=== PATIENT | female | born 1995 | race Caucasian/White ===

== ENCOUNTER 2023-05-06 13:02 | Outpatient (OUT) | payer OTHER, SELFPAY ==
--- NOTE | 2023-05-06 13:05 | US_ITS ---
The [address] [address] Patient Name: ALYSON COOK MRN: [id number] date: 1995 Sex: F Assigned Patient Location: US Current Patient Location: LAB Accession/Order Number: [id number] Exam Date: 05/06/2023 13:05 Report Date: 05/06/2023 16:07 At the request of: JAYDEN FORMAN Procedure: US OB transvaginal EXAMINATION: US OB transvaginal HISTORY: MISSED MENSES COMPARISON: No relevant comparison available. FINDINGS: GESTATIONAL SAC: Present YOLK SAC: Present POLE: Possibly present and very early. CARDIAC: Not applicable UTERUS: Normal size and appearance. OVARIES: Right: Normal. Left: Not seen. CERVIX: 4.6 cm in length and closed. CUL-DE-SAC: Normal. OTHER: None. AGE BY LMP: 9 weeks 2 days MARIANA BY LMP: 12/07/2023 AGE BY US CRL: Suspect 6 weeks 0 days MARIANA BY US CRL: 12/30/2023 US/US OB transvaginal IMPRESSION: 1. Suspect early intrauterine . Blighted ovum is felt less likely. Follow-up recommended. Electronically authenticated by: PAULY KEARNS Date: 05/06/2023 16:07
== END 2023-05-06 13:03 | disposition home or self-care (01) ==
LOC: US 13:02
PROVIDERS: Visit Provider Obstetrics & Gynecology
DX: N92.6 Irregular menstruation, unspecified (principal)
CPT/HCPCS: 36415; 76817; 84702

== ENCOUNTER 2023-05-06 13:51 | Outpatient (OUT) | payer OTHER, SELFPAY ==
[2023-05-06 15:00] LABS: HCG Quantitative 62313 mIU/mL
== END 2023-05-06 13:52 | disposition home or self-care (01) ==
LOC: LAB 13:54
PROVIDERS: PCP Family Medicine; Visit Provider Obstetrics & Gynecology
DX: N92.6 Irregular menstruation, unspecified (principal)
CPT/HCPCS: 36415; 84702

== ENCOUNTER 2023-05-13 08:57 | Outpatient (OUT) | payer OTHER, SELFPAY ==
--- NOTE | 2023-05-13 09:04 | US_ITS ---
The [address] [address] Patient Name: ALYSON COOK MRN: [id number] date: 1995 Sex: F Assigned Patient Location: US Current Patient Location: LAB Accession/Order Number: [id number] Exam Date: 05/13/2023 09:04 Report Date: 05/13/2023 11:43 At the request of: JAYDEN JORDAN Procedure: US OB transvaginal EXAMINATION: US OB transvaginal HISTORY: VIABILITY COMPARISON: Ultrasound OB transvaginal 05/06/2023 FINDINGS: GESTATIONAL SAC: Present YOLK SAC: Present POLE: Absent CARDIAC: Not applicable UTERUS: Normal size and appearance. OVARIES: Right: Normal. Left: Normal. CERVIX: 4.0 cm in length and closed. CUL-DE-SAC: Normal. OTHER: None. AGE BY LMP: 10 weeks 2 days MARIANA BY LMP: 12/07/2023 AGE BY US CRL: 7 weeks 2 days MARIANA BY US CRL: 12/28/2023 US/US OB transvaginal IMPRESSION: 1. Intrauterine with no significant growth and no visible pole. Findings favor blighted ovum/ demise. Dr. Jordan was notified of these findings by the group leader at time of imaging. Electronically authenticated by: PAULY KEARNS Date: 05/13/2023 11:43
== END 2023-05-13 08:58 | disposition home or self-care (01) ==
LOC: US 08:57
PROVIDERS: PCP Family Medicine; Visit Provider Obstetrics & Gynecology
DX: O03.9 Complete or unspecified spontaneous abortion without complication (principal)
CPT/HCPCS: 76817

== ENCOUNTER 2023-05-13 10:42 | Outpatient (OUT) | payer OTHER, SELFPAY ==
[2023-05-13 11:05] LABS: Basophils Absolute Auto 0.1 10^3/uL (0.0-0.1); Basophils Percent Auto 0.7 % (0.2-2.0); Eosinophils Absolute Auto 0.2 10^3/uL (0.0-0.7); Eosinophils Percent Auto 2.8 % (0.9-7.0); Hematocrit 36.1 % (36.0-48.0); Hemoglobin 11.8 g/dL (12.0-16.0); Immature Granulocytes Abs Auto 0.01 10^3/uL (0.00-0.03); Immature Granulocytes Pct Auto 0.1 % (0.0-0.5); Lymphocytes Absolute Auto 1.7 10^3/uL (1.2-3.8); Lymphocytes Percent Auto 23.8 % (20.5-60.0); Mean Corpuscular HGB Conc 32.7 g/dL (29.9-35.2); Mean Corpuscular Hemoglobin 29.9 pg (26.7-34.0); Mean Corpuscular Volume 91.6 fL (81.0-99.0); Mean Platelet Volume 10.1 fL (9.5-13.5); Monocytes Absolute Auto 0.4 10^3/uL (0.3-0.8); Monocytes Percent Auto 6.1 % (1.7-12.0); Neutrophils Absolute Auto 4.8 10^3/uL (1.4-6.5); Neutrophils Percent Auto 66.5 % (43.0-75.0); Platelet Count 256 10^3/uL (150-450); Red Blood Count 3.94 10^6/uL (4.20-5.40); Red Cell Distribution Width 13.2 % (11.0-15.0); White Blood Count 7.2 10^3/uL (4.0-11.0)
== END 2023-05-13 10:43 | disposition home or self-care (01) ==
LOC: LAB 10:43
PROVIDERS: PCP Family Medicine; Visit Provider Obstetrics & Gynecology
DX: O03.9 Complete or unspecified spontaneous abortion without complication (principal); N92.6 Irregular menstruation, unspecified
CPT/HCPCS: 36415; 76817; 85025; 86850; 86900; 86901

== ENCOUNTER 2023-05-14 06:09 | Day surgery (SDC) | payer OTHER, SELFPAY ==
[2023-05-14] VITALS (8 sets, daily range): BP systolic 110–134; BP diastolic 71–91; PULSE 60–76; RESP 12–20; TEMP 36.1–36.6; O2SAT 94–100; BMI 42.4
[2023-05-14 06:32] LABS: Basophils Percent Auto 0.5 % (0.2-2.0); Eosinophils Absolute Auto 0.1 10^3/uL (0.0-0.7); Eosinophils Percent Auto 2.5 % (0.9-7.0); Hematocrit 37.1 % (36.0-48.0); Immature Granulocytes Abs Auto 0.02 10^3/uL (0.00-0.03); Immature Granulocytes Pct Auto 0.4 % (0.0-0.5); Lymphocytes Absolute Auto 1.3 10^3/uL (1.2-3.8); Lymphocytes Percent Auto 23.8 % (20.5-60.0); Mean Corpuscular HGB Conc 32.3 g/dL (29.9-35.2); Mean Corpuscular Hemoglobin 29.8 pg (26.7-34.0); Mean Corpuscular Volume 92.1 fL (81.0-99.0); Monocytes Absolute Auto 0.4 10^3/uL (0.3-0.8); Monocytes Percent Auto 6.7 % (1.7-12.0); Neutrophils Absolute Auto 3.7 10^3/uL (1.4-6.5); Neutrophils Percent Auto 66.1 % (43.0-75.0); Platelet Count 249 10^3/uL (150-450); Red Blood Count 4.03 10^6/uL (4.20-5.40); Red Cell Distribution Width 13.4 % (11.0-15.0); White Blood Count 5.6 10^3/uL (4.0-11.0)
[2023-05-14] MEDS: LACTATED RINGER'S SOLUTION 1,000 ML 50 ML IV (06:58)
--- NOTE | 2023-05-14 08:02 | P.ON_ITS ---
Brief Operative Note Date of procedure: 05/14/23 Pre-op diagnosis: missed menses Post-op diagnosis: same as pre-op Procedure: NAME OF PROCEDURE: [D&C suction ] PROCEDURE: The patient was taken back to the OR where she was given general anesthesia without difficulty. She was then placed in dorsal lithotomy position, prepped and draped in the normal sterile fashion. A weighted speculum was placed in the patient's vagina and the anterior lip of the cervix was identified and grasped with a single-tooth tenaculum. The patient was then gently dilated using Hegar dilators after we had sounded roughly to 8 cm. The suction curette was then t ested. The suction curette was then placed in the patient's uterus and products of conception were removed using an 8-Icelandic suction curette. ?Excellent hemostasis was noted. The patient tolerated the procedure well. Sponge, lap, and needle counts were correct x 2. All instruments were then removed from the patient's vagina. The patient was taken to the Recovery Room in stable condition. ?? Anesthesia: EMILYA Surgeon: Jose Luis Jordan Estimated blood loss (mL): 25 Condition: stable Disposition: PACU
--- NOTE | 2023-05-14 08:19 | PC.NURSE ---
Peripad dry; teary eyed
--- NOTE | 2023-05-14 08:23 | PC.NURSE ---
Peripad dry ; heat pack over gown to abdomen
== END 2023-05-14 09:10 | disposition home or self-care (01) ==
PROVIDERS: PCP Family Medicine; Visit Provider Obstetrics & Gynecology
PROC: (CPT 59820; principal; 2023-05-14 07:30)
DX: O02.1 Missed abortion (principal)
CPT/HCPCS: 59820; 36415; 85025; 88305; J2704

== ENCOUNTER 2023-07-19 14:39 | Outpatient (OUT) | payer OTHER, SELFPAY ==
[2023-07-19 15:40] LABS: HCG Quantitative 687 mIU/mL
--- OUTSIDE RECORDS SUMMARY | 2023-08-11 00:12 | XMS_ITS | CCD ---
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 Phone JENS LANDRY Admitting Unavailable JENS LANDRY Attending Unavailable REQUEST, NONE LISTED Primary Care Unavaila JENS Adair Consulting Unavailable PRAVEEN ZELAYA Admitting Unavailable PRAVEEN ZELAYA Attending Unavailable REQUEST, NONE LISTED Primary Care Unavaila PRAVEEN Rubio Consulting Unavailable Shelli Villa Unavailable Medications Current Medications Medication Drug Class(es) Dates Sig (Normalized) Sig (Original) ofloxacin 3 mg/ml ophthalmic solution (1 source) Quinolone Antimicrobial Start: 01-28-2023 take 2 drop(s) into the eye(s) four times daily Ofloxacin 0.3 % 2 drops Ophthalmic to left eye QID for 7 days Jan, Active Problems Active Problems Problem Classification Problem Date Documented Date Episodic/Chronic Immunizations and screening for infectious disease (1 source) Encounter for screening for human papillomavirus (HPV); Translations: [ENC SCREENING HUMAN PAPILLOMAVIRUS] Onset: 11-27-2022 Episodic Inflammation; infection of eye (except that caused by tuberculosis or sexually transmitteddisease) (1 source) Unspecified acute conjunctivitis, left eye Episodic Other screening for suspected conditions (not mental disorders or infectious disease) (4 sources) Encounter for screening for malignant neoplasm of cervix; Translations: [ENC SCREENING MALIG NEOPLASM CERV] Onset: 11-23-2022 Episodic Unclassified (3 sources) CONTACT W/AND (SUSP) EXPOS COVID-19; Translations: [CONTACT W/AND (SUSP) EXPOS COVID-19] Onset: 09-22-2022 Past or Other Problems Problem Classification Problem Date Documented Da te Episodic/Chronic Unclassified (1 source) CONTACT W/AND (SUSP) EXPOS COVID-19; Translations: [CONTACT W/AND (SUSP) EXPOS COVID-19] Onset: 09-21-2022 Results Test Name Value Interpretation Reference Range Facil ity PAP ACOG PANEL 2: 21 to 29on 11-29-2022 . . Normal [facility] Comment on above: Performed By: #### 4 [id number] #### [facility] [address] [place] [address] Dr. Evan Mcintosh Age Gdln ACOG Testing - Normal [facility] Comment on above: Performed By: #### 4 [id number] #### [facility] [address] [address] [address] Evan Mcintosh DIAGNOSIS: Comment Normal [facility] Comment on above: Result Comment: NEGA TIVE FOR INTRAEPITHELIAL LESION OR MALIGNANCY. Performed By: #### 4 [id number] #### [facility] [address] [place] [address] Dr. Evan Mcintosh Methodology: Comment Normal [facility] Comment on above: Result Comment: This liquid based ThinPrep(R) pap test was screened with the use of an image guided system. Performed By: #### 4 [id number] #### [facility] [address] [place] [address] Dr. Evan Mcintosh Note: Comment Normal [facility] Comment on above: Result Comment: The Pap smear is a screening test designed to aid in the detection of premalignant and malignant conditions of the uterine cervix. It is not a diagnostic procedure and should not be used as the sole means of detecting cervical cancer. Both false-positive and false-negative reports do occur. . Performed By: #### 4 [id number] #### [facility] [address] [place] [address] Dr. Evan Mcintosh Performed by: Comment Normal [facility] Comment on above: Result Comment: Fiona Heath, Spring Assembler (ASCP) Performed By: #### 4 [id number] #### [facility] [address] [place] [address] Dr. Evan Mcintosh Reflex Criteria: Comment Normal [place] Comment on above: Result Comment: The HPV DNA reflex criteria were not met with this specimen result therefore, no HPV testing was performed. . Performed By: #### 4 [id number] #### [facility] [address] [address] [address] Evan Mcintosh Specimen adequacy: Comment Normal [facility] Comment on above: Result Comment: Sati sfactory for evaluation. Endocervical and/or squamous metaplastic cells (endocervical component) are present. Performed By: #### 4 [id number] #### [facility] [address] [address] [address] Evan Mcintosh Covid-19 PCR (CVDTB)on 08-25 SARS-CoV-2 (COVID-19) RNA CY+probe Ql (Unsp spec) Not detected Normal NOT DETECTED [facility] Comment on above: Result Comment: When diagnostic testing is negative, the possibility of a false negative should be considered in the context of a patient's recent exposures and the presence of clinical signs and symptoms consistent with SARS-CoV-2. This test is not yet approved or cleared by the [place] FDA. When there are no FDA-approved or cleared tests available, and other criteria are met, FDA can make tests available under an emergency access mechanism called an Emergency Use Authorization (EUA). The EUA for this test is supported by the [employer] Supervisor of Health and Human Service's declaration that circumstances exist to justify the emergency use of in vitro diagnostics for the detection and/or diagnosis of the virus that causes COVID-19. This EUA will remain in effect for the duration of the COVID-19 declaration justifying emergency of IVDs, unless it is terminated or revoked by the FDA (after which the test may no longer be used). Performed By: #### C VDTBH #### [facility] [address] [place] [address] Dr. Evan Mcintosh INFLUENZA A AND B AGon 09-21 INFLUANEGH SEE BELOW Normal [facility] Comment on above: Result Comment: Nega tive for Flu A protein angiten. Infection due to Flu A cannot be ruled out. Flu A angiten in the sample may be below the detection limit of the test. Performed By: #### I NFLUAB #### [facility] [address] [place] [address] Dr. Evan Mcint[facility] SEE BELOW Normal [facility] Comment on above: Result Comment: Nega tive for Flu B protein antigen. Infection due to Flu B cannot be ruled out. Flu B antigen in the sample may be below the detection limit of the test. Performed By: #### I NFLUAB #### [facility] [address] [place] [address] Dr. Evan Mcintosh INFLUENZA A AG Negative Normal NEGATIVE SEE COMMENT [facility] Comment on above: Performed By: #### I NFLUAB #### [facility] [address] [place] [address] Dr. Evan Mcintosh INFLUENZA B AG Negative Normal NEGATIVE SEE COMMENT [facility] Comment on above: Performed By: #### I NFLUAB #### [facility] [address] [place] [address] Dr. Evan Mcintosh Release of Informationon Release of Information [id number] [facility] Nicotine and Metabolite, Drew nt LCon 06-15-2021 Cotinine LC <1.0 Invalid Interpretation [facility] Comment on above: Result Comment: This test was developed and its performance characteristics determined by [facility]. It has not been cleared or approved by the Food and Drug Administration. Cotinine levels greater than 20.0 are consistent with the use of tobacco or tobacco cessation products. Performed At: [address] [id number] Richmond Merino MD Ph:[phone] Performed By: #### 3 [id number], [id number], 06541637, 1143419487, 2982315, [id number] #### [facility] (DEFAULT) [address] [place] [address] Nicotine LC <1.0 Invalid Interpretation [facility] Comment on above: Result Comment: This test was developed and its performance characteristics determined by [facility]. It has not been cleared or approved by the Food and Drug Administration. Nicotine levels greater than 2.0 are consistent with the use of tobacco or tobacco cessation products. Performed By: #### 3 [id number], [id number], 94493822, 0136727496, 1669639, [id number] #### [facility] (DEFAULT) [address] [place] [address] .Auto Diff 1on 06-09-2021 Auto Izard % 6 % Normal 1-12 [facility] Comment on above: Performed By: #### 3 0404370, [id number], 33664973, 5688304714, 3082730, 1140618888 #### [facility] (DEFAULT) [address] [place] [address] Baso Abs# 0.0 x10 Normal 0.0-0.2 [facility] Comment on above: Performed By: #### 3 2972181, 3247346481, 53302301, 5158450972, 0111423, 6664119569 #### [facility] (DEFAULT) [address] [place] [address] Basophils/100 WBC (Bld) 0.1 % Low 0.2-2.0 [facility] Comment on above: Performed By: #### 3 6436700, 9071419417, 51374863, 6240331631, 2826568, 1104989634 #### [facility] (DEFAULT) [address] [place] [address] Eos Abs# 0.2 x10 Normal 0.0-0.4 [facility] [place] [employer] [facility] Comment on above: Performed By: #### 3 7816807, [id number], 82105537, 4950142029, 7705975, 4504373342 #### [facility] (DEFAULT) [address] [place] [address] Eosinophils/100 WBC (Bld) 1.6 % Normal 0.9-4.0 [facility] Comment on above: Performed By: #### 3 3394592, 3578972614, 27493670, 7095977864, 4609787, 4094824670 #### [facility] (DEFAULT) [address] [place] [address] Lymph Abs# 1.5 x10 Normal 1.3-2.9 [facility] Comment on above: Performed By: #### 3 9706823, 9033790792, 34634601, 0245495140, 3508335, 4450950285 #### [facility] (DEFAULT) [address] [place] [address] Lymphocytes/100 WBC (Bld) 15 % Normal 14-48 [facility] Comment on above: Performed By: #### 3 7296187, 1916066147, 25755122, 0417458198, 4397194, 3290983997 #### [facility] (DEFAULT) [address] [place] [address] Izard Abs# 0.6 x10 Normal 0.0-0.8 [facility] Comment on above: Performed By: #### 3 5658417, 1746433936, 91889538, 1628636549, 7948146, 3158778106 #### [facility] (DEFAULT) [address] [place] [address] Neut Abs# 7.8 x10 Normal 1.5-9.2 [facility] Comment on above: Performed By: #### 3 8186686, 1606557797, 64991565, 4824390450, 8463612, 3771375519 #### [facility] (DEFAULT) [address] [place] [address] Neutrophils/100 WBC (Bld) 77 % Normal 44-88 [facility] Comment on above: Performed By: #### 3 9640895, 8575132445, 30517552, 0868509881, 4539549, 6761021937 #### [facility] (DEFAULT) [address] [place] [address] CBC w/ Auto Diffon Erythrocyte distribution wid th (RBC) [Ratio] 14.4 % Normal 11.5-15.0 [facility] Comment on above: Performed By: #### 3 8526229, 9432422379, 31465652, 1599804842, 1284577, 2543797069 #### [facility] (DEFAULT) [address] [place] [address] Hematocrit (Bld) [Volume fraction] 37.3 % Normal 3 3.7-40.4 [facility] Comment on above: Performed By: #### 3 2445577, 8462512112, 24929272, 7386249803, 3114631, 1427860823 #### [facility] (DEFAULT) [address] [place] [address] Hemoglobin (Bld) [Mass/Vol] 12.2 g/dL Normal 11.3-15. 9 [facility] Comment on above: Performed By: #### 3 1814790, 9216984525, 45604242, 8510448477, 7104871, 4515457740 #### [facility] (DEFAULT) [address] [place] [address] Instr WBC 10.1 x10 Invalid Interpretation Code [facility] Comment on above: Performed By: #### 3 1026670, 4164408765, 61767147, 1538597185, 8534576, 1120449600 #### [facility] (DEFAULT) [address] [place] [address] Man Diff? Auto Normal [facility] Comment on above: Performed By: #### 3 3977883, 8996913915, 39623434, 7494728825, 2330003, 7030490100 #### [facility] (DEFAULT) [address] [place] [address] MCH (RBC) [Entitic mass] 29 pg Normal 24-34 [facility] Comment on above: Performed By: #### 3 5962881, 6424556803, 43788462, 2580942916, 4319792, 1737092254 #### [facility] (DEFAULT) [address] [place] [address] MCHC (RBC) [Mass/Vol] 33 g/dL Normal 26-37 [facility] Comment on above: Performed By: #### 3 2574474, 6175777932, 43099959, 1898552065, 9601949, 2591544727 #### [facility] (DEFAULT) [address] [place] [address] MCV (RBC) [Entitic vol] 88 fL Normal 81-100 M [facility] Comment on above: Performed By: #### 3 6246317, 8679706873, 21798824, 0805462147, 5810016, 8077934576 #### [facility] (DEFAULT) [address] [place] [address] Platelet 234 x10 Normal 138-427 [facility] Comment on above: Performed By: #### 3 6641934, 0267259436, 40821054, 8815246131, 5648784, 9368838030 #### [facility] (DEFAULT) [address] [place] [address] Platelet mean volume (Bld) [Entitic vol] 10.8 fL High 6.3-10.2 [facility] Comment on above: Performed By: #### 3 4087246, 8601769800, 79517190, 7773988315, 7178392, 2561901726 #### [facility] (DEFAULT) [address] [place] [address] RBC 4.23 x10 Normal 3.70-5.30 [facility] Comment on above: Performed By: #### 3 5948398, 9313097706, 53997551, 7340426240, 0682313, 5128276714 #### [facility] (DEFAULT) [address] [place] [address] WBC 10.1 x10 Normal 3.5-10.5 [facility] Comment on above: Performed By: #### 3 8777015, 3515136914, 24949558, 6308694297, 9348296, 3479115403 #### [facility] (DEFAULT) [address] [place] [address] CMP Standardon 06-09-2021 eGFR Non AA >60 Invalid Interpretation Code [facility] Comment on above: Performed By: #### 3 2616587, 8320726474, 85417601, 5072054928, 3994069, 8438081758 #### [facility] (DEFAULT) [address] [place] [address] 32406 eGFR AA >60 Invalid Interpretation Code [facility] Comment on above: Result Comment: Software Developer Intern [email or web address] Kidney disease could be indicated at eGFRs of less than 60 ml/min/1.73m2. Kidney Failure is indicated at less than 15 ml/min/1.73m2 Performed By: #### 3 9577114, 4577811769, 24299709, 2605471942, 9189093, 2520274063 #### [facility] (DEFAULT) [address] [place] [address] Albumin [Mass/Vol] 3.1 g/dL Low 3.5-5.0 [facility] Comment on above: Performed By: #### 3 2033416, 3936360311, 37405547, 4898465872, 3782897, 8168520227 #### [facility] (DEFAULT) [address] [place] [address] 15156 Albumin/Globulin [Mass ratio] 1.0 {ratio} Low 1.4-2 .6 [facility] Comment on above: Performed By: #### 3 1843009, 6757938653, 62962770, 6148823113, 5197969, 5794628248 #### [facility] (DEFAULT) [address] [place] [address] 49851 Alk Phos 107 IU/L High 32-91 [facility] Comment on above: Performed By: #### 3 2464697, 1159322170, 83956696, 3606609507, 6790460, 5326271685 #### [facility] (DEFAULT) [address] [place] [address] 28063 ALT [Catalytic activity/Vol] 16.0 U/L Normal 14.0-54 .0 [facility] Comment on above: Performed By: #### 3 1706564, 0363845030, 28147319, 0886773411, 7738551, 7144879110 #### [facility] (DEFAULT) [address] [place] [address] 82008 Anion gap [Moles/Vol] 12.0 mmol/L Normal 5.0-19.0 [facility] Comment on above: Performed By: #### 3 2607361, 0109374857, 91688532, 5769260924, 6085946, 8171389969 #### [facility] (DEFAULT) [address] [place] [address] 09850 AST [Catalytic activity/Vol] 19 U/L Normal 15-41 [facility] Comment on above: Performed By: #### 3 5860812, 4878811271, 65021660, 7778550356, 3866893, 5832844463 #### [facility] (DEFAULT) [address] [place] [address] 96146 Bili Total 0.1 mg/dL Low 0.3-1.2 [facility] [place] [facility] Comment on above: Performed By: #### 3 0716588, 3097753637, 53148092, 2552061242, 7942605, 7427618316 #### [facility] (DEFAULT) [address] [place] [address] 68123 Calcium [Mass/Vol] 8.6 mg/dL Low 8.9-10.3 [facility] Comment on above: Performed By: #### 3 8754722, 9491416672, 72540578, 3204313976, 3690340, 9004522582 #### [facility] (DEFAULT) [address] [place] [address] 13577 Chloride [Moles/Vol] 105 mmol/L Normal 101-111 [facility] Comment on above: Performed By: #### 3 7467496, 8753190832, 75873710, 8543672267, 3296137, 7757804304 #### [facility] (DEFAULT) [address] [place] [address] 52691 CO2 [Moles/Vol] 20 mmol/L Low 21-32 [facility] Comment on above: Performed By: #### 3 0936897, 7193443271, 76494279, 9122397595, 8914073, 6176067692 #### [facility] (DEFAULT) [address] [place] [address] 07448 Creatinine [Mass/Vol] 0.63 mg/dL Normal 0.60-1.30 [facility] Comment on above: Performed By: #### 3 9087517, 8430110183, 37077084, 5398372444, 6920462, 8845455829 #### [facility] (DEFAULT) [address] [place] [address] 84747 Globulin (S) [Mass/Vol] 3.2 g/dL Normal 1.5-4.3 [facility] Comment on above: Performed By: #### 3 3524466, 8890153402, 08782367, 3214614692, 0984730, 6406248614 #### [facility] (DEFAULT) [address] [place] [address] 21926 Glucose [Mass/Vol] 81.0 mg/dL Normal 74.0-118.0 [facility] Comment on above: Performed By: #### 3 6092944, 0230684821, 59708917, 8611187970, 7450779, 8171314924 #### [facility] (DEFAULT) [address] [place] [address] 79576 Osmolality 264 mOsm/L Invalid Interpretation Code [facility] Comment on above: Performed By: #### 3 5714296, 4042273412, 15551894, 6608995798, 0991796, 7609850289 #### [facility] (DEFAULT) [address] [place] [address] 17714 Potassium [Moles/Vol] 4.0 mmol/L Normal 3.6-5.1 [facility] Comment on above: Performed By: #### 3 1545609, 6467184552, 47969935, 3260144218, 4687696, 8109679080 #### [facility] (DEFAULT) [address] [place] [address] 54358 Protein [Mass/Vol] 6.3 g/dL Low 6.5-8.1 [facility] Comment on above: Performed By: #### 3 0359983, 3258158107, 67929582, 7775889584, 9891265, 5300344685 #### [facility] (DEFAULT) [address] [place] [address] Sodium [Moles/Vol] 133.0 mmol/L Low 136.0-144.0 [facility] Comment on above: Performed By: #### 3 2899239, 3429231322, 73112168, 5620072756, 3038967, 2093537645 #### [facility] (DEFAULT) [address] [place] [address] Urea nitrogen [Mass/Vol] 10 mg/dL Normal 8-26 [facility] Comment on above: Performed By: #### 3 8035526, 5852157074, 34149652, 5395523780, 3778230, 0731727714 #### [facility] (DEFAULT) [address] [place] [address] Urea nitrogen/Creatinine [Mass ratio] 16.0 mg/mg Normal 4.6-16.2 [facility] Comment on above: Performed By: #### 3 7370274, 5667743662, 31948079, 9547395017, 0856638, 1256385409 #### [facility] (DEFAULT) [address] [place] [address] HgbA1c Standardon 06-09-2021 .Hb 13.7 Invalid Interpretation Code [facility] Comment on above: Performed By: #### 3 8598646, 6022853124, 70946853, 2315608650, 8766046, 9700543799 #### [facility] (DEFAULT) [address] [place] [address] .Hgb A1c 0.47 g/dL Invalid Interpretation Code [facility] Comment on above: Performed By: #### 3 4695996, 8964177129, 09311114, 9949365123, 2665792, 9061174887 #### [facility] (DEFAULT) [address] [place] [address] Glucose [Mass/Vol] 105 mg/dL Invalid Interpretation Code [facility] Comment on above: Performed By: #### 3 0428995, 6382109424, 80808406, 1084192579, 6626439, 8893354250 #### [facility] (DEFAULT) [address] [place] [address] 07520 HbA1c (Bld) [Mass fraction] 5.3 % Normal 4.6-6.2 [facility] Comment on above: Performed By: #### 3 7587413, 4734042471, 86899783, 1207382553, 3976145, 0937572056 #### [facility] (DEFAULT) [address] [place] [address] 21105 Lipid Panel Standardon 06-09 Cholesterol [Mass/Vol] 269.0 mg/dL High 66.0-200.0 [facility] Comment on above: Result Comment: Ruby rable - Less than 200 mg/dL Borderline high risk - 200-239 mg/dL High risk - 240 mg/dL and over. Performed By: #### 3 0340708, 6746875371, 13197863, 0289244602, 8271039, 8551628979 #### [facility] (DEFAULT) [address] [place] [address] 22319 Cholesterol in HDL [Mass/Vol] 102 mg/dL High 40-71 [facility] Comment on above: Result Comment: High risk - <40 mg/dL. Performed By: #### 3 6817378, 4138300475, 09636666, 7217899694, 7355429, 8317093000 #### [facility] (DEFAULT) [address] [place] [address] 11611 Cholesterol in LDL [Mass/Vol] 142 mg/dL High 1-100 [facility] Comment on above: Result Comment: Opti mal - Less than 100 mg/dL Borderline high risk - 130-159 mg/dL High risk - 160-189 mg/dL. Performed By: #### 3 7364499, 8979969004, 46539487, 3564576932, 0885438, 0413619959 #### [facility] (DEFAULT) [address] [place] [address] 68983 Cholesterol.total/Cholestero l in HDL [Mass ratio] 2.6 {ratio} Normal 0.0-4.5 [facility] Comment on above: Performed By: #### 3 1533336, 5581652113, 30322220, 1244900114, 9921071, 5448849626 #### [facility] (DEFAULT) [address] [place] [address] Triglyceride [Mass/Vol] 120.0 mg/dL Normal 0.0-150.0 [facility] Comment on above: Performed By: #### 3 8331134, 8817106234, 12663850, 6975333572, 0844577, 1014580620 #### [facility] (DEFAULT) [address] [place] [address] VLDL. 24 mg/dL Normal 5-40 [facility] Comment on above: Performed By: #### 3 9858616, 1801450146, 24933008, 3910698345, 6201389, 3226688934 #### [facility] (DEFAULT) [address] [place] [address] Coding Summaryon 04-08-2021 Coding Summary HTMLBase 64 [id number] biAv [file] c2U (more content not included)... Normal [facility] Provider Orderson 04-07-2021 Provider Orders [id number] Normal [facility] .Auto Diff 1on 04-04-2021 Auto Izard % 5 % Normal -12 [facility] Comment on above: Performed By: #### 2 [id number], [id number], [id number] #### [facility] (DEFAULT) [address] [place] [address] 69258 Baso Abs# 0.0 x10 Normal 0.0-0.2 [facility] Comment on above: Performed By: #### 2 [id number], [id number], [id number] #### [facility] (DEFAULT) [address] [place] [address] 44705 Basophils/100 WBC (Bld) 0.1 % Low 0.2-2.0 [facility] Comment on above: Performed By: #### 2 [id number], [id number], [id number] #### [facility] (DEFAULT) [address] [place] [address] 91806 Eos Abs# 0.1 x10 Normal 0.0-0.4 [facility] Comment on above: Performed By: #### 2 [id number], [id number], [id number] #### [facility] (DEFAULT) [address] [place] [address] 23217 Eosinophils/100 WBC (Bld) 2.0 % Normal 0.9-4.0 [facility] Comment on above: Performed By: #### 2 [id number], [id number], [id number] #### [facility] (DEFAULT) [address] [place] [address] 86329 Lymph Abs# 1.2 x10 Low 1.3-2.9 [facility] Comment on above: Performed By: #### 2 [id number], [id number], [id number] #### [facility] (DEFAULT) [address] [place] [address] 25436 Lymphocytes/100 WBC (Bld) 17 % Normal 14-48 [facility] Comment on above: Performed By: #### 2 [id number], [id number], [id number] #### [facility] (DEFAULT) [address] [place] [address] 17993 Izard Abs# 0.3 x10 Normal 0.0-0.8 [facility] Comment on above: Performed By: #### 2 [id number], [id number], [id number] #### [facility] (DEFAULT) [address] [place] [address] 43458 Neut Abs# 5.4 x10 Normal 1.5-9.2 [facility] Comment on above: Performed By: #### 2 [id number], [id number], [id number] #### [facility] (DEFAULT) [address] [place] [address] 42775 Neutrophils/100 WBC (Bld) 76 % Normal 44-88 [facility] Comment on above: Performed By: #### 2 [id number], [id number], [id number] #### [facility] (DEFAULT) [address] [place] [address] CBC w/ Auto Diffon 1 Erythrocyte distribution wid th (RBC) [Ratio] 13.7 % Normal 11.5-15.0 [facility] Comment on above: Performed By: #### 2 [id number], [id number], [id number] #### [facility] (DEFAULT) [address] [place] [address] Hematocrit (Bld) [Volume fraction] 34.4 % Normal 3 3.7-40.4 [facility] Comment on above: Performed By: #### 2 [id number], [id number], 7700984 #### [facility] (DEFAULT) [address] [place] [address] Hemoglobin (Bld) [Mass/Vol] 11.1 g/dL Low 11.3-15. 9 [facility] Comment on above: Performed By: #### 2 [id number], [id number], [id number] #### [facility] (DEFAULT) [address] [place] [address] Instr WBC 7.1 x10 Invalid Interpretation Code [facility] Comment on above: Performed By: #### 2 [id number], [id number], [id number] #### [facility] (DEFAULT) [address] [place] [address] Man Diff? Auto Normal [facility] isabel Comment on above: Performed By: #### 2 [id number], [id number], [id number] #### [facility] (DEFAULT) [address] [place] [address] 03249 MCH (RBC) [Entitic mass] 30 pg Normal 24-34 [facility] Comment on above: Performed By: #### 2 [id number], [id number], 0790209 #### [facility] (DEFAULT) [address] [place] [address] MCHC (RBC) [Mass/Vol] 32 g/dL Normal 26-37 [facility] Comment on above: Performed By: #### 2 [id number], [id number], 7690346 #### [facility] (DEFAULT) [address] [place] [address] 43101 MCV (RBC) [Entitic vol] 92 fL Normal 81-100 [facility] Comment on above: Performed By: #### 2 [id number], [id number], [id number] #### [facility] (DEFAULT) [address] [place] [address] 25068 Platelet 225 x10 Normal 138-427 [facility] Comment on above: Performed By: #### 2 [id number], [id number], [id number] #### [facility] (DEFAULT) [address] [place] [address] 03189 Platelet mean volume (Bld) [Entitic vol] 9.8 fL Normal 6.3-10.2 [facility] Comment on above: Performed By: #### 2 [id number], 71284517, 9276880 #### [facility] (DEFAULT) [address] [place] [address] 97235 RBC 3.73 x10 Normal 3.70-5.30 [facility] Comment on above: Performed By: #### 2 [id number], 93834314, 0719558 #### [facility] (DEFAULT) [address] [place] [address] 12857 WBC 7.1 x10 Normal 3.5-10.5 [facility] Comment on above: Performed By: #### 2 [id number], 08623067, 6383405 #### [facility] (DEFAULT) [address] [place] [address] 23646 O'Aguilar Teston 04-04-2021 Glucose [Mass/Vol] 115 mg/dL Normal <=139 [facility] Comment on above: Performed By: #### 2 [id number], 80491124, 0391930 #### [facility] (DEFAULT) [address] [place] [address] Coding Summaryon 11-29-2020 Coding Summary HTMLBase 64 [id number] biAv [file] c2U (more content not included)... Normal [facility] Provider Orderson 11-28-2020 Provider Orders [id number] Normal [facility] ABORhon 11-27-2020 ABO and Rh group Nom (d) Hx Check: Not Found Anti-A: 0 Anti-B: 0 Anti-D: 4+ DCon: NT A1: 4+ B: 4+ ABORh Interp: O POS Invalid Interpretation Code [facility] Comment on above: Performed By: #### 7 [id number], [id number], [id number] #### [facility] (DEFAULT) [address] [place] [address] ABORh Retypeon 11-27-2020 ABO and Rh group Nom (d) Ordered by Discern. Anti-A: 0 Anti-B: 0 Anti-D: 4+ DCon: NT A1: 4+ B: 4+ ABORh Retype: O POS Invalid Interpretation Code [facility] Comment on above: Performed By: #### 2 [id number], [id number], [id number] #### [facility] (DEFAULT) [address] [place] [address] 95556 hCG Quantitativeon hCG Quantitative 336421.0 mIU/mL High 0.0-0.6 [facility] Comment on above: Result Comment: Resu lt confirmed by dilution Post-Menopausal Reference Range is: 0.1-11.6 mIU/mL Performed By: #### 2 [id number], [id number], [id number] #### [facility] (DEFAULT) [address] [place] [address] Vital Signs Date Time Vital Sign Value Performing Clinician Facility 01-28-2023 16:20-0400 Body height 160.02 cm Shelli Villa Other [facility] 01-28-2023 16:20-0400 Body mass index (BMI) [Ratio] 40.74 kg/m2 Shelli Perezley Other [facility] 01-28-2023 16:20-0400 Body temperature 99.7 [degF] Shelli Perezley Other [facility] Other 01-28-2023 16:20-0400 Body weight 104.33 kg Shelli Perezley Other [facility] Other 01-28-2023 16:20-0400 Respiratory rate 18 /min Shelli Daisy Other [facility] Other 01-28-2023 16:20-0400 SaO2% (BldA) [Mass fraction] 99 % Shelli Daisy Other [facility] Other Encounters Encounter Date Encounter Type Care Provider Facility Start: 01-28-2023 End: 01-28-2023 ambulatory Shelli Daisy Other [facility] Start: 01-28-2023 Office outpatient ne w 20 minutes Shelli Villa [facility] [place] Start: 11-23-2022 End: 11-23-2022 ambulatory JENS ESCALONA . Facility:[facility] Start: 09-21-2022 End: 09-21-2022 ambulatory PRAVEEN ZELAYA Facility:[facility] Payers Date Payer Category Payer Unknown [id number] 1995 Unknown [id number] 1995 Unknown [id number] 1960 Unknown [id number] Social History Date Type Detail Facility Unknown if ever smoked [facility] Other Sex Assigned At Sex Assigned At Bir th [facility] Other Evaluation note 01-28-2023 Note Date & Type Note Facility 01-28-2023 Evaluation note Encounter Date Diagnosis Assessment Notes Jan, Acute bacterial conjunctivitis of left eye (ICD-10 - H10.32) Exam consistent with bacterial conjunctivitis. Will treat with ofloxacin drops. Finish entire course. Discussed contagious nature of illness, good handwashing encouraged, avoid touching eyes. Discussed less contagious after 24 hours on antibiotic eyedrops. Follow-up with PCP or eye doctor if not gradually improving over the next 3 to 4 days, sooner if significantly worsening. Patient verbalized understanding of treatment plan. [facility] Other History general Narrative - Reported Note Date & Type Note Facility History general Narrative - Reported Type Surgical History sinus surgery x2 [facility] Other Summary Purpose Family History No Family History Records FoundNo Family History Records Found Advance Directives No Advanced Directives Records FoundNo Advanced Directives Records Found Additional Source Comments INFORMATION SOURCE (unrecogn ized section and content) DATE CREATED AUTHOR 11/03/2021 [facility] DATE CREATED AUTHOR AUTHOR'S ORGANIZ ATION 12/12/2022 [facility] REASON FOR VISIT (unrecogniz ed section and content) POSSIBLE PINK EYE FOR RECORDS PERTAINING TO PATIENTS WHO ARE OR HAVE BEEN ENROLLED IN A CHEMICAL DEPENDENCY/SUBSTANCEABUSE PROGRAM, SOME INFORMATION MAY BE OMITTED. This clinical summary was aggregated from multiple sources. Caution should be exercised in using it in the provision of clinical care. This summary normalizes information from multiple sources, and as a consequence, information in this document may materially change the coding, format and clinical context of patient data. In addition, data may be omitted in some cases. CLINICAL DECISIONS SHOULD BE BASED ON THE PRIMARY CLINICAL RECORDS. [employer] provides no warranty or guarantee of the accuracy or completeness of information in this document.
== END 2023-07-19 14:40 | disposition home or self-care (01) ==
LOC: LAB 14:40
PROVIDERS: PCP Family Medicine; Visit Provider Obstetrics & Gynecology
DX: N92.6 Irregular menstruation, unspecified (principal)
CPT/HCPCS: 36415; 84702

== ENCOUNTER 2023-07-21 14:47 | Outpatient (OUT) | payer OTHER, SELFPAY ==
[2023-07-21 15:44] LABS: HCG Quantitative 1941 mIU/mL
== END 2023-07-21 14:48 | disposition home or self-care (01) ==
LOC: LAB 14:47
PROVIDERS: PCP Family Medicine; Visit Provider Obstetrics & Gynecology
DX: N92.6 Irregular menstruation, unspecified (principal)
CPT/HCPCS: 36415; 84702

== ENCOUNTER 2023-08-13 09:00 | Outpatient (OUT) | payer OTHER, SELFPAY ==
--- NOTE | 2023-08-13 09:02 | US_ITS ---
[address] [address] Patient Name: ALYSON COOK MRN: [id number] date: 1995 Sex: F Assigned Patient Location: Current Patient Location: Accession/Order Number: [id number] Exam Date: 08/13/2023 09:03 Report Date: 08/14/2023 00:30 At the request of: JAYDEN FORMAN Procedure: US OB transvaginal EXAMINATION: US OB transvaginal HISTORY: MISSED MENSES COMPARISON: No relevant comparison available. FINDINGS: GESTATIONAL SAC: Present and normal appearing. YOLK SAC: Present and normal appearing. POLE: Present and normal appearing. CARDIAC: Present. UTERUS: Normal size and appearance. OVARIES: Right: Normal. Left: Corpus lutein cyst. CERVIX: 4.2 cm in length and closed. CUL-DE-SAC: Normal. OTHER: None. AGE BY LMP: 8 weeks 0 days MARIANA BY LMP: 03/24/2024 AGE BY US CRL: 8 weeks 0 days MARIANA BY US CRL: 03/24/2024 US/US OB transvaginal IMPRESSION: 1. Single live intrauterine . Electronically authenticated by: PAULY KEARNS Date: 08/14/2023 00:30
--- OUTSIDE RECORDS SUMMARY | 2023-08-13 09:06 | XMS_ITS | CCD ---
Author Name Unknown Address [address] [facility] [address] [place] [address] Organization [facility] Care Team Providers Care Tissue Technician Name Role Phone JENS LANDRY Admitting Unavailable [...] Results Test Name Value Interpretation Reference Range Facility PAP ACOG PANEL 2: 21 to 29on 11-29-2022 . . Normal [facility] Comment on above: Performed By: #### 4 [id number] #### [facility] [address] [place] [address] Dr. Evan Mcintosh Age Gdln ACOG Testing 21-29 Normal [facility] Comment on above: Performed By: #### 4 [id number] #### [facility] [address] [address] [address] Evan Mcintosh DIAGNOSIS: Comment [facility] Comment on above: Result Comment: NEGA TIVE FOR INTRAEPITHELIAL LESION OR MALIGNANCY. Performed By: #### 4 [id number] #### [facility] [address] [place] [address] Dr. Evan Mcintosh Methodology: Comment [facility] Comment on above: Result Comment: This liquid based ThinPrep(R) pap test was screened with the use of an image guided system. Performed By: #### 4 [id number] #### [facility] [address] [place] [address] Dr. Evan Mcintosh Note: Comment [facility] Comment on above: Result Comment: The Pap smear is a screening test designed to aid in the detection of premalignant and malignant conditions of the uterine cervix. It is not a diagnostic procedure and should not be used as the sole means of detecting cervical cancer. Both false-positive and false-negative reports do occur. . Performed By: #### 4 [id number] #### [facility] [address] [place] [address] Dr. Evan Mcintosh Performed by: Comment Normal [facility] Comment on above: Result Comment: Fiona Heath, Application Systems Administrator (ASCP) Performed By: #### 4 [id number] #### [facility] [address] [place] [address] Dr. Evan Mcintosh Reflex Criteria: Comment [facility] Comment on above: Result Comment: The HPV DNA reflex criteria were not met with this specimen result therefore, no HPV testing was performed. . Performed By: #### 4 [id number] #### [facility] [address] [place] [address] Dr. Evan Mcintosh Specimen adequacy: Comment Normal [facility] Comment on above: Result Comment: Sati sfactory for evaluation. Endocervical and/or squamous metaplastic cells (endocervical component) are present. Performed By: #### 4 [id number] #### [facility] [address] [address] [address] Evan Mcintosh Covid-19 PCR (CVDTB)on 08-25 SARS-CoV-2 (COVID-19) RNA CY+probe Ql (Unsp spec) Not detected Normal NOT DETECTED [facility] Comment on above: Result Comment: When diagnostic [...] for this test is supported by the Aeronautical Drafter of Health and Human Service's declaration that [...] used). Performed By: #### C VDTBH #### [facility] [address] [place] [address] Dr. Evan Mcintosh INFLUENZA A AND B AGon 09-21 INFLUANEGH SEE BELOW Normal [facility] Comment on above: Result Comment: Nega tive for Flu A protein angiten. Infection due to Flu A cannot be ruled out. Flu A angiten in the sample may be below the detection limit of the test. Performed By: #### I NFLUAB #### [facility] [address] [place] [address] Dr. Evan Mcintosh INFLUBNEGH SEE BELOW Normal [facility] Comment on above: Result Comment: Nega tive for Flu B protein antigen. Infection due to Flu B cannot be ruled out. Flu B antigen in the sample may be below the detection limit of the test. Performed By: #### I NFLUAB #### [facility] [address] [place] [address] Dr. Evan Mcintosh INFLUENZA A AG Negative Normal NEGATIVE SEE COMMENT [facility] Comment on above: Performed By: #### I NFLUAB #### [facility] [address] [place] [address] Dr. Evan Mcintosh INFLUENZA B AG Negative Normal NEGATIVE SEE COMMENT [facility] Comment on above: Performed By: #### I NFLUAB #### [facility] [address] [place] [address] Dr. Evan Mcintosh Release of Informationon Release of Information [id number] .[id number] Normal [facility] Nicotine and Metabolite, Drew nt LCon 06-15-2021 Cotinine LC <1.0 Invalid Interpretation [facility] Comment on above: Result Comment: This test was developed and its performance characteristics determined by [facility]. It has not been cleared or approved by the Food and Drug Administration. Cotinine levels greater than 20.0 are consistent with the use of tobacco or tobacco cessation products. Performed At: [address] [id number] Richmond Merino MD Ph:[phone] Performed By: #### 3 [id number], [id number], 42732277, 0407898185, 2559529, 3065231182 #### [facility] (DEFAULT) [address] [place] [address] Nicotine LC <1.0 Invalid Interpretation [facility] Comment on above: Result Comment: This test was developed and its performance characteristics determined by [facility]. It has not been cleared or approved by the Food and Drug Administration. Nicotine levels greater than 2.0 are consistent with the use of tobacco or tobacco cessation products. Performed By: #### 3 [id number], [id number], 58031159, 8255373856, 4109317, 2965789949 #### [facility] (DEFAULT) [address] [place] [address] .Auto Diff 1on - Auto Todd % 6 % Normal 1-12 [facility] Comment on above: Performed By: #### 3 7161514, [id number], 84165309, 5810624723, 1327468, [id number] #### [facility] (DEFAULT) [address] [place] [address] Baso Abs# 0.0 x10 Normal 0.0-0.2 [facility] Comment on above: Performed By: #### 3 5087761, 2202953347, 73576460, 1272451754, 9196991, 6876132044 #### [facility] (DEFAULT) [address] [place] [address] Basophils/100 WBC (Bld) 0.1 % Low 0.2-2.0 [facility] Comment on above: Performed By: #### 3 1363784, 6940616457, 09491444, 4087455656, 3650509, 2570311012 #### [facility] (DEFAULT) [address] [place] [address] Eos Abs# 0.2 x10 Normal 0.0-0.4 [facility] Comment on above: Performed By: #### 3 4599436, 3446907210, 86420918, 3857456162, 0321802, 8305789109 #### [facility] (DEFAULT) [address] [place] [address] Eosinophils/100 WBC (Bld) 1.6 % Normal 0.9-4.0 [facility] Comment on above: Performed By: #### 3 8698139, 4506167167, 82105522, 0291513998, 6409340, 2134053491 #### [facility] (DEFAULT) [address] [place] [address] Lymph Abs# 1.5 x10 Normal 1.3-2.9 [facility] Comment on above: Performed By: #### 3 9272081, 9484905107, 01491999, 8167583105, 5075818, 7738616751 #### [facility] (DEFAULT) [address] [place] [address] Lymphocytes/100 WBC (Bld) 15 % Normal 14-48 [facility] Comment on above: Performed By: #### 3 1825976, 2825907313, 38711217, 2318480392, 0507769, 0114934237 #### [facility] (DEFAULT) [address] [place] [address] Todd Abs# 0.6 x10 Normal 0.0-0.8 [facility] Comment on above: Performed By: #### 3 1659448, 4458463324, 48409550, 2837067926, 8807119, 7197915523 #### [facility] (DEFAULT) [address] [place] [address] Neut Abs# 7.8 x10 Normal 1.5-9.2 [facility] Comment on above: Performed By: #### 3 2358280, 8842272127, 03729259, 3099713854, 2828114, 9553458351 #### [facility] (DEFAULT) [address] [place] [address] Neutrophils/100 WBC (Bld) 77 % Normal 44-88 [facility] Comment on above: Performed By: #### 3 7321612, 0709500796, 96758694, 8548402321, 8017642, 4353985204 #### [facility] (DEFAULT) [address] [place] [address] CBC w/ Auto Diffon Erythrocyte distribution width (RBC) [Ratio] 14.4 % Normal 11.5-15.0 [facility] Comment on above: Performed By: #### 3 6757550, 3256036151, 56645234, 7803290773, 3690504, 6004468202 #### [facility] (DEFAULT) [address] [place] [address] Hematocrit (Bld) [Volume fraction] 37.3 % Normal 33.7-40.4 [facility] Comment on above: Performed By: #### 3 4382505, 1603500818, 95013370, 1865552784, 3345461, 2095345272 #### [facility] (DEFAULT) [address] [place] [address] Hemoglobin (Bld) [Mass/Vol] 12.2 g/dL Normal 11.3-15.9 [facility] Comment on above: Performed By: #### 3 7525502, 7685219023, 57428932, 0557505136, 8307868, 8212160215 #### [facility] (DEFAULT) [address] [place] [address] Instr WBC 10.1 x10 Invalid Interpretation Code [facility] Comment on above: Performed By: #### 3 3966975, 6332114188, 75467221, 5335489461, 9305307, 4540241293 #### [facility] (DEFAULT) [address] [place] [address] Man Diff? Auto Normal [facility] Comment on above: Performed By: #### 3 2128941, 3526654672, 49487255, 9589969414, 9777139, 3090916000 #### [facility] (DEFAULT) [address] [place] [address] MCH (RBC) [Entitic mass] 29 pg Normal 24-34 [facility] Comment on above: Performed By: #### 3 0245882, 1772914807, 24157217, 1755570108, 0706985, 2485895230 #### [facility] (DEFAULT) [address] [place] [address] MCHC (RBC) [Mass/Vol] 33 g/dL Normal 26-37 [facility] Comment on above: Performed By: #### 3 2189568, 7237965263, 50195430, 5220734529, 3471144, 0781256951 #### [facility] (DEFAULT) [address] [place] [address] MCV (RBC) [Entitic vol] 88 fL Normal 81-100 [facility] Comment on above: Performed By: #### 3 5079906, 5071820144, 96966453, 5893908620, 5424439, 6176386020 #### [facility] (DEFAULT) [address] [place] [address] Platelet 234 x10 Normal 138-427 [facility] Comment on above: Performed By: #### 3 9315093, 1971733946, 43032186, 6223156293, 9989062, 6093704246 #### [facility] (DEFAULT) [address] [place] [address] Platelet mean volume (Bld) [Entitic vol] 10.8 fL High 6.3-10.2 [facility] Comment on above: Performed By: #### 3 7007213, 7220160691, 42356133, 8263601104, 5286058, 4423225224 #### [facility] (DEFAULT) [address] [place] [address] RBC 4.23 x10 Normal 3.70-5.30 [facility] Comment on above: Performed By: #### 3 6035655, 2129391920, 49502280, 2727984122, 1891918, 4404870509 #### [facility] (DEFAULT) [address] [place] [address] WBC 10.1 x10 Normal 3.5-10.5 [facility] Comment on above: Performed By: #### 3 1081362, 9509823272, 70350332, 8755852724, 7569338, 5887293899 #### [facility] (DEFAULT) [address] [place] [address] CMP Standardon 06-09-2021 eGFR Non AA >60 Invalid Interpretation Code [facility] Comment on above: Performed By: #### 3 5646787, 7276101202, 27301172, 2622977169, 5047082, 9984531378 #### [facility] (DEFAULT) [address] [place] [address] eGFR AA >60 Invalid Interpretation Code [facility] Comment on above: Result Comment: Visual Merchandising Associate kulwinder Kidney disease could be indicated at eGFRs of less than 60 ml/min/1.73m2. Kidney Failure is indicated at less than 15 ml/min/1.73m2 Performed By: #### 3 1005464, 4635329821, 39961773, 1308386067, 5537152, 8228958358 #### [facility] (DEFAULT) [address] [place] [address] Albumin [Mass/Vol] 3.1 g/dL Low 3.5-5.0 [facility] Comment on above: Performed By: #### 3 0961064, 8097944204, 10023550, 0145561452, 4067529, 2301724227 #### [facility] (DEFAULT) [address] [place] [address] Albumin/Globulin [Mass ratio] 1.0 {ratio} Low 1.4-2.6 [facility] Comment on above: Performed By: #### 3 6167838, 7146865768, 36419322, 4176600089, 7671275, 5137524556 #### [facility] (DEFAULT) [address] [place] [address] Alk Phos 107 IU/L High 32-91 [facility] Comment on above: Performed By: #### 3 4649363, 2610576625, 42227774, 7069207105, 3212540, 0471285587 #### [facility] (DEFAULT) [address] [place] [address]2969 ALT [Catalytic activity/Vol] 16.0 U/L Normal 14.0-54.0 [facility] Comment on above: Performed By: #### 3 1835021, 1902589649, 91489444, 5204856557, 8332785, 3981839612 #### [facility] (DEFAULT) [address] [place] [address]8260 Anion gap [Moles/Vol] 12.0 mmol/L Normal 5.0-19.0 [facility] Comment on above: Performed By: #### 3 9765888, 9815566458, 29301133, 5521749723, 0805548, 4224486547 #### [facility] (DEFAULT) [address] [place] [address] 93858 AST [Catalytic activity/Vol] 19 U/L Normal 15-41 [facility] Comment on above: Performed By: #### 3 4795521, 6712645536, 10131784, 8467202487, 4171474, 9669317715 #### [facility] (DEFAULT) [address] [place] [address] Bili Total 0.1 mg/dL Low 0.3-1.2 [facility] Comment on above: Performed By: #### 3 3243975, 6464144432, 05878701, 2940737024, 7290390, 0649569832 #### [facility] (DEFAULT) [address] [place] [address]772 Calcium [Mass/Vol] 8.6 mg/dL Low 8.9-10.3 [facility] Comment on above: Performed By: #### 3 2904427, 6108516121, 13391898, 9421811191, 0026686, 9677279742 #### [facility] (DEFAULT) [address] [place] [address] 84753 Chloride [Moles/Vol] 105 mmol/L Normal 101-111 [facility] Comment on above: Performed By: #### 3 2892900, 6503428330, 93790732, 7880208720, 2917079, 9361496247 #### [facility] (DEFAULT) [address] [place] [address] 70876 CO2 [Moles/Vol] 20 mmol/L Low 21-32 [facility] Comment on above: Performed By: #### 3 7608259, 4418924942, 49745489, 1110458154, 5852567, 0876098035 #### [facility] (DEFAULT) [address] [place] [address] 88867 Creatinine [Mass/Vol] 0.63 mg/dL Normal 0.60-1.30 [facility] Comment on above: Performed By: #### 3 3079654, 4615525284, 65679357, 0037914599, 9637752, 3224377684 #### [facility] (DEFAULT) [address] [place] [address] 35784 Globulin (S) [Mass/Vol] 3.2 g/dL Normal 1.5-4.3 [facility] Comment on above: Performed By: #### 3 4911702, 8440279224, 38505797, 5614376407, 9362014, 0743374548 #### [facility] (DEFAULT) [address] [place] [address] 62996 Glucose [Mass/Vol] 81.0 mg/dL Normal 74.0-118.0 [facility] Comment on above: Performed By: #### 3 8682255, 1018878438, 03028817, 8896289855, 4285960, 3795577016 #### [facility] (DEFAULT) [address] [place] [address] 84426 Osmolality 264 mOsm/L Invalid Interpretation Code [facility] Comment on above: Performed By: #### 3 3771553, 8335484971, 20267363, 6354096774, 3027025, 1092253183 #### [facility] (DEFAULT) [address] [place] [address] 49152 Potassium [Moles/Vol] 4.0 mmol/L Normal 3.6-5.1 [facility] Comment on above: Performed By: #### 3 5943894, 5304907511, 78700636, 6283563281, 6984892, 8699117965 #### [facility] (DEFAULT) [address] [place] [address] 63207 Protein [Mass/Vol] 6.3 g/dL Low 6.5-8.1 [facility] Comment on above: Performed By: #### 3 3097915, 4578058612, 75450784, 6479747739, 0238678, 0854492660 #### [facility] (DEFAULT) [address] [place] [address] 04964 Sodium [Moles/Vol] 133.0 mmol/L Low 136.0-144.0 [facility] Comment on above: Performed By: #### 3 9703095, 7886360975, 66403100, 5214812782, 5911985, 5120847101 #### [facility] (DEFAULT) [address] [place] [address] Urea nitrogen [Mass/Vol] 10 mg/dL Normal 8-26 [facility] Comment on above: Performed By: #### 3 6569965, 5578323893, 45254155, 2040684937, 3109883, 0659618602 #### [facility] (DEFAULT) [address] [place] [address] Urea nitrogen/Creatinine [Mass ratio] 16.0 mg/mg Normal 4.6-16.2 [facility] Comment on above: Performed By: #### 3 8221705, 7336497924, 56719151, 2924337784, 0107831, 1585377993 #### [facility] (DEFAULT) [address] [place] [address] HgbA1c Standardon 06-09-2021 .Hb 13.7 Invalid Interpretation Code [facility] Comment on above: Performed By: #### 3 7030880, 7501283785, 19178509, 1112108821, 2121053, 5573104998 #### [facility] (DEFAULT) [address] [place] [address] .Hgb A1c 0.47 g/dL Invalid Interpretation Code [facility] Comment on above: Performed By: #### 3 5244973, 9031723003, 66969517, 5730979429, 3621508, 9987830706 #### [facility] (DEFAULT) [address] [place] [address] Glucose [Mass/Vol] 105 mg/dL Invalid Interpretation Code [facility] Comment on above: Performed By: #### 3 1211349, 2928556214, 68495384, 7288373031, 8466420, 0790724848 #### [facility] (DEFAULT) [address] [place] [address] HbA1c (Bld) [Mass fraction] 5.3 % Normal 4.6-6.2 [facility] Comment on above: Performed By: #### 3 5144305, 2520828325, 74080393, 7689474912, 9623308, 4482387076 #### [facility] (DEFAULT) [address] [place] [address] 59973 Lipid Panel Standardon 06-09 Cholesterol [Mass/Vol] 269.0 mg/dL High 66.0-200.0 [facility] Comment on above: Result Comment: Ruby rable - Less than 200 mg/dL Borderline high risk - 200-239 mg/dL High risk - 240 mg/dL and over. Performed By: #### 3 4767743, 7816064824, 89147827, 3742618969, 8262722, 7358751746 #### [facility] (DEFAULT) [address] [place] [address] 59913 Cholesterol in HDL [Mass/Vol] 102 mg/dL High 40-71 [facility] Comment on above: Result Comment: High risk - <40 mg/dL. Performed By: #### 3 5165338, 6352474364, 04182633, 2412064491, 1374358, 6348239482 #### [facility] (DEFAULT) [address] [place] [address] 82750 Cholesterol in LDL [Mass/Vol] 142 mg/dL High 1-100 [facility] Comment on above: Result Comment: Opti mal - Less than 100 mg/dL Borderline high risk - 130-159 mg/dL High risk - 160-189 mg/dL. Performed By: #### 3 5437514, 3131637964, 31588518, 7295031231, 5190090, 3298395020 #### [facility] (DEFAULT) [address] [place] [address] 36997 Cholesterol.total/C holesterol in HDL [Mass ratio] 2.6 {ratio} Normal 0.0-4.5 [facility] Comment on above: Performed By: #### 3 0553327, 8790176263, 26910900, 3804408393, 1109947, 0072061386 #### [facility] (DEFAULT) [address] [place] [address] Triglyceride [Mass/Vol] 120.0 mg/dL Normal 0.0-150.0 [facility] Comment on above: Performed By: #### 3 1872927, 2540398579, 06782295, 7854948752, 1048116, 7526981396 #### [facility] (DEFAULT) [address] [place] [address] 67000 VLDL. 24 mg/dL Normal 5-40 [facility] Comment on above: Performed By: #### 3 3170482, 1830526882, 42560681, 7131001484, 7857381, 3370413435 #### [facility] (DEFAULT) [address] [place] [address] 47892 Coding Summaryon 04-08-2021 Coding Summary HTMLBase 64 RjjwtombLCw6xDc+PGhlY WQ+BT1FAWJqP13vrRDviS 9XN1uUZD1PAGAUJINUWQ0 LVJ2inAU8XWtuT2YjchNx HzrggZCdDJ75PYn4IUF4l ScnWOufzA6ijNTyK4b8Tr PoSA57wM05EXxqMCGwEqE 3LjZpbjsgbWFy C9lgUsGtcZWzHux+PHRhY mxlIHdpZHRoPScxMDAlJy QauPenIN1gOo2qFVUkFVZ vbGxhcHNlOiBj x3imWMWyPRjvNH1wgNocU 3WzoCE5XLJbh4y7Vx29dQ I+PKJvJJV7oNgiONrpi68 1OsAmi6szXTS1 nZKmLYasOHT9N81dl7G8O KYeYMZeRWF2dFE6vQ3gwF clvnlvX4ZjwVDuMlP0FUG 4cTAaoB7glXpd ksgwfK2yTqv+V25FIQ0XY XTHWX6JOok6V5LiYopjuN I+ZK13IQHiEP60xETndHF ve1wpoAw9ShIw YLNsTMW6yCihGExmh6CwB RKiU84fnDQyt1R7CWCauE fvjXOlZoWrrLS8sO1wFIb onxnws2jzrzkv Itsxq7rawq84dI60R34mR XszZCDxOKQ3FHXmRFOlmM kmug4fhE6cZp7+EDbfq7m ce9xabXs4PqKu NIEpwpLbiHiaWCO3z1OuV i35J5PyuBgsi1AsBkm6ws 97lPGbo8U4zNS9AMyrRBY dzC6tRIesEcM4 RHNtJpUlrA77sHEiYZrxD t4pcGzhtLxaYL5xNLIksw xlUJFbzC5aRVRilDHrmSi kGY4gEEYmdluq a269VyFoBKU0JZPjlUNuQ 6LhoJ9dJmUfNABgZXZwP8 FzcFUhMOgrC752WQbgUrX 7MPUxqoYlY7Jn FXNkwDthEsR0o0W1Vq8Bs 0RyhcdkLAR6GMigXTV8Kt W0VtTgLxD2X0NzCnm2YWZ atErkGL7xG8Or DNKfqafymdogwAP3TPVsM RIieD47zOQbODxjHp6ji2 X9y536GSUeGDDkjR49Yt2 udDogMTBwdCBU jO3dhnifj8jfwbfpUfEeF ZWhFHt1HHr9LQEtsLlfUl BeJPI6DxW5XQT1lNZekF0 vqPsojbdmcP8n Oyc+K79cvC0pJPG6HUR5b gkfSMBdpbHpGK31TS57E4 RyPjwvdGFibGU+PGRpdiB kwKxoCD7bSvIb r0zpw1KvEKvxI7IfPHKjQ YqkPog2KHNiWTV4wJD0iB 0cFGErJUipg6E8yXH7E8X mmkGjem6bj7yr FXUzYGdtV60zqUTrm3D3Q ATatRB1RRQgbKjhWpJwvG 93Oyc+JQKidRoup6UsSiv he0nlc3ynvAz5 FjLpLFGcmvUcpOqeTPX7q 0WnBe64O44sJTivIFCzIB DvEUNgGLOglCxpuw7hnJ2 wIi8+PGNvbCB3 nKZ2yM2vNKAiJtI6UAvmS 026TyNfqJXzKzjfz6uwo9 vpeWq9EsMeQFDfmoQjwRt mWME4h1IgWv27 C46eQRzyDNRwQNOcBBCmT ENqjLqrlp1zdI5bTk4+PC 8eq0zzpf63hY12kRW+PHR oDNC7iWojIMdf WACqoY6mYRcfXiN2HVCcB zVzhK64qYWqMAeyAf5msT suaEfhCS0jVRNvooelj04 0WfZvy9qxQSOh nGVjCAmjDLE2Q33wg2U9A DYeVBNyMJZ0aUZ3cZ2ftO lnbjogbGVmdDsgdmVydGl aETzdVEavI059 IHRvcDsnPlBhdGllbnQgT dGnAFb7S0AvJxk2ZNUoeW fgLI8jgVElWCvnOq8zfPv qlBnxYN6lZUFs cwhus837IxFks2lqTBIoe FCyKHubYJQ2K33sb5L7DB KrRWJlVNA6dHI3tF0qaAv nbjogbGVmdDsg vxPcmQgnOPeuGBxnC802Z HRvcDsnPkJpcnRoIERhdG H8NT13AI00oUVxz7R5vSO 0X9IgTLRdllgj vhctbIW7MBVeARZmpI74L b2duRllPn5nWDXlWXJ6QJ LohPDqL5QtqH9pXdBuEEW aPEPgZ5EqgYNy PLqpU977MZphVzL4ZJZrd cCsL9EzWNStiUfgHcL4d9 B4Dr3JX5H1JX13XX99qIP my8M1qPC8V4Bf XQWaryhlqewchNF2PPPkN BCblV92Kp6zpLuaGd4fIR JnQEC0JDPiiTGuQ8ZodQ8 yOiAjMDAwMDAw G9BniTBjCFxsG108MDrsD hZ9KLIicbDtD7YgTOChiL mwRcZ5m6N8Dg1PXBf5XR4 4ZH64nIPqp4Z0 eQY6E6VeILElvntmwpzrw FQ9XDRmEHZnuB40Lr8cjG muJy4kXHHuVRC0RLQozJH fV6FqwG1jQzBn NTLxYFAyA9LirBIoAJqfL 554OCvsIuW0TYUtbvJlD2 VlKAWorMajYhO5z3F0Db3 OBDSoSU33BPJ3 rRV2KW12WS44L6PjVrzci GFibGU+PHRhYmxlIHdpZH RoPScxMDAlJyBzdHlsZT0 aGh4sQVGzDWZi pJhrwVLrEaSpa6rpMPJwD QtkXW7soFjpA8HxiNO5NT Rgt7q1Fc80O12nW9EagKF +JVBvsHL7eZJ3 qN2vHsCsUyU4NLshV179G dHbcMLrGptfe1mhh6puuY g1CnC9ODHkqqHrpAzyMHU 6h4JwNy69Q22z IHdpZHRoPSIxNSUiIHZhb Zuctn9huA6yUq9+PGNvbC H1gAN8tA7dOzMtBlA5MKe oC962ZlJosTCs Fkhms9kzg5cyfSs1FnSeO KYijdXszVeoLOW6l1LsBr 28V0QawYjbp0ZwTyl8og3 7mSXjx5R2jJB1 O1MlTVYsuahxxGKnpLihW L6iAGNxqkwmKXSplK9sVO RfT4l6NxMfKjR6JYpdR1G bpjA7NRFwpOGl USniDBI8X24ot0J7UUAwE ETcXLJ1xSQ2cV5fgMbjve ogbGVmdDsgdmVydGljYWw dOGvbR182RCUk gYbdZUWxxH4eENMfbMJwp JmdDL7bDVWpjzzfTc3AIP PUMGANIXHFBH1BJPZHECk ZFBH8Z8RcXcu2 BSUjvSmvRO6xxAHyGAbvQ r5zpJgstEpkCK6nPVUiea egOZCcvN7cWERstIKesYp gMJ6nOQWbycnz j627XxThFMQ5ZNNpnSQjS 5AhmC2cLoPwUJDwEIIqG4 VykCXaKOgqY476CSuaTxX 3UGLeciCoF4Xc TPJrqIkhUhU7y0L1La6uZ S1mJV6aOSk7CD47QF91kY Ali1N0vMV6M4DiXZRwdko owkxkhFI6MAMi QLEatW23fIKdNPmbCv6cs 4C9a286PTSlMWPrdP99Ag 3joPdzDNNpdERVdV3svdd iu3cosgkuUsVy SGIbKVo4KSl0XGQbrFztA vJhCQJ9DvY1ACH4qTPsgX 2piApefdyxdC1cLel+MjY cEKGmzoD1X4Ac Emq2GXXtlQriQM4haXDfS XniEm7zxGhunNicXM0zUH UkoxmzTWBwnT9qTZLmkYQ maSqoNF6nPINs qxqif121TnFtKPK9LPKat ZXlA8DukH4eWlQmQSZvSF DzQ0NneAEpFPzpJ171FOy hGiZ1USOdteWu N6DfXWDhqRwxQfD1n4R0O u2WDR1ATHM7J5RiTnw2DT AhtTptWT3vuEWjRFjlWm1 siJacvNnbKN4z OEBrbfhbYMXjvO8aBXFli BNoxHxgQZ0lVVFvlsiqk0 71RiVnMIS8DJJquDOqG2J ocT2rSyAdBLWn DGDfI4PszSTpYJkaT759M IjbBxY5ERJvisKyB0LbGF AniYkgRnA0e2U7Dc2TYYw vdGQ+OG09wh51 C6SjWfhhLka0CPBxJSP0a RN7tJ9sGQTbSNkzs4O7kY F7R0MvsaWuyf1jm8vmJTS jOCziB29uqIIa f1G8JYRsbQU0UGBvoIrsO oLkgF32Pbk+PGNvbGdyb3 PqGlfit8fhm4oyuTh7GhH wJSIgdmFsaWdu KFT9t8DlGu99G13qRQbfV HRoPSIzMCUiIHZhbGlnbj 0pnB5jZt2+YLBkvXZ4bQJ 5rY3hBnEpNsG2 YPyuW428BfNuxFKcPffhw 0szl1pjxKl1WgJkCOBrfj LfyJkgXZJ9q9PbDk89Z1M buKhwy4AtLfy2 dh21dEHcw6H4aSC1K6PrZ QJbswbepTIdaJozWC7uLQ WcejamJVDeaV8dKEWxA6w 4KhTwGiE1LDln B5CluoE9UJNvjXItKLNbb JJGiN0ojpfdz3dbvjwoNs HvKHCoXNm8QQi7XPEmqNy fJnBqPSX6QqL5 UOI4vFNlzN1ovBlkaioep G9wOyc+RSh2w8ujrEYqWV 9rlBC5LD56HZ39zGKdm4Q 2yNC7R0FqTKRx olumfbwwfLT1GJPsCWOml C22Ib6biFiiJx8dRFCdFD U4NSBbdZXjD4PnsW3mGbE bTWQgXOHaL6Cq vWJeIAxgV953QTzsGiK1U HCrpgUsL7PqMIOicXhsEd G2o7M4Gk2TTY30SM39DF8 3cACah7V3dZX0 O8UeNOOvfyebutznpEL8B XIoGCIhoR74Mz1bjQhcSw 4hPESlNSC5UZMsyNRfR9K loE8hVhNiQKZj SDBmK1SoaSMdRCqeL575B KsaIxK8VLMijfPeB8WwSE GbdYtcPrF0r2Z6Ix3IPu0 1IC23BN82lAPb z5A2vIC3C8ZcIWFlykjvt kwbhKT5TEHnPMKzjY85Ub 1jyIhsIr2hCQCuIKO8AUJ qsEDoY1PdaR7b ZwTuXDDjGUWjL4ObrVTuY HkcN947APjqAvL5PFIlzi RuQ9FkSUWhpMpmHpP0e4Y 1Bi4ITVrhoss6 V2YzHsgaeMV+YT53HYIlY C80mQMpiWWsf6ybrUn5Ha TmKZZnSOF4yGwsGKaat6I cGKTeY60ynCKt c2U (more content not included)... Normal [facility] Provider Orderson 04-07-2021 Provider Orders [id number] Normal [facility] .Auto Diff 1on 04-04-2021 Auto Todd % 5 % Normal 09-03 [facility] Comment on above: Performed By: #### 2 [id number] #### [facility] (DEFAULT) [address] [place] [address] Baso Abs# 0.0 x10 Normal 0.0-0.2 [facility] Comment on above: Performed By: #### 2 [id number], [id number] #### [facility] (DEFAULT) [address] [place] [address] Basophils/100 WBC (Bld) 0.1 % Low 0.2-2.0 [facility] Comment on above: Performed By: #### 2 [id number], [id number], [id number] #### [facility] (DEFAULT) [address] [place] [address] Eos Abs# 0.1 x10 Normal 0.0-0.4 [facility] Comment on above: Performed By: #### 2 [id number], [id number], [id number] #### [facility] (DEFAULT) [address] [place] [address] Eosinophils/100 WBC (Bld) 2.0 % Normal 0.9-4.0 [facility] Comment on above: Performed By: #### 2 [id number], [id number], [id number] #### [facility] (DEFAULT) [address] [place] [address] Lymph Abs# 1.2 x10 Low 1.3-2.9 [facility] Comment on above: Performed By: #### 2 [id number], [id number] #### [facility] (DEFAULT) [address] [place] [address] Lymphocytes/100 WBC (Bld) 17 % Normal 14-48 [facility] Comment on above: Performed By: #### 2 [id number], [id number], [id number] #### [facility] (DEFAULT) [address] [place] [address] Todd Abs# 0.3 x10 Normal 0.0-0.8 [facility] Comment on above: Performed By: #### 2 [id number], [id number], [id number] #### [facility] (DEFAULT) [address] [place] [address] Neut Abs# 5.4 x10 Normal 1.5-9.2 [facility] Comment on above: Performed By: #### 2 [id number], [id number], [id number] #### [facility] (DEFAULT) [address] [place] [address] Neutrophils/100 WBC (Bld) 76 % Normal 44-88 [facility] Comment on above: Performed By: #### 2 [id number], [id number], [id number] #### [facility] (DEFAULT) [address] [place] [address] CBC w/ Auto Diffon 1 Erythrocyte distribution width (RBC) [Ratio] 13.7 % Normal 11.5-15.0 [facility] Comment on above: Performed By: #### 2 [id number], [id number], [id number] #### [facility] (DEFAULT) [address] [place] [address] Hematocrit (Bld) [Volume fraction] 34.4 % Normal 33.7-40.4 [facility] Comment on above: Performed By: #### 2 [id number], [id number], [id number] #### [facility] (DEFAULT) [address] [place] [address] Hemoglobin (Bld) [Mass/Vol] 11.1 g/dL Low 11.3-15.9 [facility] Comment on above: Performed By: #### 2 [id number], [id number], [id number] #### [facility] (DEFAULT) [address] [place] [address] Instr WBC 7.1 x10 Invalid Interpretation Code [facility] Comment on above: Performed By: #### 2 [id number], [id number], [id number] #### [facility] (DEFAULT) [address] [place] [address] Man Diff? Auto Normal [facility] Comment on above: Performed By: #### 2 [id number], [id number], [id number] #### [facility] (DEFAULT) [address] [place] [address] MCH (RBC) [Entitic mass] 30 pg Normal 24-34 [facility] Comment on above: Performed By: #### 2 [id number], [id number], [id number] #### [facility] (DEFAULT) [address] [place] [address] MCHC (RBC) [Mass/Vol] 32 g/dL Normal 26-37 [facility] Comment on above: Performed By: #### 2 [id number], [id number], [id number] #### [facility] (DEFAULT) [address] [place] [address] MCV (RBC) [Entitic vol] 92 fL Normal 81-100 [facility] Comment on above: Performed By: #### 2 [id number], [id number], [id number] #### [facility] (DEFAULT) [address] [place] [address] Platelet 225 x10 Normal 138-427 [facility] Comment on above: Performed By: #### 2 [id number], [id number], [id number] #### [facility] (DEFAULT) [address] [place] [address] Platelet mean volume (Bld) [Entitic vol] 9.8 fL Normal 6.3-10.2 [facility] Comment on above: Performed By: #### 2 [id number], [id number], [id number] #### [facility] (DEFAULT) [address] [place] [address] RBC 3.73 x10 Normal 3.70-5.30 [facility] Comment on above: Performed By: #### 2 [id number], [id number], [id number] #### [facility] (DEFAULT) [address] [place] [address] WBC 7.1 x10 Normal 3.5-10.5 [facility] Comment on above: Performed By: #### 2 [id number], [id number], [id number] #### [facility] (DEFAULT) [address] [place] [address] O'Aguilar Teston 04-04-2021 Glucose [Mass/Vol] 115 mg/dL Normal <=139 [facility] Comment on above: Performed By: #### 2 [id number], [id number], [id number] #### [facility] (DEFAULT) [address] [place] [address] Coding Summaryon 11-29-2020 Coding Summary [employer]Base 64 QqrmblvvGEv2eEv+PGhlY WQ+IL5ASSWlH41ozRJssJ 3JV9zEMB8DZGASIEKGIO0 LNO3giGU6CNamY8HfvsDg MnwlfLQsYX64RAx3KII6x VtvZMsvsS4hrEGxA3l1Nd HoHI57fQ67CGjmYWUoZsF 3LjZpbjsgbWFy T4jxBhGduBKbQwa+PHRhY mxlIHdpZHRoPScxMDAlJy OoyUyyTK5dAe4cUUGgLGR vbGxhcHNlOiBj b6klKTGkPFesCD9buLtfJ 9JxcZF1JOUug1l1Xq74cW I+EPEvRVN9oNcsKJzfn53 0SmMca2rpLUO1 cLDgISwxTBA6N72ly4W2Y CHfQHAvFSW2dQO2wS7xiM clwkzlN4VwiCSqOhV0YYA 9cDVnoW5qmHbf ywqxlF4qQrq+Z08NII0HQ XGYEK6XKvm9G4JcUphncA I+WD78CRUyBL45lFFmbHZ ct8bbtYv6PtTh DIZoFMB0sOzdIOyfb2MtQ LFdL42mmNGzi8F4XJNmfZ bnsFYeVaLghNR3gV0uUNu kloolt2klkzyf Vlnad5wazj19zU10L68oB SjzHHScDUG7PCFqKFAhgP yujl0rbT6uLq1+GWqem4b jb5gvbXo8LtWk RSZmlrWxcTqiIFE3z9XgG s65G5UkxIect9DaJfe5wy 56pNMtx0N0iFL7LGhrFNE vrS5hBJudStX5 BHNmNlVqfG83pDOlEFjzW o4jeMrtqOtoEI7hFIHuub ovMZKbiP4xUXTdaKXgsOb oRA3nPYCyhykt m567AtJsPPT7HFKgtXRaY 1QmwX6aBqDyEIYuBFBdM6 XayDXhGYjiN297URbzKmB 0XZOrbtKrE0Md UJJvyDuiGcA0c2L4Mj4Pv 1PazymaCWU5UAhxKPY3Yo F2GfQrUzI4W2QkTaz8VEI agQqsJR7fH0Sq PSMkumjcexfcyAQ3OIRpF TVfkL98eHJsAPmjFy1kg1 C4f425KAVjMXEnqX35Cn9 udDogMTBwdCBU sZ4pxdnlr0rajewvHyUpA RXiXJi7JDj0CEMcbIefAy WbTLF7ClE4RCH7vKVspO6 gvVyeftcffO8i Oyc+C69tyA7rKMD8QAC8z ulnXYGyquUbDR82LZ30T9 RyPjwvdGFibGU+PGRpdiB xbOxgJI2jPsLg n9prg0VxXKtaH1LzFXWeP AclBze7SMGuTNG0sKJ5jJ 8wENEaSZeei3F9wNS1A3E xojWyqp6df2gi VXEzJYokC83btCMvw3Z5Z NMdmFE5JASggWviYhWjcZ 93Oyc+PWZsdMvop6ShHyc nq7sfk0yxsFi3 VwGaYCDknlVwxWnwSRY3y 3LhVl46M72gCHxmRRScUX CmMHBpRPIkeJpuqk7zkK9 wIi8+PGNvbCB3 iAD9zT9mNUKsYgA0ZHbcG 947IaSbiZYeLmdfp5bmq4 uzaAo0HjXdLBCuctNhaIq xCAW3w0ZrVg86 L74eAHfvFDAhJNBhFNZbG RFijOpmjq3khY4uCh1+PC 9lv5kfpt62fI32pJB+PHR wHJQ8oUqgLSfu BSNkeH7cRPxtQsG7YRGsS fXmzH07cEMvMIcuVv4qdS iwySwyRT5tNPPyjoodn91 7OjJju6xgMYCj sXQwASezWKZ7T57zs2I2F QHkWHIqHRZ3fTZ2eO2sdC lnbjogbGVmdDsgdmVydGl hNKtjQIyoX095 IHRvcDsnPlBhdGllbnQgT nEuKXh9K3QtKto8IHWfeW ohWN6yuWDaEIfqAj4lsPx riRisXB9dNOZj zearv986EwEnw5uyVCSiz XRxMZdvEMI5G47so7D6JO UmOUMgWTW3iSK8zW1vbZf nbjogbGVmdDsg niFyqEvqGDhqDCxdZ687T HRvcDsnPkJpcnRoIERhdG E8FT73RI21qUXav5U8vJM 5K5WeVRAdfazi zzrhjVM0GVHfSTQsnR04N a5koVysNi0tJRPkXYD3QX TieETvF6AcgU9eElGyMCY jAOOeU4WiyXTq PPulL949JUziGkB6LWIhj rAtR0AzPEBrgVunEfV2q4 E0Kn9ME7V3NE56MK79tFS vy5S5oCZ0Q9Dt FSPijgfozmyyfWG7WOBqJ XAqiL19Ik2voZhdOx5yMF OgJWW7PHFejZCkU6OtvO8 yOiAjMDAwMDAw U5SxvJNtCQvtI242RPzoB hX8CWWpwzOeP7MiZYVmiN sdIjJ0y8B8Al4DDSm5SU7 8IW15fQWss3T1 kLO9F3MxQZOurrvkzfhto QK5MSKjRHHjnP06Uv6jfS jjJn8aZMSnDKG1QCFilVE tX3YelJ2lJjVb YCBwNKZoR1KhsJOxKPqpQ 308WZipLqU3ICFopeUmF4 ImMJEumHoxMrJ6x6T3Im9 PJUXfJM10YMT7 iUC1QO08QT79D5ApOhyde GFibGU+PHRhYmxlIHdpZH RoPScxMDAlJyBzdHlsZT0 qZj6dNQBxAQFb sGifkJQhGmHlc8kzIFLkW NglTR6frOqeT8HovWM7BS Uoo6d1Au04P37fC5HyoAT +ICHtgFU8eSW3 yT3yBzGhWcT5IJftE562D rXlxHOdLyeyt2zmz0mjkO i1JrX1HUIcfgJsvEwaWII 7w9GrZy85O20g IHdpZHRoPSIxNSUiIHZhb Ixnav3lcS8fUm9+PGNvbC B5uDI9kQ6gMwJySxO2RHs tU384HsQuoBKo Dache1fdz0wiuVx9TeAbL PKoxyWjpEgpQTO1h9YgOt 50Q0PfeEkyd4LwGmb4bo0 0sLWjx8L1uXA4 U6TxPJYtwjatgQNryKrgD K9fNEScetgyMGAcrW9aEX KmB0j2JyZzDkE8VNctY2Y razZ0KZKomCJh ABmoRLJ8L38uz1L0QDVrS JQqHBR7uLL9xG7rkHoimi ogbGVmdDsgdmVydGljYWw lVLrxE077TOJp aVwlJRYpcY7qBDLsnNBsm MivGF8jACDyeymwJg9PFE PSSVZDDBMMYR7AKECBIWp AGQC7H6GsKpp0 ODMazLhzGN0xlGDyUJcsB n2uqCqhmMtpEV9xKVFecl cjEGHqwQ4lVIEovFCvmFf jQZ0fVBZuueyv o914CcXcVNV8QSEhaHEhU 9VkoD5sEvHwYBIlADXgU8 EyiTWqFWhtK081MXvdFaW 6DAZlykFtB3Hr VCCugFsvCyO0n9T4Mq5nZ J4ySH6nLJy6YO23YJ10gS Yku1B3eLE4Q8ZpUWYwkte rxjgqnPV3BMPj RFYudN48mBXqDAjzJu8im 7R9c241CGIlCKPtyA56Jt 2zbVudSIScxZZViB5azhf cm6fpzkulWoMc JGRxGCp7ISw7IQJtgQueX yCeMAY7CdQ8IAS2nVPdjA 5wuZznntisqN8oNov+MjY aOSLfuyU4D8Vc Ohe0LCFilNlfNH3piGMbW RfxNn8bhTneuFnwTJ1xSK JctqmdMFDpeK5cKKUibWZ avHekZL1bMCDm xzgwb586SoYoFBR3FTHsh SNsH4NzfW2vRrDwQVCfEU KgR2GtdUZqUPkuZ840UQe nEwC2FVPkzuWl M0RgOSMoiCfyMpK1g5R3W t7KWO2CAHQ8G2StWmc2UX RflVukZQ8wyHNxTImgYr9 faPfwfKdpWH4x KFPkfselZGJqsL7lMCDfy CJlfJmnAP5eNFCtzzhlm9 96AjHmLDT9MWXhuNVjK4X czW6lIzNiNWSy HTFvK0LdrGUqETcsK452B MbkHhN0MOMvcuHzV5PkQA SblFimEiG4v2R6Wc6QEWe vdGQ+OQ98bt98 U4XeEzinRik4AMBxJXO6l EJ0oZ0fISPdCWbtk3F7hF Z4H3MmmoNgto0la8rtBSB bRJiqH94icZOo p0Q3NKFryCV2TNDwvGqjX yLrcT03Dwm+PGNvbGdyb3 DoYhzgs0fxg2inlKx4RaD wJSIgdmFsaWdu NYP5q5NmHm01W38rDDkxQ HRoPSIzMCUiIHZhbGlnbj 3xuQ4fQr2+XVOgvGC3rAI 3yF0tTqWaDoA1 BDedY078EeBecKEjMmviu 8ysd6mieHd9PiVhHUJeyi XkpFzwWGP3i7VdYx20K9T pxYkmo4LnTue3 ar33cJIek8V9mSD3V3MtH HRybklzvLNzqWcoIF1eOM NpuydmBGYytZ8pNWStQ4j 5VeXcWeI5KAbq V9OccpP6EROxbEXtXWIcc WJEnI5ndvrac6tnpvvwFc AaSPJsOFm6JNl6LEEukJq hNoSzMIJ9RfF0 UQO3fQWqoQ4cnCtxneduy G9wOyc+LSc6b2bweFXoIU 2prAS7SZ14XT55pRYsw0R 4qTK4A6NcMPOo mukqytaxuKR6SPTnXGPwb G25Og7auAyoQx8yESJqMI D9MNNgoWErV2GurE2pQwH hIXYkXVGmN8Dd iTAuHRnhK365ONqrYvM8G LTdutLnI2ApGCFyuLkuTd C9e5T0Vp7MGM29IK15HX3 4uRQor3B5fHW4 D0FzQLOfjntcljrcvWF2V TVfBZAfzC71Ph8rlVzoFo 8gZBUpUHW3VQBzrZDsK5R lrI6hCpVhJNAj FLHaO1MhpXNqCDcdF979G SkpPrG7TILpabGhL1HeXA GnoOuvSqU8c1V2Ol9MDw3 2WM63PO00tSLy p5Y4oBW1P6IePWLtnkoju dtoyHR9FSJdRVXhoZ23Fk 4ovNotLc3hSBQoKBU1YPT hpBZfD3FqdW9h UgBwXRTbDTKgP5ZiyRPoC ZsuP383OZopYxO7NNQgei IxS6OaSNAijMbuIxQ3a1C 8Ka7QYAtzumv0 D3OoJelphTB+BX45NBMfD W46cBWgrIBlm1uaxYj1Au CpHEBcQRW0sAerBUmve7X fCLOkG89mgDIu c2U (more content not included)... [facility] Provider Orderson 11-28-2020 Provider Orders [id number] Normal [facility] ABORhon 11-27-2020 ABO and Rh group Nom ([facility]) Hx Check: Not Found Anti-A: 0 Anti-B: 0 Anti-D: 4+ DCon: NT A1: 4+ B: 4+ ABORh Interp: O POS Invalid Interpretation Code [facility] Comment on above: Performed By: #### 7 [id number] #### [facility] (DEFAULT) [address] [place] [address] ABORh Retypeon 11-27-2020 ABO and Rh group Nom ([facility]) Ordered by Discern. Anti-A: 0 Anti-B: 0 Anti-D: 4+ DCon: NT A1: 4+ B: 4+ ABORh Retype: O POS Invalid Interpretation Code [facility] Comment on above: Performed By: #### 2 [id number], [id number], [id number] #### [facility] (DEFAULT) [address] [place] [address]87[address] hCG Quantitativeon 1 hCG Quantitative 605855.0 mIU/mL High 0.0-0.6 [facility] Comment on above: Result Comment: Resu lt confirmed by dilution Post-Menopausal Reference Range is: 0.1-11.6 mIU/mL Performed By: #### 2 [id number], [id number] #### [facility] (DEFAULT) [address] [place] [address] Vital Signs Date Time Vital Sign Value Performing Clinician Facility 01-28-2023 16:20-0400 Body height 160.02 cm Shelli Villa Other [facility] Other 01-28-2023 16:20-0400 Body mass index (BMI) [Ratio] 40.74 kg/m2 Shelli Villa Other [facility] Other 01-28-2023 16:20-0400 Body temperature 99.7 [degF] Shelli Villa Other [facility] Other 01-28-2023 16:20-0400 Body weight 104.33 kg Shelli Perezley Other [facility] Other 01-28-2023 16:20-0400 Respiratory rate 18 /min Shelli Perezley Other [facility] Other 01-28-2023 16:20-0400 SaO2% (BldA) [Mass fraction] 99 % Shelli Perezley Other [facility] Other Encounters Encounter Date Encounter Type Care Provider Facility Start: 01-28-2023 End: 01-28-2023 ambulatory Shelli Daisy Other [facility] Other Start: 01-28-2023 Office outpatient ne w 20 minutes Shelli Villa [facility] [place] Start: 11-23-2022 End: 11-23-2022 ambulatory JENS GIBBSEY . Facility: Start: 09-21-2022 End: 09-21-2022 ambulatory PRAVEEN ZELAYA Facility:[facility]1 Payers Date Payer Category Payer Unknown [id number] 1995 Unknown [id number] [id number] 1995 Unknown [id number] [id number] 1960 Unknown [id number] Social History Date Type Detail Facility Unknown if ever smoked [facility] Other Sex Assigned At Sex Assigned At Bir th [facility] Other Evaluation note 01-28-2023 Note Date & [...] worsening. Patient verbalized understanding of treatment plan. [facility] Other History general Narrative - Reported Note Date & Type Note Facility History general Narrative - Reported Type Surgical History sinus surgery x2 [facility] Other Summary Purpose Family History No Family History Records FoundNo Family History Records Found Advance Directives No Advanced Directives Records FoundNo Advanced Directives Records Found Additional Source Comments INFORMATION SOURCE (unrecogn ized section and content) DATE CREATED AUTHOR 11/03/2021 [facility] DATE CREATED AUTHOR AUTHOR'S ORGANIZ ATION 12/12/2022 [facility] REASON FOR VISIT (unrecogniz ed [...] BE BASED ON THE PRIMARY CLINICAL RECORDS. [employer] provides no warranty or guarantee of the accuracy or completeness of information in this document.
== END 2023-08-13 09:01 | disposition home or self-care (01) ==
LOC: US 09:00
PROVIDERS: PCP Family Medicine; Visit Provider Obstetrics & Gynecology
DX: Z34.91 Encounter for supervision of normal pregnancy, unspecified, first trimester (principal); Z3A.08 8 weeks gestation of pregnancy; N92.6 Irregular menstruation, unspecified
CPT/HCPCS: 76817

== ENCOUNTER 2023-08-27 07:26 | Outpatient (OUT) | payer OTHER, SELFPAY ==
--- OUTSIDE RECORDS SUMMARY | 2023-08-27 07:30 | XMS_ITS | CCD ---
Author Name Unknown Address [address] [place] [address] Organization [facility] Care Team Providers Care Audio Visual Engineer Name Role Phone JENS LANDRY Admitting Unavailable JENS LANDRY Attending Unavailable REQUEST, NONE LISTED Primary Care UnavailJNES [place] Consulting Unavailable PRAVEEN ZELAYA Admitting Unavailable PRAVEEN [...] 20 to 29on 11-29-2022 . . Normal [facility] Comment on above: Performed By: #### 4 [id number] #### [facility] [address] [place] [address] Dr. Evan Mcintosh Age Gdln ACOG Testing - Normal [facility] Comment on above: Performed By: #### 4 [id number] #### [facility] [address] [place] [address] Dr. Evan Mcintosh DIAGNOSIS: Comment [facility] Comment on above: Result Comment: NEGA TIVE FOR INTRAEPITHELIAL LESION OR MALIGNANCY. Performed By: #### 4 [id number] #### [facility] [address] [place] [address] Dr. Evan Mcintosh Methodology: Comment [facility] Comment on above: Result Comment: This liquid based ThinPrep(R) pap test was screened with the use of an image guided system. Performed By: #### 4 [id number] #### [facility] [address] [place] [address] Dr. Evan Mcintosh Note: Comment [facility] Comment on above: Result Comment: The Pap smear is a screening test designed to aid in the detection of premalignant and malignant conditions of the uterine cervix. It is not a diagnostic procedure and should not be used as the sole means of detecting cervical cancer. Both false-positive and false-negative reports do occur. . Performed By: #### 4 [id number] #### [facility] [address] [place] [address] Dr. Evan Mcintosh Performed by: Comment [facility] Comment on above: Result Comment: Fiona Heath, Lingo Cleaner (ASCP) Performed By: #### 4 [id number] #### [facility] [address] [place] [address] Dr. Evan Mcintosh Reflex Criteria: Comment [facility] Comment on above: Result Comment: The HPV DNA reflex criteria were not met with this specimen result therefore, no HPV testing was performed. . Performed By: #### 4 [id number] #### [facility] [address] [place] [address] Dr. Evan Mcintosh Specimen adequacy: Comment Normal [facility] Comment on above: Result Comment: Sati sfactory for evaluation. Endocervical and/or squamous metaplastic cells (endocervical component) are present. Performed By: #### 4 [id number] #### [facility] [address] [place] [address] Dr. Evan Mcintosh Covid-19 PCR (CVDTB)on 08-25 SARS-CoV-2 (COVID-19) RNA CY+probe Ql (Unsp spec) Not detected Normal NOT DETECTED [facility] Comment on above: Result Comment: When diagnostic [...] for this test is supported by the Fuse Assembler of Health and Human Service's declaration that [...] used). Performed By: #### C VDTBH #### [facility] [address] [place] [address] Dr. Evan Mcintosh INFLUENZA A AND B AGon 09-21 INFLUANEGH SEE BELOW Normal [facility] Comment on above: Result Comment: Nega tive for Flu A protein angiten. Infection due to Flu A cannot be ruled out. Flu A angiten in the sample may be below the detection limit of the test. Performed By: #### I NFLUAB #### [facility] [address] [place] [address] Dr. [facility] Comment on above: Result Comment: Nega tive for Flu B protein antigen. Infection due to Flu B cannot be ruled out. Flu B antigen in the sample may be below the detection limit of the test. Performed By: #### I NFLUAB #### [facility] [address] [place] [address] Dr. Evan Mcintosh INFLUENZA A AG Negative Normal NEGATIVE SEE COMMENT [facility] Comment on above: Performed By: #### I NFLUAB #### [facility] [address] [place] [address] Dr. Evan Mcintosh INFLUENZA B AG Negative Normal NEGATIVE SEE COMMENT [facility] Comment on above: Performed By: #### I NFLUAB #### [facility] [address] [place] [address] Dr. Evan Mcintosh Release of Informationon Release of Information [id number] .[id number] [facility] Nicotine and Metabolite, Drew nt LCon 06-15-2021 Cotinine LC <1.0 Invalid Interpretation [facility] Comment on above: Result Comment: This test was developed and its performance characteristics determined by [facility]. It has not been cleared or approved by the Food and Drug Administration. Cotinine levels greater than 20.0 are consistent with the use of tobacco or tobacco cessation products. Performed At: [address] [id number] Richmond Merino MD Ph:[phone] Performed By: #### 3 [id number], [id number], 45479705, 2312778383, 5049695, [id number] #### [facility] (DEFAULT) [address] [place] [address] Nicotine LC <1.0 Invalid Interpretation [facility] Comment on above: Result Comment: This test was developed and its performance characteristics determined by [facility]. It has not been cleared or approved by the Food and Drug Administration. Nicotine levels greater than 2.0 are consistent with the use of tobacco or tobacco cessation products. Performed By: #### 3 3945484, [id number], 22328978, 6813918254, 9269239, [id number] #### [facility] (DEFAULT) [address] [place] [address] .Auto Diff 106-09-[address] [place] % 6 % Normal -12 [facility] Comment on above: Performed By: #### 3 2351122, [id number], 10528061, 3545458558, 3331185, 6532044914 #### [facility] (DEFAULT) [address] [place] [address] Baso Abs# 0.0 x10 Normal 0.0-0.2 [facility] Comment on above: Performed By: #### 3 4630301, 0117814746, 58541775, 6237122667, 0691247, 2634530125 #### [facility] (DEFAULT) [address] [place] [address] Basophils/100 WBC (Bld) 0.1 % Low 0.2-2.0 [facility] Comment on above: Performed By: #### 3 2705878, 9006762389, 44292636, 7164172971, 0771785, 3300168389 #### [facility] (DEFAULT) [address] [place] [address] Eos Abs# 0.2 x10 Normal 0.0-0.4 [facility] Comment on above: Performed By: #### 3 4074239, 2687033359, 31856334, 2546370087, 3765579, 4722211716 #### [facility] (DEFAULT) [address] [place] [address] Eosinophils/100 WBC (Bld) 1.6 % Normal 0.9-4.0 [facility] Comment on above: Performed By: #### 3 1383829, 1707596021, 14024552, 5162839147, 7206625, 0138276408 #### [facility] (DEFAULT) [address] [place] [address] Lymph Abs# 1.5 x10 Normal 1.3-2.9 [facility] Comment on above: Performed By: #### 3 7468313, 5718967155, 44813071, 0841031307, 9690821, 9887249326 #### [facility] (DEFAULT) [address] [place] [address] Lymphocytes/100 WBC (Bld) 15 % Normal 14-48 [facility] Comment on above: Performed By: #### 3 8193336, 3524110140, 70112826, 3446640321, 1227155, 8150786859 #### [facility] (DEFAULT) [address] [place] [address] [place] Abs# 0.6 x10 Normal 0.0-0.8 [facility] Comment on above: Performed By: #### 3 7051851, 7274956948, 17554005, 3762516140, 7100205, 9493809096 #### [facility] (DEFAULT) [address] [place] [address] Neut Abs# 7.8 x10 Normal 1.5-9.2 [facility] Comment on above: Performed By: #### 3 1640469, 1821454029, 18280236, 1822222626, 5630488, 0866509480 #### [facility] (DEFAULT) [address] [place] [address] Neutrophils/100 WBC (Bld) 77 % Normal 44-88 [facility] Comment on above: Performed By: #### 3 3592818, 7314601685, 48676472, 1573689846, 2987273, 6152209978 #### [facility] (DEFAULT) [address] [place] [address] CBC w/ Auto Diffon 1 Erythrocyte distribution width (RBC) [Ratio] 14.4 % Normal 11.5-15.0 [facility] Comment on above: Performed By: #### 3 3232393, 6987805960, 09941116, 9205552174, 7465439, 4058653240 #### [facility] (DEFAULT) [address] [place], [place] [address] Hematocrit (Bld) [Volume fraction] 37.3 % Normal 33.7-40.4 [facility] Comment on above: Performed By: #### 3 4168347, 1389081500, 52008493, 2566771270, 0002681, 5274445452 #### [facility] (DEFAULT) [address] [place] [address] Hemoglobin (Bld) [Mass/Vol] 12.2 g/dL Normal 11.3-15.9 [facility] Comment on above: Performed By: #### 3 2239067, 5007712058, 38577234, 4959141838, 7116987, 2433886775 #### [facility] (DEFAULT) [address] [place] [address] Instr WBC 10.1 x10 Invalid Interpretation Code [facility] Comment on above: Performed By: #### 3 2668660, 4387270086, 68033502, 7589386324, 5553487, 9132483110 #### [facility] (DEFAULT) [address] [place] [address] Man Diff? Auto Normal [facility] Comment on above: Performed By: #### 3 5496199, 8793090652, 28824340, 9863867370, 7517009, 8847098714 #### [facility] (DEFAULT) [address] [place] [address] MCH (RBC) [Entitic mass] 29 pg Normal 24-34 [facility] Comment on above: Performed By: #### 3 1180208, 6848649037, 67189903, 6824433540, 7847023, 0163414106 #### [facility] (DEFAULT) [address] [place] [address] MCHC (RBC) [Mass/Vol] 33 g/dL Normal 26-37 [facility] Comment on above: Performed By: #### 3 8826264, 4711875625, 71878776, 1942710198, 9742239, 6420822012 #### [facility] (DEFAULT) [address] [place] [address] MCV (RBC) [Entitic vol] 88 fL Normal 81-100 [facility] Comment on above: Performed By: #### 3 6109517, 2741777886, 72705522, 2914453235, 0721992, 2911074422 #### [facility] (DEFAULT) [address] [place] [address] Platelet 234 x10 Normal 138-427 [facility] Comment on above: Performed By: #### 3 5341123, 4715747293, 13823706, 1527843228, 3058354, 6047692036 #### [facility] (DEFAULT) [address] [place] [address] Platelet mean volume (Bld) [Entitic vol] 10.8 fL High 6.3-10.2 [facility] Comment on above: Performed By: #### 3 8593808, 9063151012, 01392843, 0891939637, 1748203, 6752911926 #### [facility] (DEFAULT) [address] [place] [address] RBC 4.23 x10 Normal 3.70-5.30 [facility] Comment on above: Performed By: #### 3 2846376, 1544041988, 59290574, 1547059733, 2205661, 5945578832 #### [facility] (DEFAULT) [address] [place] [address] WBC 10.1 x10 Normal 3.5-10.5 [facility] Comment on above: Performed By: #### 3 4644893, 0998878386, 01636761, 2561325874, 3001819, 7241888939 #### [facility] (DEFAULT) [address] [place] [address] CMP Standardon 06-09-2021 eGFR Non AA >60 Invalid Interpretation Code [facility] Comment on above: Performed By: #### 3 9050133, 9606898629, 23926886, 4576279123, 0576495, 0059262701 #### [facility] (DEFAULT) [address] [place] [address] eGFR AA >60 Invalid Interpretation Code [facility] Comment on above: Result Comment: Cemetery Manager kulwinder Kidney disease could be indicated at eGFRs of less than 60 ml/min/1.73m2. Kidney Failure is indicated at less than 15 ml/min/1.73m2 Performed By: #### 3 9167366, 8367008608, 67071902, 2169421342, 6439636, 3282180444 #### [facility] (DEFAULT) [address] [place] [address] Albumin [Mass/Vol] 3.1 g/dL Low 3.5-5.0 [facility] Comment on above: Performed By: #### 3 5391765, 2223386339, 77398191, 8365661893, 6573110, 3962301214 #### [facility] (DEFAULT) [address] [place] [address] Albumin/Globulin [Mass ratio] 1.0 {ratio} Low 1.4-2.6 [facility] Comment on above: Performed By: #### 3 3682204, 9970264458, 33971943, 9634701256, 8443977, 3351531147 #### [facility] (DEFAULT) [address] [place] [address] Alk Phos 107 IU/L High 32-91 [facility] Comment on above: Performed By: #### 3 5888258, 9080787558, 61883230, 2836236185, 3204029, 3348736674 #### [facility] (DEFAULT) [address] [place] [address] ALT [Catalytic activity/Vol] 16.0 U/L Normal 14.0-54.0 [facility] Comment on above: Performed By: #### 3 2505738, 0746202475, 07937176, 3915686795, 0549668, 3358588523 #### [facility] (DEFAULT) [address] [place] [address] Anion gap [Moles/Vol] 12.0 mmol/L Normal 5.0-19.0 [facility] Comment on above: Performed By: #### 3 6087624, 2873808566, 89377507, 0557658264, 6125563, 9237194014 #### [facility] (DEFAULT) [address] [place] [address] AST [Catalytic activity/Vol] 19 U/L Normal 15-41 [facility] Comment on above: Performed By: #### 3 4360567, 0862240570, 25643203, 1699903652, 6525245, 6026798507 #### [facility] (DEFAULT) [address] [place] [address] Bili Total 0.1 mg/dL Low 0.3-1.2 [facility] Comment on above: Performed By: #### 3 7373905, 8301516011, 21396449, 3141448064, 1642100, 2999879158 #### [facility] (DEFAULT) [address] [place] [address] Calcium [Mass/Vol] 8.6 mg/dL Low 8.9-10.3 [facility] Comment on above: Performed By: #### 3 2439227, 3237662004, 80120628, 5514825497, 6082190, 4349360160 #### [facility] (DEFAULT) [address] [place] [address] 67665 Chloride [Moles/Vol] 105 mmol/L Normal 101-111 [facility] Comment on above: Performed By: #### 3 2715343, 0332895724, 65099999, 9431683191, 5549414, 1636744610 #### [facility] (DEFAULT) [address] [place] [address]698 CO2 [Moles/Vol] 20 mmol/L Low 21-32 [facility] Comment on above: Performed By: #### 3 1770197, 5556735027, 75387964, 0571889178, 7096541, 2558648379 #### [facility] (DEFAULT) [address] [place] [address] 48073 Creatinine [Mass/Vol] 0.63 mg/dL Normal 0.60-1.30 [facility] Comment on above: Performed By: #### 3 0383123, 5123644340, 68226784, 3743648957, 5375011, 9214912207 #### [facility] (DEFAULT) [address] [place] [address]2759 Globulin (S) [Mass/Vol] 3.2 g/dL Normal 1.5-4.3 [facility] Comment on above: Performed By: #### 3 2438891, 2633284166, 95121529, 4706367811, 6392122, 7967684343 #### [facility] (DEFAULT) [address] [place] [address]9923 Glucose [Mass/Vol] 81.0 mg/dL Normal 74.0-118.0 [facility] Comment on above: Performed By: #### 3 9358172, 5074191765, 14050275, 9809807910, 8251441, 8943095811 #### [facility] (DEFAULT) [address] [place] [address] 15816 Osmolality 264 mOsm/L Invalid Interpretation Code [facility] Comment on above: Performed By: #### 3 7664889, 9132619952, 99706678, 1732203130, 5132141, 7772790741 #### [facility] (DEFAULT) [address] [place] [address] 69718 Potassium [Moles/Vol] 4.0 mmol/L Normal 3.6-5.1 [facility] Comment on above: Performed By: #### 3 3227680, 0280825343, 46950803, 0775842704, 8535368, 1471197729 #### [facility] (DEFAULT) [address] [place] [address] 46542 Protein [Mass/Vol] 6.3 g/dL Low 6.5-8.1 [facility] Comment on above: Performed By: #### 3 0988868, 7772459710, 51967621, 0942491284, 0814019, 7936340064 #### [facility] (DEFAULT) [address] [place] [address] Sodium [Moles/Vol] 133.0 mmol/L Low 136.0-144.0 [facility] Comment on above: Performed By: #### 3 3747798, 6460635502, 84148068, 2849792397, 9758847, 0053992022 #### [facility] (DEFAULT) [address] [place] [address] Urea nitrogen [Mass/Vol] 10 mg/dL Normal 8-26 [facility] Comment on above: Performed By: #### 3 9129344, 5311083109, 15083799, 7093579410, 2667266, 1987332699 #### [facility] (DEFAULT) [address] [place] [address] Urea nitrogen/Creatinine [Mass ratio] 16.0 mg/mg Normal 4.6-16.2 [facility] Comment on above: Performed By: #### 3 8086467, 8256413998, 00864857, 2468493434, 5412023, 1843811547 #### [facility] (DEFAULT) [address] [place] [address] HgbA1c Standardon 06-09-2021 .Hb 13.7 Invalid Interpretation Code [facility] Comment on above: Performed By: #### 3 8176324, 1508961679, 10505479, 8855973631, 4219534, 3804998487 #### [facility] (DEFAULT) [address] [place] [address] .Hgb A1c 0.47 g/dL Invalid Interpretation Code [facility] Comment on above: Performed By: #### 3 6247478, 3915813797, 76043950, 4125570383, 2764775, 3648936563 #### [facility] (DEFAULT) [address] [place] [address] Glucose [Mass/Vol] 105 mg/dL Invalid Interpretation Code [facility] Comment on above: Performed By: #### 3 5725501, 5367819763, 32061282, 4585014833, 0592823, 2098186978 #### [facility] (DEFAULT) [address] [place] [address] 26530 HbA1c (Bld) [Mass fraction] 5.3 % Normal 4.6-6.2 [facility] Comment on above: Performed By: #### 3 1658127, 3904184891, 52469853, 5122729439, 1884030, 5747485229 #### [facility] (DEFAULT) [address] [place] [address] 42822 Lipid Panel Standardon 06-09 Cholesterol [Mass/Vol] 269.0 mg/dL High 66.0-200.0 [facility] Comment on above: Result Comment: Ruby rable - Less than 200 mg/dL Borderline high risk - 200-239 mg/dL High risk - 240 mg/dL and over. Performed By: #### 3 8502947, 1199337237, 83876186, 0792146379, 1305671, 1035059443 #### [facility] (DEFAULT) [address] [place] [address] 58360 Cholesterol in HDL [Mass/Vol] 102 mg/dL High 40-71 [facility] Comment on above: Result Comment: High risk - <40 mg/dL. Performed By: #### 3 0822363, 4971506497, 04951348, 3987742073, 3637952, 0945884839 #### [facility] (DEFAULT) [address] [place] [address] 91214 Cholesterol in LDL [Mass/Vol] 142 mg/dL High 1-100 [facility] Comment on above: Result Comment: Opti mal - Less than 100 mg/dL Borderline high risk - 130-159 mg/dL High risk - 160-189 mg/dL. Performed By: #### 3 7525526, 1196569279, 34036469, 3002282603, 9045517, 8164963696 #### [facility] (DEFAULT) [address] [place] [address] 02529 Cholesterol.total/C holesterol in HDL [Mass ratio] 2.6 {ratio} Normal 0.0-4.5 [facility] Comment on above: Performed By: #### 3 7218416, 0715303892, 13580460, 5657085171, 8660661, 5132377631 #### [facility] (DEFAULT) [address] [place] [address] 21880 Triglyceride [Mass/Vol] 120.0 mg/dL Normal 0.0-150.0 [facility] Comment on above: Performed By: #### 3 5296766, 5129087129, 31901013, 1995993034, 7258455, 7492317025 #### [facility] (DEFAULT) [address] [place] [address] 79525 VLDL. 24 mg/dL Normal 5-40 [facility] Comment on above: Performed By: #### 3 7535255, 9230164907, 57185117, 1486830693, 3310590, 5752964937 #### [facility] (DEFAULT) [address] [place] [address]4916 Coding Summaryon 04-08-2021 Coding Summary HTMLBase 64 FxiyragyKUu4hGo+PGhlY WQ+RN5ENMAfP54paWDqxW 4NE0dYQJ1MZWYMZATOVT9 BPB5ovUZ3DZtnG7OdthYa ChlleLSiRK87YOh2XJV9q JhoEJhefQ8caICzG6g9Vu ReWN11dI13DVrqNMLxFrO 3LjZpbjsgbWFy O6eqNsWznUQnDfc+PHRhY mxlIHdpZHRoPScxMDAlJy LqaXwiXU6mWz4zZKGmEPX vbGxhcHNlOiBj m2waXRMqJLnvXB2poGshO 2WtpEW7YMHlt7y3Eb38iH I+TOArEFI5aBqcSKdwx66 9CcObz2xnQNM2 qEZkIFyfTWI8Q87aw7M0W UMsMADlDVK1pIA1oF2czL vwevwkX0SepPAaEcK4EXW 6vAFubY6yfVrd tahmvN7xUyn+C27BVZ6ZK IZTVQ5OLbv3C4VoWyadrU I+JZ21NGQeQJ26cMCpkNW ra7yrlHk6XoCl CQNjAQI5wSpqQGyga6IqX ESpV84kyRCal9S5ZXJgsA epcYZrYqEleUF4wV1iFWk pdnvtk9pdkkwf Cnfvu0szsg86lL14L98zB VzdIXNeDEV5EWQdRGZbyN jkkg7pbQ3cUp8+GEzug6m nn0ecwFy1QzAi UIUgenEpuXdpLBZ8d9VwU s28A1WheHmex0WdUig8ys 41mGRez4O0dKU0BMgfLKE yiE6hXCbzRhM6 ODEgCtMzaM45tBNzCArgZ n9ztJsfqJvnXF7gMGIrgl dwZCKpzE7tNWUlmRXtlNw vNH9xDULaoczt j232YlPvYNZ3KMXmrXRqB 4UmwV2pVeExRFRyCPWvY7 IihENmIPygN982BRiuXeO 5ACMcbdMtW5Td EVTumQdgGdE2e7J4Oz7Bl 3RknbiwBIZ6ZLzqJWX5Xe W4AjScDsQ8J8OsCye2NEZ ekXzoAV1gV0Jy EEAnwgvljaugdZO7EWFdG ZVhdR37fKTjIZtrKp2mz4 R4o638WPMlWOSmtX93Tf9 udDogMTBwdCBU bE7vajquw7vqiridAcKyP EDkXFj8CSn6XEKmcSyoLe XoOJJ6ZxX1XHL6hAJshG4 njOtvupxgxI8k Oyc+K10anM2bKUT2IQO2e vbyQZVhqqErYO06TL59A5 RyPjwvdGFibGU+PGRpdiB biEodJX9oBtKx t9yck7OzRHpxC5BkGCRqZ LqiLae2PRWnSUE4xZZ8sK 6wINIcJWnhd0A0vNI0N6A cmsUekg0bc5ze BZZpOJxsI09hmDJih9O1J YGivQG3THTeoPedYpRauK 93Oyc+CYLpmRlmr6ZqDez sj3jad2mybKd0 CwQqSOJdczGpyVqfOPR5b 3ZbFd06H67xIOliYYLiFB MhLRRjGUUwuTdtjn7fiI6 wIi8+PGNvbCB3 dUA1kG0vHBHoIzQ3XLxsQ 019NgYibBBdTqspn9tgp1 cvwEb8ZaFmVBRrayTzcZw bYKB7d1UvAx43 Z15wXBakBUDcAEIgKZIyA KGymYfolr3xbR9sNr3+PC 5sl1ctgn67bJ30aFK+PHR zVAG1pVzzILgc BJKboL9vAJqzVsL1MHSaU cKzkI07gQXbUMenNm2qfG oxyWsdXC9jMGLyhzfxj74 6LcCtv2sgSOXr iDVxPMgkYIR7H40mv9X1I QCrJYMbRDC3dVL7qG2hmC lnbjogbGVmdDsgdmVydGl cLDsmBLawI460 IHRvcDsnPlBhdGllbnQgT qFjIEu0Q0GvSvx5QPHfqP miMH6lzODdQZziXo9heRw rwQwrQV0yDOGl hdazp126PvVlo8kvAIKot YPlCByuKMM4T89xi2P7XT TrFRAoPPS2hQY3eS8szQh nbjogbGVmdDsg wlGykTntODapCJfgS733M HRvcDsnPkJpcnRoIERhdG U1FO17PR70pYZgh3Q3dYZ 6Y2HoWOCyxena nnzzwHX4IRTcHMUlhO00Y d9dmMgxZo3sYOBqQUK6MB TllOTxO9LrlS3hFhAdHCO iJUIpG5HnoJAk WJohI431NOraXdE4LETxt pAzB7NnRTYitTmlBwN6o2 K6Dz1HF0H5CX23WY65oVR li6C7dHU3S9Yi OOGplvntsmnnfIO7WMDzE WQzcR56Ou7pzXnaOf6kGO SbGEM2KUKnkIOlE1XefV5 yOiAjMDAwMDAw T8EwfWMmNNdoY826OXppY yN7ULQjatZgH5WePCEusQ tvPuA6t4N8Va0WHBv2LV4 0NM43gGAfs0V8 rGM4J3BcGHSnkcrwkcmxk WO2IROwUZDclS56Gn1tmY jeYq3qAKAnSGN6VYVenOR nI9PczI7jChKj MNCtJYUyP7JbgJBbTTofQ 761NHpyMhQ6MRZgojDlT9 KnSJRplEbePyF9x5H7Lk9 KDAZoXC62MRV4 xYV2BX66AA04R6IbUkgdu GFibGU+PHRhYmxlIHdpZH RoPScxMDAlJyBzdHlsZT0 oDn0qOPUfUMCo fOmqhYLkGcTml9bwDQCuD OphWD0geIopH6HzkJB9ED Trr7o6Ve57G63nN0XqiUE +OIFuhTY6uYH8 rP5kIuKoWmE4CXqiG383C tSjsHEqNyrpg3ccy5xefS e0RbY9SAHheuBsmCymCJD 9w5LbFk22K06c IHdpZHRoPSIxNSUiIHZhb Ifcqk6akV7zRg3+PGNvbC W7mTR6rV0tSdGgFcR6BRm jX182LmRpqTYe Eerjg2fej1katSa6BaMyV ZJtkaYijUksCGL0z8FfGx 41P4BfkAtmu0UeIfa8wp8 5pQXng1Z0aRD5 R0EsCXGifyshfOLbcOnmY U6yLMRrhdrqMMZzeQ0uKB CgA0n4YbQaIoN0KGsnA4H srjF7CIKdxUSx FLvwGSW5J35sp9X5JJNcB BUhOUI8dBT4zK4scCkyya ogbGVmdDsgdmVydGljYWw uGMgsT169JLFh kBanVBMirG5lMZKktEChu TopKP4jMFJnwbzcLp6PZR TZQDQMBZXHWS6JEUYRKXg TYIB7H4GjCty6 RPQmdBeiRN8suNGrJUjuP s9wtBsfvXsgRW9aYXDjoz lvMUJkoZ6oIUAwbNYgzAh yDN8rBRVhezpz z924PzAlKXR3CCQxwXIoF 0QjwG6dNpNaFBKlAGMbD4 OzhZZeULhuK327NBmeCtQ 1PYYhhwCzF0Ir BDInkCbsWjJ0f4B0Yr9iW V4xLY8wSDc9YE01RS86bC Jzx2P0eWF6S0GoOQYsnhj fjxnuoCS3KXEh HAIagT56gLEoGBoxPj4pp 0N4d281CSOoHBJrtE91Jh 7dzXrdEPDtiKNSnQ8unxl iq4gozrczMvTj MZHuQJn4JXf3HYLliDgbN lWfVPF3WkW7VRS5qDLnhB 7ftXomowkevU3qHin+MjY gGAQkunU5H5Nr Ngm3RIOhvNxdBI4ozQWvV IyzSa9hwXogeUazBD8oCC OhdraeDGIgiK8dNSZqqXM zfHgvVF9wHLVj kwegz038EvUtZHI5RTJit IZzY5XtaT8lSuMzRYZlMR JvN4YpgENmSJugN868VBq yYxQ7ATJhpmYz E2LeAPWghQcdHjC1w0J2F l8KYU2NXTL0U5FhSnv3KY LvbDdyDL9zkDXhNOnyXj9 fmJqbmYkxLW0c JJInxmgbAPFqlW2kEHEgl CYfnSjzYD7wPRVuvvrwr7 03InKjKER3KMLxfZHsX9F ekH1qLhCoYYOi VQWmQ5ExzZZpSDqbF210S NxvHzK7AGPatdKjI5QmQP IizTkxHhF0k5L5Mg9DKNw vdGQ+LG42qd41 G0PoXqnsOup9QWLmKFL3z AW5iC0xQZSrNTinv3O7yY F6M5ZcviPqrw4fp8jzJFK rKNfxN23fdDId y0I4IGNqzXS9QXEnaFjeG mOaxK19Sie+PGNvbGdyb3 LdXpsxo6oxz3rtlOx4XjT wJSIgdmFsaWdu LMP4a1BtWy62F39aTEbbL HRoPSIzMCUiIHZhbGlnbj 9jfA2hPb1+VXDvjBR2rLD 8tI4bPxUaRyF9 ERfuB429SxNwpWCkNghuf 9uzb2jojUs8TiSrEFRjcc BucCcdEFG6w2KuBq16R8A yqFyou6LuXog0 hs69mZAkg3L2nFV5I7QjI FCsazhfuEYlrIgtUV3yZJ XmuwgwORSxeO5nZIMxV7o 2MtDjVdU9RYto J1GgmwH4HSOpoVLwSHMzq ZSEhZ3btibrm2vdcedmRz XjSMGiEFn8JVc8YTSvbFt kGoOtKNA1IoH7 NRO7wABicI4rkDfdennrc G9wOyc+FVs3z6xunTNzLQ 3aeWD1TF31WZ16vNBcp1J 3bUV2F9AvLPQb nsndtifiyCD4HRLsOBIbn I20Qr6stKuuUg5zWCCqVU Q5NFLsgKAgO2GlfJ5tAxE bPAMjKSBxC1Ys eGVfMUawP359KWgeBcS3K NYxslPjH4IxGNJlcDolLc O9c0Z8Rq2HLS10UO62JL7 0eKMsv2L4hFR5 A0JaMUZlxtirbhanyDZ5S TLzVKLmqZ40Uo5oiRtpZm 7tVGEkJGE5QUBhlTEtJ4H mtZ5gUqZrZFCf TKNlI9JjoGDfEMeuF191X PiaWeD4FJQgibUlP6RuSU JcnExzZjG7v2P6Df8MCg0 8QQ82II66pSFu m8R0dCI2E8BmLCVhvouix iiqdPT8TXUcBYJtkY69Px 8xgCvdLv3qJHEsSTY7OYA hpKAcT3AohM0d DzUwKAEySEOhU5IhqDQuY DuhW053CRxoGjD3SHBtxq DtL1UxAPTasNshYzG4i2P 8Uf0OKOgjmjh0 V1OoExhqwFM+FJ07MDRgQ O85dDLncWRfj2ehsEq8Ws DoSZGbNTR0pUzdAMuho3K rODXkJ13yoINc c2U (more content not included)... Normal [facility] Provider Orderson 04-07-2021 Provider Orders [id number] .[id number] Normal [facility] .Auto Diff 104-04-[address] [place] % 5 % Normal 09-03 [facility] Comment on above: Performed By: #### 2 [id number] #### [facility] (DEFAULT) [address] [place] [address] 11523 Baso Abs# 0.0 x10 Normal 0.0-0.2 [facility] Comment on above: Performed By: #### 2 [id number], [id number] #### [facility] (DEFAULT) [address] [place] [address] 56067 Basophils/100 WBC (Bld) 0.1 % Low 0.2-2.0 [facility] Comment on above: Performed By: #### 2 [id number], [id number], [id number] #### [facility] (DEFAULT) [address] [place] [address] 29436 Eos Abs# 0.1 x10 Normal 0.0-0.4 [facility] Comment on above: Performed By: #### 2 [id number], [id number], [id number] #### [facility] (DEFAULT) [address] [place] [address] 46764 Eosinophils/100 WBC (Bld) 2.0 % Normal 0.9-4.0 [facility] Comment on above: Performed By: #### 2 [id number], [id number], [id number] #### [facility] (DEFAULT) [address] [place] [address] 74754 Lymph Abs# 1.2 x10 Low 1.3-2.9 [facility] Comment on above: Performed By: #### 2 [id number], [id number], [id number] #### [facility] (DEFAULT) [address] [place] [address] 48807 Lymphocytes/100 WBC (Bld) 17 % Normal 14-48 [facility] Comment on above: Performed By: #### 2 [id number], [id number], [id number] #### [facility] (DEFAULT) [address] [place] [address] [place] Abs# 0.3 x10 Normal 0.0-0.8 [facility] Comment on above: Performed By: #### 2 [id number], [id number], [id number] #### [facility] (DEFAULT) [address] [place] [address] 54126 Neut Abs# 5.4 x10 Normal 1.5-9.2 [facility] Comment on above: Performed By: #### 2 [id number], [id number], [id number] #### [facility] (DEFAULT) [address] [place] [address] 81763 Neutrophils/100 WBC (Bld) 76 % Normal 44-88 [facility] Comment on above: Performed By: #### 2 [id number], [id number], [id number] #### [facility] (DEFAULT) [address] [place] [address] CBC w/ Auto Diffon 1 Erythrocyte distribution width (RBC) [Ratio] 13.7 % Normal 11.5-15.0 [facility] Comment on above: Performed By: #### 2 [id number], [id number], [id number] #### [facility] (DEFAULT) [address] [place] [address] Hematocrit (Bld) [Volume fraction] 34.4 % Normal 33.7-40.4 [facility] Comment on above: Performed By: #### 2 [id number], [id number], [id number] #### [facility] (DEFAULT) [address] [place] [address] Hemoglobin (Bld) [Mass/Vol] 11.1 g/dL Low 11.3-15.9 [facility] Comment on above: Performed By: #### 2 [id number], [id number], [id number] #### [facility] (DEFAULT) [address] [place] [address] Instr WBC 7.1 x10 Invalid Interpretation Code [facility] Comment on above: Performed By: #### 2 [id number], [id number], [id number] #### [facility] (DEFAULT) [address] [place] [address] Man Diff? Auto Normal [facility] Comment on above: Performed By: #### 2 [id number], [id number], [id number] #### [facility] (DEFAULT) [address] [place] [address] MCH (RBC) [Entitic mass] 30 pg Normal 24-34 [facility] Comment on above: Performed By: #### 2 [id number], [id number], [id number] #### [facility] (DEFAULT) [address] [place] [address] MCHC (RBC) [Mass/Vol] 32 g/dL Normal 26-37 [facility] Comment on above: Performed By: #### 2 [id number], [id number], [id number] #### [facility] (DEFAULT) [address] [place] [address] 17896 MCV (RBC) [Entitic vol] 92 fL Normal 81-100 [facility] Comment on above: Performed By: #### 2 [id number], [id number], [id number] #### [facility] (DEFAULT) [address] [place] [address] 29768 Platelet 225 x10 Normal 138-427 [facility] Comment on above: Performed By: #### 2 [id number], [id number], [id number] #### [facility] (DEFAULT) [address] [place] [address] 85584 Platelet mean volume (Bld) [Entitic vol] 9.8 fL Normal 6.3-10.2 [facility] Comment on above: Performed By: #### 2 [id number], [id number], [id number] #### [facility] (DEFAULT) [address] [place] [address] RBC 3.73 x10 Normal 3.70-5.30 [facility] Comment on above: Performed By: #### 2 [id number], [id number], [id number] #### [facility] (DEFAULT) [address] [place] [address] 93354 WBC 7.1 x10 Normal 3.5-10.5 [facility] Comment on above: Performed By: #### 2 [id number], [id number], [id number] #### [facility] (DEFAULT) [address] [place] [address] 92928 O'Aguilar Teston 04-04-2021 Glucose [Mass/Vol] 115 mg/dL Normal <=139 [facility] Comment on above: Performed By: #### 2 [id number], [id number], [id number] #### [facility] (DEFAULT) [address] [place] [address] Coding Summaryon 11-29-2020 [facility]oding [facility] VaegwwhyKIl9pOp+PGhlY WQ+KF4BRSUeI49zkLXwyB 4AB4uWWZ4FZVRMDTUNHU5 QDG0euRS8INvmJ9PemmEm PqwteWEvXB48RCw8JZV8h ViuHFvkwU5ubQShH4k9Wg TuED79eK28EMleHXWhVqV 3LjZpbjsgbWFy P7gjWfCkcNQdCyw+PHRhY mxlIHdpZHRoPScxMDAlJy YbuMqiQL4dKn1tTXXbRPR vbGxhcHNlOiBj g0aqOWBmQNtxEA9qfKbpG 8YbcRF4GMDup4a7Au33gQ I+AYXbSPC0qOprMQzuj46 1DhUcd6qgBFA4 mLRhQYseLGL3T45pd0N9U YRqJJHiMSW9fVZ2nB4gqR ebyimkI0YkmMRfGpM0WXV 2kGCpqL0deMvb yykobY3yWei+Q10VAM2YB SCUUK6MDwx8P5KaYfylsH I+TL00LKRhTW63oVZnjZF qi1anyJq5MnZv KJVsWCU4xAcqLRzpo4IfC QLfE82ifUWvz2G0HVYysY mzaHLzYiNhaUC5hT5eMFh zlirof6nlipaq Bzdce8uiau78pT85Q25hT RuyMVKrLOP1VWIdROZziP vlep6wzQ5uDs8+QJppz1i bt0dshIz9FmHl AEQgdlLvhFboBVA7t8MaL x42R9LqvIusx4TpDmm1zn 14rSJgf8H0jWY5DWduLXF iiJ5yEHoySpY7 CWQkNoVujG58nJHrPAgsU k6ytYcofNrtLR0gFVJmoj msKRAkxL6zWSYjrYNtyLz oSL3gUTGqnalg j849VsMsWES3QJKjuFHrT 0TpqE9cKoTlCVKoFCQaL4 OmoNXkJSgqA613VVooCtJ 2ZYXbdiJdU2Qg FPKucXrqInU8f7T3Ld5Ru 4TopncdWCO0ZUffISI8Im V9CsTdYyG8L2CyBpu3EHK ooDiaNJ8dF9Oi ZZXoqwhfaukikQZ2QNCdD WNwmN13sNNaNCemGx9za4 T3f470RFEbZDCowU70Tr8 udDogMTBwdCBU wV0vekzyr4fpwptpFiPsD PSvHYv1OUq8BZDhmDpvFt PoSOB1YsU4UZM4lEMuoL5 yrLcpntgunM6d Oyc+I06qbS6pHZX8UBT8m ctoYSUrqgXuBT35XJ53E5 RyPjwvdGFibGU+PGRpdiB cwVvaZF2mHfWn b3mlz1FuRYtnD5VwJINgA IajOjm9FLVaLNJ4zTL9lD 5xHXQsMAnlb3M0tBG9P4L eegPezf1yv3vz HFStSIbhV63qlRAlm7N2Z WXeoUI9JUIqjBltKaPzfC 93Oyc+WIPhdCfny2YqIde xj1tfb9ykhCr5 DxYxUKMvckIrdGduDHL0y 5RrPv35N42oVNqzXWStWE PwDLAoHFGsoCgcgp0eqW2 wIi8+PGNvbCB3 zMX4lC3cRLLvFuB7TPkpZ 820QnDnyCYrRbjxm0myw9 odgUo2LvCgMONiqiDyeOa hKWQ0f3CqFb06 T92nXUaaVLFpBFQjFUXwW QJjrRtihh2jxR5zBr5+PC 3yy9orgd56dF43gWS+PHR sOFO1oUazGVus GGEwaN2mPTcrUdP5RERrG oWlyV39bXIkGXspVq3alY jebMtuQQ7bYZXfjgzbj94 0JhYhe4xjHNFc qVDxXJwwXGN3O39cq8V8K TKqZFIqSSM0mKX8dR2wvC lnbjogbGVmdDsgdmVydGl sYDigLAzlL358 IHRvcDsnPlBhdGllbnQgT nMiLDn7I7KfHqz1RRBgtM lzTH5ezTBpEKzlHd6kfGc raYkkRY1zMSBp imrin323CpWgq4vaHARzs OBgGWybVVW0R70jb9J1CV WpWRVxIPJ0fGA3uM1bdBs nbjogbGVmdDsg adNysZwdCKkeXZdtW959P HRvcDsnPkJpcnRoIERhdG Y3GF66UM67gLKoe1B2lZX 7W5BiYKGrydgr fjuweJF3UQGwHQNstD73F d4rdAnqEa2jRBElUWD4EB PyiOHdU1BdmF0uKdQjIBU zZILqS5ZcyXLi WCojA387NDicAkN9XDMaw nOmY5SjJAXlgVlcOgM6h2 O0Hc7WY1D9EK87YF65jRO ag9M8iLH7Y6Ly RNPtjrfxnttdyXL7DGFyJ RFhtF89Jp4dqYjxYn9fMU AdAJZ8JEVwkBCeA9GrhM0 yOiAjMDAwMDAw Z5DxyWNvHLhoH527QIhnF dS0UDRlngAeH1JzWCDdqS xeVfT4a9Q3Xx4NKKj1OK7 4HM03bXDxq5I2 bUX4T2YjZHDjzosqrssbb ZY4WURiVHHpiU27Mc0ljK wfSp4lSGXvKWL1LMRidBI xL1CipG5xVqCv AQVuWLMbR7SreZCpCQhbS 005MZrhUqE8TGTdeiWfW1 KvJRCreCcoCaL6k6Q4Yg1 MNJCzDL99ZST9 jBB9WN87EU51X7YcRzdzu GFibGU+PHRhYmxlIHdpZH RoPScxMDAlJyBzdHlsZT0 nJj3mXCBvYXTi hBtouTMrXjXst7zzBNXeW CcrYA9qaXykE4EdoKP4YI Ilo6l0El64Z72jN4EwtTT +WDZhrHE1wUG6 zJ3iLvXoKaT9IPivI382I fHplTKrJklsg8puo1vmgK f8LsX0UGArfeWiiNwdUJI 8b5QnBl45L84o IHdpZHRoPSIxNSUiIHZhb Cdjwi5cuH5aOv4+PGNvbC V9yTR4jS7xHtXfZvM0YHz rG961RuSfwSYa Cdxej1ygm2alfDb7WkUbU ENztlGrsUyyLFK7l3OvBe 61O6DzxNbiq8JnZxj4el7 6cXNje8O7cEK1 W5ByHWTtbzmalUHbwKpuK R0lCPBfkuqgASPjeH3wZJ HcO3q3DjFqZaG6ICazB7H zuuS4FTKjrROu TTubNUH3Z07pd8K0RMLhE RFzJRO2xWL9zF8ggEhfuy ogbGVmdDsgdmVydGljYWw lCNmyA005MQHc qXjjAJNyiX6dEVKckYYnk DueYZ8yVUElcjblBq3XSY JZELZARQFQGG1VVUWRLXw YKNC4Y0PzVbg4 WJPhnEypAQ5ieDLeODsuX m4znTcozNbpUG2cIOGudg ljVUUboW9oBBIreLNvsLp oVT2hONZbbkuw f924XlTqQZQ9KJTdxKVyV 3IxgY0qSwGaVICaUNKrU1 OofLMpCKtyS158RQsnClJ 2NWOshsDmA4Lb HQIyzYrwThA8k0F6Uz9jL W6rEL4rEXp1AK91TU39lY Wiz1P8lHN1O2JtCHYowrh xlvdftWQ1TLQs EUJtnQ22tGNnASgiEq0il 6Z2r349ZHPiUHZybC08Iu 0mfAbkURBlaJWGeO1sidm iy4pednumElBl OGJzSEp7CSj1BTXgxOucQ iYnUSB1BiT0EYR4bCFltL 1jiQxxkprxwY9lWwf+MjY bOVCzgbO0Y3Yx Jor2CTJfjVrjKY4asVVyY WsmRa0ujXaoqGeyRG4aCO PufvwqNKKxhY0kIUVjwDX faWrsQE4pNGIt oukfi359IkLnCZD2DNVpf EFjY1FptX1jPkWuVBVuSD YeB1ErqEJzMPoqP856DUn eVhS3IYPopfFo B6IuRYGhpIofJfC5z3J7V x4PKG1OJSN5B3FhTvr4ZL UkqLgnIA1lzWXfTErjMs8 adNcdcGvnMQ2r HCFhluopZZRnwA0xFQEfn HQgrRlvSW4qINJjpetlu6 19GlHzOYC9CQDauNQpD7N zrS0lPcSmFOCj UYCkG0YzoQWhYVtsV145T ZstJfG8CNDhvqOiR2SlXA DjgLadHvZ5l8A6Wj5CRIr vdGQ+QD03ov74 Q0PnFrisUst4EFMrHIO7h LA3kK5pOVKnUTrtr5E1mA S1S8HlztYwje6ti1weUAI rOGnmL84cjCAg n1N7WWCtqWQ5FWWtcCjjW zSftZ54Npf+PGNvbGdyb3 TfDptbh2bnl8nycVw5TlJ wJSIgdmFsaWdu PWS2v5EvNa36T69pNOpuB HRoPSIzMCUiIHZhbGlnbj 2klP5vKh7+QNMvkFY9lJI 7qL3bVmDbErT7 KSigE462ChKbpTFfCondr 0xri6mtnMv2NjJcYTZkzc CgfNjqTAI4v5WnZa47Y7A szFflw0UvGvz4 tu88iLXhd5V7wAQ8S8ApY LLirfotyNAnyRtrAT7fLF JmeizrBWTvgV7rYXJdJ5t 9HaChWlK6HYii Q0MgacT2WBXjaMEoSRGfm KBBkA4bezwxk0vqvsmqIc KmDANbITu8QGk2HUWotZh mJnJhOUE7ZmZ6 YAU2aNAdaQ0whFiqnptom G9wOyc+EFt7t2vhxVUhHN 3jzSO5VI30XE01nPGzj2C 9sWK9I3QfSFLj ootpxxekzCS9JSKhUYXdp Q69Ek8mzOveHv2zXKAsVG J1KLLljWPfG4MnkA9jHgF sKPEyITUnR8Tw xPTlJVkiV657UJjoSjR1Q DZgthPxP5QiCYJezSefVb P2y3I0Yc8NMF94IX02ZM5 9qITzx6F1xPO4 S2UuYKCutiwibluobGQ5Q WFoXVXfgG55Bz0yaHsdTo 3gRNReOGM2VSKzjAAzI3A nzP2oIvCzDGIg LCIiE2IrmGLwBPviD180H AriKxO7NUTskkNoO5WdAN VjiGhvEmJ2p1E3Df8ZMo7 3HS16PY46zEDe z6L6zDD5M5QuJDFwgmtfj grnnRG3VRSfMBSriL82Kv 2brFacRl7vZOZyKES9XSN hcQFhF5RqyP5e OjMiXEMeYGZiO8FmvYWwN LyiC599FNxeTuL2VZShyf OpW6GtJFGkhGahLmQ7e3M 5Jw5AVXrqlxn2 K4UgAddchND+CJ60JNXiV G84wUIidPWxn6hgnWb5Ez NrEGTkNYQ0tQubXDwwy8H nGZYvD00gnJUv c2U (more content not included)... [facility] Provider Orderson 11-28-2020 Provider Orders [id number]#1 .00OTGTIFF [facility] ABORhon 11-27-2020 ABO and Rh group Nom ([facility]) Hx Check: Not Found Anti-A: 0 Anti-B: 0 Anti-D: 4+ DCon: NT A1: 4+ B: 4+ ABORh Interp: O POS Invalid Interpretation Code [facility] Comment on above: Performed By: #### 7 [id number], [id number] #### [facility] (DEFAULT) [address] [place] [address] ABORh Retypeon 11-27-2020 ABO and Rh group Nom (d) Ordered by Discern. Anti-A: 0 Anti-B: 0 Anti-D: 4+ DCon: NT A1: 4+ B: 4+ ABORh Retype: O POS Invalid Interpretation Code [facility] Comment on above: Performed By: #### 2 [id number], [id number], [id number] #### [facility] (DEFAULT) [address] [place] [address] hCG Quantitativeon 1 hCG Quantitative 394829.0 mIU/mL High 0.0-0.6 [facility] Comment on above: Result Comment: Resu lt confirmed by dilution Post-Menopausal Reference Range is: 0.1-11.6 mIU/mL Performed By: #### 2 [id number], [id number] #### [facility] (DEFAULT) [address] [place] [address] Vital Signs Date Time Vital Sign Value Performing Clinician Facility 01-28-2023 16:20-0400 Body height 160.02 cm Shelli Villa Other [facility] Other 01-28-2023 16:20-0400 Body mass index (BMI) [Ratio] 40.74 kg/m2 Shelli Villa Other [facility] Other 01-28-2023 16:20-0400 Body temperature 99.7 [degF] Shelli Daisy Other [facility] Other 01-28-2023 16:20-0400 Body weight 104.33 kg Shelli Perezley Other [facility] Other 01-28-2023 16:20-0400 Respiratory rate 18 /min Shelli Daisy Other [facility] Other 01-28-2023 16:20-0400 SaO2% (BldA) [Mass fraction] 99 % Shelli Perezley Other [facility] Other Encounters Encounter Date Encounter Type Care Provider Facility Start: 08-13-2023 End: 08-13-2023 ambulatory Not Available Start: 01-28-2023 End: 01-28-2023 ambulatory Shelli Villa Other [facility] Other Start: 01-28-2023 Office outpatient ne w 20 minutes Shelli Villa [facility] Start: 11-23-2022 End: 11-23-2022 ambulatory JENS ESCALONA . Facility:[facility] Start: 09-21-2022 End: 09-21-2022 ambulatory PRAVEEN ZELAYA Facility:[facility] Payers Date Payer Category Payer Unknown [id number] 1995 Unknown [id number] 2.16.84 [id number] 1994 Unknown [id number] 2.16.84 [id number] 1994 Unknown [id number] 1959 Unknown [id number] Social History Date Type Detail Facility Unknown if ever smoked [facility] Other Sex Assigned At Sex Assigned At Bir th [facility] Other Evaluation note 01-28-2023 Note Date & [...] worsening. Patient verbalized understanding of treatment plan. [facility] Other History general Narrative - Reported Note Date & Type Note Facility History general Narrative - Reported Type Surgical History sinus surgery x2 [facility] Other Summary Purpose Family History No Family History Records FoundNo Family History Records FoundNo Family History Records Found Advance Directives No Advanced Directives Records FoundNo Advanced Directives Records FoundNo Advanced Directives Records Found Additional Source Comments INFORMATION SOURCE (unrecogn ized section and content) DATE CREATED AUTHOR 11/03/2021 [facility] DATE CREATED AUTHOR AUTHOR'S ORGANIZ ATION 12/12/2022 [facility] DATE CREATED AUTHOR AUTHOR'S ORGANIZ ATION 08/14/2023 [facility] EPIC REASON FOR VISIT (unrecogniz ed section and [...] BE BASED ON THE PRIMARY CLINICAL RECORDS. [facility] [employer] [facility]. provides no warranty or guarantee of the accuracy or completeness of information in this document.
[2023-08-27 08:04] LABS: Basophils Percent Auto 0.6 % (0.2-2.0); Eosinophils Absolute Auto 0.2 10^3/uL (0.0-0.7); Eosinophils Percent Auto 2.5 % (0.9-7.0); Hematocrit 35.7 % (36.0-48.0); Hemoglobin 11.7 g/dL (12.0-16.0); Immature Granulocytes Abs Auto 0.02 10^3/uL (0.00-0.03); Immature Granulocytes Pct Auto 0.3 % (0.0-0.5); Lymphocytes Absolute Auto 1.8 10^3/uL (1.2-3.8); Lymphocytes Percent Auto 26.8 % (20.5-60.0); Mean Corpuscular HGB Conc 32.8 g/dL (29.9-35.2); Mean Corpuscular Hemoglobin 29.4 pg (26.7-34.0); Mean Corpuscular Volume 89.7 fL (81.0-99.0); Mean Platelet Volume 10.1 fL (9.5-13.5); Monocytes Absolute Auto 0.5 10^3/uL (0.3-0.8); Monocytes Percent Auto 7.2 % (1.7-12.0); Neutrophils Absolute Auto 4.3 10^3/uL (1.4-6.5); Neutrophils Percent Auto 62.6 % (43.0-75.0); Platelet Count 256 10^3/uL (150-450); Red Blood Count 3.98 10^6/uL (4.20-5.40); Red Cell Distribution Width 13.7 % (11.0-15.0); White Blood Count 6.8 10^3/uL (4.0-11.0)
[2023-08-27 11:54] LABS: Thyroid Stimulating Hormone 3.898 uIU/mL (0.358-3.740)
[2023-08-27 13:11] LABS: Estimated Average Glucose 100 mg/dL; Glycohemoglobin A1C 5.1 % (4.5-6.2)
[2023-08-28 07:49] LABS: HBsAg Screen Negative (Negative); HCV Ab Non Reactive (Non Reactive); HIV Ab/p24 Ag Screen Non Reactive (Non Reactive)
[2023-08-28 09:38] LABS: Rubella Antibodies, IgG 8.02 index (Immune >0.99)
[2023-08-28 12:25] LABS: Rapid Plasma Reagin, Quant Non Reactive titer (NonRea<1:1)
== END 2023-08-27 07:27 | disposition home or self-care (01) ==
LOC: LAB 07:27
PROVIDERS: PCP Family Medicine; Visit Provider Obstetrics & Gynecology
DX: N92.6 Irregular menstruation, unspecified (principal); Z36.0 Encounter for antenatal screening for chromosomal anomalies
CPT/HCPCS: 36415; 83036; 84443; 85025; 86592; 86762; 86803; 86850; 86900; 86901; 87086; 87340; 87389

== ENCOUNTER 2023-11-08 08:35 | Outpatient (OUT) | payer OTHER, SELFPAY ==
--- OUTSIDE RECORDS SUMMARY | 2023-11-08 08:38 | XMS_ITS | CCD ---
Author Name Unknown Address [address] [place] [address] Organization [facility] Care Team Providers Care Processing Rep Name Role Phone JENS LANDRY Admitting Unavailable JENS LANDRY Attending Unavailable REQUEST, NONE LISTED Primary Care Unavaila JENS Adair Consulting Unavailable PRAVEEN ZELAYA Admitting Unavailable PRAVEEN ZELAYA Attending Unavailable REQUEST, NONE LISTED Primary Care Unavaila PRAVEEN Rubio Consulting Unavailable Shelli Villa Unavailable JAYDEN FORMAN Attending Unavailable JAYDEN FORMAN Attending Unavailable Medications Current Medications Medication Drug Class(es) [...] 2: 21 to 29on 11-29-2022 . . [facility] Comment on above: Performed By: #### 4 [id number] #### [facility] [address] [place] [address] Dr. Evan Mcintosh Age Gdln ACOG Testing - Normal [facility] Comment on above: Performed By: #### 4 [id number] #### [facility] [address] [place] [address] Dr. Evan Mcintosh DIAGNOSIS: Comment [facility] Comment on above: Result Comment: NEGA TIVE FOR INTRAEPITHELIAL LESION OR MALIGNANCY. Performed By: #### 4 [id number] #### [facility] [address] [place] [address] Dr. Evan Mcintosh Methodology: Comment [facility] Comment on above: Result Comment: This liquid based ThinPrep(R) pap test was screened with the use of an image guided system. Performed By: #### 4 [id number] #### [facility] [address] [place] [address] Dr. Evan Mcintosh Note: Comment [facility] Comment on above: Result Comment: The Pap smear is a screening test designed to aid in the detection of premalignant and malignant conditions of the uterine cervix. It is not a diagnostic procedure and should not be used as the sole means of detecting cervical cancer. Both false-positive and false-negative reports do occur. . Performed By: #### 4 [id number] #### [facility] [address] [place] [address] Dr. vEan Mcintosh Performed by: Comment [facility] Comment on above: Result Comment: Fiona Heath, Court Officer (ASCP) Performed By: #### 4 [id number] #### [facility] [address] [place] [address] Dr. Evan Mcintosh Reflex Criteria: Comment [facility] Comment on above: Result Comment: The HPV DNA reflex criteria were not met with this specimen result therefore, no HPV testing was performed. . Performed By: #### 4 [id number] #### [facility] [address] [place] [address] Dr. Evan Mcintosh Specimen adequacy: Comment Normal [facility] Comment on above: Result Comment: Sati sfactory for evaluation. Endocervical and/or squamous metaplastic cells (endocervical component) are present. Performed By: #### 4 [id number] #### [facility] [address] [place] [address] Dr. Evan Mcintosh Covid-19 PCR ([facility])on 08-25 SARS-CoV-2 (COVID-19) RNA CY+probe Ql (Unsp spec) Not detected Normal NOT DETECTED [facility] Comment on above: Result Comment: [...] for this test is supported by the Security System Analyst of Health and Human Service's declaration that [...] used). Performed By: #### C VDTBH #### [facility] [address] [place], [place] [address] Dr. Evan Mcintosh INFLUENZA A AND B AGon 09-21 INFLUANEGH SEE BELOW Normal [facility] Comment on above: Result Comment: Nega tive for Flu A protein angiten. Infection due to Flu A cannot be ruled out. Flu A angiten in the sample may be below the detection limit of the test. Performed By: #### I NFLUAB #### [facility] [address] [place] [address] Dr. Evan Mcintosh [facility] SEE BELOW Normal [facility] Comment on above: Result Comment: Nega tive for Flu B protein antigen. Infection due to Flu B cannot be ruled out. Flu B antigen in the sample may be below the detection limit of the test. Performed By: #### I NFLUAB #### [facility] [address] [place] [address] Dr. Evan Mcintosh INFLUENZA A AG Negative Normal NEGATIVE SEE COMMENT [facility] Comment on above: Performed By: #### I NFLUAB #### [facility] [address] [place] [address] Dr. Evan Mcintosh INFLUENZA B AG Negative Normal NEGATIVE SEE COMMENT [facility] Comment on above: Performed By: #### I NFLUAB #### [facility] [address] [place] [address] Dr. Evan Mcintosh Release of Informationon Release of Information [id number] .[id number] Metabolite, Drew nt LCon 06-15-2021 Cotinine LC <1.0 Invalid Interpretation Code [facility] Comment on above: Result Comment: This test was developed and its performance characteristics determined by [employer]. It has not been cleared or approved by the Food and Drug Administration. Cotinine levels greater than 20.0 are consistent with the use of tobacco or tobacco cessation products. Performed At: [address] [id number] Richmond Merino MD Ph:[phone] Performed By: #### 3 [id number], [id number], 19289882, 3930388939, 3614500, [id number] #### [facility] (DEFAULT) [address] [place] [address] Nicotine LC <1.0 Invalid Interpretation [facility] Comment on above: Result Comment: This test was developed and its performance characteristics determined by [facility]. It has not been cleared or approved by the Food and Drug Administration. Nicotine levels greater than 2.0 are consistent with the use of tobacco or tobacco cessation products. Performed By: #### 3 [id number], [id number], 66638190, 0922849444, 8829290, [id number] #### [facility] (DEFAULT) [address] [place] [address] .Auto Diff 1on --2020 Auto [place] % 6 % Normal -12 [facility] Comment on above: Performed By: #### 3 7732224, [id number], 67695567, 3516517152, 2560849, 9099408711 #### [facility] (DEFAULT) [address] [place] [address] Baso Abs# 0.0 x10 Normal 0.0-0.2 [facility] Comment on above: Performed By: #### 3 5580870, [id number], 26196236, 0036828064, 0749809, 9055574686 #### [facility] (DEFAULT) [address] [place] [address] Basophils/100 WBC (Bld) 0.1 % Low 0.2-2.0 [facility] Comment on above: Performed By: #### 3 5492806, 8485543983, 09791840, 0976090614, 9370889, 6636132498 #### [facility] (DEFAULT) [address] [place] [address] Eos Abs# 0.2 x10 Normal 0.0-0.4 [facility] Comment on above: Performed By: #### 3 4992896, 4319556338, 93227408, 8655412870, 9269486, 2968948119 #### [facility] (DEFAULT) [address] [place] [address] Eosinophils/100 WBC (Bld) 1.6 % Normal 0.9-4.0 [facility] Comment on above: Performed By: #### 3 2678938, 2477224703, 81459067, 0352883535, 6282324, 8266106204 #### [facility] (DEFAULT) [address] [place] [address] Lymph Abs# 1.5 x10 Normal 1.3-2.9 [facility] Comment on above: Performed By: #### 3 6108049, 8777814866, 34454711, 9176712127, 3867038, 6914117678 #### [facility] (DEFAULT) [address] [place] [address] Lymphocytes/100 WBC (Bld) 15 % Normal 14-48 [facility] Comment on above: Performed By: #### 3 3456922, 4466138578, 93540045, 2006839805, 9885650, 5478756292 #### [facility] (DEFAULT) [address] [place] [address] [place] Abs# 0.6 x10 Normal 0.0-0.8 [facility] Comment on above: Performed By: #### 3 7279303, 9146400406, 96977267, 7322426511, 3977331, 1191179174 #### [facility] (DEFAULT) [address] [place] [address] Neut Abs# 7.8 x10 Normal 1.5-9.2 [facility] Comment on above: Performed By: #### 3 0406232, 9945913180, 88717658, 3477733771, 9297143, 8774709563 #### [facility] (DEFAULT) [address] [place] [address] Neutrophils/100 WBC (Bld) 77 % Normal 44-88 [facility] Comment on above: Performed By: #### 3 6204574, 1916330292, 00074532, 2315756260, 3912253, 6515738119 #### [facility] (DEFAULT) [address] [place] [address] CBC w/ Auto Diffon Erythrocyte distribution width (RBC) [Ratio] 14.4 % Normal 11.5-15.0 [facility] Comment on above: Performed By: #### 3 1564847, 5780195040, 39205960, 9632666207, 0930976, 0326675165 #### [facility] (DEFAULT) [address] [place] [address] Hematocrit (Bld) [Volume fraction] 37.3 % Normal 33.7-40.4 [facility] Comment on above: Performed By: #### 3 8622902, 8824034626, 91900104, 4100762180, 9247151, 4455366494 #### [facility] (DEFAULT) [address] [place] [address] Hemoglobin (Bld) [Mass/Vol] 12.2 g/dL Normal 11.3-15.9 [facility] Comment on above: Performed By: #### 3 0814382, 1416671733, 24761779, 0436597574, 4082966, 6872982454 #### [facility] (DEFAULT) [address] [place] [address] Instr WBC 10.1 x10 Invalid Interpretation Code [facility] Comment on above: Performed By: #### 3 8917149, 2630575501, 97543410, 7993496495, 9397456, 1387382213 #### [facility] (DEFAULT) [address] [place] [address] Man Diff? Auto Normal [facility] Comment on above: Performed By: #### 3 6187069, 9988923413, 38691189, 2779984422, 3061680, 2688783052 #### [facility] (DEFAULT) [address] [place] [address] MCH (RBC) [Entitic mass] 29 pg Normal 24-34 [facility] Comment on above: Performed By: #### 3 1737439, 0749381184, 54021469, 6320614060, 2810690, 9175462033 #### [facility] (DEFAULT) [address] [place] [address] MCHC (RBC) [Mass/Vol] 33 g/dL Normal 26-37 [facility] Comment on above: Performed By: #### 3 3287894, 3262416677, 77898156, 6768281198, 9519290, 0565072432 #### [facility] (DEFAULT) [address] [place] [address] MCV (RBC) [Entitic vol] 88 fL Normal 81-100 [facility] Comment on above: Performed By: #### 3 2747180, 8184310606, 19783610, 6288581457, 8806222, 0261037661 #### [facility] (DEFAULT) [address] [place] [address] Platelet 234 x10 Normal 138-427 [facility] Comment on above: Performed By: #### 3 3469875, 4466101971, 56333557, 4015060693, 4143210, 3159333232 #### [facility] (DEFAULT) [address] [place] [address] Platelet mean volume (Bld) [Entitic vol] 10.8 fL High 6.3-10.2 [facility] Comment on above: Performed By: #### 3 5722370, 4440134365, 11487498, 1631357542, 5628764, 0661974623 #### [facility] (DEFAULT) [address] [place] [address] RBC 4.23 x10 Normal 3.70-5.30 [facility] Comment on above: Performed By: #### 3 4122558, 3705353969, 14310778, 8940597247, 7860916, 4328877537 #### [facility] (DEFAULT) [address] [place] [address] WBC 10.1 x10 Normal 3.5-10.5 [facility] Comment on above: Performed By: #### 3 9297646, 2089897833, 89164386, 8401727840, 6073902, 7528583898 #### [facility] (DEFAULT) [address] [place] [address] CMP Standardon 06-09-2021 eGFR Non AA >60 Invalid Interpretation Code [facility] Comment on above: Performed By: #### 3 2707130, 2200510191, 28686287, 9553941722, 6627420, 6130631068 #### [facility] (DEFAULT) [address] [place] [address] eGFR AA >60 Invalid Interpretation Code [facility] Comment on above: Result Comment: Customer Loyalty Representative [email or web address] Kidney disease could be indicated at eGFRs of less than 60 ml/min/1.73m2. Kidney Failure is indicated at less than 15 ml/min/1.73m2 Performed By: #### 3 0677152, 0709555756, 17525338, 3273710368, 3618184, 6895207787 #### [facility] (DEFAULT) [address] [place] [address] Albumin [Mass/Vol] 3.1 g/dL Low 3.5-5.0 [facility] Comment on above: Performed By: #### 3 0417031, 8989273256, 07525619, 1441979805, 3478198, 9679525782 #### [facility] (DEFAULT) [address] [place] [address] Albumin/Globulin [Mass ratio] 1.0 {ratio} Low 1.4-2.6 [facility] Comment on above: Performed By: #### 3 4118795, 3119569371, 41245718, 3083144225, 3581969, 2103582816 #### [facility] (DEFAULT) [address] [place] [address] Alk Phos 107 IU/L High 32-91 [facility] Comment on above: Performed By: #### 3 3781083, 8656032881, 37750469, 4691419496, 8759916, 3179011428 #### [facility] (DEFAULT) [address] [place] [address] ALT [Catalytic activity/Vol] 16.0 U/L Normal 14.0-54.0 [facility] Comment on above: Performed By: #### 3 5808951, 9016028134, 03855847, 1816140277, 9691754, 9240028904 #### [facility] (DEFAULT) [address] [place] [address] Anion gap [Moles/Vol] 12.0 mmol/L Normal 5.0-19.0 [facility] Comment on above: Performed By: #### 3 4766874, 8478994347, 33973988, 0096242844, 9785797, 4325353589 #### [facility] (DEFAULT) [address] [place] [address] 72157 AST [Catalytic activity/Vol] 19 U/L Normal 15-41 [facility] Comment on above: Performed By: #### 3 7773160, 6439606099, 80416896, 4214286968, 2072292, 1354560018 #### [facility] (DEFAULT) [address] [place] [address] 17409 Bili Total 0.1 mg/dL Low 0.3-1.2 [facility] Comment on above: Performed By: #### 3 9685370, 2859729879, 58833021, 1376744646, 2250198, 6141208966 #### [facility] (DEFAULT) [address] [place] [address] 04436 Calcium [Mass/Vol] 8.6 mg/dL Low 8.9-10.3 [facility] Comment on above: Performed By: #### 3 2310284, 0018713374, 13337430, 0689391706, 8401000, 3591114469 #### [facility] (DEFAULT) [address] [place] [address] 42522 Chloride [Moles/Vol] 105 mmol/L Normal 101-111 [facility] Comment on above: Performed By: #### 3 5271501, 4881055290, 07253041, 8598667638, 2334445, 4206524804 #### [facility] (DEFAULT) [address] [place] [address] 31163 CO2 [Moles/Vol] 20 mmol/L Low 21-32 [facility] Comment on above: Performed By: #### 3 6601295, 9830079162, 18587984, 8774980505, 0013902, 0206384143 #### [facility] (DEFAULT) [address] [place] [address] 05884 Creatinine [Mass/Vol] 0.63 mg/dL Normal 0.60-1.30 [facility] Comment on above: Performed By: #### 3 9385965, 2383117435, 36615033, 6385045099, 9921194, 4200331839 #### [facility] (DEFAULT) [address] [place] [address]609 Globulin (S) [Mass/Vol] 3.2 g/dL Normal 1.5-4.3 [facility] Comment on above: Performed By: #### 3 2421432, 0180177683, 14400946, 5410624826, 1553800, 2794405118 #### [facility] (DEFAULT) [address] [place] [address] Glucose [Mass/Vol] 81.0 mg/dL Normal 74.0-118.0 [facility] Comment on above: Performed By: #### 3 6282569, 5672496964, 32931821, 8749979943, 3987833, 2460120994 #### [facility] (DEFAULT) [address] [place] [address]180 Osmolality 264 mOsm/L Invalid Interpretation Code [facility] Comment on above: Performed By: #### 3 4716465, 2299774572, 96563858, 6761651981, 8344702, 9386562625 #### [facility] (DEFAULT) [address] [place] [address] 72667 Potassium [Moles/Vol] 4.0 mmol/L Normal 3.6-5.1 [facility] Comment on above: Performed By: #### 3 4858456, 2790954728, 96220801, 6503105236, 6812387, 3460002435 #### [facility] (DEFAULT) [address] [place] [address] 68946 Protein [Mass/Vol] 6.3 g/dL Low 6.5-8.1 [facility] Comment on above: Performed By: #### 3 5122985, 6113561558, 22856482, 5627625377, 3613888, 8381324259 #### [facility] (DEFAULT) [address] [place] [address] Sodium [Moles/Vol] 133.0 mmol/L Low 136.0-144.0 [facility] Comment on above: Performed By: #### 3 3411265, 1756482754, 66455995, 9951243203, 3817531, 4671981169 #### [facility] (DEFAULT) [address] [place] [address] Urea nitrogen [Mass/Vol] 10 mg/dL Normal 8-26 [facility] Comment on above: Performed By: #### 3 4910500, 1234884562, 22577244, 9553957974, 5354809, 3266294763 #### [facility] (DEFAULT) [address] [place] [address] Urea nitrogen/Creatinine [Mass ratio] 16.0 mg/mg Normal 4.6-16.2 [facility] Comment on above: Performed By: #### 3 1766461, 9633155133, 06223661, 1921908127, 7083294, 6363785689 #### [facility] (DEFAULT) [address] [place] [address] HgbA1c Standardon 06-09-2021 .Hb 13.7 Invalid Interpretation Code [facility] Comment on above: Performed By: #### 3 4687993, 0750345565, 62484864, 9105849918, 5296771, 0933573711 #### [facility] (DEFAULT) [address] [place] [address] .Hgb A1c 0.47 g/dL Invalid Interpretation Code [facility] Comment on above: Performed By: #### 3 9554169, 2131887365, 71095135, 8069579834, 8618366, 1920115545 #### [facility] (DEFAULT) [address] [place] [address] Glucose [Mass/Vol] 105 mg/dL Invalid Interpretation Code [facility] Comment on above: Performed By: #### 3 8924850, 3094210865, 14708183, 7771510909, 1665356, 9331727168 #### [facility] (DEFAULT) [address] [place] [address] 21602 HbA1c (Bld) [Mass fraction] 5.3 % Normal 4.6-6.2 [facility] Comment on above: Performed By: #### 3 4664524, 9257916339, 21887599, 7958724252, 1792208, 3789379421 #### [facility] (DEFAULT) [address] [place] [address] 48078 Lipid Panel Standardon 06-09 Cholesterol [Mass/Vol] 269.0 mg/dL High 66.0-200.0 [facility] Comment on above: Result Comment: Ruby rable - Less than 200 mg/dL Borderline high risk - 200-239 mg/dL High risk - 240 mg/dL and over. Performed By: #### 3 6838080, 2065568680, 97420925, 6366056838, 6461780, 1417834597 #### [facility] (DEFAULT) [address] [place] [address] 41952 Cholesterol in HDL [Mass/Vol] 102 mg/dL High 40-71 [facility] Comment on above: Result Comment: High risk - <40 mg/dL. Performed By: #### 3 4604310, 8039739056, 42212914, 5913635647, 6434693, 7762475039 #### [facility] (DEFAULT) [address] [place] [address] 78141 Cholesterol in LDL [Mass/Vol] 142 mg/dL High 1-100 [facility] Comment on above: Result Comment: Opti mal - Less than 100 mg/dL Borderline high risk - 130-159 mg/dL High risk - 160-189 mg/dL. Performed By: #### 3 6142480, 4020581806, 62190623, 3200606669, 7302946, 7338712544 #### [facility] (DEFAULT) [address] [place] [address] 14911 Cholesterol.total/C holesterol in HDL [Mass ratio] 2.6 {ratio} Normal 0.0-4.5 [facility] Comment on above: Performed By: #### 3 1649638, 9766193859, 83563841, 1268418957, 6018492, 1491859384 #### [facility] (DEFAULT) [address] [place] [address] Triglyceride [Mass/Vol] 120.0 mg/dL Normal 0.0-150.0 [facility] Comment on above: Performed By: #### 3 1460008, 1487047774, 33328423, 4008870271, 2829732, 5071616417 #### [facility] (DEFAULT) [address] [place] [address] VLDL. 24 mg/dL Normal 5-40 [facility] Comment on above: Performed By: #### 3 5275955, 7718775685, 66676018, 8268265719, 8119014, 3980017338 #### [facility] (DEFAULT) [address] [place] [address] Coding Summaryon 04-08-2021 Coding Summary [employer] 64 KudauxfvVDg0lQf+PGhlY WQ+KC5CBWFbB32doRGgyF 2JR7eWQF6VICGDGEQSPC0 MXN9xqBN6ZRgvM1OnpjFo FebxdXSpQS39HOg4LOX6i PmzFOvneC3xnDYdU1z4Da IrVR61bM29PIkeLOZeJlQ 3LjZpbjsgbWFy N0ocEiHbdVWzAop+PHRhY mxlIHdpZHRoPScxMDAlJy TvfIexWK8sXp2pUDYsHFM vbGxhcHNlOiBj s4vsIZAfRBcrVH4jtKmeJ 5DvrSD4SYCrb8d8Jx19lS I+TCXkOYE2gGvsXSync43 0ZoZup3wsKSR0 xDIjFJwwCTD0S54ui0C5V GMzKZZqVBV5bWB5zR1zjN lsmlilC4FpkKYbGnA6BYU 9oRLmlD1xiXpv wdskbQ8zStd+E99NIZ5HW SAXFN7MIan2M2AjTvdcrL I+WU68RDZkUD19tXPuuMR fv1efnCh5IfPx NTHwPOA4zDkbZFuhk2TaZ HRwF35qzMJmq8K8GCSiqW xvnFTxJuFfqCB4lD4cMBz fwzhat1omhlak Qlrrt2fksk35oC97S87xG UroHRTjOJI8BSFaNIJpfM iidm4bxS3xXn7+FWasa6w lt8wzpCc4PdPp GQLiezUgoOryIOF2u8BxM z35L1PkiBdhi5CsMqd2eu 40eCLbh7V8iRU2AQqjHSN cfS8uBVmtExE0 MUDaAsXcqU53fOZsMQstU h0hhEyjeRhjJJ4eSBOefa jqXSRllW7jSDDxkZNlvNn hSQ0bAAKzwjii y209MaSgLYL7HMFvzONkQ 9BtcA9oCgNeTASqXFHbE5 AlcATqFJtuR524RStyFkS 6ZLQxaaAzM8Ox BRDjsErzNfW4a9F4Ra3Ct 0GgezoiTIT6OXboBSR8Cz B5TyInUbF3E0PdLiw2HDZ ilTeoUK4iJ5Le FUSrxobcxwxmuMR8KXMvP EEcaA03aVOlDYhbVi4cc3 G9h485QYKxYFNsvD26Vv0 udDogMTBwdCBU xJ0tqknim8fkntwfJgKfA DBfANy7YNj0CVIshRobVx ImKQF1RmM2ENR0bKXutW2 aeNrydjprwL9n Oyc+Q79quW3dYNI6JEO3d unfCFCpijJlTX48HT84P9 RyPjwvdGFibGU+PGRpdiB seGkvHT2qSdLz h9qtv4ZmSJvaX7JaHGYhW RcaTej3HCPkJLY1lXA2vA 9qRIJmTGenj0H4wBT9B7N tbtWzuw7pa4zf ATMxGRoqQ40ryTPml2D3L UUrpSI8TQThhYaeNxWpcY 93Oyc+ABFfmXity7SxYgg iv7iox8amoJj3 NjCjOHJvwqZqoJtfOHD8h 9BrLv98D69iONhsYKYyHS QhPALkGUEtkCuucz0khK7 wIi8+PGNvbCB3 tAV6bC2dQELaQrB9QXqrN 397KbNfhKBkJxckq9sog8 ivvHw8YiZeONLcupDuuGd gKZU9u5PhPs34 B37vMQrgDIQeBQAtWOGrE JIfoMnhwq3suV0jLs8+PC 9hw0ilux04nW61lGD+PHR eRXI0bRgjCKxx PUTdnG6mMWtiWxK5LOWwJ qHqmG57gCPcAEqfTh7urC wxpTfoEQ2rRKKihoivn28 4KrHxf1knBAQk kVNaXUogPAJ7J26dq3X7S MSqKICnBXK9oVF0iM7pmE lnbjogbGVmdDsgdmVydGl iPTimGFvpV195 IHRvcDsnPlBhdGllbnQgT eQkKZt0B7DrNlv3TIMksO eeKB2hlNEyUWcnEx5nyGh ouLsiHD3oKCOr uxujn375YmWgn1teHXUdr YQvUDfdNWL3X28wd6Z2EU CfEVCqMUY8rVP9jI1ldTv nbjogbGVmdDsg sjOnjFlqCRedCUedY273S HRvcDsnPkJpcnRoIERhdG A6HI24CE62eVSbg4X7kRD 4V9TmZFSwjmaz wlqdgVE1NYWoYGAbzS67L z8ftObgOz2yYXDcAZA5VI KcuBVmH8BlmY5rFuLcDMF yXVLvF8UvsIKh HGtyS681VElhOuW9ZRCui mGoH2ZeSGYztXhlJhR8h6 N4Cx0LX3T1PV17FD90pHR qe1A8lWI7X3Zo IDPinzlnxobhyXW1LMZlJ WAnuZ97Di5oxTqsPq9nKC ZmWBK2AKPncWMgI5GdpC4 yOiAjMDAwMDAw X8HphFGdTVzyU791HRaqK bG9SDPubkGyE9HjDPYkqF frRaN9o5F2Ga9CGZw5EU6 7XS47xSKac2C1 gZI8I1JsCQMgxtquznuta PQ4HCUwAWZrhN29Jl1skF neLq1dEHRbSAH6YBIklOB xO3RyxT1nTxKd OCOsFBBiW3VkpUMlKXlmC 543ZIctUoW5PAGsmgMdZ7 SgCKQpsLjeSjD6c7G5Ts3 XKZTnVO73AOW9 bVO5UG25TQ40M5WnOgebl GFibGU+PHRhYmxlIHdpZH RoPScxMDAlJyBzdHlsZT0 kFh2jZHReSQAl fVlnhAXyAzZwe8pwHFQcL IsjXU1fdZcxB5FktMC5DA Tyi2c6Zc37W68oV5DlxIU +NMJkhBM6eTT9 mQ9rUrFyErB1BKgqJ616C zWsjWYrSgbmm3cvl1wqwP w4YxO1RHIotdNkxVrfMXQ 3o2JoMj19P95t IHdpZHRoPSIxNSUiIHZhb Hgtsk4qyU6nKf1+PGNvbC B1fPT4dR9dFiNbUpX9SPa jE755UoZwiTGz Bubsz9zqk3fotJx5HvBpV MKmseHvfHduDRO7p3VrPc 04G0TapSpkf6NlKke3hz5 1jSClq2I3xJO5 M1YpVPLciqabgHVxjAqjS C8eVMXmkwouNVHikW2bPJ WjZ3x7KxUxLyJ1AOmfT4J kfqH0ZCKiaATq BDfiUPF7V79ip5Y4QZNhQ RBiLRK8hNZ8vW1ekDcrbe ogbGVmdDsgdmVydGljYWw kXZcyA365VPCm gQltCCAidT5wVXQogLGbh KorMF7zDEOurkpxMy1XPF VSUVWPBNUECV7KWPDLBKz DBFH5G6IxWaj0 RKSsjSmaMP3lfJPcWGjbS i6qyFpacQemLL5qXUMfvf hoMQYqtU0zHBQthCIkfQk vTF3uFMNocwlj u921SkKoIUQ2JFWalSPxX 8WjdO8lMmBgRVIdCFPkG4 VsrAZsCZhoQ557MHobBfS 8SSNhpvZpO2En JJDnnZpaXxG2o9L2Kv3wL Z5pLK3eXVa4SE47ZU84rX Mvy9C2xTP7N6VyLRQivfh ozzhgxZJ3YNCm YQUpdY94wQRkIHajNf1qr 5L1r025FTJwVTZznG52Tn 0lqCqiCMHqdNRZyW0dfmq ii0eovvmoUiPg EWZpEId6BCn2IZDlbHwhZ uMgSCC7SvM1AMR5aQKewX 2rvQblawevrM1dYrn+MjY zVWHhuuX2G1Uc Yjp0LMKvuWoaIH5syWTwM YvzCw4jcFcauPddAQ5uJK WjjmxqBVTwpD9aDLKreRL mhPncOY4bXVUr tcghr209TaBdGOS6JCSwk WCaX0SnoP5lRwRtFOBqUT RbR9KefJUlLMhbK622NPr fTlF6EKQavdGx I8RaLPMdpKpmRzB1y5O6P f5BPX9QMDO5H0YfDjb7JW TsjFwxGU3eiJEjLFgeZl8 kqBahlYbpND1p SQItenhaSNAggQ5tMNScz BSycMzoFF3sHMThhsbib1 34PiGlAKD7APGnoKQjI9J tvB1yLkKnEAQg QCKpA5TvfCFlYLccL858J XygNtI6TSBhopOwM9HaIQ TtxRueWbZ9n2J7Eo3EOTu vdGQ+AN53fb37 Z0VkHffkRsd1MPLeHAF7a YE2oW6bPIRkYCnpd5A6kW W3J5LgmeEjzh6ux0owZOZ iOXciA10pkIKd b5F8JRGykIB7PTHzlNfvV oYwzZ87Xvj+PGNvbGdyb3 ViYkmsx5cha7eliBs6YeZ wJSIgdmFsaWdu IGJ0a9HwOq65G14nPLbbV HRoPSIzMCUiIHZhbGlnbj 4yjR8jUm6+UACjhOH5rHO 0sN2iTvGdZlJ0 IXdsW348PzChnOYsAuddm 6epk6yvnBh4JqDeAITmzq TywEtbNMY1h6IxNc54B3A ilLlyv9QpRww8 tt61nZDnw0U3gMS0U0KqE UIxlsfhaCEkxXabPY9nDP EiitmgPMDvwE4vYNWpG8e 4QuJtAkS1BBof G7UyhjK2KXSewDYsYALzt JHVvG6dvurey2iwqxbnSd MpYWQpWOy4JHd3MMZmbDb xQtCqGRJ3NzM2 MCQ3dNFwwF7baCcfkfqhi G9wOyc+TQi8i6iamDQdKH 6bqLL6KU48WV86hDFwz8K 1dHL4W6EyUXLk dvfbfkreeIO4ZMHbRKUyy W97Xk7lfZoeAk6wWMSzMS Y7MIIgfKVsI3WzhT5aKmN kIEDjOSPwL8Cy jYOoTTfyT337OYyzHxF8L TDjvvYdO2HhHODrgFgcJy T8y6P3Wl8UFW66VE19NX3 7iPQoc4R8vPS8 D2DqVZCowvcbchxkuIW9E KHhXOMrqC50Ye0ceFklFq 4fCNBmZPT3GLWyxZMyP2K zqA1xNuSiRKIg ZDPnR0BwsRTbXBljX049U YtjRpT9EAMiueQcE6AsMI DkiJveSqI5v9O9Bs3ENp1 5UE76HH87tPNc y5T1eMR3G3OiJNFqjpbjd tqxnAM2TDSqLRNyoN11Oi 1mcJbcPr0uGFLbHYT8HHX bzJReF5AfzX1l MnTrYMYhYDJqM1XxtBFbP MjwY375KFrzVhW3GPCltn JgI9VcEOZogPrpNmG5q8B 1Ma2VZLmntoc1 H3IfFavoiBH+PM50LPDbI V09uAKyeLQwv9vyfMw4Gp YoBJHfWZV8qGkmTMkph0B dGYVlN24ppLVg c2U (more content not included)... Normal [facility] Provider Orderson 04-07-2021 Provider Orders [id number] Normal [facility] .Auto Diff 1on 04-04-2021 Auto [place] % 5 % Normal 12 [facility] Comment on above: Performed By: #### 2 [id number] #### [facility] (DEFAULT) [address] [place] [address] 70996 Baso Abs# 0.0 x10 Normal 0.0-0.2 [facility] Comment on above: Performed By: #### 2 [id number], [id number] #### [facility] (DEFAULT) [address] [place] [address] 66902 Basophils/100 WBC (Bld) 0.1 % Low 0.2-2.0 [facility] Comment on above: Performed By: #### 2 [id number], [id number], [id number] #### [facility] (DEFAULT) [address] [place] [address] 48887 Eos Abs# 0.1 x10 Normal 0.0-0.4 [facility] Comment on above: Performed By: #### 2 [id number], [id number] #### [facility] (DEFAULT) [address] [place] [address] 17923 Eosinophils/100 WBC (Bld) 2.0 % Normal 0.9-4.0 [facility] Comment on above: Performed By: #### 2 [id number], [id number], [id number] #### [facility] (DEFAULT) [address] [place] [address] 64482 Lymph Abs# 1.2 x10 Low 1.3-2.9 [facility] Comment on above: Performed By: #### 2 [id number] #### [facility] (DEFAULT) [address] [place] [address] 16285 Lymphocytes/100 WBC (Bld) 17 % Normal 14-48 [facility] Comment on above: Performed By: #### 2 [id number], [id number], [id number] #### [facility] (DEFAULT) [address] [place] [address] 03427 [place] Abs# 0.3 x10 Normal 0.0-0.8 [facility] Comment on above: Performed By: #### 2 [id number], [id number] #### [facility] (DEFAULT) [address] [place] [address] 83598 Neut Abs# 5.4 x10 Normal 1.5-9.2 [facility] Comment on above: Performed By: #### 2 [id number], [id number], [id number] #### [facility] (DEFAULT) [address] [place] [address] 72208 Neutrophils/100 WBC (Bld) 76 % Normal 44-88 [facility] Comment on above: Performed By: #### 2 [id number], [id number], [id number] #### [facility] (DEFAULT) [address] [place] [address] CBC w/ Auto Diffon 1 Erythrocyte distribution width (RBC) [Ratio] 13.7 % Normal 11.5-15.0 [facility] Comment on above: Performed By: #### 2 [id number], [id number], [id number] #### [facility] (DEFAULT) [address] [place] [address] Hematocrit (Bld) [Volume fraction] 34.4 % Normal 33.7-40.4 [facility] Comment on above: Performed By: #### 2 [id number], [id number], [id number] #### [facility] (DEFAULT) [address] [place] [address] Hemoglobin (Bld) [Mass/Vol] 11.1 g/dL Low 11.3-15.9 [facility] Comment on above: Performed By: #### 2 [id number], [id number], [id number] #### [facility] (DEFAULT) [address] [place] [address] Instr WBC 7.1 x10 Invalid Interpretation Code [facility] Comment on above: Performed By: #### 2 [id number], [id number], [id number] #### [facility] (DEFAULT) [address] [place] [address] Man Diff? Auto Normal [facility] Comment on above: Performed By: #### 2 [id number], [id number], [id number] #### [facility] (DEFAULT) [address] [place] [address] 72199 MCH (RBC) [Entitic mass] 30 pg Normal 24-34 [facility] Comment on above: Performed By: #### 2 [id number], [id number], [id number] #### [facility] (DEFAULT) [address] [place] [address] 25138 MCHC (RBC) [Mass/Vol] 32 g/dL Normal 26-37 [facility] Comment on above: Performed By: #### 2 [id number], [id number], [id number] #### [facility] (DEFAULT) [address] [place] [address] 49624 MCV (RBC) [Entitic vol] 92 fL Normal 81-100 [facility] Comment on above: Performed By: #### 2 [id number], [id number], [id number] #### [facility] (DEFAULT) [address] [place] [address] 97917 Platelet 225 x10 Normal 138-427 [facility] Comment on above: Performed By: #### 2 [id number], [id number], [id number] #### [facility] (DEFAULT) [address] [place] [address] 16646 Platelet mean volume (Bld) [Entitic vol] 9.8 fL Normal 6.3-10.2 [facility] Comment on above: Performed By: #### 2 [id number], [id number], [id number] #### [facility] (DEFAULT) [address] [place] [address] RBC 3.73 x10 Normal 3.70-5.30 [facility] Comment on above: Performed By: #### 2 [id number], [id number], [id number] #### [facility] (DEFAULT) [address] [place] [address] WBC 7.1 x10 Normal 3.5-10.5 [facility] Comment on above: Performed By: #### 2 [id number], [id number], [id number] #### [facility] (DEFAULT) [address] [place] [address] 16979 [place]gu[place] Teston 04-04-2021 Glucose [Mass/Vol] 115 mg/dL Normal <=139 [facility] Comment on above: Performed By: #### 2 [id number], [id number], [id number] #### [facility] (DEFAULT) [address] [place] [address] Coding Summaryon 11-29-2020 Coding Summary HTMLBase 64 XzyxuztnZCw6zNg+PGhlY WQ+TK6SSQCsU59efHNfpX 3PZ0eEYD2GYECZLZSLBY2 LAZ3vxFR7FYvbG1VdcsHn MyifaRNpIS96EWc8RIQ3e TavILpkwC7nnUIrW6g5Nj CgNP89eI33LKgkQALoUjD 3LjZpbjsgbWFy V6lsIwBboHGiUxs+PHRhY mxlIHdpZHRoPScxMDAlJy VlaAzdNM5zXq0bZOJuKGS vbGxhcHNlOiBj m1jhKTHuWIloSY2sfMmqK 3WswCV4GKSzy8l7Pu45eS I+AHCbJES8iVxxWMtsi21 4CjFqu3qcEQQ5 gGQdLDbmTRQ9X88px7K3H RIoVAXhQBD3qPL2hX5nzA vsdujcA9HviXTjAkD0EFS 3jLVxjZ0kiUoq dyojjD8oPfg+F57QDW9CC MYMAF9KBsm4C1TlExypmV I+AF95ZHWoII98mSNiaEN yk1ufyOa7LyMr TMMgPPO0zTpaGZavx7LnX MBuF97uuFLkl4G6WQYqcJ uiqHKfSpCqvFP7jO7iXSa egwmhc3vzbvlz Dvfhc8tumb70qC25Y57wX UerPCHqGZQ1DQAkMDEptB kdyt2hfI4cSn2+YZiks9w lq8wlzIy6FxXx CCHwacFrdYvaGRX3p2MrP j86Q7LonTvxt2LzPar2ah 82iGAqp3Q0aNE7YImjIGN hrH5vMRkdNmJ9 NEOwMvNgiW40kVFqKTdbN o5gjFztfXnkVM1cGYLzvu egUYGxhD2zSSEkhEIyfQh aTF2tQXUokygz h282EmBeGLM1YFUbrOWqL 5FmhS1kZyOpPCBlJEGuK9 CdmLNaIHcdS593YWxlTsN 2SNNvrfLsB3Ra BXRvdXagMgB2k7T0Ao5Xw 3UiwmdiNJZ6GWtkGHI7Te H6XpTvPlL9T8KdDue1WNQ xsPusQF0vB1My FYUbmofxdarfnIM8SWYpV MJyjJ51sRYeEGjrKo5de5 V5h707EXBjFOGayT74Dt5 udDogMTBwdCBU mJ2kjcnof7grewkbYzRgM WRtOLj5FQh8TEAovNeeTa PqUQQ7PhX1JZG8iNAswA4 mtYplmnuegJ8c Oyc+K30ggD7bHKA2KJG1u xvbLYUvrfPbIR57CI28J9 RyPjwvdGFibGU+PGRpdiB mhRayWQ2zPdLv b9qcx1PoSTbfC5UbHTTtQ MmhJcb3HOFvKBT4dWM7oG 8dYXHoAPeiz1V0eMX5E2S mkiXqbh7vi0dm FUNuGMxzE05umKJnc4R3R WOniDN9ULAtfZhdZoWkmS 93Oyc+XGCboOshu0EcUae kc1ujf2ysdUm0 HfQlMQVxaeFsdZrpGPO4g 2QqSj00L42pHJobGRVsEM JsKMBbMWPvqKgvch5qwX6 wIi8+PGNvbCB3 uXX1fG0xYTZlKqT2SHbaX 595NcAezNCtJfufw0twh8 hmkJm9BxJgPQYhzaHuwSe xUKU7z9QkBb93 J70dZTevFLIgZBXdJIHuI DZifIgdtj6zsQ4lZg5+PC 3cw2guoz88qW64tSU+PHR gTPM0uOwgZAff LHAkdC1yUVgdQhF5ALTyX cCbtV86vRMqKGdoAr3gxU vwrNfgJJ2nETHokuoyy17 5RsTcv4nlQUXx kDInKYjhIQV6W98mm0P5F ZFuNKHnRCN4fFR1eZ0wvH lnbjogbGVmdDsgdmVydGl aXRnqFZrtY484 IHRvcDsnPlBhdGllbnQgT sQsKDf1P2GuYfw8UTPliU nxCW4ntQSwUDwoJr9uoJi apLzaIA0cBYKz eyjbg431TfFbh5nqKIRje ZRoEOlxUWR6S42hj0X4OQ WcCKWpPRR4yPU7pG4bjBy nbjogbGVmdDsg ebBjvSmgIInzCKzgS297U HRvcDsnPkJpcnRoIERhdG S7RB03BN32bJKmj0T7wDV 7M8PaKJStrckh nehzkPB9JFHyHIAqtF66B h9evYgaSd0oKUEgKMI7KO HyeEAbV9UvzO7iWzXuLNQ tSSXnG2EarUVc HXazR809GEplTnG4CBGcz zDqD5AqMBYewDraIzW2y2 P5Yf6TS6B2SM91MV57kSD cc9Q3aDS3F7Ke ZBCihxclwlltrLC0ZFBaQ SOxbF95Ja2jqKrcUs6vCJ KeSEE3YKYyqHSuR7VokQ7 yOiAjMDAwMDAw V6LzjDMxJSapV051BSqtI rG1IFZklhMgX4CbFGFfpW zvEpD9q1B6Xn1ANQl6KE4 0OX36rSJql6T4 wUY9F0IlMUVryeepqeehh UY6DYCrUUBpdZ44Fr2nkA zsWp2wEPJaNKN0LNWmaYK vK8GlkH2mTvAz POVpMLMrA3NpqRRsTDpjZ 739JXtfAoL0BXAkpyEhD6 FwOBWbqCuaLrQ7u1J5Kw8 XOTHmVZ25FQC0 xAL4YZ42WA25H9GcRabpx GFibGU+PHRhYmxlIHdpZH RoPScxMDAlJyBzdHlsZT0 jPj4rQTDvKCSk jAmozIBuTuEjm4vqXCTrL DveQN8aaUswX2SqtKR9AP Amt9g3Gl51A48nA5VirPU +WAAmyTP9fYR6 qS7sDbAaIeC8SEymG716J iIltXKaWcobs4usk4pwqI i7XgF7QGSpfcFwlVigQIJ 2m8YrXs79J26r IHdpZHRoPSIxNSUiIHZhb Pbkqh5khM2eHo6+PGNvbC D4zPF0fN7nMoHeXwD5DLq zV267FjKmxUMk Omzys5cqq0oaeWj4InKmG KGrelHbaEszXPA7q2RdTz 41I6PzsYqln6OzRzk7px3 7pHPfn4C1zGD8 V5EcTQXdvszwlVBwdIvtV O8wUKNvmvzgIDUeeG9jZD ZxF2f2RiSmGjL0QXdcY6P kqvU3JLKrgUUg CHszSQZ3N82cs2U8ZDJfH SCmZWJ4jVX0cS4iyYzqph ogbGVmdDsgdmVydGljYWw nYCcrC153PBNb qSjqTIDssY1nPXZubMJpe SejEB0sSXLqqlhxTx6PMU DGTHHJCOUMHG1LGXAARKp RZBW6T0VmPms1 VAQqaKziSM1ieNIpOXpgW h2uyHuxbEqwPW7wWMAdgc iqBJDchE4iEYGunBEmuPp vRJ2wBEBtxqis b525PgWhTZH6BFLsiPYzH 8FheS2oBtWzPCInQZXbD1 NpvSTrJNrtG200XPwyYoA 8XASiigOyF4Vj TSTgeBhcCwY1s6X7Nk5wB C1lRW5wWAd6HD70YB01wY Sfe8H0cSM8F2PuXVRebhf lflklcLK1UCIe EISyqU19dXNrNCzjTz5gd 1F0k241KJKtLFTieW05Id 5llZohXOTbeICPuY3afyg ih7pblzfcXcWl QORpXUv5HAt2FWPonDhiF rHpIMG1XlH3INJ0dAWymF 6igIvsnodbfZ8eDii+MjY xINYedcB0O5Lh Trj1KQOemSwzCP8tkCDtG MgsTt9boUtrxGgvDW2bUZ RlxtlyIMKayN8nCOAcqXB mbHprCW0zSKGw xaikh425RiGxECF0FQMxi WSbL6YvpT7fRpRdWZPjLL UkX8RnpLHqUPhmC186POn eBzW7JXUrdsRe L1XuAALbuFwsLeL8x7C3Y p7RDA7CBXS4B5HoBtr4QA AvqSquOD3ueLBhLWniWl9 skPdsdHrhHN7w ONXfrjfwXBOawN6xNDNms AIfaDgwNR8cBIApkemhq8 58RxNcHQB0SADifMTtJ5M xfM4rBsIfYXHw EPXfD0CasPSmBOqlD924B HbsVkW5RQPqncTvM0GoCD MryHusEcS4g8T4Eu8DWAs vdGQ+GZ52ru36 Y9DvDuwfHyb1NGZlIRY3n WE5gH0lIDItEMqbi1Q4nF Y6M3KrotIyhj0oe3yhNBF kRMsgE92lwINv k9Y0IDZqyVK0KJCxyOrdJ eTqkY07Axm+PGNvbGdyb3 OhMaziq8gyv9nmyTd5XpI wJSIgdmFsaWdu WDQ0v8IaLv80R03aODjkS HRoPSIzMCUiIHZhbGlnbj 4kdC5pYk5+SQYeyTG8pRN 1jA7oJvKhSjB7 AVhsX339AiAefKNnThxbu 7mxa6fjwOs8PcZaDDMgcs CppLmoDLU5h0YhDf11C7Y uvYswj6OqJej3 qc85kLTmy9U6hYU4F0FdS PVcdpqqsBDioRiaQA0uMA EegoqvVVZisE6lVCTxO8t 2PqCvOsW5CRax V7JokvC7BKRnkVDeXXBuz GRXiJ0bepyvj4nvbksnSq GzDQRnVUq1GIx2PWTxhLe tIkNpEKN3JrW5 FRD6rEQdsI9dsMmjjkhto G9wOyc+OYu8g3vyzZJtFB 4bcJO3BV85FZ94pTDjl2X 0rQS7M7FfZEUt qujevoouyAE8RODvFKQju P21Ma1boHiuKt2tGJFqEU Z5SHJsrRTnV2UbrU0xFrY tWKGiAUUbQ5Fs nRKyVGlyW572UJviWjY0Q MFugxEfD3DgFRWmwPxaAi A0g4C2Vw6EGZ10GN25JH4 2bXObb2C1lBU7 X2WgWXNkhetdkxpwlQQ9K LZrZAEtqH41Tv4jwDgdYt 9zOGSvIGP3QSJyjSSpU9R xnJ7kNaCiQMNo CLFmY0PopEDeDAgnJ561H MqzNwZ9MCLfuxIeA9HlYX VtpYyzGxJ3q7P9Mu3MLq5 7TH78XC31rRIe l0C9wKI3W7WmFTMlegmfi rttwUT2SURgHJEfqR50Po 9plClzKu1uYDOfSRI0HPZ cnRYqG8LhwU4g WxLaEHXsMPWhC1ZjpOPrG ZddF300TStsOjE2ZRJhqe YyW3OkFXRdrJunZbN3j7W 8Vx5IOLniwlq3 N7PtRstikRE+NK84WKToC B96kUWbdBVae5hqcZe1Uv HzSXFqLNU4fUoeVZrvp2I eVVPuB51fjMBc c2U (more content not included)... [facility] 11-28-2020 Provider Orders [id number] [facility] ABORhon 11-27-2020 ABO and Rh group Nom (d) Hx Check: Not Found Anti-A: 0 Anti-B: 0 Anti-D: 4+ DCon: NT A1: 4+ B: 4+ ABORh Interp: O POS Invalid Interpretation Code [facility] Comment on above: Performed By: #### 7 [id number], [id number] #### [facility] (DEFAULT) [address] [place] [address] ABORh Retypeon 11-27-2020 ABO and Rh group Nom (d) Ordered by Discern. Anti-A: 0 Anti-B: 0 Anti-D: 4+ DCon: NT A1: 4+ B: 4+ ABORh Retype: O POS Invalid Interpretation Code [facility] Comment on above: Performed By: #### 2 [id number] #### [facility] (DEFAULT) [address] [place] [address] hCG Quantitativeon hCG Quantitative 304489.0 mIU/mL High 0.0-0.6 [facility] Comment on above: Result Comment: Resu lt confirmed by dilution Post-Menopausal Reference Range is: 0.1-11.6 mIU/mL Performed By: #### 2 [id number] #### [facility] (DEFAULT) [address] [place] [address] Vital Signs Date Time Vital Sign Value Performing Clinician Facility 01-28-2023 16:20-0400 Body height 160.02 cm Shelli Villa Other Tweet Category Other 01-28-2023 16:20-0400 Body mass index (BMI) [Ratio] 40.74 kg/m2 Shelli Villa Other Tweet Category Other 01-28-2023 16:20-0400 Body temperature 99.7 [degF] Shelli Villa Other Tweet Category Other 01-28-2023 16:20-0400 Body weight 104.33 kg Shelli Villa Other Tweet Category Other 01-28-2023 16:20-0400 Respiratory rate 18 /min Shelli Villa Other Tweet Category Other 01-28-2023 16:20-0400 SaO2% (BldA) [Mass fraction] 99 % Shelli Villa Other Tweet Category Other Encounters Encounter Date Encounter Type Care Provider Facility Start: 10-11-2023 End: 10-11-2023 ambulatory JAYDEN DASIA Not Available Start: 09-13-2023 End: 09-13-2023 ambulatory JAYDEN DASIA Not Available Start: 08-13-2023 End: 08-13-2023 ambulatory JAYDEN DASIA Not Available Start: 01-28-2023 End: 01-28-2023 ambulatory Shelli Villa Other Tweet Category Other Start: 01-28-2023 Office outpatient ne w 20 minutes Shelli Villa [facility] [place] Start: 11-23-2022 End: 11-23-2022 ambulatory JENS ESCALONA . Facility:[facility] Start: 09-21-2022 End: 09-21-2022 ambulatory PRAVEEN ZELAYA Facility:[facility] Payers Date Payer Category Payer Unknown [id number] 1995 Unknown [id number] 2.16.84 [id number] 1994 Unknown [id number] 2.16.84 [id number] 1994 Unknown [id number] 2.16.84 [id number] 1994 Unknown [id number] 2.16.84 [id number] 1994 Unknown [id number] 1959 Unknown [id number] Social History Date Type Detail Facility Unknown if ever smoked Tweet Category Other Sex Assigned At Sex Assigned At Bir th Tweet Category Other Evaluation note 01-28-2023 Note Date & [...] worsening. Patient verbalized understanding of treatment plan. Tweet Category Other History general Narrative - Reported Note Date & Type Note Facility History general Narrative - Reported Type Surgical History sinus surgery x2 Tweet Category Other Summary Purpose Family History No Family History Records FoundNo Family History Records FoundNo Family History Records Found Advance Directives No Advanced Directives Records FoundNo Advanced Directives Records FoundNo Advanced Directives Records Found Additional Source Comments INFORMATION SOURCE (unrecogn ized section and content) DATE CREATED AUTHOR 11/03/2021 [facility] DATE CREATED AUTHOR AUTHOR'S ORGANIZ ATION 12/12/2022 [facility] DATE CREATED AUTHOR AUTHOR'S ORGANIZ ATION 10/11/2023 [facility] EPIC REASON FOR VISIT [...] BE BASED ON THE PRIMARY CLINICAL RECORDS. [facility] [facility]. provides no warranty or guarantee of the accuracy or completeness of information in this document.
--- NOTE | 2023-11-08 08:42 | US_ITS ---
[address] [address] Patient Name: ALYSON COOK MRN: [id number] date: 1995 Sex: F Assigned Patient Location: [facility] Current Patient Location: [facility] Accession/Order Number: [id number] Exam Date: 11/08/2023 08:43 Report Date: 11/08/2023 11:08 At the request of: JAYDEN FORMAN Procedure: US OB anatomy EXAMINATION: US OB anatomy, US OB cervical length HISTORY: ANATOMY COMPARISON: No relevant comparison available. TECHNIQUE: Transabdominal sonographic examination was performed for obstetrical and evaluation. FINDINGS: Number: 1 Heart Rate: Not measured Amniotic Fluid Volume: Subjectively normal position: Transverse presentation and lie Placental Location: Anterior, placental edge 4.5 cm from the internal os, grade 1 Cervix Length: 4.6 cm Normal anatomy: Lateral ventricles, cerebellum, posterior fossa, nose, lips, orbits, four-chamber heart, RVOT, LVOT, diaphragm, stomach, kidneys, abdominal cord insertion, bladder, umbilical arteries, three-vessel cord, spine, extremities BIOMETRY: BPD: 4.7 cm 20 weeks 1 days , 39% HC: 17.6 cm 20 weeks 1 days, 28% AC: 15.6 cm 20 weeks 5 days, 54% FL: 3.5 cm 20 weeks 6 days , 57% EFW:371.3 grams; 1 oz, 61% FL/AC: 22.2 FL/BPD: 73.6 HC/AC: 1.1 GESTATIONAL AGE: Age by EDC: 20 weeks 3 days MARIANA by EDC: 03/24/2024 Age by current US: 20 weeks 3 days MARIANA by current US: 03/24/2024 US/US OB anatomy IMPRESSION: Normal anatomy scan Closed cervix measuring 4.6 cm in length *Reference: [employer] Practice Guideline for the performance of Obstetric Ultrasound Examinations, May 23, 2007. Electronically authenticated by: VICK DUKE Date: 11/08/2023 11:08
--- NOTE | 2023-11-08 08:42 | US_ITS ---
[address] [address] Patient Name: ALYSON COOK MRN: [id number] date: 1995 Sex: F Assigned Patient Location: [facility] Current Patient Location: [facility] Accession/Order Number: [id number] Exam Date: 11/08/2023 08:43 Report Date: 11/08/2023 11:08 At the request of: JAYDEN FORMAN Procedure: US OB cervical length EXAMINATION: US OB anatomy, US OB cervical length HISTORY: ANATOMY COMPARISON: No relevant comparison available. TECHNIQUE: Transabdominal sonographic examination was performed for obstetrical and evaluation. FINDINGS: Number: 1 Heart Rate: Not measured Amniotic Fluid Volume: Subjectively normal position: Transverse presentation and lie Placental Location: Anterior, placental edge 4.5 cm from the internal os, grade 1 Cervix Length: 4.6 cm Normal anatomy: Lateral ventricles, cerebellum, posterior fossa, nose, lips, orbits, four-chamber heart, RVOT, LVOT, diaphragm, stomach, kidneys, abdominal cord insertion, bladder, umbilical arteries, three-vessel cord, spine, extremities BIOMETRY: BPD: 4.7 cm 20 weeks 1 days , 39% HC: 17.6 cm 20 weeks 1 days, 28% AC: 15.6 cm 20 weeks 5 days, 54% FL: 3.5 cm 20 weeks 6 days , 57% EFW:371.3 grams; 1 oz, 61% FL/AC: 22.2 FL/BPD: 73.6 HC/AC: 1.1 GESTATIONAL AGE: Age by EDC: 20 weeks 3 days MARIANA by EDC: 03/24/2024 Age by current US: 20 weeks 3 days MARIANA by current US: 03/24/2024 US/US OB cervical length IMPRESSION: Normal anatomy scan Closed cervix measuring 4.6 cm in length *Reference: [employer] Practice Guideline for the performance of Obstetric Ultrasound Examinations, May 23, 2007. Electronically authenticated by: VICK DUKE Date: 11/08/2023 11:08
== END 2023-11-08 08:36 | disposition home or self-care (01) ==
LOC: NOMS 08:36
PROVIDERS: PCP Family Medicine; Visit Provider Obstetrics & Gynecology
DX: Z36.89 Encounter for other specified antenatal screening (principal); Z3A.20 20 weeks gestation of pregnancy
CPT/HCPCS: 76805; 76817

== ENCOUNTER 2023-12-10 07:14 | Outpatient (OUT) | payer OTHER, SELFPAY ==
--- OUTSIDE RECORDS SUMMARY | 2023-12-10 07:17 | XMS_ITS | CCD ---
Author Organization [facility] Care Team Providers Care Rn Orthopaedic Name Role Phone IQRA .JENS Admitting Unavailable JENS LANDRY Attending Unavailable REQUEST, NONE LISTED Primary Care Unavaila JENS Adair Consulting Unavailable PRAVEEN ZELAYA Admitting Unavailable PRAVEEN ZELAYA Attending Unavailable WADE, NONE LISTED Primary Care Unavaila PRAVEEN Rubio Consulting Unavailable Shelli Villa Unavailable JAYDEN FORMAN Attending Unavailable JAYDEN FORMAN Attending Unavailable JENS ESCALONA Attending Unavailable JAYDEN FORMAN Attending Unavailable Medications [...] 2: 21 to 29on 11-29-2022 . . [facility] Comment on above: Performed By: #### 4 [id number] #### [facility] [address] [place] [address] Dr. Evan Mcintosh Age Gdln ACOG Testing 20- Normal [facility] Comment on above: Performed By: #### 4 [id number] #### [facility] [address] [address] [address] Evan Mcintosh DIAGNOSIS: Comment [facility] Comment on above: Result Comment: NEGA TIVE FOR INTRAEPITHELIAL LESION OR MALIGNANCY. Performed By: #### 4 [id number] #### [facility] [address] [place] [address] Dr. Evan Mcintosh Methodology: Comment [facility] Comment on above: Result Comment: This liquid based ThinPrep(R) pap test was screened with the use of an image guided system. Performed By: #### 4 [id number] #### [facility] [address] [place] [address] Dr. Evan Mcintosh Note: Comment [facility] Comment on above: Result Comment: The Pap smear is a screening test designed to aid in the detection of premalignant and malignant conditions of the uterine cervix. It is not a diagnostic procedure and should not be used as the sole means of detecting cervical cancer. Both false-positive and false-negative reports do occur. . Performed By: #### 4 [id number] #### [facility] [address] [place] [address] Dr. Evan Mcintosh Performed by: Comment Normal [facility] Comment on above: Result Comment: Fiona Heath, Audit Reviewer (ASCP) Performed By: #### 4 [id number] #### [facility] [address] [place] [address] Dr. Evan Mcintosh Reflex Criteria: Comment [facility] Comment on above: Result Comment: The HPV DNA reflex criteria were not met with this specimen result therefore, no HPV testing was performed. . Performed By: #### 4 [id number] #### [facility] [address] [place] [address] Dr. Evan Mcintosh Specimen adequacy: Comment Normal [facility] Comment on above: Result Comment: Sati sfactory for evaluation. Endocervical and/or squamous metaplastic cells (endocervical component) are present. Performed By: #### 4 [id number] #### [facility] [address] [place] [address] Dr. Evan Mcintosh Covid-19 PCR (CVDTB)on 08-25 SARS-CoV-2 (COVID-19) RNA CY+probe Ql (Unsp spec) Not detected Normal NOT DETECTED [facility] Comment on above: Result Comment: [...] for this test is supported by the [place] of Health and Human Service's declaration that [...] By: #### C VDTBH #### [facility] [address] [place] [address] Dr. Evan Mcintosh INFLUENZA A AND B AGon 09-21 INFLUANEGH SEE BELOW Normal [facility] Comment on above: Result Comment: Nega tive for Flu A protein angiten. Infection due to Flu A cannot be ruled out. Flu A angiten in the sample may be below the detection limit of the test. Performed By: #### I NFLUAB #### [facility] [address] [place] [address] Dr. Evan Mcintosh [facility] SEE BELOW Normal [facility] Comment on above: Result Comment: Nega tive for Flu B protein antigen. Infection due to Flu B cannot be ruled out. Flu B antigen in the sample may be below the detection limit of the test. Performed By: #### I NFLUAB #### [facility] [address] [place] [address] Dr. Evan Mcintosh INFLUENZA A AG Negative Normal NEGATIVE SEE COMMENT [facility] Comment on above: Performed By: #### I NFLUAB #### [facility] [address] [address] [address] Evan Mcintosh INFLUENZA B AG Negative Normal NEGATIVE SEE COMMENT [facility] Comment on above: Performed By: #### I NFLUAB #### [facility] [address] [place] [address] Dr. Evan Mcintosh Release of Informationon Release of Information [id number] .[id number] Normal [facility] Nicotine and Metabolite, Drew nt LCon 06-15-2021 Cotinine LC <1.0 Invalid Interpretation Code [facility] Comment on above: Result Comment: This test was developed and its performance characteristics determined by [facility]. It has not been cleared or approved by the Food and Drug Administration. Cotinine levels greater than 20.0 are consistent with the use of tobacco or tobacco cessation products. Performed At: [address] [id number] Richmond Merino MD Ph:[phone] Performed By: #### 3 [id number], [id number], 93060470, 0972771687, 6727607, [id number] #### [facility] (DEFAULT) [address] [place] [address] Nicotine LC <1.0 Invalid Interpretation [facility] Comment on above: Result Comment: This test was developed and its performance characteristics determined by [facility]. It has not been cleared or approved by the Food and Drug Administration. Nicotine levels greater than 2.0 are consistent with the use of tobacco or tobacco cessation products. Performed By: #### 3 [id number], [id number], 43723767, 3005615074, 4913937, [id number] #### [facility] (DEFAULT) [address] [place] [address] .Auto Diff 1on 06-09-2021 Auto [place] % 6 % Normal 1-12 [facility] Comment on above: Performed By: #### 3 6121629, [id number], 18227094, 2531425471, 9209239, 8325783416 #### [facility] (DEFAULT) [address] [place] [address] Baso Abs# 0.0 x10 Normal 0.0-0.2 [facility] Comment on above: Performed By: #### 3 5198025, [id number], 48466426, 6183518987, 6588883, 9471084766 #### [facility] (DEFAULT) [address] [place] [address] Basophils/100 WBC (Bld) 0.1 % Low 0.2-2.0 [facility] Comment on above: Performed By: #### 3 4955756, 0490022812, 24443111, 8971534262, 9556206, 3733223466 #### [facility] (DEFAULT) [address] [place] [address] Eos Abs# 0.2 x10 Normal 0.0-0.4 [facility] Comment on above: Performed By: #### 3 6282432, 6835816200, 08084563, 2427511810, 0183867, 6325752411 #### [facility] (DEFAULT) [address] [place] [address] Eosinophils/100 WBC (Bld) 1.6 % Normal 0.9-4.0 [facility] Comment on above: Performed By: #### 3 3215007, 7190697121, 06459715, 8455819182, 2651192, 8557800484 #### [facility] (DEFAULT) [address] [place] [address] Lymph Abs# 1.5 x10 Normal 1.3-2.9 [facility] Comment on above: Performed By: #### 3 1147171, 3344356462, 54673776, 6353098749, 6951236, 2728268595 #### [facility] (DEFAULT) [address] [place] [address] Lymphocytes/100 WBC (Bld) 15 % Normal 14-48 [facility] Comment on above: Performed By: #### 3 4117454, 2043592234, 21875424, 7521260396, 4038604, 7051171556 #### [facility] (DEFAULT) [address] [place] [address] [place] Abs# 0.6 x10 Normal 0.0-0.8 [facility] Comment on above: Performed By: #### 3 6067335, 0025682480, 57456006, 7214841603, 9312049, 2914992756 #### [facility] (DEFAULT) [address] [place] [address] Neut Abs# 7.8 x10 Normal 1.5-9.2 [facility] Comment on above: Performed By: #### 3 9907997, 9482601857, 04058086, 6100652887, 2196960, 2373036504 #### [facility] (DEFAULT) [address] [place] [address] Neutrophils/100 WBC (Bld) 77 % Normal 44-88 [facility] Comment on above: Performed By: #### 3 6999692, 5925155011, 56497177, 2575220842, 4944936, 7617766509 #### [facility] (DEFAULT) [address] [place] [address] CBC w/ Auto Diffon 1 Erythrocyte distribution width (RBC) [Ratio] 14.4 % Normal 11.5-15.0 [facility] Comment on above: Performed By: #### 3 8265359, 5772845622, 46102332, 9915247142, 4313640, 1947002655 #### [facility] (DEFAULT) [address] [place] [address] Hematocrit (Bld) [Volume fraction] 37.3 % Normal 33.7-40.4 [facility] Comment on above: Performed By: #### 3 6791228, 8482465199, 21339148, 9908307682, 6979356, 2486924930 #### [facility] (DEFAULT) [address] [place] [address] Hemoglobin (Bld) [Mass/Vol] 12.2 g/dL Normal 11.3-15.9 [facility] Comment on above: Performed By: #### 3 1267831, 0942589475, 45135925, 0733704595, 3738349, 6679435054 #### [facility] (DEFAULT) [address] [place] [address] Instr WBC 10.1 x10 Invalid Interpretation Code [facility] Comment on above: Performed By: #### 3 7122984, 3623360954, 60150302, 3496517842, 1001152, 6375924515 #### [facility] (DEFAULT) [address] [place] [address] Man Diff? Auto Normal [facility] Comment on above: Performed By: #### 3 5993188, 6662618825, 08878701, 2502102075, 7923260, 6669441052 #### [facility] (DEFAULT) [address] [place] [address] MCH (RBC) [Entitic mass] 29 pg Normal 24-34 [facility] Comment on above: Performed By: #### 3 5437555, 9676230726, 99790648, 7892503345, 7901057, 7751040960 #### [facility] (DEFAULT) [address] [place] [address] MCHC (RBC) [Mass/Vol] 33 g/dL Normal 26-37 [facility] Comment on above: Performed By: #### 3 7784574, 5153888525, 47457168, 7737384235, 7539115, 1930738004 #### [facility] (DEFAULT) [address] [place] [address] MCV (RBC) [Entitic vol] 88 fL Normal 81-100 [facility] Comment on above: Performed By: #### 3 8791031, 5567165194, 86081629, 7986335300, 2629400, 5682544108 #### [facility] (DEFAULT) [address] [place] [address] Platelet 234 x10 Normal 138-427 [facility] Comment on above: Performed By: #### 3 6573535, 5537341410, 57926281, 2902340092, 5033656, 9699414634 #### [facility] (DEFAULT) [address] [place] [address] Platelet mean volume (Bld) [Entitic vol] 10.8 fL High 6.3-10.2 [facility] Comment on above: Performed By: #### 3 8956969, 6076276290, 80178268, 3084408434, 3216595, 5048007503 #### [facility] (DEFAULT) [address] [place] [address] RBC 4.23 x10 Normal 3.70-5.30 [facility] Comment on above: Performed By: #### 3 2340067, 3228058428, 51427463, 2977997468, 1647160, 0420840339 #### [facility] (DEFAULT) [address] [place] [address] WBC 10.1 x10 Normal 3.5-10.5 [facility] Comment on above: Performed By: #### 3 7327741, 9862897630, 84477409, 2000685349, 9919387, 4208709886 #### [facility] (DEFAULT) [address] [place] [address] CMP Standardon 06-09-2021 eGFR Non AA >60 Invalid Interpretation Code [facility] Comment on above: Performed By: #### 3 3782444, 6557502029, 01739038, 4084812757, 3119755, 0276571058 #### [facility] (DEFAULT) [address] [place] [address] eGFR AA >60 Invalid Interpretation Code [facility] Comment on above: Result Comment: [employer] Leader kulwinder Kidney disease could be indicated at eGFRs of less than 60 ml/min/1.73m2. Kidney Failure is indicated at less than 15 ml/min/1.73m2 Performed By: #### 3 3919263, 2640470691, 34382779, 7602475761, 0143869, 0536481607 #### [facility] (DEFAULT) [address] [place] [address] Albumin [Mass/Vol] 3.1 g/dL Low 3.5-5.0 [facility] Comment on above: Performed By: #### 3 4959553, 8000269044, 46338199, 7464895399, 0336474, 4436473621 #### [facility] (DEFAULT) [address] [place] [address] Albumin/Globulin [Mass ratio] 1.0 {ratio} Low 1.4-2.6 [facility] Comment on above: Performed By: #### 3 8979588, 6540202322, 49608610, 4637863073, 8251662, 3508298452 #### [facility] (DEFAULT) [address] [place] [address] Alk Phos 107 IU/L High 32-91 [facility] Comment on above: Performed By: #### 3 3343113, 3444725839, 25056152, 0627546808, 7767773, 8046332103 #### [facility] (DEFAULT) [address] [place] [address] ALT [Catalytic activity/Vol] 16.0 U/L Normal 14.0-54.0 [facility] Comment on above: Performed By: #### 3 8993367, 3049546199, 41502548, 0042201753, 6791848, 9801574853 #### [facility] (DEFAULT) [address] [place] [address] Anion gap [Moles/Vol] 12.0 mmol/L Normal 5.0-19.0 [facility] Comment on above: Performed By: #### 3 5241930, 3239429298, 50680154, 8618469488, 2182521, 2926365343 #### [facility] (DEFAULT) [address] [place] [address] 40984 AST [Catalytic activity/Vol] 19 U/L Normal 15-41 [facility] Comment on above: Performed By: #### 3 4487278, 1039913186, 72556637, 3337734355, 8873597, 2546337713 #### [facility] (DEFAULT) [address] [place] [address]996 Bili Total 0.1 mg/dL Low 0.3-1.2 [facility] Comment on above: Performed By: #### 3 2932911, 0974827581, 04903747, 2580013015, 7306035, 2400610832 #### [facility] (DEFAULT) [address] [place] [address]1355 Calcium [Mass/Vol] 8.6 mg/dL Low 8.9-10.3 [facility] Comment on above: Performed By: #### 3 7333667, 7954277096, 10267292, 9287252121, 0760044, 6293554625 #### [facility] (DEFAULT) [address] [place] [address] 25070 Chloride [Moles/Vol] 105 mmol/L Normal 101-111 [facility] Comment on above: Performed By: #### 3 7116876, 6480248176, 51455737, 6494375867, 7470820, 3107864868 #### [facility] (DEFAULT) [address] [place] [address] 25706 CO2 [Moles/Vol] 20 mmol/L Low 21-32 [facility] Comment on above: Performed By: #### 3 9689822, 5366286806, 49306201, 1549643233, 9416244, 9111204207 #### [facility] (DEFAULT) [address] [place] [address] 45212 Creatinine [Mass/Vol] 0.63 mg/dL Normal 0.60-1.30 [facility] Comment on above: Performed By: #### 3 5246223, 5941888392, 20890440, 7617798790, 9651122, 3872055320 #### [facility] (DEFAULT) [address] [place] [address] 45153 Globulin (S) [Mass/Vol] 3.2 g/dL Normal 1.5-4.3 [facility] Comment on above: Performed By: #### 3 8632436, 3048444271, 94672713, 8078508832, 5557157, 3412046927 #### [facility] (DEFAULT) [address] [place] [address] 60800 Glucose [Mass/Vol] 81.0 mg/dL Normal 74.0-118.0 [facility] Comment on above: Performed By: #### 3 4749613, 9466351244, 68249754, 8703382290, 0863554, 7727609054 #### [facility] (DEFAULT) [address] [place] [address] 94221 Osmolality 264 mOsm/L Invalid Interpretation Code [facility] Comment on above: Performed By: #### 3 2297343, 8766116170, 92488530, 9764803895, 1384707, 2691561367 #### [facility] (DEFAULT) [address] [place] [address] 15906 Potassium [Moles/Vol] 4.0 mmol/L Normal 3.6-5.1 [facility] Comment on above: Performed By: #### 3 3829292, 3814654879, 58518370, 0692249457, 0963595, 5697148498 #### [facility] (DEFAULT) [address] [place] [address] 72461 Protein [Mass/Vol] 6.3 g/dL Low 6.5-8.1 [facility] Comment on above: Performed By: #### 3 8740384, 6756008620, 56415642, 2312646259, 0760669, 8738174911 #### [facility] (DEFAULT) [address] [place] [address] Sodium [Moles/Vol] 133.0 mmol/L Low 136.0-144.0 [facility] Comment on above: Performed By: #### 3 1073130, 6100725177, 68749999, 2996550971, 7135395, 9491960202 #### [facility] (DEFAULT) [address] [place] [address] Urea nitrogen [Mass/Vol] 10 mg/dL Normal 8-26 [facility] Comment on above: Performed By: #### 3 5419022, 5063747674, 81669852, 0779211568, 4837211, 9276965782 #### [facility] (DEFAULT) [address] [place] [address] Urea nitrogen/Creatinine [Mass ratio] 16.0 mg/mg Normal 4.6-16.2 [facility] Comment on above: Performed By: #### 3 4496334, 4692759922, 35409733, 8842580907, 6466038, 3319468456 #### [facility] (DEFAULT) [address] [place] [address] HgbA1c Standardon 06-09-2021 .Hb 13.7 Invalid Interpretation Code [facility] Comment on above: Performed By: #### 3 5302577, 0828931343, 24535370, 6549709259, 4433195, 1760560621 #### [facility] (DEFAULT) [address] [place] [address] .Hgb A1c 0.47 g/dL Invalid Interpretation Code [facility] Comment on above: Performed By: #### 3 6124429, 8825506961, 38079856, 7737437171, 7141904, 9103069111 #### [facility] (DEFAULT) [address] [place] [address] Glucose [Mass/Vol] 105 mg/dL Invalid Interpretation Code [facility] Comment on above: Performed By: #### 3 7293311, 4864160975, 56779385, 9451572898, 4327994, 4641398538 #### [facility] (DEFAULT) [address] [place] [address] 84412 HbA1c (Bld) [Mass fraction] 5.3 % Normal 4.6-6.2 [facility] Comment on above: Performed By: #### 3 2164431, 5025777424, 35502447, 3226483542, 6083173, 3842918778 #### [facility] (DEFAULT) [address] [place] [address] 17865 Lipid Panel Standardon 06-09 Cholesterol [Mass/Vol] 269.0 mg/dL High 66.0-200.0 [facility] Comment on above: Result Comment: Ruby rable - Less than 200 mg/dL Borderline high risk - 200-239 mg/dL High risk - 240 mg/dL and over. Performed By: #### 3 9224922, 5036922417, 34264539, 8682493585, 8767261, 5087564091 #### [facility] (DEFAULT) [address] [place] [address] 35107 Cholesterol in HDL [Mass/Vol] 102 mg/dL High 40-71 [facility] Comment on above: Result Comment: High risk - <40 mg/dL. Performed By: #### 3 5411432, 9409326846, 68025106, 3554165282, 8801741, 7904065964 #### [facility] (DEFAULT) [address] [place] [address] 48428 Cholesterol in LDL [Mass/Vol] 142 mg/dL High 1-100 [facility] Comment on above: Result Comment: Opti mal - Less than 100 mg/dL Borderline high risk - 130-159 mg/dL High risk - 160-189 mg/dL. Performed By: #### 3 0164267, 0782748230, 80504660, 5357129307, 5851108, 4559098375 #### [facility] (DEFAULT) [address] [place] [address] 50746 Cholesterol.total/C holesterol in HDL [Mass ratio] 2.6 {ratio} Normal 0.0-4.5 [facility] Comment on above: Performed By: #### 3 9507695, 4182321876, 66265551, 1574376423, 0895612, 0312661697 #### [facility] (DEFAULT) [address] [place] [address] 28750 Triglyceride [Mass/Vol] 120.0 mg/dL Normal 0.0-150.0 [facility] Comment on above: Performed By: #### 3 8300397, 7077164826, 44851943, 1263607582, 3258256, 7344699607 #### [facility] (DEFAULT) [address] [place] [address] 53298 VLDL. 24 mg/dL Normal 5-40 [facility] Comment on above: Performed By: #### 3 7108678, 8133191555, 51616647, 5760222013, 7048788, 6563345045 #### [facility] (DEFAULT) [address] [place] [address] 13026 Coding Summaryon 04-08-2021 Coding Summary HTMLBase 64 XerwzaapTIw8xQo+PGhlY WQ+AB0JWTTxA55brSQslF 9TB3cVJJ9KHIQVWGWULY1 KXB9shNX0MBunG8IdriRf FgnvyUWxFJ45HQn6MKG8o VqhKEqwkD9kyNFbH7a8Jh YyKR00hE83GOvzEJTqQrH 3LjZpbjsgbWFy C9msLcHshFOhLru+PHRhY mxlIHdpZHRoPScxMDAlJy DnyKboIA5qIo1pKRHqMGV vbGxhcHNlOiBj f1oaNCVkUImwVL2xrVpwZ 8MdyUK4DGClp3l2Gx55bK I+YBXdCQV9zLlrQEolb65 1PoZgt9ogIVZ1 bYFsGAueVUS2L41cu4F4S RCbASQiQZX5rMT4yZ9agX goptnpH3KysWAkCuZ3MQI 2iIWgaB2ioErg waedyN7yHic+A40BWY9BF FCWJE2NYuv7Y4QfKnhghV I+TA96PVXfQU68yOBgoSN ej9gzrOc8XxAu BUEqNPV5rFjyLAbwz0TxO JNkZ68rwFJul6N1PEDswH zouANkCaChnLG0eA5uXUi gurazx4kgysyp Ljbtw2nvof09jX50E37nY QgzQWGlUEM4FDUtUYAxaS ffdq7dyS8wZz8+ROwim4m qq2mrzYj4YsLd TRKebvHqaAyyCSD8u0IvB z14R4YoqFrcr5VxVrn9yr 94tPBdp6Y5hFX1WLfaFUQ kuZ3eATorErI7 FUZxXzDjoB33fGRtCSdpS p2zuOeqeQsiTI3aZJMvnx klMMVpuP9gZASmsXBguYu mLQ5sPHPvloqf j693AfTxEKX5XZJkmWQoH 0DznM8bMvFuOEIcMRMtT8 FutGBcVGcuS883OUilJhS 4TGUaznVhJ7Ys KUThzYxxVgB8m1D0Eq7Bq 8RpwnfqXGQ4HSddFWH3Fd D6QpPnMdE1X3LlWgk6KAT fnHgvVI4vP4Yz FUCqpizeauooiFE3VVBgP QNkoU47rXEbTJoeYi9jj4 D6d245APBqLXFfpU85Rb2 udDogMTBwdCBU xM5zxjndp9trqgwqQtAvW NBaQEo0AHp2OQZpeEltHt HmLCU9MtV0PIP8zSAqoU1 gvMerrsesaH1j Oyc+W53dlB5hEOM2TCM1o opsYVOuhsGlXA07UA29Q3 RyPjwvdGFibGU+PGRpdiB lqEmgGZ8vMlYo n2qyh1OmDCzfI4VuVVKhL BjbZjt6WVRqZPO8xWR0uM 0vEEBxHEnzt1R2vTW9Z3X ancLjra6hy7bt OBPaTOoaN47gdTQhf4G3F VXbjZA3PCJemKamKaLciR 93Oyc+CFXznIoey1GlAzo et8gzj9yrhOh4 AbHdKBPsikSpbOcuAFT3x 4YsFg69G18zJLebHNGhZK ElTZSnIJKiuGcsei6ibY5 wIi8+PGNvbCB3 xOQ2cE4jFQSzGyD1OBzlM 184JjDalYJpKdgfn5ece5 qlhEb7HcAlSGOjayJimKp hJOO5i4VaHw69 Z69gMHdbPSFuPPXnWVTpS PZwvAlxhj9vmV9uLy7+PC 5bs6gedk93xI45qSY+PHR xDOU3wVvgKSnq TVWnnW6hWIbxZwP8GSDfQ zLacC01iIPyIOjuKf8qwV chbEzeCR7dIAWtzogsk93 9NrFiv1pyFSUt kRTjGOjrHZI5K12er0E3O NYpXQUgSFK2jHF2hY9nfB lnbjogbGVmdDsgdmVydGl wEHtnKQpvI873 IHRvcDsnPlBhdGllbnQgT nPrMDe6N5YeRio8YBPxsR aoNQ4phKKrXXdjWw7wtRj rhKfjIH4kQVBo ybdib138HeLnl4gpWRIxp QPqQGebQPE0K34tu2S9EX MaNQVlFCW9rBN4wR4xvVy nbjogbGVmdDsg qsNgdAyhWKptZZqxY404L HRvcDsnPkJpcnRoIERhdG V6RC13QI01aWUsy3Q9wBZ 9X6WiUEXipwea lkkngPO7ENTrGMUymB41E g0puJwdKm0gOJKeQVJ6LU YidSGaF8RcuZ7vLhVrLTJ dSCSeI4AmoJFv XCglH149XMrdVtP9JOJcx zEyI3TnFYXwsKrpAqQ4o2 Z5Gx2WQ8N4UA38WU34vJT mg2N8oWO9X6Nu YCPvjmzxkirdvOC8OWOgK OTanY80Oz1qqLbgLt4gFY HsJFW2PXFnmNWhD5AysB0 yOiAjMDAwMDAw K7ZetZZgRExbL483GZtsS kG7IVZoqcHcK0GiQQCqdP ihXfA6x6V4Vs1JYCn2JB7 7HF88gPHhs2Y5 sHQ3C0NxTLHotcnlizvqg DX6OCPzKSGzcD98Mj8qzB wtQd4oGDSgGSL8DSHlnSH nF8GvqH3eVxVb ONCkSDRcI2RahJChFBzqL 140BIgeFzU3KCHfaoExR6 EaOJGlwVjcSgI7g8L3Rg8 IQEQuZQ12CSI4 wDO2UL62GW77O2TeYfdgf GFibGU+PHRhYmxlIHdpZH RoPScxMDAlJyBzdHlsZT0 sWe3xMCYbMYLu tSyheRMyOpMqo6vcSGNpU HpeUH3buFzuJ2JwnVZ8ZT Zuw5a0Dl99O31aI2RcfKM +GPItfTT9zJV1 vU5lLqAkMwZ3MJhhK758T oKcaLVxSenyv3ena9pcrL z2ZdK0BLKodpJqrXvvXMW 9j5EkYs29E92b IHdpZHRoPSIxNSUiIHZhb Zpkda7amW7nBi4+PGNvbC G6iPT8pP4sArIpOkP9OUw mS827UgFkdQGj Uuihz8joc8alcGy4HxPgY VXrooSalQypNEH0d9RbOt 50M6ScnPslj6BjTug3gw7 8mUXsy2L8kTR5 Y3GnDEDpazyrjGTlqBleV O5jNFXqpoxaVNNthX2hGU DlH3y5ThMdUiB6YEykX8N pcdN3SRLurRLm WBnyEWY2M04xn2B8VKGsI UPzYGK7wCG2oH1ntJmyzl ogbGVmdDsgdmVydGljYWw kYRdxF553SEHi zJehWUZlxC0qZEBabFVac SfuJA5vQTMfvcdiXc5MVA RZKDZZUDMCKI1NNUNCGKm UBFT0L7CjDyu1 YNNwiMqdDA4jpWVaZHftL f3sfDrknLnoWE5sQNMriz tbSHYtcS7qIIHgzRRlvYf qGV1nNFAjpbfc a482VrSkTGX5LDVibQZbI 9PchF9sPtYbJDTsYJJbI4 XtdFTxHFgvF079NLfnFzF 7DDNjtuFnG6Lu NISgqOyhWnX6q2D6Ci3nY X4kLK4nERp7PO43KL71eY Qnk6S9xBH7W2OmBTAmbly cohxqoPO8UKCr KSSisN56pFYiHEyyYz4ct 2F3h841QJZmBEAorU10Ue 2ovWqbVAJzbIAQmR5qmtd nj3kfrthsNgCr HAKpZJr5TJu6LCDeaTtbT hBzCTI9CcI2QXC0vEGbdZ 3zzGsicveljD8zPxn+MjY uNHQfxzQ2R0Ck Qtt0GHAhcSilYM6wsBHzV LidHs7zgMdufKfvRW6tNX WcplvtNTIuvM7kCBIwpBN hcIxbCW0dPQMw wvldt929FgYvUJV4FEHin NOyY0QwnA8eDtPxMJKqXC JmF2JkqEPbWQjrT697ZTv mJvK1GWWbyvGb S0LyBWWadZqfEhC7p4T2N e6RAN3SLPA7B2WsFhy6EB QriEwjKF1lmRVkXLevTc2 cmPptqKplZC7p VYNselubLCNkwE1kNKNik TZobLciRL1uKRIimkvvr3 81XuMvROY2NWVbcJLeQ9W llV4nKtRcXQYu UVSsP8OhfJObGDjaM573M GuyApL4SPFrxoPpA6FmLY BxeZwbWbG8u6Q2Rv5EDPq vdGQ+TE47gv16 A7UhPgmxHgt6GRXfLXZ1l BA5oE0eLYNsUVeof8L9lJ L9I5PpcaRrqj2vp9gjKNT kDGlgJ55azUYg w4L5ZYRirVA2MTPqjGkwH hXqcU79Gci+PGNvbGdyb3 ZeQstvr0gfs1xgaGr9GsI wJSIgdmFsaWdu VXY0p0OsGy73L33tOPwnJ HRoPSIzMCUiIHZhbGlnbj 9urH7dSv1+GNQilGX1aMM 0mI0oOpKzXcK6 DUhbM182SwTexFLzCwqge 5bjc1rxjWm3TjCiXBWreb RaxXvoEBW1n8QdVj45Z1P nyOzfz9ZhPkh1 nl79gFBrf6Z3cCG9F0AxO OHmiqrfuMRuiDtlGD9xNE QunemsZHCcpP1pOCBsQ4v 0BeUzQwF3KHtw H2EcufS3GNNdtTYqMCFcj YUTqR0wnrifo9mtlaumAy SwZFYkGPx1ETq4LKJxbBs rVcOnGVO0VqJ6 ZMC4yHSecY1qtCrdbtdkd G9wOyc+EGx3v9ffaXIqNF 2zgAX3JO21OO86jWPhj7V 8oUL3O3BrGHBy yyvtcupioKJ5LYHxFQUka T17Jn1nuArzKj9gNINyKM U1LCOmnIDnL4QqdE4uReW rQEPzZOYlY7Cr gUAbHNmxB711SDyqUuJ2A FRqcdStQ5VhUXXtuMrcDs U8q8A5Kk9IBH67UR40TZ4 0wVJoi1H8mWQ8 J8KaXMSmlwbozoffmOK0S CCaAGSkbN17Jn1sjImvDf 6kYVWhYDD0EEScqZGuK7T igS8aDlLrQRKx GYBjG7XmqJRmNTmcL319W QzuTkJ8QJKgzdXzY9KlQN KmiSuvSrK6m9Y8Pw8KSj3 9IO45ZB82oKXc o5V1eQA7U1CfWYFyqmhws mgdwVJ3LZPyNHUqsM81Yp 8joPlmAr5wIGUpXDI9NYY vpZAgM9BteN8s TrAvYCCrDJVqA4KwoULdI CdtZ267DDvuZoU4JVTrqm HaW1NxTFYumMcbCkY1t0C 7Do9FSKtrhfa6 E1YhKkxikDB+NG68CXTxN F41mXNlzMTvl4cbgDv6Lq EvXQLkWJD8zXriFGvum9N tHPHfT19ksRCk c2U (more content not included)... Normal [facility] Provider Orderson 04-07-2021 Provider Orders [id number] Normal [facility] .Auto Diff 1on 04-04-2021 Auto [place] % 5 % Normal 09-03 [facility] Comment on above: Performed By: #### 2 [id number] #### [facility] (DEFAULT) [address] [place] [address] 03741 Baso Abs# 0.0 x10 Normal 0.0-0.2 [facility] Comment on above: Performed By: #### 2 [id number] #### [facility] (DEFAULT) [address] [place] [address] 55085 Basophils/100 WBC (Bld) 0.1 % Low 0.2-2.0 [facility] Comment on above: Performed By: #### 2 [id number], [id number], [id number] #### [facility] (DEFAULT) [address] [place] [address] 74293 Eos Abs# 0.1 x10 Normal 0.0-0.4 [facility] Comment on above: Performed By: #### 2 [id number], [id number], [id number] #### [facility] (DEFAULT) [address] [place] [address] 90491 Eosinophils/100 WBC (Bld) 2.0 % Normal 0.9-4.0 [facility] Comment on above: Performed By: #### 2 [id number], [id number], [id number] #### [facility] (DEFAULT) [address] [place] [address] 45250 Lymph Abs# 1.2 x10 Low 1.3-2.9 [facility] Comment on above: Performed By: #### 2 [id number], [id number] #### [facility] (DEFAULT) [address] [place] [address] 01155 Lymphocytes/100 WBC (Bld) 17 % Normal 14-48 [facility] Comment on above: Performed By: #### 2 [id number], [id number], [id number] #### [facility] (DEFAULT) [address] [place] [address] 14178 [place] Abs# 0.3 x10 Normal 0.0-0.8 [facility] Comment on above: Performed By: #### 2 [id number], [id number], [id number] #### [facility] (DEFAULT) [address] [place] [address] 83431 Neut Abs# 5.4 x10 Normal 1.5-9.2 [facility] Comment on above: Performed By: #### 2 [id number], [id number], [id number] #### [facility] (DEFAULT) [address] [place] [address] 96544 Neutrophils/100 WBC (Bld) 76 % Normal 44-88 [facility] Comment on above: Performed By: #### 2 [id number], [id number], [id number] #### [facility] (DEFAULT) [address] [place] [address] CBC w/ Auto Diffon 1 Erythrocyte distribution width (RBC) [Ratio] 13.7 % Normal 11.5-15.0 [facility] Comment on above: Performed By: #### 2 [id number], [id number], [id number] #### [facility] (DEFAULT) [address] [place] [address] Hematocrit (Bld) [Volume fraction] 34.4 % Normal 33.7-40.4 [facility] Comment on above: Performed By: #### 2 [id number], [id number], [id number] #### [facility] (DEFAULT) [address] [place] [address] Hemoglobin (Bld) [Mass/Vol] 11.1 g/dL Low 11.3-15.9 [facility] Comment on above: Performed By: #### 2 [id number], [id number], [id number] #### [facility] (DEFAULT) [address] [place] [address] Instr WBC 7.1 x10 Invalid Interpretation Code [facility] Comment on above: Performed By: #### 2 [id number], [id number], [id number] #### [facility] (DEFAULT) [address] [place] [address] Man Diff? Auto Normal [facility] Comment on above: Performed By: #### 2 [id number], [id number], [id number] #### [facility] (DEFAULT) [address] [place] [address] MCH (RBC) [Entitic mass] 30 pg Normal 24-34 [facility] Comment on above: Performed By: #### 2 [id number], [id number], [id number] #### [facility] (DEFAULT) [address] [place] [address] MCHC (RBC) [Mass/Vol] 32 g/dL Normal 26-37 [facility] Comment on above: Performed By: #### 2 [id number], [id number], [id number] #### [facility] (DEFAULT) [address] [place] [address] 29675 MCV (RBC) [Entitic vol] 92 fL Normal 81-100 [facility] Comment on above: Performed By: #### 2 [id number], [id number], [id number] #### [facility] (DEFAULT) [address] [place] [address] 43336 Platelet 225 x10 Normal 138-427 [facility] Comment on above: Performed By: #### 2 [id number], [id number], [id number] #### [facility] (DEFAULT) [address] [place] [address] 76001 Platelet mean volume (Bld) [Entitic vol] 9.8 fL Normal 6.3-10.2 [facility] Comment on above: Performed By: #### 2 [id number], [id number], [id number] #### [facility] (DEFAULT) [address] [place] [address] RBC 3.73 x10 Normal 3.70-5.30 [facility] Comment on above: Performed By: #### 2 [id number], [id number], [id number] #### [facility] (DEFAULT) [address] [place] [address] 29197 WBC 7.1 x10 Normal 3.5-10.5 [facility] Comment on above: Performed By: #### 2 [id number], [id number], [id number] #### [facility] (DEFAULT) [address] [place] [address] 68191 O'Aguilar Teston 04-04-2021 Glucose [Mass/Vol] 115 mg/dL Normal <=139 [facility] Comment on above: Performed By: #### 2 [id number], [id number], [id number] #### [facility] (DEFAULT) [address] [place] [address] Coding Summaryon 11-29-2020 Coding Summary HTMLBase 64 FxiwfwymUCn3vUi+PGhlY WQ+WD8ESXMiR53cjCRwxG 8ZW5dAVC3IDCXOMOOCCQ7 UQI1giRW6MPcmR6CyvrQw IfeyrZYmFK77JJm4CKR0y VkdFAqmqW5euVHyD3t6Et JnJS64xF36PBanUENlEeA 3LjZpbjsgbWFy B5arZaAvoKGoFmw+PHRhY mxlIHdpZHRoPScxMDAlJy UohGvxVR7aDd8rOAEvPJN vbGxhcHNlOiBj v0riRUBgOGioEX8zvHzxX 3LvlQH6AMPcx3m3Ff10uN I+POEzWAR3iBrxJUeaq62 8QwMxb6wiLPP5 iITdSSkeVQX4V90lb3N2A EBqEWOgIRY7cMV8aF5tdA izgfydC8AfhUZfOlE8NDJ 8gUWcoT6giNno xessbM1oXoc+D08DTL5AA DHQLU4TSxd4E2TeImbhwI I+HK78GZRyFV97yHVdyOL ng4mnuHi6GiCb WQEpHVN0rVspYYtkb2GzF GZvX49vyKSgq4H5JARojF jkmBLxYyJecMV8sC0tGCf ittjwl8ecqimo Iasmb8fmmk84cB51N52kZ YcuWAUsMNF1IXGlPZUpfR bnln6lsV6jNa1+BRzjw8t ae8gizQn6AlXm HCFfmhYtpVyrTKM8s2AsD e13S1SzsXngs8XuKal5rb 68uHSzk8O6iWP9EUraKKQ nbO6gJJdmBkT2 NGAxFoFniS39zZBpDAaeZ v9heFvulUrbSV8pSHEnbn ezAZZonO9tJAJhbZWlsSj qWQ4yKXVnjyox y323BuDtOCW6IWPvxPYqQ 3ZbxN8uMtPfJKSnKDXbD9 UmiISkWTbsN106TVhjGaT 8CGHfvrAyP6Ko PJBckGllLyB6o0E8Kp1Dy 2TjofwxOAU9LFqhWZW8Cs Y0ApBbAcX7R5PoNod0ZUB ueJneMT7aM1Hq HALjamrtbsaekHM4TBEkX UBysQ83ePJnBAsrXk7me3 S8r404WMKeTDNpdP11Tb6 udDogMTBwdCBU eR0czyxwf1uvftjyWyUhE VVwNRq7SDh3GUFbcMtaLc IwQIC8ZkI8PNH6mOUiiN6 phMfarxqywN4z Oyc+X38plZ2uVWV2AIS3z tpbCSFcemQlCP56AW07E2 RyPjwvdGFibGU+PGRpdiB iqVunNX0gQnBa q2inf2SkKPbvE7KlXMNyU XkcZdm6FSHfDCP3tFH0hY 7bBSOzURbaq4A7gVX8S7J ingXqte3zd8pk WXWlYEgvA61jpTQvt9Z5M ANqwYV0DPHkfXqcLuRfaN 93Oyc+VGKrdCpjl8PgMzo aj1cws1ejgCy8 JtSzOMDxvgHoiSneGHV6q 1SqEh51C88dYBocJMNzVK UpVLMvICTtsLdgwg4qgP5 wIi8+PGNvbCB3 mBK5bY4pEPZkHsN5MVpxD 574JjEgqXKbKuaor2dgc4 ixmQa1KgTeNDDyozXbmUx nRLH5b0NmAb62 N60yAHkkQYQbSJYfUWUvP BEqmNigjb5miN0pQt1+PC 3uc8fnuw02yP38zPT+PHR mKSS4qOndSKar VFCilZ6xAMxiCtP0FCJdJ hXuwP32sOUnGWzmBu8vnB veyNkpEF1zSOGsxmkfo35 8JuEsk4cdMSAs tRCjWOcpHUO3V19nb0X1O DKcMZShRKF4tRP4hU7icU lnbjogbGVmdDsgdmVydGl dQWxnPTwgY692 IHRvcDsnPlBhdGllbnQgT fIdDFr2X8UbFgy3BWIiuH edJY5jsLYtGQndBg5mjCo lzCreMN9fOIQy kekye079UwLuw8itZQFdm REiGGodRYR2R11bz2M0FY HoDWCfCEE7oJP8qC3ngKc nbjogbGVmdDsg cwGbeHftYWqvGQlnG658I HRvcDsnPkJpcnRoIERhdG J1JW93PD08qYKrl1G1nOK 0Q5QjNXZkngtq lhusdNF5NYFzHOShrU07V s9tiAjnLz1nCGMdJIT6IM YmdFMhQ7DqgK5wLaGiSJK bZRVaA4VvlDTi JKiaG655JKhvGdC7OGPnh tIzP2YfPNDjsVzsGlD7r9 Y1Qi3AS2K7DD49NV08oJK wf1R4yDX0I2Lu YQSscoaqgkrrdGG5VDJcM PAgxH98Yu5htIioVw3lAB AyOFG4RJBncOZrW3TkpB6 yOiAjMDAwMDAw W4WueSCbHOyoE790GVgbR dW6VQYtktMfN6JuZCIarN heBbC1q2J9Vk8MLYm3ZR5 8TC45tELiv1S7 qXQ7B3HlOEOfhkvabmxfn XH2TPGjSRWnvN28Xd1pjB aaEx1iNWJyKNN1AFTciGL nV6NrnY6qOiRi PUOrTEGsT2UpcYOaEOrjT 606EIykEnD6ITHcqbSxA4 XkZIHejKxdImW0e7M3Bz8 TYSXmYX21ASR9 hBC8HB82IC67U5XjPgaxb GFibGU+PHRhYmxlIHdpZH RoPScxMDAlJyBzdHlsZT0 aOx2cMJFbODYj cUimhLZnTkYpl3kpDELbA UlxCF7fzOygL7WcaSQ8IJ Rwj0p6Tn57G08oK8YhmIG +CPUxvCU9yIT5 kN3dOhGgDcE8TCltW038N eDogIWmZvlrw3kgk3exzV l1RmD2QCIurrTmdXfbVNN 0h2KeEy70B40e IHdpZHRoPSIxNSUiIHZhb Ybjqm0lmD4oLi4+PGNvbC K2zFI8jP2kGgGlHfP9NUn nP289WxIjnJDl Vpknp3jeg8sceAq0CvXzR WCvkuByjJhhHQE4l8IxLy 58W1BjfEvkk3TfJuj3ob6 2qKSmp1C5uDK2 R0JuAQFbkcwekVFykMgyP I4qABFfnagbYGRprD9yJS EkV1m5CaWlBeU1GNrnX7S bpiF2OZQgeYYc XTmqDLM5R56qy4K0EMXyZ JTlLWR8xVC4zQ6hmNfbez ogbGVmdDsgdmVydGljYWw aBVtoX678FVPc oPdlGGRbjY8sWCMupVMab AmqFV0fVHAkjfduUu4ZMW UIIJOWEQTSKA7HGFBEWJl RUWK8M4WqTax8 KSFgtPzjIA8kaOLbNJpcG g6hhKydmNhvYO2ePYEsuw niFBBpbI8kMHDyiKMohSh jCR8nOKDkrzlv g259MvDyEPB2BEWlpCHyI 2DazX5pMnNtQSHoATNbD9 NcdWHjIMuyV709YQpvRiW 9XRJuxnMxR6Ic SWPrpEchXpQ3e9K4Ag7bP R5uVI5eZMq8MJ68ZC70dS Vxb9E8qSR9J8YlQTWzhza iywidoUZ8NUMn OUGnmZ17hHQkPMajWh4gt 9F5u262EEPePTTukH67Tf 2fuSjpEERecNMVyO8owlm hz6jsngshEjVy EAUqAFr7JVx7NHKqlJhyM vFkUGU3KtS7SHC7kDMsfS 3vwXnnitteqT8mPva+MjY xALUyovQ0B8Yd Ogz4XILsaHixCC2rsJZqI GpoNn4ckAmruJibZI4hQH GvpvltZVGmdU4uFAMtlUN kcXcrIF7aJBBu nuedx914HiRqPFF4YLCyc ZLdQ0RzbF3rEvJvBOKyQL BbB5TjmPNkWCjdP715VDo nLrU0HGHeqkHg B5EgVBVdbQriEoY5w5O5Q n9QHR5PFST1B2OsEsd1GA UbxHmtSA3vmRJmORuyFv4 ksFywvXpcVC4z EVTrflpsUYVlcD5gFOSxt JSdgCtuNG5gGVSyifqfl8 52YfTiBQB6SFJxfBUaI6L jiV8oWrTdYJXv SXVaP4OokVYgPGjaL352O XibZwU3XODxtoGlB5FcRE VsxIreGjY1n1I9Uu6EEPs vdGQ+TO93zo43 B1ZyKfshAup6UBXaDII3d MC1oE7zTSPdUEuug3K4tA B1L2IsqxXupb7ne0iqTRZ dXPxrQ00alNEi r0C6ZEEzkQV7HWGuwUivM fXrtE75Gzt+PGNvbGdyb3 EhDqeuq0vuw5avaJi0TpZ wJSIgdmFsaWdu LSO4e3OyXo22V19pSIfwK HRoPSIzMCUiIHZhbGlnbj 0reC2fVw2+WQSynVE6mHY 2dQ0eDzQcZnS2 XRnyT288NxYwtXMdXxeih 6nnf3wzyJn5RnWtCNLqgf AugBlwSES8y0NsNt89B3W umLoyd0CeItc1 gj94hEKog4B3oBK9V5GfA OWwjghvxSCteJdiTM8cKR PxhkzbACWcxK5nTQQuL4q 5BfQpFbK6EQzq S7EsrmF5YOVktWNaFSJie EEAtM9ehufqm8fizkkxCn FiUDStUEg9XXj1NJDcsAh lCvFtNBD6BzM5 AJX8lJOpfN7yuNgzqhwku G9wOyc+ZJk6b7etgJXmEI 5swTT8TF29JT56mTVdq1B 2vND4J4NeXLNq kuiyidgmaGV9TFQvWWQgj S65Sl6nhCfhKs3vZIEkLJ F8YZLzhZWwA0EvqV0jDdP oFFAtFQNdQ8Wj aIXpNGxmB447FHgmDkH3D QFqyaKcX0SyPIFymWouJn T2y8Q2Lg6IKD69WQ77BA0 6kSRye6F7qZU6 E8NvWGWdynxgsbvlzRS8R YWuGNQxqQ97Ne4baApbNj 6iNKIwFES8HFIpqIYjZ7W twN7zTkVcYGGu ITWmH1AccCZdGJitV218L JcxMaS6AURjzhKdA5LnXS SquDblVwK9b8Q5Nm6IGd6 6TU29EV06uJVc l1J6vHF2S1EnOIXwcmpxw ywizAX0QHGwEZRoxK09Ah 9ogRlxJv8aPENkHIB5NFT yeYHfY8CerW3f NxGuMKTyMCWaH2TjxDYaB TkpW554ZFdhSnX1OZPrio ZqH4XcLGJxeRezQuR6w3B 8Hv5HTUipkcn4 K7KdFwfpbWS+RU20FKGvE T54oOBddLKwn8oauTo8Ve SxGYShLDN6qQkfGTzkj1I cXPAxF06rbPIb c2U (more content not included)... [facility] Provider Orderson 11-28-2020 Provider Orders [id number] [facility] ABORhon 11-27-2020 ABO and Rh group Nom ([facility]) Hx Check: Not Found Anti-A: 0 Anti-B: 0 Anti-D: 4+ DCon: NT A1: 4+ B: 4+ ABORh Interp: O POS Invalid Interpretation Code [facility] Comment on above: Performed By: #### 7 [id number], [id number] #### [facility] (DEFAULT) [address] [place] [address] ABORh Retypeon 11-27-2020 ABO and Rh group Nom (d) Ordered by Discern. Anti-A: 0 Anti-B: 0 Anti-D: 4+ DCon: NT A1: 4+ B: 4+ ABORh Retype: O POS Invalid Interpretation Code [facility] Comment on above: Performed By: #### 2 [id number], [id number] #### [facility] (DEFAULT) [address] [place] [address] hCG Quantitativeon 1 hCG Quantitative 346924.0 mIU/mL High 0.0-0.6 [facility] Comment on above: Result Comment: Resu lt confirmed by dilution Post-Menopausal Reference Range is: 0.1-11.6 mIU/mL Performed By: #### 2 [id number], [id number], [id number] #### [facility] (DEFAULT) [address] [place] [address] 88357 Vital Signs Date Time Vital Sign Value Performing Clinician Facility 01-28-2023 16:20-0400 Body height 160.02 cm Shelli Villa Other [facility] Other 01-28-2023 16:20-0400 Body mass index (BMI) [Ratio] 40.74 kg/m2 Shelli Villa Other [facility] Other 01-28-2023 16:20-0400 Body temperature 99.7 [degF] Shelli Daisy Other [facility] Other 01-28-2023 16:20-0400 Body weight 104.33 kg Shelli Daisy Other [facility] Other 01-28-2023 16:20-0400 Respiratory rate 18 /min Shelli Villa Other [facility] Other 01-28-2023 16:20-0400 SaO2% (BldA) [Mass fraction] 99 % Shelli Villa Other [facility] Other Encounters Encounter Date Encounter Type Care Provider Facility Start: 12-06-2023 End: 12-06-2023 ambulatory JAYDEN DASIA Not Available Start: 11-08-2023 End: 11-08-2023 ambulatory JENS IQRA Not Available Start: 10-11-2023 End: 10-11-2023 ambulatory JAYDEN DASIA Not Available Start: 09-13-2023 End: 09-13-2023 ambulatory JAYDEN DASIA Not Available Start: 08-13-2023 End: 08-13-2023 ambulatory JAYDEN DASIA Not Available Start: 01-28-2023 End: 01-28-2023 ambulatory Shelli Villa Other [facility] Other Start: 01-28-2023 Office outpatient ne w 20 minutes Shelli Villa [facility] Start: 11-23-2022 End: 11-23-2022 ambulatory JENS ESCALONA . Facility:[facility] Start: 09-21-2022 End: 09-21-2022 ambulatory PRAVEEN GARCIA Facility: Payers Date Payer Category Payer Unknown [id number] 1995 Unknown [id number] 2.16.84 [id number] 1995 Unknown [id number] 2.16.84 [id number] 1994 Unknown [id number] 2.16.84 [id number] 1994 Unknown [id number] 2.16.84 [id number] 1994 Unknown [id number] 2.16.84 [id number] 1994 Unknown [id number] 2.16.84 [id number] 1994 Unknown [id number] 2.16.840 [id number] 1959 Unknown [id number] Social History Date Type Detail Facility Unknown if ever smoked [facility] Other Sex Assigned At Sex Assigned At Bir th [facility] Other Evaluation note 01-28-2023 Note Date & [...] worsening. Patient verbalized understanding of treatment plan. [facility] Other History general Narrative - Reported Note Date & Type Note Facility History general Narrative - Reported Type Surgical History sinus surgery x2 [facility] Other Summary Purpose Family History No Family History Records FoundNo Family History Records FoundNo Family History Records Found Advance Directives No Advanced Directives Records FoundNo Advanced Directives Records FoundNo Advanced Directives Records Found Additional Source Comments INFORMATION SOURCE (unrecogn ized section and content) DATE CREATED AUTHOR 11/03/2021 [facility] DATE CREATED AUTHOR AUTHOR'S ORGANIZ ATION 12/12/2022 [facility] DATE CREATED AUTHOR AUTHOR'S ORGANIZ ATION 12/06/2023 [facility] REASON FOR VISIT (unrecogniz ed section and [...] BE BASED ON THE PRIMARY CLINICAL RECORDS. [employer] provides no warranty or guarantee of the accuracy or completeness of information in this document.
[2023-12-10 09:01] LABS: Basophils Percent Auto 0.4 % (0.2-2.0); Eosinophils Absolute Auto 0.2 10^3/uL (0.0-0.7); Glucose 1 Hour 106 mg/dL (<130); Hematocrit 34.5 % (36.0-48.0); Immature Granulocytes Abs Auto 0.03 10^3/uL (0.00-0.03); Immature Granulocytes Pct Auto 0.4 % (0.0-0.5); Lymphocytes Absolute Auto 1.4 10^3/uL (1.2-3.8); Lymphocytes Percent Auto 17.1 % (20.5-60.0); Mean Corpuscular HGB Conc 31.9 g/dL (29.9-35.2); Mean Corpuscular Hemoglobin 28.7 pg (26.7-34.0); Mean Corpuscular Volume 90.1 fL (81.0-99.0); Mean Platelet Volume 10.3 fL (9.5-13.5); Monocytes Absolute Auto 0.4 10^3/uL (0.3-0.8); Monocytes Percent Auto 5.2 % (1.7-12.0); Neutrophils Percent Auto 74.9 % (43.0-75.0); Platelet Count 243 10^3/uL (150-450); Red Blood Count 3.83 10^6/uL (4.20-5.40); Red Cell Distribution Width 13.7 % (11.0-15.0)
== END 2023-12-10 07:15 | disposition home or self-care (01) ==
LOC: LAB 07:15
PROVIDERS: PCP Family Medicine; Visit Provider Obstetrics & Gynecology
DX: Z34.90 Encounter for supervision of normal pregnancy, unspecified, unspecified trimester (principal); Z3A.00 Weeks of gestation of pregnancy not specified
CPT/HCPCS: 36415; 82950; 85025

== ENCOUNTER 2024-01-18 09:35 | Outpatient (OUT) | payer OTHER, SELFPAY ==
--- NOTE | 2024-01-18 09:36 | US_ITS ---
[address] [address] Patient Name: ALYSON COOK MRN: [id number] date: 1995 Sex: F Assigned Patient Location: [facility] Current Patient Location: [facility] Accession/Order Number: [id number] Exam Date: 01/18/2024 09:36 Report Date: 01/18/2024 10:17 At the request of: JENS ESCALONA Procedure: US OB growth EXAMINATION: US OB growth HISTORY: SIZE INCONSISTENT WITH DATES COMPARISON: No relevant comparison available. FINDINGS: Heart Rate: 138.0 bpm Number: 1.0 Position: Breech Amniotic Fluid Volume: 16.9 cm Maximum Vertical Pocket: 5.5 cm BIOMETRY: BPD: 7.7 cm cm; 30 weeks 5 days; 45% HC: 29.0 cmcm; 31 weeks 6 days ; 51% AC: 27.5 cm cm; 31 weeks 4 days 74% FL: 5.7 cm cm; 30 weeks 0 days; 22% % EFW: 1688.8 grams; 54% FL/AC: 20.9 FL/BPD: 74.7 HC/AC: 1.1 GESTATIONAL AGE: Age by EDC: 30 weeks 4 days MARIANA by EDC: 03/24/2024 Age by US: 31 weeks 0 days MARIANA by US: 03/21/2024 US/US OB growth IMPRESSION: 1. Single live intrauterine with growth detailed above. Electronically authenticated by: PAULY KEARNS Date: 01/18/2024 10:17
--- OUTSIDE RECORDS SUMMARY | 2024-01-18 09:47 | XMS_ITS | CCD ---
Author Organization [facility] Providers Care Support Merchandiser Name Role Phone JENS LANDRY Admitting Unavailable JENS LANDRY Attending Unavailable REQUEST, NONE LISTED Primary Care UnavailJENS Salinas Consulting Unavailable PRAVEEN ZELAYA Admitting Unavailable PRAVEEN ZELAYA Attending Unavailable WADE, NONE LISTED Primary Care Unavaila PRAVEEN Rubio Consulting Unavailable Shelli Villa Unavailable JAYDEN FORMAN Attending Unavailable JAYDEN FORMAN Attending Unavailable JENS ESCALONA Attending Unavailable JAYDEN FORMAN Attending Unavailable JENS ESCALONA Attending Unavailable Medications Current Medications Medication Drug [...] 2: 20 to 29on 11-29-2022 . . [facility] Comment on above: Performed By: #### 4 [id number] #### [facility] [address] [place] [address] Dr. Evan Mcitnosh Age Gdln ACOG Testing - [facility] Comment on above: Performed By: #### 4 [id number] #### [facility] [address] [place] [address] Dr. Evan Mcintosh DIAGNOSIS: Comment [facility] Comment on above: Result Comment: NEGA TIVE FOR INTRAEPITHELIAL LESION OR MALIGNANCY. Performed By: #### 4 [id number] #### [facility] [address] [place] [address] Dr. Evan Mcintosh Methodology: Comment [facility] Comment on above: Result Comment: This liquid based ThinPrep(R) pap test was screened with the use of an image guided system. Performed By: #### 4 [id number] #### [facility] [address] [place] [address] Dr. Evan Mcintosh Note: Comment [facility] Comment on above: Result Comment: The Pap smear is a screening test designed to aid in the detection of premalignant and malignant conditions of the uterine cervix. It is not a diagnostic procedure and should not be used as the sole means of detecting cervical cancer. Both false-positive and false-negative reports do occur. . Performed By: #### 4 [id number] #### [facility] [address] [place] [address] Dr. Evan Mcintosh Performed by: Comment [facility] Comment on above: Result Comment: Fiona Heath, Banquet Coordinator (ASCP) Performed By: #### 4 [id number] #### [facility] [address] [place] [address] Dr. Evan Mcintosh Reflex Criteria: Comment [facility] Comment on above: Result Comment: The HPV DNA reflex criteria were not met with this specimen result therefore, no HPV testing was performed. . Performed By: #### 4 [id number] #### [facility] [address] [place] [address] Dr. Evan Mcintosh Specimen adequacy: Comment Normal [facility] Comment on above: Result Comment: Sati sfactory for evaluation. Endocervical and/or squamous metaplastic cells (endocervical component) are present. Performed By: #### 4 [id number] #### [facility] [address] [address] [address] Evan Mcintosh Covid-19 PCR (CVDTB)on 08-25 SARS-CoV-2 (COVID-19) RNA CY+probe Ql (Unsp spec) Not detected Normal NOT DETECTED [facility] Comment on above: Result Comment: When diagnostic [...] for this test is supported by the [place] of Health and Human Service's declaration that [...] used). Performed By: #### C VDTBH #### [facility] [address] [place], [place] [address] Dr. Evan Mcintosh INFLUENZA A AND B AGon 09-21 INFLUANEGH SEE BELOW Normal [facility] Comment on above: Result Comment: Nega tive for Flu A protein angiten. Infection due to Flu A cannot be ruled out. Flu A angiten in the sample may be below the detection limit of the test. Performed By: #### I NFLUAB #### [facility] [address] [place] [address] Dr. Evan Mcintosh [facility] SEE BELOW Normal [facility] Comment on above: Result Comment: Nega tive for Flu B protein antigen. Infection due to Flu B cannot be ruled out. Flu B antigen in the sample may be below the detection limit of the test. Performed By: #### I NFLUAB #### [facility] [address] [place] [address] Dr. Evan Mcintosh INFLUENZA A AG Negative Normal NEGATIVE SEE COMMENT [facility] Comment on above: Performed By: #### I NFLUAB #### [facility] [address] [place] [address] Dr. Evan Mcintosh INFLUENZA B AG Negative Normal NEGATIVE SEE COMMENT [facility] Comment on above: Performed By: #### I NFLUAB #### [facility] [address] [place] [address] Dr. Evan Mcintosh Release of Informationon Release of Information [id number] .[id number] Normal [facility] Nicotine and Metabolite, Drew nt LCon 06-15-2021 Cotinine LC <1.0 Invalid Interpretation Code [facility] Comment on above: Result Comment: This test was developed and its performance characteristics determined by [facility]. It has not been cleared or approved by the Food and Drug Administration. Cotinine levels greater than 20.0 are consistent with the use of tobacco or tobacco cessation products. Performed At: [address] [id number] Richmond Merino MD Ph:[phone] Performed By: #### 3 [id number], [id number], 63320397, 5339961730, 7405786, [id number] #### [facility] (DEFAULT) [address] [place] [address] Nicotine LC <1.0 Invalid Interpretation [facility] Comment on above: Result Comment: This test was developed and its performance characteristics determined by [facility]. It has not been cleared or approved by the Food and Drug Administration. Nicotine levels greater than 2.0 are consistent with the use of tobacco or tobacco cessation products. Performed By: #### 3 [id number], [id number], 13405292, 1249900096, 2305050, [id number] #### [facility] (DEFAULT) [address] [place] [address] .Auto Diff 1on 06-09-2021 Auto Christian % 6 % Normal -12 [facility] Comment on above: Performed By: #### 3 9430835, [id number], 56810987, 7437583081, 1562994, 5835264910 #### [facility] (DEFAULT) [address] [place] [address] Baso Abs# 0.0 x10 Normal 0.0-0.2 [facility] Comment on above: Performed By: #### 3 6656138, 6010262238, 95582066, 3163524134, 4130403, 6900853642 #### [facility] (DEFAULT) [address] [place] [address] Basophils/100 WBC (Bld) 0.1 % Low 0.2-2.0 [facility] Comment on above: Performed By: #### 3 2372383, 5189330206, 56000672, 1871119805, 4964839, 6425281536 #### [facility] (DEFAULT) [address] [place] [address] Eos Abs# 0.2 x10 Normal 0.0-0.4 [facility] Comment on above: Performed By: #### 3 6063439, 2166290203, 49795649, 1891550113, 9589048, 2178984218 #### [facility] (DEFAULT) [address] [place] [address] Eosinophils/100 WBC (Bld) 1.6 % Normal 0.9-4.0 [facility] Comment on above: Performed By: #### 3 0948954, 4723729844, 23357345, 8720701649, 0042546, 3430080816 #### [facility] (DEFAULT) [address] [place] [address] Lymph Abs# 1.5 x10 Normal 1.3-2.9 [facility] Comment on above: Performed By: #### 3 2077461, 2313835576, 14626217, 4042551092, 4472558, 6584371289 #### [facility] (DEFAULT) [address] [place] [address] Lymphocytes/100 WBC (Bld) 15 % Normal 14-48 [facility] Comment on above: Performed By: #### 3 1973639, 1310525079, 26065266, 3106951175, 1894453, 3814695825 #### [facility] (DEFAULT) [address] [place] [address] Christian Abs# 0.6 x10 Normal 0.0-0.8 [facility] Comment on above: Performed By: #### 3 0238219, 1301111758, 00785352, 2613482184, 6839264, 0553043377 #### [facility] (DEFAULT) [address] [place] [address] Neut Abs# 7.8 x10 Normal 1.5-9.2 [facility] Comment on above: Performed By: #### 3 9472083, 3073741927, 75888260, 1006351254, 9443054, 3023972284 #### [facility] (DEFAULT) [address] [place] [address] Neutrophils/100 WBC (Bld) 77 % Normal 44-88 [facility] Comment on above: Performed By: #### 3 4430121, 0805197466, 41705173, 4827882444, 6738039, 1545837754 #### [facility] (DEFAULT) [address] [place] [address] CBC w/ Auto Diffon 1 Erythrocyte distribution width (RBC) [Ratio] 14.4 % Normal 11.5-15.0 [facility] Comment on above: Performed By: #### 3 8439489, 8722873720, 13666117, 5850424036, 8132734, 4497662521 #### [facility] (DEFAULT) [address] [place] [address] Hematocrit (Bld) [Volume fraction] 37.3 % Normal 33.7-40.4 [facility] Comment on above: Performed By: #### 3 5405439, 3365285978, 65623022, 3244887915, 4047939, 7377683311 #### [facility] (DEFAULT) [address] [place] [address] Hemoglobin (Bld) [Mass/Vol] 12.2 g/dL Normal 11.3-15.9 [facility] Comment on above: Performed By: #### 3 0012490, 6643898434, 10925850, 7741986997, 3395016, 4167412376 #### [facility] (DEFAULT) [address] [place] [address] Instr WBC 10.1 x10 Invalid Interpretation Code [facility] Comment on above: Performed By: #### 3 1988208, 0961154264, 31534311, 9421838664, 5446866, 4125874530 #### [facility] (DEFAULT) [address] [place] [address] Man Diff? Auto Normal [facility] Comment on above: Performed By: #### 3 8959466, 4779789841, 49896852, 0037976824, 6498212, 0414156870 #### [facility] (DEFAULT) [address] [place] [address] MCH (RBC) [Entitic mass] 29 pg Normal 24-34 [facility] Comment on above: Performed By: #### 3 1148739, 7707769549, 19657106, 8205385010, 6678371, 1169594656 #### [facility] (DEFAULT) [address] [place] [address] MCHC (RBC) [Mass/Vol] 33 g/dL Normal 26-37 [facility] Comment on above: Performed By: #### 3 1104556, 3918411190, 13270030, 2198146491, 9512450, 8587615538 #### [facility] (DEFAULT) [address] [place] [address] MCV (RBC) [Entitic vol] 88 fL Normal 81-100 [facility] Comment on above: Performed By: #### 3 9421135, 4294760256, 74709089, 8224566848, 3997853, 2120047440 #### [facility] (DEFAULT) [address] [place] [address] Platelet 234 x10 Normal 138-427 [facility] Comment on above: Performed By: #### 3 1129698, 7991037966, 35231443, 4140381114, 6719410, 0605846780 #### [facility] (DEFAULT) [address] [place] [address] Platelet mean volume (Bld) [Entitic vol] 10.8 fL High 6.3-10.2 [facility] Comment on above: Performed By: #### 3 8836146, 9707806513, 38650729, 9654932469, 4868005, 9034404888 #### [facility] (DEFAULT) [address] [place] [address] RBC 4.23 x10 Normal 3.70-5.30 [facility] Comment on above: Performed By: #### 3 1597537, 7550977580, 90331201, 1129746548, 3766586, 1638761121 #### [facility] (DEFAULT) [address] [place] [address] WBC 10.1 x10 Normal 3.5-10.5 [facility] Comment on above: Performed By: #### 3 2324348, 2793819359, 88517251, 5715885665, 3687350, 9629881698 #### [facility] (DEFAULT) [address] [place] [address] CMP Standardon 06-09-2021 eGFR Non AA >60 Invalid Interpretation Code [facility] Comment on above: Performed By: #### 3 1083411, 6172053861, 58525997, 2366395259, 6106578, 3517317209 #### [facility] (DEFAULT) [address] [place] [address] eGFR AA >60 Invalid Interpretation Code [facility] Comment on above: Result Comment: [facility] Kidney disease could be indicated at eGFRs of less than 60 ml/min/1.73m2. Kidney Failure is indicated at less than 15 ml/min/1.73m2 Performed By: #### 3 9616258, 3563602313, 20717636, 2995174381, 4524564, 9843129257 #### [facility] (DEFAULT) [address] [place] [address] Albumin [Mass/Vol] 3.1 g/dL Low 3.5-5.0 [facility] Comment on above: Performed By: #### 3 8141851, 1038506978, 96804051, 3826085885, 1288992, 8599299650 #### [facility] (DEFAULT) [address] [place] [address] Albumin/Globulin [Mass ratio] 1.0 {ratio} Low 1.4-2.6 [facility] Comment on above: Performed By: #### 3 5760467, 8921015063, 68075826, 5938257253, 4365466, 4167518728 #### [facility] (DEFAULT) [address] [place] [address] Alk Phos 107 IU/L High 32-91 [facility] Comment on above: Performed By: #### 3 3224940, 7376962179, 01840701, 5308386489, 5009928, 5859126797 #### [facility] (DEFAULT) [address] [place] [address] ALT [Catalytic activity/Vol] 16.0 U/L Normal 14.0-54.0 [facility] Comment on above: Performed By: #### 3 1695128, 9198270161, 19356385, 5802954646, 8108835, 3081253814 #### [facility] (DEFAULT) [address] [place] [address] Anion gap [Moles/Vol] 12.0 mmol/L Normal 5.0-19.0 [facility] Comment on above: Performed By: #### 3 3682795, 3081999318, 95650591, 5190946522, 8797303, 0060348170 #### [facility] (DEFAULT) [address] [place] [address] AST [Catalytic activity/Vol] 19 U/L Normal 15-41 [facility] Comment on above: Performed By: #### 3 3949996, 3136932224, 93664379, 5714303623, 4778842, 8831096311 #### [facility] (DEFAULT) [address] [place] [address] Bili Total 0.1 mg/dL Low 0.3-1.2 [facility] Comment on above: Performed By: #### 3 9125674, 6869861615, 99159441, 7264298738, 4814199, 1930494754 #### [facility] (DEFAULT) [address] [place] [address] Calcium [Mass/Vol] 8.6 mg/dL Low 8.9-10.3 [facility] Comment on above: Performed By: #### 3 3653694, 5651916271, 88496681, 1453010910, 3390294, 1460591179 #### [facility] (DEFAULT) [address] [place] [address] Chloride [Moles/Vol] 105 mmol/L Normal 101-111 [facility] Comment on above: Performed By: #### 3 7200957, 3849239478, 91238044, 5182073397, 1243724, 6300338662 #### [facility] (DEFAULT) [address] [place] [address] CO2 [Moles/Vol] 20 mmol/L Low 21-32 [facility] Comment on above: Performed By: #### 3 9059554, 3366036556, 24947106, 0181649844, 0126133, 8685578651 #### [facility] (DEFAULT) [address] [place] [address] 18902 Creatinine [Mass/Vol] 0.63 mg/dL Normal 0.60-1.30 [facility] Comment on above: Performed By: #### 3 7059617, 5923128380, 90384655, 0335937758, 3760898, 1612788006 #### [facility] (DEFAULT) [address] [place] [address] Globulin (S) [Mass/Vol] 3.2 g/dL Normal 1.5-4.3 [facility] Comment on above: Performed By: #### 3 4361482, 7979545377, 44646128, 5796459676, 7367916, 3870754249 #### [facility] (DEFAULT) [address] [place] [address] Glucose [Mass/Vol] 81.0 mg/dL Normal 74.0-118.0 [facility] Comment on above: Performed By: #### 3 4754235, 1764484622, 81482594, 4540422623, 1313633, 3633939366 #### [facility] (DEFAULT) [address] [place] [address] Osmolality 264 mOsm/L Invalid Interpretation Code [facility] Comment on above: Performed By: #### 3 1147318, 1255080821, 95347587, 2996771374, 2353559, 7685098138 #### [facility] (DEFAULT) [address] [place] [address] Potassium [Moles/Vol] 4.0 mmol/L Normal 3.6-5.1 [facility] Comment on above: Performed By: #### 3 1329911, 1078278438, 19021255, 0204269776, 5245932, 9025256001 #### [facility] (DEFAULT) [address] [place] [address] Protein [Mass/Vol] 6.3 g/dL Low 6.5-8.1 [facility] Comment on above: Performed By: #### 3 0194209, 5764851065, 53101109, 8975270777, 6785379, 3546277687 #### [facility] (DEFAULT) [address] [place] [address] Sodium [Moles/Vol] 133.0 mmol/L Low 136.0-144.0 [facility] Comment on above: Performed By: #### 3 5583503, 0113755802, 11859162, 7374714734, 0588218, 6115977897 #### [facility] (DEFAULT) [address] [place] [address] Urea nitrogen [Mass/Vol] 10 mg/dL Normal 8-26 [facility] Comment on above: Performed By: #### 3 8274721, 9074787243, 67699797, 7357381948, 4656634, 5440837306 #### [facility] (DEFAULT) [address] [place] [address] Urea nitrogen/Creatinine [Mass ratio] 16.0 mg/mg Normal 4.6-16.2 [facility] Comment on above: Performed By: #### 3 5280556, 2849148809, 62358139, 1469343043, 1098122, 4847109183 #### [facility] (DEFAULT) [address] [place] [address] HgbA1c Standardon 06-09-2021 .Hb 13.7 Invalid Interpretation Code [facility] Comment on above: Performed By: #### 3 1056075, 0384794928, 74302232, 2927355594, 3247732, 1187088832 #### [facility] (DEFAULT) [address] [place] [address] .Hgb A1c 0.47 g/dL Invalid Interpretation Code [facility] Comment on above: Performed By: #### 3 9718730, 1614829311, 79988781, 0816046248, 9081587, 3066200678 #### [facility] (DEFAULT) [address] [place] [address] Glucose [Mass/Vol] 105 mg/dL Invalid Interpretation Code [facility] Comment on above: Performed By: #### 3 5254421, 2618123283, 08051592, 1872023696, 3194402, 2572409768 #### [facility] (DEFAULT) [address] [place] [address] 38471 HbA1c (Bld) [Mass fraction] 5.3 % Normal 4.6-6.2 [facility] Comment on above: Performed By: #### 3 9637922, 4296227285, 11418055, 0164552497, 7976045, 7502516403 #### [facility] (DEFAULT) [address] [place] [address] 66891 Lipid Panel Standardon 06-09 Cholesterol [Mass/Vol] 269.0 mg/dL High 66.0-200.0 [facility] Comment on above: Result Comment: Ruby rable - Less than 200 mg/dL Borderline high risk - 200-239 mg/dL High risk - 240 mg/dL and over. Performed By: #### 3 9109459, 4299042856, 65347259, 2756159971, 7400166, 8762216385 #### [facility] (DEFAULT) [address] [place] [address] 38168 Cholesterol in HDL [Mass/Vol] 102 mg/dL High 40-71 [facility] Comment on above: Result Comment: High risk - <40 mg/dL. Performed By: #### 3 9104396, 7603966039, 51130974, 4037379672, 4903266, 0123900989 #### [facility] (DEFAULT) [address] [place] [address] 66245 Cholesterol in LDL [Mass/Vol] 142 mg/dL High 1-100 [facility] Comment on above: Result Comment: Opti mal - Less than 100 mg/dL Borderline high risk - 130-159 mg/dL High risk - 160-189 mg/dL. Performed By: #### 3 8080877, 7787951403, 06343694, 7128248660, 7338976, 3890022628 #### [facility] (DEFAULT) [address] [place] [address] 55321 Cholesterol.total/C holesterol in HDL [Mass ratio] 2.6 {ratio} Normal 0.0-4.5 [facility] Comment on above: Performed By: #### 3 2199470, 2030442740, 03777460, 3963749901, 9439314, 8907269524 #### [facility] (DEFAULT) [address] [place] [address] Triglyceride [Mass/Vol] 120.0 mg/dL Normal 0.0-150.0 [facility] Comment on above: Performed By: #### 3 9895819, 1483510336, 93586528, 6724631441, 1706927, 3264860346 #### [facility] (DEFAULT) [address] [place] [address] VLDL. 24 mg/dL Normal 5-40 [facility] Comment on above: Performed By: #### 3 8130734, 9139595495, 38174680, 9392595008, 7294289, 3664992081 #### [facility] (DEFAULT) [address] [place] [address] Coding Summaryon 04-08-2021 Coding Summary HTMLBase 64 OvwtypbvSSm2nWk+PGhlY WQ+OB2DOGCjR33btSCmnB 8LG1yRKG4TOWIGYQQKAQ7 SGK2fbZN2YXrsJ2YqgqAk KdvgqUGwPP65MLd0JCT8k CknQYvyuB9dfCSuV5s2Bp MuSM15dS85ZXynRJCiMoH 3LjZpbjsgbWFy R7osFsJgbQLmRyv+PHRhY mxlIHdpZHRoPScxMDAlJy NavKyqBN2aTo6gEZAbGNJ vbGxhcHNlOiBj p8keMMWiAKyuQH2aeMqgK 8VpdFX1RPGle7j2Nx99vG I+OFCvXQY0pAehOMavw00 6LfYcz5cjYHM5 pRZmICaxDXV9K88eb4A9V RGiHOCxRLC3fEQ8jT3irT gpcnpgE6CpxEUoHfG8KPT 8aAQkuX7epYcj hhhjeO4mMpw+T41SCD1LH LZVYC1MYko0G0YgEnpmiP I+GM24GLGeZQ01eHXuvGA jm2asmNh2MfXg GCYsEQP0tQitWPsog6MaU WFvG92krHYuy5N8BDMheF efrOVsMyPivKE2rQ0zXLd rwbvwe0yfihsh Nyauq9fifp00yK36Y08pM SaaPEGjHOI4FQLxTEIdjH ecod3klS3tIs2+UAvbe9r nz6dioMc2QrIy JEZvtyTmpGrkRUH0b8RsO s11F1ZwoRtfj3CqBpe7yo 29tSAuo0G3xIC7IJjpFTI btY5oSVxyHmC5 UFBvKaFbvM39tAGzQKhdO d1trDttjQuhLW8rFGOsvy ozFBThrE3yNBIhwHEseIt sCK9aTSGjerqm v917BlPvIXO7XPOtmVIcM 6KdvX0vNsMpYFOpJUPyN2 UcqANkKLmvC588BNskDzK 0VKLnsrXhC0Th EKRgeNazZgA1k5B4Kg3Ax 7QpotgwFIE4AJytRIU6Qf Y7LpErDmO5T7BoWit7UJP ccUbtGU9tX1Qd ZKRczliewrcdeVP4UUIjX LPhkH47mBStYAnpNs6yb5 P2n111HIMbZAZncS56Sg8 udDogMTBwdCBU zD3bzomeb5ehciarGsVqT ABcNOh1OJv8MJVbcHwsFt YsUND2JmO9DPM5rRXtwZ7 yyDtxgxqwqM3r Oyc+L02dmC3uMPS5XAQ6a cyjPXAiasGzOB68ED30L7 RyPjwvdGFibGU+PGRpdiB ykBoyHJ1sXpHj z8cuj6NbXRqeC5GjTTBlU LxfCqd2WTOrRLE6eRO6cQ 9tRFSjWJvzx8K1rCT6E9G xnvRcnd3bz8xy SJRsWVlsQ76mlCVnq6G5U GXubEL7BDRopDaqNtUfoC 93Oyc+QQGxuBzdn1OeBob pm9xqt1hyzMv3 OpVkFISbnrMjaIedJJH1o 0GaCd38J71yHPixWGUrZB YqTWUqFFRqhBohnh5rcB7 wIi8+PGNvbCB3 cHD5dF6pSROzTfE3FBxnV 286YjEvaSIvYdmud0wlj8 kvxTd4BsVvZBPftiNqpGw kGIT7b5WoDy33 X54bRAtkQCLlIOUyLGWdI IHsmHlpee6puD9dBq6+PC 3as1xdow84zC08bDR+PHR cAKJ6aVujSBaj RBSdxR2qFCgsDeC1NZXkW qNkoZ44bRTnEFelOb1xsQ hsmAofUY0qKWMrwmhhz11 5BcQgk0zyBROn aWThISemDIA4K49xs7S1G XPaBNHyQAA6nDF6uK6liJ lnbjogbGVmdDsgdmVydGl uIVckTOmzJ747 IHRvcDsnPlBhdGllbnQgT dZzDNp1N7ZoBqr4TYWiqN zmCN8fnTSpIPozMv4eiUb tuZmlIK7rFGIk tzika619EjUby4zwYBLst XXiNMnsBAY4D91se8B7WU BfBLBwVTT6hSF3uH9pcEx nbjogbGVmdDsg tzQewVpuMGsbFTnmF447K HRvcDsnPkJpcnRoIERhdG A3QG27XN29lNLxc5L3kCD 5Y7EiVYOeckwh uuuvtDX6LLZoWAAhqP58N k9feGiiJs6dGKBnSAN2XW MueFGmE2IuhQ8jVwMrEKL rOKCiR5OogBFd SUtiN217AVdhXxE8KGGxl oJtP8UuIDKwqAvyOtM3m1 H3Ym0KU5K9IM56YV34jOC pt0B2sZJ0J9Ml IYSylkbyfjarbBB7RQGnR ABuuM39Za2saAvxFm9eEP NdHJJ4PEQxyUHfP9CekZ8 yOiAjMDAwMDAw O8OvtDWaXEglI151BNawG mR9ARSohhLnY4PhTVRufQ wpThU2u6E4Av6RENq3JK9 2JM94mZWda4V2 uTP8P0EiURGrhfcpgphao LL8KLSlRCTsgJ35Wn8ehA heSd9cBYMaLCB1YUNxtVY iV9MgaU2wBcCv RUAuUHNuR2SqiRHlYDlmU 507HPziKcG1GHRubyJoD5 IwKQYnhRxjDzV5t9M5Oa5 AGOWsER16XWU3 aAF0OR09SB29T6TcAtjka GFibGU+PHRhYmxlIHdpZH RoPScxMDAlJyBzdHlsZT0 dIq1gIJYlTWVl mIvmnCQnWfAcw7raTTTeB SlyWI8uyLrqH9XhxQA6FD Mws1y6Sb25V40kU2SccMT +IWItlHS7pKK3 fI1dIbOdSdF3QMxlP109K dZkzTRnRhglp7ydb0btiG t2RiJ3NBTeyeAovAurRHV 2s2WdCw61O17m IHdpZHRoPSIxNSUiIHZhb Cvspo7yfD9lQd5+PGNvbC G1pAZ3yD2yZdMeLyR0NJs tK020WbTyvUXc Brmsz1spz4clyRc5BlAfC ICxguTyoXdsYPX3x7SzGb 31Z9PmlFhye9XbNtt9hq4 9qZCmt3V4qXU8 B4NzABOogbzxrPPsdKjeB W0aNCTupavjMUVopF1wRV VlH0x3JdXzBwN1EWfhY3S zwnV4VAHauZGk VRhgDIA7H14eq3S9CURdH ULlOSM7jVJ5gG5egCceff ogbGVmdDsgdmVydGljYWw eVGojQ142DJOd yFqwSNGptG6wYMTvcXTho GziTS0yJANytvhyYd7FVQ RJAPNYAOXKVD5OFHIJUIm MEYF1K2NhMhf3 CKEctUfkBP9alCLhAFprL f9poTydsQsiKP2tQOWiky gqNSRitR6sVJVaqYMdeQj nEN2tWTXzekkh w379GnGtOFR6BIUibXQwG 2YbzG2jNeGiRJMiQYHdJ4 TfeJHrPRiqQ195GLcxLlM 6EHWnhaYjR8Vn BIQsiIfgNgU8e6Q1Ky7oM H3aND7uTAm5LU26IW68xM Nui8S7rPZ9V0KxIHWgsjk bcqdirCA3GYRc ZLFikO67kPXyPVkbQs8ai 0L8y078PEPsJPGvwV42Oo 0rsFebBSXrgUNYkN1djaq cq9deyqmuRdRs DXHtVNo0YUc2NALdhLzhB tHqSNV7JtE2AAR1uSMbaM 4jvXnbfwvokP0gYqm+MjY qBHZmrbY5D8Gc Nhj2NOXdsBjxDW2ucKNlB YoiHw5vlGrcaEzlQR8xHV EayuljTVSsmW5rMZCwwOI tkQwqZN2dEJEg zavli610ViWzTFU1WCAuj CEfF8JtzM8cZbAtLNWeVV FyM2LabWSaHCauQ612HGc rKtN6UYFezjLt J6ZlMSRvkUkrQjU1p2F8O h6EVA0HUTZ3L0EhOfz9IZ QerZytBC0zpRQuSTwdYw4 ypYnllHtbID7y GRQqdtwoGZLruP1kFFDzo MFwiXbnLI3eAUMcjomuq9 90SpEuCGI5LPAwrXUnT1U xoM8hNyPkVOZm BKQqA3PseJMwWRhsA251O LjxVnG3JPIbutHhA4GkEF QpcYjlQhI3p2Q7Hs4DOMj vdGQ+BT64wg15 G3AgLiziYmm6BLIiTIO9t PY1kW7eYLIzYCgas6E8fE P8P8DecuNual1ui3itWKP lCGcuX38ggXQi y9L2YHOefTJ5FABcfXtmC bQxaU77Clr+PGNvbGdyb3 ZxYokur7uvw1kfyNy3FaJ wJSIgdmFsaWdu OCY6s8IcBo35W02pMEsnU HRoPSIzMCUiIHZhbGlnbj 3upZ6oUx3+VCXwiGX3dKL 0uT4oIfBpUjP9 CAwiM346GxEtrEYbRyjgo 0wxz0orxBs1GfZtFHRnhq HjeYabJTF4k0MtMl35J4Q fuKkey2QxIpn7 vh74wLQie8V6fUJ9S1UhE VAaurlebUNyoYpjNG8gSA PzjxxuPJXzyU0rZSLiB1w 0FzGwTaE4NNvl M8SfuhJ1NIIpnVAeJRFrs MJCeK8crqlxn3wkzpcjYc TfHMDeONz8RZq5YJYkfCh lPpVzPIP2HzS2 LCV5oXJbbN3feXpgnbras G9wOyc+WKq5p6wccAMeVK 2qxNJ1UR79MC03vVWnj2W 3qGX3C1LhGEEv eekwwrddzIM9HVUsABZis P73Mx0kvKezTm0iSOZoWN Q1TCOsaMZzK9IhsV2aVlF aSADzXVMdV8Km bEAyMMzhU165TNmqSxS3U ILmrkJyH2EpLWPynCqgOn I0m0E9Xp8DJP43WV72QK2 0mOEsf1A6vFB5 H8CwMBMgwgmlyzeqiPG1N VRiOHZhxY35Vc8crCzjBf 4kYCOqQJY4JTMjmOArM8P taO6oFiSjBIOe KDIiR4PjkVRyQGizL825V KfyCzL8WHQetpWuF7ZkFU RnaNwpLyB4p7V5Fu1RVb7 7GO95BB67iZXa b8Q1yQA1S7CzWLVgbubsb xdfgCU0YCScKYKveS26Bo 0vmUtyBe0gYYWfGXS3VDA yjFLiC3EavK9c SsNuONCwWCEoM9ElhIMaP BbaX765VYtrDzC2ZSYphm GkD3InZZRbeTsfAfV1x8E 6Ge6ZIHrwtpm6 P3IiRxbchLD+ZH80ARAgG Z96nSLjrUUqz0tvhTn5Ik GhAUQiCFD9zGbuUHuvk0U xDODmI31akNMb c2U (more content not included)... Normal [facility] Provider Orderson 04-07-2021 Provider Orders [id number] Normal [facility] .Auto Diff 1on 04-04-2021 Auto Christian % 5 % Normal 09-03 [facility] Comment on above: Performed By: #### 2 [id number] #### [facility] (DEFAULT) [address] [place] [address] 38880 Baso Abs# 0.0 x10 Normal 0.0-0.2 [facility] Comment on above: Performed By: #### 2 [id number], [id number] #### [facility] (DEFAULT) [address] [place] [address] 48596 Basophils/100 WBC (Bld) 0.1 % Low 0.2-2.0 [facility] Comment on above: Performed By: #### 2 [id number], [id number] #### [facility] (DEFAULT) [address] [place] [address] 64426 Eos Abs# 0.1 x10 Normal 0.0-0.4 [facility] Comment on above: Performed By: #### 2 [id number], [id number] #### [facility] (DEFAULT) [address] [place] [address] 34269 Eosinophils/100 WBC (Bld) 2.0 % Normal 0.9-4.0 [facility] Comment on above: Performed By: #### 2 [id number], [id number] #### [facility] (DEFAULT) [address] [place] [address] 57322 Lymph Abs# 1.2 x10 Low 1.3-2.9 [facility] Comment on above: Performed By: #### 2 [id number], [id number], [id number] #### [facility] (DEFAULT) [address] [place] [address] 58269 Lymphocytes/100 WBC (Bld) 17 % Normal 14-48 [facility] Comment on above: Performed By: #### 2 [id number], [id number], [id number] #### [facility] (DEFAULT) [address] [place] [address] 27577 Christian Abs# 0.3 x10 Normal 0.0-0.8 [facility] Comment on above: Performed By: #### 2 [id number], [id number], [id number] #### [facility] (DEFAULT) [address] [place] [address] 23367 Neut Abs# 5.4 x10 Normal 1.5-9.2 [facility] Comment on above: Performed By: #### 2 [id number], [id number], [id number] #### [facility] (DEFAULT) [address] [place] [address] 99659 Neutrophils/100 WBC (Bld) 76 % Normal 44-88 [facility] Comment on above: Performed By: #### 2 [id number], [id number], [id number] #### [facility] (DEFAULT) [address] [place] [address] CBC w/ Auto Diffon 1 Erythrocyte distribution width (RBC) [Ratio] 13.7 % Normal 11.5-15.0 [facility] Comment on above: Performed By: #### 2 [id number], [id number], [id number] #### [facility] (DEFAULT) [address] [place] [address] Hematocrit (Bld) [Volume fraction] 34.4 % Normal 33.7-40.4 [facility] Comment on above: Performed By: #### 2 [id number], [id number], [id number] #### [facility] (DEFAULT) [address] [place] [address] Hemoglobin (Bld) [Mass/Vol] 11.1 g/dL Low 11.3-15.9 [facility] Comment on above: Performed By: #### 2 [id number], [id number], [id number] #### [facility] (DEFAULT) [address] [place] [address] Instr WBC 7.1 x10 Invalid Interpretation Code [facility] Comment on above: Performed By: #### 2 [id number], [id number], [id number] #### [facility] (DEFAULT) [address] [place] [address] Man Diff? Auto Normal [facility] Comment on above: Performed By: #### 2 [id number], [id number], [id number] #### [facility] (DEFAULT) [address] [place] [address] 61853 MCH (RBC) [Entitic mass] 30 pg Normal 24-34 [facility] Comment on above: Performed By: #### 2 [id number], [id number], [id number] #### [facility] (DEFAULT) [address] [place] [address] 99379 MCHC (RBC) [Mass/Vol] 32 g/dL Normal 26-37 [facility] Comment on above: Performed By: #### 2 [id number], [id number], [id number] #### [facility] (DEFAULT) [address] [place] [address] 79742 MCV (RBC) [Entitic vol] 92 fL Normal 81-100 [facility] Comment on above: Performed By: #### 2 [id number], [id number], [id number] #### [facility] (DEFAULT) [address] [place] [address] 74415 Platelet 225 x10 Normal 138-427 [facility] Comment on above: Performed By: #### 2 [id number], [id number], [id number] #### [facility] (DEFAULT) [address] [place] [address] 89190 Platelet mean volume (Bld) [Entitic vol] 9.8 fL Normal 6.3-10.2 [facility] Comment on above: Performed By: #### 2 [id number], [id number], [id number] #### [facility] (DEFAULT) [address] [place] [address] RBC 3.73 x10 Normal 3.70-5.30 [facility] Comment on above: Performed By: #### 2 [id number], [id number], [id number] #### [facility] (DEFAULT) [address] [place] [address] WBC 7.1 x10 Normal 3.5-10.5 [facility] Comment on above: Performed By: #### 2 [id number], [id number], [id number] #### [facility] (DEFAULT) [address] [place] [address] O'Aguilar Teston 04-04-2021 Glucose [Mass/Vol] 115 mg/dL Normal <=139 [facility] Comment on above: Performed By: #### 2 [id number], [id number], [id number] #### [facility] (DEFAULT) [address] [place] [address] Coding Summaryon 11-29-2020 Coding Summary HTMLBase 64 DfdiudtvGZb4bSk+PGhlY WQ+GS4JNPEoQ69pqZVruM 0NW7hLHS1JDLKRXDVWDT8 HUM0ytGT8JYcaY5WlvsSo OyiymSQuPF43NNa4LRF0r McnFGedfC2cdLTdU7z7Mh RxOF17zO57FMrsNTUtZpU 3LjZpbjsgbWFy J7hcQkCpmAJvZzj+PHRhY mxlIHdpZHRoPScxMDAlJy GmvFazFN7rTj2hQQVfTKY vbGxhcHNlOiBj i8cqTEYvQUopQT5irYlfY 4NkmBF0JHLyx5u7Db83yG I+ENNrVUD7tVexKCrqr63 0NhEyn6lnGXY6 wEDiQDliTXN8R69uz1D8A TGwIKJdPCW4iGQ4wS2gvE lijyvnG3NekMBiBaE2ATO 8bJTiiN4gzUqd cvuhzP7bRdw+T78OBH5PB KMIEE9QJbu7A6ZgSwynuF I+TX71UXNlYS53vXNkmHQ wq1apfCd5YjUr NARyMMM5pIxtECjcm1AuH TNgL17iqFXqu1G5AVQnoJ enlMYuIhPfvUI8eL8pTPe ufiybq2rmaqbp Htnee9srxc68iI45Y99zM ArjZLGuKTC1WFPwJEJbnF hkuz7wlW0nIz0+FWrxl1u io2wbjYl3XiSo SBWqpkTnjKzkQIB9c7YuQ d18U6IzuSxgu5PdReb3zc 27oPQrw8I7sIR8OPpaQUP mnJ7rFAucVqT5 CDYrOgXdtV72wHCgRWsiV z9bcRvozHbxYS6sMWZdxr rqPSWmiM0kNCRgxSRfyTn tMO7iDRSdtapf k321JyPpKSZ2NOCpfRWqW 4BwaL3nMmRlFBSxLKHtF7 OjpIDyFZfnY726QYeuSkU 6WDZuxqPxL5Bj GUPhrYxoJpR1x6W3Lt4Em 5EyvtpyOTX3ADhtYHB4Gt V9JmLtAaS5V8UzWep8BCF xaOgfVQ4eE5Ok GUHfinvhynrxhUS0WITdL TOkwV08lAObVJbwVt8ub2 Q0p229FTLeHYHpeG34Qy7 udDogMTBwdCBU vK6pldyvj7govwkgHyAcC SMoYZo4XPq1SJDwfNucKh BuOVH3EfK8UHZ7kZPgfF0 rjHhgpfegeY2r Oyc+K54xnB0fTBL5QJT4j iamKBQspyEgNN52PJ63Q6 RyPjwvdGFibGU+PGRpdiB xrSqbRA5sOzXt m2ete2OaAFksB4YgEEIbY DuzCyz9PMXmVUC1gAI7wH 2sKQWiUFfte1H3xHI9W7M qgjYtam1hn4yw KJKpHUjaC28wfHRfu3B1M ELpjXP4WIWtuYzfKiWdsJ 93Oyc+SEBqgOaks4RwUuu vk0bvc5payUn2 JbFkMHUyprIgvMvqEUM8v 9IjSc32N47rGDsdTBElZO ReJVVqDYSifPiuad7tgR5 wIi8+PGNvbCB3 pXS9jO4qHRRnVcA5XRqvH 004LeJzxWIiDaoqm1ibv4 zjsPr4MsPuSJNsavGuoJr mGBN3w4LfJl00 P56hXEyeVKGuXSXbBWEyS SOodYkwya6lzB2bVv9+PC 5ka0mevg36hA20hAS+PHR lHMY1tKgwKTzj FWIaoK3xCBnpFtI4GRPrH kZjkF81iJIxXMrgVu1alB bckNusYN5kFURfnhohu28 5OaVon1mxFLCm nIJgGKssBJS5S02ym4Z6J PNmDVBfACL6oIR1fC4hiD lnbjogbGVmdDsgdmVydGl xVExcNUqjV115 IHRvcDsnPlBhdGllbnQgT yLrHUf9Z8AvQtx7HAYhmU snJH4jlAWkDJwxBk0loXx mjTpyJU1wFRUb bonhr144OcWhv5yyMRZuc ALoPYypFIM0A63bx5F4LS FlKACoQVD0uRQ7uN5jaOu nbjogbGVmdDsg blHksMqpIWuxRHmmT134U HRvcDsnPkJpcnRoIERhdG W5MK53NU62yXKlp5J5aOQ 4G8KeQLRqruar dzfvzXN8OHKsHBGsaL09U r9uvVtnRq5pMLBuJFB5ZM OanPOzQ9MgyW6lSpSrOPA wCGIfZ7XhoLNh WSnrY967NNppWhM8CIKrg dOyJ9AmDRGsbTwqZgN2r1 A8Sw2KZ2G9LT56RD27fZT tj7C1zEX9K4Jy BAQjwfktgfbwsPT8ZEGcQ LEziR71Op1byOteGz6qVB YkEYA2BLAtlHRdH5YnbL2 yOiAjMDAwMDAw N0VmoMKrCLnwW928FTcwS bW6WTQerwQxA8CjZAYtgH udPvW3h2C9Hy8MKXm4HY0 1LX70lXQuw9R5 wSP4B3FrFLIqqglymmdtm UA9CIPyKMUjpV69Xm2bvJ psNh7vOHSgJMH3OOXfsAW kT2WbuF8xFmTj KAHiUDWhO2SofAMdCCabM 178WJnrBoP7FYHlgvUwW5 UlNFWumZiiNjB3k1A0Iy1 ZLEKfLT28RMA4 ySW6MY02PZ20K1RdUiygv GFibGU+PHRhYmxlIHdpZH RoPScxMDAlJyBzdHlsZT0 mMs6yOOOuHYSl lWgiwNIiSgSka3bkUZUfI EsiPT0eoSoyB0IpnNE7KL Mdg3p3Gz74S75wG4LzrSG +COJgwDC8aAY6 hF0vHvGlKqC3AQyxS643P qQlcCEkNykro1his7crbT d2GvY0MKFuabDetBvjVIU 5i6ZwAp87M07z IHdpZHRoPSIxNSUiIHZhb Hvbmu8uvV8sMn6+PGNvbC N8qLH6jC2yHqSdNcG9GVe hK816PxLdtJXh Haghp2ntw3tdxAj7AkVvF YNfubBxuJguQPM6s7UhOa 94U7MvjRmao8AnPiw8jb8 5iBOxm8G4gHJ9 F4SmEHEkcxcnwLSfjImfW S6nKUOlyyzzMWTlyY6mED FqO8w9SxTuTaI6GAmzX3N ysnE7LXDmqHWe FGsfZHH2V94vu9A3BITqZ UAvBLD6yKP9rM1clJqrao ogbGVmdDsgdmVydGljYWw qGFtmM876IYNe bRxfAMWwwP3wZSGtaVBck GpjXH1aEWGnbixaVh5HPV CVRKIFDUSEKR1UFJXYTDg AELT0D2LnKrt3 XFHypRqcTQ7vqLXkJDowH i2bgKgshThaZQ0zUJQsia xfSSXjmR3oNSOgxFIepWi kBS6iUMTgjouq z358NwUhRSM4BGJogGSaT 9SyaP6gSsMmHEYrTGCbY7 QsyAMdSEzvR351IDbpPzW 3VLRrkzDgU7Id RHRqxMwkYcA1j2S0Ap6xE S9sHG6tRRs2VB69ZU28qR Dmj7T7aRV0L5BdZDIjjps jthvvaCC4CHRb KUQcsI54dJVuXTauOp1pn 6R4z474KHZzLRHukR43Dt 5ziRhoOFOjlYFLbP3fvlo gx8voperxAqSr RMTgBVm2TDp3HHOuhOedQ jQlPRU5KvR4ODP9vXMnpW 0ucYbvqihozC5oUsb+MjY jCCHclfK3A8Jz Tfe7LMFncUllMT2abSJqW MlfLu8vtEempKkbMW4hEW VthbmsXLCfnV2sRCZbaCU jcEpzDL8iTJQb jakfa363XmQiXIF3NTTgf CXaQ9CudH9tDyFwSEHdTM LmM7HxvWNlDZjcH924PVq yGuC5ZZOgygDq I9TcTBOqbBwcQiE3e2B8P c9BIU2TDOM8I7AzDze1PM OamLnxNN5deOVcKPriTo9 hoHridAojHJ9i SQFvyhufRIVflY2oLQLhn GDahWwuOR4eCIDxbwtbt4 37PtLgRIF3WLZcpKSjU4E nsK9lVpIpXPRj HJWaY4MkxYTnDHiqH325R UmnZlJ9HOBlbzMhJ0JzXX VujQvcLkT8n8X6Pf7WHBz vdGQ+VR72zc34 D6QfPjkqXjb5FXEfNOY5f JB6yM5wOXBuCLqqr8I3yY M2D8RqmwUyls3nd5yfPRX pNYceS00qoRWc u1L0VRIfzSR6UJImgAdjZ rSezZ13Sfj+PGNvbGdyb3 FmDgcov1mur5sqlBi4KyU wJSIgdmFsaWdu BYM5d2XrTp37U63sRBiaS HRoPSIzMCUiIHZhbGlnbj 2tvM1uId2+FUVumXB7sER 4pX1vPnXxIhQ5 TBeeU205TaQxfGAhCharb 7whp3ffuJz1HnHuHCDlyo AzuDamDOK4q2UgGi14X7T iaWclj9NtJol5 wf83pLRqx7Z4nXV9W1FrA ETvibvvtDSpeFjmQP9eTP VonrtwICHkuK2mJCMgP3q 3GqQsPdH0AKve X5NllyG2ULUivGIeHKFoo IOOaI6qffiay2ycvymgKf NmETCcJLg6ROe1DEYnnSr yOnMsLGW6IkI8 GPJ1lFLojE8mtDejeihkh G9wOyc+BUj7i2faoIGtHS 3exNS0SE13QE13wBLmv1H 0dQG7O7XfNQIo zjowzouoeQX2RHSpVMPby M14Xy7pyEkeHw1nRUSbTJ J6TUDfeSKaY3XgvZ7rFcB mIONfNTDiH9Tz lPZlJJhkS075HIhpZpQ6D RRpffZbD5FuCKWteTibFa J7o0W4Kt8GFE22KB55RO9 8zUVev6M4tFT3 I8UmETKvenzhswvyyVJ4V ISdCNRmqA23Cf6bsDjfJv 3pTCYzGFN4JCRgrRKiA9W jzY2sWwScFUPc ZZKyZ0ShdCQuHQwcH711J KvtZbF9PPBwnbZsY8NjQE ZyaLmlBuL9s5W2Ke9VUb7 4HT54VH44iVYu f8A7tJY3K4LwZWYhheybi qknlIL3BDJoTIAjgW80Ny 1boAizUi0bGUGdFWH3VIT qbHYaC4MeuZ4b OjOlHTJbOAGzY6QlaROgZ KuvX521QHfoXpG3XRSlng NzN7EvOXUduXzkPdK0q5D 4Tf3FHIeglze2 C2ZuXzbcxLB+EV68VBDkW U91yGYajMLre0bwxSd8Pd GjNDXgTOF4gFidFHmuw0A aICClH04jjWVh c2U (more content not included)... [facility] Provider Orderson 11-28-2020 Provider Orders [id number] [facility] ABORhon 11-27-2020 ABO and Rh group Nom (d) Hx Check: Not Found Anti-A: 0 Anti-B: 0 Anti-D: 4+ DCon: NT A1: 4+ B: 4+ ABORh Interp: O POS Invalid Interpretation Code [facility] Comment on above: Performed By: #### 7 [id number], [id number], [id number] #### [facility] (DEFAULT) [address] [place] [address] ABORh Retypeon 11-27-2020 ABO and Rh group Nom (d) Ordered by Discern. Anti-A: 0 Anti-B: 0 Anti-D: 4+ DCon: NT A1: 4+ B: 4+ ABORh Retype: O POS Invalid Interpretation Code [facility] Comment on above: Performed By: #### 2 [id number], [id number], [id number] #### [facility] (DEFAULT) [address] [place] [address] hCG Quantitativeon hCG Quantitative 666911.0 mIU/mL High 0.0-0.6 [facility] Comment on above: Result Comment: Resu lt confirmed by dilution Post-Menopausal Reference Range is: 0.1-11.6 mIU/mL Performed By: #### 2 [id number], [id number], [id number] #### [facility] (DEFAULT) [address] [place] [address] Vital Signs Date Time Vital Sign Value Performing Clinician Facility 01-28-2023 16:20-0400 Body height 160.02 cm [facility] Other [facility] 01-28-2023 16:20-0400 Body mass index (BMI) [Ratio] 40.74 kg/m2 [facility] Other [facility] Other 01-28-2023 16:20-0400 Body temperature 99.7 [degF] She[facility] Other [facility] Other 01-28-2023 16:20-0400 Body weight 104.33 kg Shelli Daisy Other [facility] Other 01-28-2023 16:20-0400 Respiratory rate 18 /min She[facility] Other [facility] Other 01-28-2023 16:20-0400 SaO2% (BldA) [Mass fraction] 99 % Shelli Daisy Other [facility] Other Encounters Encounter Date Encounter Type Care Provider Facility Start: 01-04-2024 End: 01-04-2024 ambulatory JENS IQRA Not Available Start: 12-06-2023 End: 12-06-2023 ambulatory JAYDEN DASIA Not Available Start: 11-08-2023 End: 11-08-2023 ambulatory JENS IQRA Not Available Start: 10-11-2023 End: 10-11-2023 ambulatory JAYDEN DASIA Not Available Start: 09-13-2023 End: 09-13-2023 ambulatory JAYDEN DASIA Not Available Start: 08-13-2023 End: 08-13-2023 ambulatory JAYDEN DASIA Not Available Start: 01-28-2023 End: 01-28-2023 ambulatory Shelli [facility] Other [facility] Start: 01-28-2023 Office outpatient ne w 20 minutes Shelli Villa [facility] Start: 11-23-2022 End: 11-23-2022 ambulatory JENS ESCALONA . Facility:[facility] Start: 09-21-2022 End: 09-21-2022 ambulatory PRAVEEN ZELAYA Facility:[facility] Payers Date Payer Category Payer Unknown [id number] 1995 Unknown [id number] 2.16.84 [id number] 1994 Unknown [id number] 2.16.84 [id number] 1994 Unknown [id number] 2.16.84 [id number] 1994 Unknown [id number] 2.16.84 [id number] 1994 Unknown [id number] 2.16.84 [id number] 1994 Unknown [id number] 2.16.84 0.1.196688.3.579.2.9 1994 Unknown [id number] 2.16.84 0.1.147863.3.579.2.9 1994 Unknown [id number] 2.16.840 .[id number] 1959 Unknown [id number] Social History Date Type Detail Facility Unknown if ever smoked [facility] Other Sex Assigned At Sex Assigned At Bir th [facility] Other Evaluation note 01-28-2023 Note Date & [...] worsening. Patient verbalized understanding of treatment plan. [facility] Other History general Narrative - Reported Note Date & Type Note Facility History general Narrative - Reported Type Surgical History sinus surgery x2 [facility] Other Summary Purpose Family History No Family History Records FoundNo Family History Records FoundNo Family History Records Found Advance Directives No Advanced Directives Records FoundNo Advanced Directives Records FoundNo Advanced Directives Records Found Additional Source Comments INFORMATION SOURCE (unrecogn ized section and content) DATE CREATED AUTHOR 11/03/2021 [facility] DATE CREATED AUTHOR AUTHOR'S ORGANIZ ATION 12/12/2022 [facility] DATE CREATED AUTHOR AUTHOR'S ORGANIZ ATION 01/06/2024 [facility] EPIC REASON FOR VISIT [...] BE BASED ON THE PRIMARY CLINICAL RECORDS. [employer] [facility]. provides no warranty or guarantee of the accuracy or completeness of information in this document.
== END 2024-01-18 09:36 | disposition home or self-care (01) ==
LOC: NOMS 09:35
PROVIDERS: PCP Family Medicine; Visit Provider Physician Assistant
DX: Z34.93 Encounter for supervision of normal pregnancy, unspecified, third trimester (principal); Z3A.31 31 weeks gestation of pregnancy
CPT/HCPCS: 76816

== ENCOUNTER 2024-02-29 20:15 | Outpatient (REF) | payer OTHER, SELFPAY | END 2024-02-29 20:16 | disposition home or self-care (01) | LOC: LAB 20:15 | PROVIDERS: PCP Family Medicine; Visit Provider Obstetrics & Gynecology | DX: Z34.93 Encounter for supervision of normal pregnancy, unspecified, third trimester (principal) | CPT/HCPCS: 87081 ==

== ENCOUNTER 2024-03-09 22:59 | Inpatient (IN) | payer OTHER, SELFPAY ==
--- OUTSIDE RECORDS SUMMARY | 2024-03-09 23:03 | XMS_ITS | CCD ---
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 Role Phone IQRA ., JENS Admitting Unavailable IQRA ., JENS Attending Unavailable REQUEST, NONE LISTED Primary Care Unavaila JENS Adair Consulting Unavailable PRAVEEN ZELAYA Admitting Unavailable GACRIA, PRAVEEN Attending Unavailable WADE, NONE LISTED Primary Care Unavaila fantasma ZELAYA, PRAVEEN Consulting Unavailable Shelli Villa Unavailable JAYDEN FORMAN Attending Unavailable DASIA, JAYDEN Attending Unavailable IQRA, JENS Attending Unavailable DASIA, JAYDEN Attending Unavailable IQRA, JENS Attending Unavailable DASIA, JAYDEN Attending Unavailable DASIA, JAYDEN Attending Unavailable DASIA, JAYDEN Attending Unavailable DASIA, JAYDEN Attending Unavailable Medications Current Medications Medication Drug [...] 2: 21 to 29on 11-29-2022 . . [facility] Comment on above: Performed By: #### 4 [id number] #### [facility] [address] [place] [address] Dr. Evan Mcintosh Age Gdln ACOG Testing [facility] Comment on above: Performed By: #### 4 [id number] #### [facility] [address] [place] [address] Dr. Evan Mcintosh DIAGNOSIS: Comment [facility] Comment on above: Result Comment: NEGA TIVE FOR INTRAEPITHELIAL LESION OR MALIGNANCY. Performed By: #### 4 [id number] #### [facility] [address] [place] [address] Dr. Evan Mcintosh Methodology: Comment [facility] Comment on above: Result Comment: This liquid based ThinPrep(R) pap test was screened with the use of an image guided system. Performed By: #### 4 [id number] #### [facility] [address] [place] [address] Dr. Evan Mcintosh Note: Comment [facility] Comment on above: Result Comment: The Pap smear is a screening test designed to aid in the detection of premalignant and malignant conditions of the uterine cervix. It is not a diagnostic procedure and should not be used as the sole means of detecting cervical cancer. Both false-positive and false-negative reports do occur. . Performed By: #### 4 [id number] #### [facility] [address] [place] [address] Dr. Evan Mcintosh Performed by: Comment [facility] Comment on above: Result Comment: Fiona Heath, National Van Owner Operator (ASCP) Performed By: #### 4 [id number] #### [facility] [address] [place] [address] Dr. Evan Mcintosh Reflex Criteria: Comment Normal [facility] Comment on above: Result Comment: The HPV DNA reflex criteria were not met with this specimen result therefore, no HPV testing was performed. . Performed By: #### 4 [id number] #### [facility] [address] [place] [address] Dr. Evan Mcintosh Specimen adequacy: Comment Normal [facility] Comment on above: Result Comment: Sati sfactory for evaluation. Endocervical and/or squamous metaplastic cells (endocervical component) are present. Performed By: #### 4 [id number] #### [facility] [address] [place] [address] Dr. Evan Mcintosh Covid-19 PCR (CVDTB)on 08-25 SARS-CoV-2 (COVID-19) RNA CY+probe Ql (Unsp spec) Not detected Normal NOT DETECTED [facility] Comment on above: Result Comment: When diagnostic [...] for this test is supported by the [place] of Health and Human Service's declaration that [...] used). Performed By: #### C VDTBH #### [facility] [address] [place] [address] Dr. Evan Mcintosh INFLUENZA A AND B AGon 09-21 INFLUANEGH SEE BELOW Normal [facility] Comment on above: Result Comment: Nega tive for Flu A protein angiten. Infection due to Flu A cannot be ruled out. Flu A angiten in the sample may be below the detection limit of the test. Performed By: #### I NFLUAB #### [facility] [address] [place] [address] Dr. Evan Mcintosh [facility] SEE BELOW Normal [facility] Comment on above: Result Comment: Nega tive for Flu B protein antigen. Infection due to Flu B cannot be ruled out. Flu B antigen in the sample may be below the detection limit of the test. Performed By: #### I NFLUAB #### [facility] [address] [place] [address] Dr. Evan Mcintosh INFLUENZA A AG Negative Normal NEGATIVE SEE COMMENT [facility] Comment on above: Performed By: #### I NFLUAB #### [facility] [address] [place] [address] Dr. Evan Mcintosh INFLUENZA B AG Negative Normal NEGATIVE SEE COMMENT [facility] Comment on above: Performed By: #### I NFLUAB #### [facility] [address] [place] [address] Dr. Evan Mcintosh Release of Informationon Release of Information [id number] .00[facility] Nicotine and Metabolite, Drew nt LCon 06-15-2021 Cotinine LC <1.0 Invalid Interpretation [facility] Comment on above: Result Comment: This test was developed and its performance characteristics determined by [facility]. It has not been cleared or approved by the Food and Drug Administration. Cotinine levels greater than 20.0 are consistent with the use of tobacco or tobacco cessation products. Performed At: [address] [id number] Richmond Merino MD Ph:[phone] Performed By: #### 3 [id number], [id number], 37807692, [id number], 3148464, [id number] #### [facility] (DEFAULT) [address] [place] [address] Nicotine LC <1.0 Invalid Interpretation [facility] Comment on above: Result Comment: This test was developed and its performance characteristics determined by [facility]. It has not been cleared or approved by the Food and Drug Administration. Nicotine levels greater than 2.0 are consistent with the use of tobacco or tobacco cessation products. Performed By: #### 3 [id number], [id number], 60849466, 3454582585, 6595967, [id number] #### [facility] (DEFAULT) [address] [place] [address] .Auto Diff on 06-09-2021 Auto [place] % 6 % Normal -12 [facility] Comment on above: Performed By: #### 3 2579064, [id number], 64063695, 7766280172, 7390956, 7684816011 #### [facility] (DEFAULT) [address] [place] [address] Baso Abs# 0.0 x10 Normal 0.0-0.2 [facility] Comment on above: Performed By: #### 3 7320912, 1801596581, 34726464, 2152782298, 5407310, [id number] #### [facility] (DEFAULT) [address] [place] [address] Basophils/100 WBC (Bld) 0.1 % Low 0.2-2.0 [facility] Comment on above: Performed By: #### 3 8648190, 2344399858, 08484997, 6325991898, 3455977, 3197529991 #### [facility] (DEFAULT) [address] [place] [address] Eos Abs# 0.2 x10 Normal 0.0-0.4 [facility] Comment on above: Performed By: #### 3 5948018, 6905415723, 24213219, 0721722194, 2084202, 6502184824 #### [facility] (DEFAULT) [address] [place] [address] Eosinophils/100 WBC (Bld) 1.6 % Normal 0.9-4.0 [facility] Comment on above: Performed By: #### 3 0775016, 4043100675, 24312842, 7901515672, 3907944, 3728628164 #### [facility] (DEFAULT) [address] [place] [address] Lymph Abs# 1.5 x10 Normal 1.3-2.9 [facility] Comment on above: Performed By: #### 3 1758023, 9202337622, 54124962, 6876619020, 0332640, 9968051423 #### [facility] (DEFAULT) [address] [place] [address] Lymphocytes/100 WBC (Bld) 15 % Normal 14-48 [facility] Comment on above: Performed By: #### 3 4434502, 6613686661, 43948587, 0755062374, 7831161, 1972770631 #### [facility] (DEFAULT) [address] [place] [address] [place] Abs# 0.6 x10 Normal 0.0-0.8 [facility] Comment on above: Performed By: #### 3 1232157, 3225231462, 94932894, 3397836775, 8012210, 4757484301 #### [facility] (DEFAULT) [address] [place] [address] Neut Abs# 7.8 x10 Normal 1.5-9.2 [facility] Comment on above: Performed By: #### 3 7813172, 9996775869, 22977021, 8086968758, 6716562, 1878450330 #### [facility] (DEFAULT) [address] [place] [address] Neutrophils/100 WBC (Bld) 77 % Normal 44-88 [facility] Comment on above: Performed By: #### 3 2692036, 7082403204, 62590671, 3709668244, 2704027, 3530757393 #### [facility] (DEFAULT) [address] [place] [address] CBC w/ Auto Diffon 202 1 Erythrocyte distribution width (RBC) [Ratio] 14.4 % Normal 11.5-15.0 [facility] Comment on above: Performed By: #### 3 6304190, 0514991984, 39617496, 8446956246, 5548200, 7404249199 #### [facility] (DEFAULT) [address] [place] [address] Hematocrit (Bld) [Volume fraction] 37.3 % Normal 33.7-40.4 [facility] Comment on above: Performed By: #### 3 4646375, 8893539822, 56732770, 6533084745, 8307523, 9064004005 #### [facility] (DEFAULT) [address] [place] [address] Hemoglobin (Bld) [Mass/Vol] 12.2 g/dL Normal 11.3-15.9 [facility] Comment on above: Performed By: #### 3 9368388, 4947962541, 89417831, 3578179312, 2941719, 3968185315 #### [facility] (DEFAULT) [address] [place] [address] Instr WBC 10.1 x10 Invalid Interpretation Code [facility] Comment on above: Performed By: #### 3 4953394, 1746039955, 21949477, 5385611849, 3036470, 3679930929 #### [facility] (DEFAULT) [address] [place] [address] Man Diff? Auto Normal [facility] Comment on above: Performed By: #### 3 6419381, 3334597684, 90359574, 4660280256, 8514026, 5868408334 #### [facility] (DEFAULT) [address] [place] [address] MCH (RBC) [Entitic mass] 29 pg Normal 24-34 [facility] Comment on above: Performed By: #### 3 0666313, 7323552123, 19598584, 0545395020, 1105380, 2014822280 #### [facility] (DEFAULT) [address] [place] [address] MCHC (RBC) [Mass/Vol] 33 g/dL Normal 26-37 [facility] Comment on above: Performed By: #### 3 2948187, 2648496618, 96952749, 3670984795, 9489628, 8205817495 #### [facility] (DEFAULT) [address] [place] [address] MCV (RBC) [Entitic vol] 88 fL Normal 81-100 [facility] Comment on above: Performed By: #### 3 7133418, 7424167034, 87358785, 1711036737, 5057750, 4510059989 #### [facility] (DEFAULT) [address] [place] [address] Platelet 234 x10 Normal 138-427 [facility] Comment on above: Performed By: #### 3 2274664, 0021758673, 60905460, 6191900760, 1483770, 5349849024 #### [facility] (DEFAULT) [address] [place] [address] Platelet mean volume (Bld) [Entitic vol] 10.8 fL High 6.3-10.2 [facility] Comment on above: Performed By: #### 3 0561097, 5125432942, 62555746, 2862354350, 2313341, 2401984446 #### [facility] (DEFAULT) [address] [place] [address] RBC 4.23 x10 Normal 3.70-5.30 [facility] Comment on above: Performed By: #### 3 0054775, 9546050210, 96038791, 4200476386, 5184053, 4796291159 #### [facility] (DEFAULT) [address] [place] [address] WBC 10.1 x10 Normal 3.5-10.5 [facility] Comment on above: Performed By: #### 3 2578444, 4435068835, 83142790, 6073570272, 9732592, 0224932791 #### [facility] (DEFAULT) [address] [place] [address] CMP Standardon 06-09-2021 eGFR Non AA >60 Invalid Interpretation Code [facility] Comment on above: Performed By: #### 3 7829019, 4716100741, 36456706, 8494202073, 6306509, 7073107403 #### [facility] (DEFAULT) [address] [place] [address] eGFR AA >60 Invalid Interpretation Code [facility] Comment on above: Result Comment: Jd Edwards kulwinder Kidney disease could be indicated at eGFRs of less than 60 ml/min/1.73m2. Kidney Failure is indicated at less than 15 ml/min/1.73m2 Performed By: #### 3 2727829, 4959813291, 28998273, 7262609425, 8978282, 8635230225 #### [facility] (DEFAULT) [address] [place] [address] Albumin [Mass/Vol] 3.1 g/dL Low 3.5-5.0 [facility] Comment on above: Performed By: #### 3 3735617, 7589765300, 07136773, 4618495694, 7667333, 3616224737 #### [facility] (DEFAULT) [address] [place] [address] Albumin/Globulin [Mass ratio] 1.0 {ratio} Low 1.4-2.6 [facility] Comment on above: Performed By: #### 3 6231098, 8624619337, 16308579, 0450097845, 8820028, 5621548782 #### [facility] (DEFAULT) [address] [place] [address] Alk Phos 107 IU/L High 32-91 [facility] Comment on above: Performed By: #### 3 4436227, 2827260110, 80886221, 9444672137, 6554150, 4223581805 #### [facility] (DEFAULT) [address] [place] [address] ALT [Catalytic activity/Vol] 16.0 U/L Normal 14.0-54.0 [facility] Comment on above: Performed By: #### 3 7405719, 4975366949, 38552278, 0467138264, 1008480, 1207563538 #### [facility] (DEFAULT) [address] [place] [address] Anion gap [Moles/Vol] 12.0 mmol/L Normal 5.0-19.0 [facility] Comment on above: Performed By: #### 3 7087161, 2168391263, 43440715, 0325297540, 6367022, 0281965443 #### [facility] (DEFAULT) [address] [place] [address] AST [Catalytic activity/Vol] 19 U/L Normal 15-41 [facility] Comment on above: Performed By: #### 3 6252046, 3249318507, 22174298, 9685697910, 6850708, 4638445431 #### [facility] (DEFAULT) [address] [place] [address] Bili Total 0.1 mg/dL Low 0.3-1.2 [facility] Comment on above: Performed By: #### 3 8438301, 1932124388, 87263376, 8080743257, 8417318, 5553797992 #### [facility] (DEFAULT) [address] [place] [address] Calcium [Mass/Vol] 8.6 mg/dL Low 8.9-10.3 [facility] Comment on above: Performed By: #### 3 2454059, 1989723587, 74456144, 2362629675, 6463760, 2669442507 #### [facility] (DEFAULT) [address] [place] [address]2291 Chloride [Moles/Vol] 105 mmol/L Normal 101-111 [facility] Comment on above: Performed By: #### 3 1208390, 3349131181, 57294813, 6898612702, 4917927, 8939739646 #### [facility] (DEFAULT) [address] [place] [address] 50268 CO2 [Moles/Vol] 20 mmol/L Low 21-32 [facility] Comment on above: Performed By: #### 3 5909455, 9818076078, 46134571, 2660734994, 9046647, 0513005940 #### [facility] (DEFAULT) [address] [place] [address]881 Creatinine [Mass/Vol] 0.63 mg/dL Normal 0.60-1.30 [facility] Comment on above: Performed By: #### 3 9516833, 0271051991, 81124850, 2917182087, 8006761, 8968539303 #### [facility] (DEFAULT) [address] [place] [address] 55641 Globulin (S) [Mass/Vol] 3.2 g/dL Normal 1.5-4.3 [facility] Comment on above: Performed By: #### 3 3927682, 6977457017, 23037023, 0853750523, 3328129, 1433807322 #### [facility] (DEFAULT) [address] [place] [address] 83593 Glucose [Mass/Vol] 81.0 mg/dL Normal 74.0-118.0 [facility] Comment on above: Performed By: #### 3 6108546, 9070743475, 36865245, 9499744644, 3891855, 2331783958 #### [facility] (DEFAULT) [address] [place] [address]122 Osmolality 264 mOsm/L Invalid Interpretation Code [facility] Comment on above: Performed By: #### 3 8497913, 9556612462, 13622462, 6026631200, 0669794, 2807048636 #### [facility] (DEFAULT) [address] [place] [address] 62889 Potassium [Moles/Vol] 4.0 mmol/L Normal 3.6-5.1 [facility] Comment on above: Performed By: #### 3 2275832, 2492472807, 65888166, 9444260448, 8669479, 6358128163 #### [facility] (DEFAULT) [address] [place] [address] 67604 Protein [Mass/Vol] 6.3 g/dL Low 6.5-8.1 [facility] Comment on above: Performed By: #### 3 8235284, 6753366551, 47401867, 2627484505, 0704762, 1436984179 #### [facility] (DEFAULT) [address] [place] [address] Sodium [Moles/Vol] 133.0 mmol/L Low 136.0-144.0 [facility] Comment on above: Performed By: #### 3 9710227, 0223907857, 06625280, 3268891320, 3892487, 4354801149 #### [facility] (DEFAULT) [address] [place] [address] Urea nitrogen [Mass/Vol] 10 mg/dL Normal 8-26 [facility] Comment on above: Performed By: #### 3 8047358, 8551055929, 19697477, 9673726647, 6206357, 8758856590 #### [facility] (DEFAULT) [address] [place] [address] Urea nitrogen/Creatinine [Mass ratio] 16.0 mg/mg Normal 4.6-16.2 [facility] Comment on above: Performed By: #### 3 8385665, 9255603747, 67416869, 4791359206, 9555299, 3276439459 #### [facility] (DEFAULT) [address] [place] [address] HgbA1c Standardon 06-09-2021 .Hb 13.7 Invalid Interpretation Code [facility] Comment on above: Performed By: #### 3 4408615, 2402831507, 70921637, 8245015280, 5488985, 2882289381 #### [facility] (DEFAULT) [address] [place] [address] 30718 .Hgb A1c 0.47 g/dL Invalid Interpretation Code [facility] Comment on above: Performed By: #### 3 9472835, 4552465784, 13444055, 2834188645, 2646482, 9807888513 #### [facility] (DEFAULT) [address] [place] [address] Glucose [Mass/Vol] 105 mg/dL Invalid Interpretation Code [facility] Comment on above: Performed By: #### 3 6732407, 1821588958, 12134083, 4349453511, 5664480, 7695326082 #### [facility] (DEFAULT) [address] [place] [address] 38888 HbA1c (Bld) [Mass fraction] 5.3 % Normal 4.6-6.2 [facility] Comment on above: Performed By: #### 3 1018519, 0937833925, 26560120, 3274859769, 0094560, 4985919366 #### [facility] (DEFAULT) [address] [place] [address] 50443 Lipid Panel Standardon 06-09 Cholesterol [Mass/Vol] 269.0 mg/dL High 66.0-200.0 [facility] Comment on above: Result Comment: Ruby rable - Less than 200 mg/dL Borderline high risk - 200-239 mg/dL High risk - 240 mg/dL and over. Performed By: #### 3 4619286, 7838891426, 43303916, 9422670182, 8838166, 4676930420 #### [facility] (DEFAULT) [address] [place] [address] 12442 Cholesterol in HDL [Mass/Vol] 102 mg/dL High 40-71 [facility] Comment on above: Result Comment: High risk - <40 mg/dL. Performed By: #### 3 2333834, 0684740306, 45600549, 8961940539, 4347733, 7218856895 #### [facility] (DEFAULT) [address] [place] [address] 44999 Cholesterol in LDL [Mass/Vol] 142 mg/dL High 1-100 [facility] Comment on above: Result Comment: Opti mal - Less than 100 mg/dL Borderline high risk - 130-159 mg/dL High risk - 160-189 mg/dL. Performed By: #### 3 9872245, 2696400747, 56647543, 5105255406, 5614599, 1297467432 #### [facility] (DEFAULT) [address] [place] [address] 04877 Cholesterol.total/C holesterol in HDL [Mass ratio] 2.6 {ratio} Normal 0.0-4.5 [facility] Comment on above: Performed By: #### 3 1457232, 7971804839, 56886462, 5062268239, 2533796, 4607440843 #### [facility] (DEFAULT) [address] [place] [address] 66199 Triglyceride [Mass/Vol] 120.0 mg/dL Normal 0.0-150.0 [facility] Comment on above: Performed By: #### 3 7130963, 3463889631, 58291319, 6633104022, 7105803, 7722085520 #### [facility] (DEFAULT) [address] [place] [address] VLDL. 24 mg/dL Normal 5-40 [facility] Comment on above: Performed By: #### 3 9529520, 4613603956, 96000443, 0666577500, 6208116, 4540153649 #### [facility] (DEFAULT) [address] [place] [address] Coding Summaryon 04-08-2021 Coding Summary [employer]Base 64 CpkjyhkkGPp7wHk+PGhlY WQ+UQ1VGBLsU30sjIMuxQ 6MV4cGSG5AXVLKLCEOLT3 MPX0orMB8PMusH9QkvnIb ShmccQQkSR45SRt0ZVM6i IajLWxdlA8cxDWfB4f6Ni KdBQ66yL28WInvNPGqQzM 3LjZpbjsgbWFy A9btRhJrzUXqJly+PHRhY mxlIHdpZHRoPScxMDAlJy YamKaxOZ4uFt4uAKWnLZI vbGxhcHNlOiBj w5ihFPZzCKkwLH8ehUmlS 3YjbSX5YCXob2k7Yl83wG I+UXUqVXP3kRukDNuiv84 1GxWap0qqYHL1 dNYkNMvoPRZ0F74fi1W5O PVeRRHzEWR6wVF2iS2dhJ xtxxcrL7CykESeQgO7YXA 8nNNnyP7npMka wozaxL7zCba+E50BWE9VY ULMFS2GZvc7C5RhHgrinY I+SV60DHDnVA58bOEtfIZ cy8fkeWe0TiFw XVVeGHN9sSmoBWata0EvA FDfW54hhZUas7Q0PBVbnD zikVLtDnLjbOD8iH7sSDs gfrpez3akbspe Jepfw5kmvl24rV04N87fN EhsBQTsEEW2TSWjPVOisD qbbe1oxA5nVq5+ZZfmj7v so7zmzOf9XnYf YLXhlrGwgKpyWRI6b0YuS t59D6ZkeYhgx6YsGkg9td 60zMPvi5M9wIA2KLppHGP rgY7zZTmyEaF3 RGToPtEzoB49pEKmGAguX w3lmQqwgRnaTF1vWIObay grPZAaoA3hIZHzlZYbnCe nCY1wWPZkfxcb f266FlVxMKA0YZGypXNbJ 9BwxZ9rVjAlMFPwUKGgJ5 LkuTUcTFfvD254GLhjUmV 7XWSfrfIsU4Fo EZVazPrlUiD7b1A3Nc9Dc 6PcssgvSWU6FHvbBUV1Em F5XqWzEzM4R1HvBvm0FVU geWmyMB1tV9Mg OGFjlhdjoygxrRE1ATNnO IYutT71jALrILqnCq2xt5 L9g461OXWtMTMpqC48Xe7 udDogMTBwdCBU wD8vltrxa3hvrdutKmJzW DWoJFo1OEt7CFKdeAdjZn ZgMEW7GrC3EXI9hUCssZ9 liOyhhpzaiH9v Oyc+B37ahM5mCZZ9FQU2b babZRGlwoCtDS68RZ05T2 RyPjwvdGFibGU+PGRpdiB kwHvmCC1rRdBd a9bdw9TySYjvE4XuEZOtZ LtiKsi1ZOZwBTL6xIZ3vV 5tDYJmLNnan8M5qIT7X5G xdcZxfd8nt7jy NZTnYHwtW42kdDHmd3W8B OPhxTD1STAxgCjyBfRdfH 93Oyc+CSEukQynp6MrPvj ij5bbl5kjrMm5 JmIiZTKgyvAgjSjpYCX1y 4TyYg80H43zHZhbFSViSN FkMOVfGWViiMvqzn7nrJ5 wIi8+PGNvbCB3 cGH1aF1jEICoRbJ2VFgoM 975AlIruPWhAfegc5rmy3 kzbPz2ZuRzSGSzmfGywHi kPRR9l2WrLm11 K10tPMrwJHIvQUIbUGTjG IWlwGilfq9goD7lVr8+PC 5rp6eduy94bM29jWE+PHR xYIC0hUotINun BNCdoI8lMDnjThE5PLOwF jGiwL07cAPpKAnrWt0cxC bizRvaPQ0fAVIjcdogr54 7GqOth7txLHRl xHKmYEqoYDY4N78dd5H7D HJxVEErWJP2yVQ3kE9edF lnbjogbGVmdDsgdmVydGl hQRkaARrpP766 IHRvcDsnPlBhdGllbnQgT bHgRMk3B5OpKmu2AKFvfJ ceWG1afHWuBZjaEb3ezEj dzDxrEH1hLNFm woepn057HnXxy0ulMAYij SIfJOkgUYO5W75pq0A4CM UqGRYcKJG7mWF5xU8ssWj nbjogbGVmdDsg xiWnsNrsBWnxSFicS655P HRvcDsnPkJpcnRoIERhdG M3LM06FZ67uVRat5Y4pKQ 5E4BvEADttcub nyiwyYM2JXAmWWZxcZ48W h4hjQdtYl6oVNQiKWN4SC LroSWyP1NluB5dJmOzAQJ xSGVeT2OypTBq ZZkhO588DAdoWiC6YBBrb oKdV1FyNBLbmLxyMhK4q1 V4Kl5FV7C7EQ97DH51tBP lx7M1mGP9N6Kl BSOlnzmyuxvedPZ1FHVcI AJjjT23Lv3afSwfGv9bLV GeZQV7KYNxdFEkV6MliM0 yOiAjMDAwMDAw S5KnsVMoJJsxH739TRzfF hJ2BGDiacOrK9VzNUYloW yhJxZ6u2S9Ka6BOIa8AS5 7NJ87tTVpc4A4 zBT1W2JhFIZthfbjegkwa OA3MAVdBOTewP11Or7ktJ cvVj7pNCDePPP0STAmhIB lT8EfdR4oRpRm RFGvMKPtD5PmyPFjQLrkU 609WTwqCeO5UDCmvhFmY0 IfDBRsnXkpWzR9m8P9Cv1 TBYNzAB87BWN2 eYB9PF17OI12W1BuNupeu GFibGU+PHRhYmxlIHdpZH RoPScxMDAlJyBzdHlsZT0 wIm9wLFQdLERb kEqokMLpFtCvr1tuTIWcV CbePY9czZwtF5XhtUR9WN Arc2g2Ri08Q88xF9InpWF +LONbcSG9xEA4 xW8kLwQyIvM2GUipP943B kFcpOYyMwonp1vjt5owlW b2WnD2VVCdfeVuoJmkGVK 8j5TdPi34E78o IHdpZHRoPSIxNSUiIHZhb Ykmhl5yvH9fBg9+PGNvbC P7nXB1mA8eIcXiCbU2IPz pS808HaAbgNXz Fjyva9wus9hvqMw5CpKmR PLtyiKftMdxZEC2u7YmEu 61X9VjrOzys7BkFmc1bv3 6pYKxh4P6jZO7 K9GeIHYttklypJXbaLqlR V8aUYZxriefJUQoiK0lMS FcU0m5DgKlIeU6GCrdY1V psjS4VGOtgUHr HEgjNCT3V33qh3X7HBZlB MEjMNR8aPO5nV2peCamcd ogbGVmdDsgdmVydGljYWw nMRewD710LHQs gEluPTPklA4xLGXwpFDih GdoHL4pPBVafyelJp7IPA HBRTYGQLHIUT6ZKOVDGSc MIAJ5D1DjTjm5 HQRknPkmHZ5exNRtAYxsH o5tkHxmbCfaFV5vVITlxh nyOOLyuB3oTXNsbABvzAg bMB3fALIdwjww o663NaMvAHY4UFQufUBqW 0UicF4pCgFmEFXqICZkU5 NbbSAzPKfpO878XXtzRoO 2CSMrsdMlO1Sz WUMwyNsjVmD6k5Y3Af5mR W0vUF1rMOq5GT38PF18vG Njj0J8gWX5F4AxDOVhcgc yrjueoWR1ZLKe UIAbjZ61hFVlVIusYy2ls 5K2g668HLAfOSKkmA65Gg 8ssVjbIKQttUAEhY5vsxc cs8uiecurGrXe LXDfYWr5MYf8PVBuuOdnG nTwBHL6ZaU0EYT3xCGgeI 9kxUjvdvitvO7uBcq+MjY jSSMtgdA5S7Sc Hco6VUDuzFimSL8ltGYaM RziEu3jsJqjlXhlMQ0wJQ CkyaakTKTntX8qMAZpuKK bsKguMR9wLPNc sptgd505OtCpHNT2WNCee ELpU7SosH4xBgPgETViUC YjA6YfePQtSArfV349PBo wYqA3QMEnjxIz Z0CaQCVidOldPiN7s3N2S i4WZH8RBOI8P9MwOhg6JP MvqEduUM1nnRJwBVbtXu0 ozSiheQxfDW0v JDCfueicMXCwtJ9gRXZqx IRacRazEI7rRVQtvrfhw1 72PjQpXYB4GMPegSMiV0F qcY4rEkXxJILl BKHlR0ElzXDoYAkwL589P UyySpW4WTJjncJwA0LrFE UlhBtoZaM2c5B3Ar1EQJv vdGQ+ML17di15 K5ZwUngsFzr2EWCsSXY4p HB2oK8aYCEzIYaxm1K2xA O7D2PhibPmon5ic1siUPB xPCqqS88tiCMe r6I5MPCwfSX4ZISsmZyvJ cBjtL93Sms+PGNvbGdyb3 KiFrwyp1qnv3yvpJm7CcO wJSIgdmFsaWdu VSL7q5NqSa08F72oPBmqK HRoPSIzMCUiIHZhbGlnbj 1egR8pSf4+GTJyiCU5wUF 2oS5cWnVcDqQ2 VIzsC666WiZdpCBdPhono 0dhr9uqoTe4BqSmWBPzbf TjsXasYKF5d0XeHq86Y9I coLfuy9YlVbz7 aq69bFAug9W2hVE0J5QkH PIctmgywPZujVjeIA6lUI YjolotVGTykQ2yPKBzL2s 1LcRgHbR5FOin S0MzquO2XIJgaQHyLEKke AOZoB9wgugqa9htkmepDx VtUMAkYWl4KOx4OMBhqJq xBmEnHXL8VmX9 GDE3xLDtsB8rkYpveulvx G9wOyc+RIj6v6fliJLaWF 0hoRW9TD76UB08rULnn1I 2qVE3Y0GcCVLe kgxkqkwcqVZ5LANkWKAkt F85Gw6pcXtbYw7oTIUlNP U5KXUujKRqW1PhsH9nXbT rNTFgEYTeW2Qm nXWvZIovX050AZxmLnM2Z XJlknSjO4NyMWIieHxcUx Y2f0G8Nb0TIY42DH96SF8 2rGUtx7Z3hLY5 P7JdQGCbrhzcxubkiFI3S FOsCHTiyF04La8mxRtsHt 1uHMBwUKD6YXNivYWcM1W bsE9yVmOfRRNd SMSkO9YpvAXlBZbhX262T DhcTmL4ZYQkmfKvN6JaKQ HazGczEiV1h6X3Vk0JHz0 7YD05QU84dNXi d0G5mSU5A5QbLKOnbquhd usevVZ4XLEpRHGrpG82Qh 8ylBbmHf4uMGQcTUL0QLX xuPTsA7BzkA9i PdMkHTAiQCGiA3DgqPBcP JdvL200FQsnMrU7GOVpur ZqX2RlUJAfiKdkEpL0x6K 2Id1XGDajnes0 B6FqNpcibLT+JV50ZHJrX I86yBDjeOTsn4rxbPi1Ds ZnCPZfDMX2wAevAObxs7H xNVIdN80onHAj c2U (more content not included)... [facility] Provider Orderson 04-07-2021 Provider Orders [id number] [facility] .Auto Diff 104-04-2021 Auto [place] % 5 % Normal 09-03 [facility] Comment on above: Performed By: #### 2 [id number] #### [facility] (DEFAULT) [address] [place] [address] Baso Abs# 0.0 x10 Normal 0.0-0.2 [facility] Comment on above: Performed By: #### 2 [id number], [id number] #### [facility] (DEFAULT) [address] [place] [address] 81064 Basophils/100 WBC (Bld) 0.1 % Low 0.2-2.0 [facility] Comment on above: Performed By: #### 2 [id number], [id number], [id number] #### [facility] (DEFAULT) [address] [place] [address] 98076 Eos Abs# 0.1 x10 Normal 0.0-0.4 [facility] Comment on above: Performed By: #### 2 [id number], [id number], [id number] #### [facility] (DEFAULT) [address] [place] [address] 49394 Eosinophils/100 WBC (Bld) 2.0 % Normal 0.9-4.0 [facility] Comment on above: Performed By: #### 2 [id number], [id number], [id number] #### [facility] (DEFAULT) [address] [place] [address] 52419 Lymph Abs# 1.2 x10 Low 1.3-2.9 [facility] Comment on above: Performed By: #### 2 [id number], [id number], [id number] #### [facility] (DEFAULT) [address] [place] [address] 03163 Lymphocytes/100 WBC (Bld) 17 % Normal 14-48 [facility] Comment on above: Performed By: #### 2 [id number], [id number], [id number] #### [facility] (DEFAULT) [address] [place] [address]71 [place] Abs# 0.3 x10 Normal 0.0-0.8 [facility] Comment on above: Performed By: #### 2 [id number], [id number], [id number] #### [facility] (DEFAULT) [address] [place] [address] 42219 Neut Abs# 5.4 x10 Normal 1.5-9.2 [facility] Comment on above: Performed By: #### 2 [id number], [id number], [id number] #### [facility] (DEFAULT) [address] [place] [address] Neutrophils/100 WBC (Bld) 76 % Normal 44-88 [facility] Comment on above: Performed By: #### 2 [id number], [id number], [id number] #### [facility] (DEFAULT) [address] [place] [address] CBC w/ Auto Diffon 1 Erythrocyte distribution width (RBC) [Ratio] 13.7 % Normal 11.5-15.0 [facility] Comment on above: Performed By: #### 2 [id number], [id number], [id number] #### [facility] (DEFAULT) [address] [place] [address] Hematocrit (Bld) [Volume fraction] 34.4 % Normal 33.7-40.4 [facility] Comment on above: Performed By: #### 2 [id number], [id number], [id number] #### [facility] (DEFAULT) [address] [place] [address] Hemoglobin (Bld) [Mass/Vol] 11.1 g/dL Low 11.3-15.9 [facility] Comment on above: Performed By: #### 2 [id number], [id number], [id number] #### [facility] (DEFAULT) [address] [place] [address] Instr WBC 7.1 x10 Invalid Interpretation Code [facility] Comment on above: Performed By: #### 2 [id number], [id number], [id number] #### [facility] (DEFAULT) [address] [place] [address] Man Diff? Auto Normal [facility] Comment on above: Performed By: #### 2 [id number], [id number], [id number] #### [facility] (DEFAULT) [address] [place] [address] MCH (RBC) [Entitic mass] 30 pg Normal 24-34 [facility] Comment on above: Performed By: #### 2 [id number], [id number], [id number] #### [facility] (DEFAULT) [address] [place] [address] MCHC (RBC) [Mass/Vol] 32 g/dL Normal 26-37 [facility] Comment on above: Performed By: #### 2 [id number], [id number], [id number] #### [facility] (DEFAULT) [address] [place] [address] 89046 MCV (RBC) [Entitic vol] 92 fL Normal 81-100 [facility] Comment on above: Performed By: #### 2 [id number], [id number], [id number] #### [facility] (DEFAULT) [address] [place] [address] 72883 Platelet 225 x10 Normal 138-427 [facility] Comment on above: Performed By: #### 2 [id number], [id number], [id number] #### [facility] (DEFAULT) [address] [place] [address] 47120 Platelet mean volume (Bld) [Entitic vol] 9.8 fL Normal 6.3-10.2 [facility] Comment on above: Performed By: #### 2 [id number], [id number], [id number] #### [facility] (DEFAULT) [address] [place] [address] 23877 RBC 3.73 x10 Normal 3.70-5.30 [facility] Comment on above: Performed By: #### 2 [id number], [id number], [id number] #### [facility] (DEFAULT) [address] [place] [address] 39536 WBC 7.1 x10 Normal 3.5-10.5 [facility] Comment on above: Performed By: #### 2 [id number], [id number], [id number] #### [facility] (DEFAULT) [address] [place] [address] 36362 O'Aguilar Teston 04-04-2021 Glucose [Mass/Vol] 115 mg/dL Normal <=139 [facility] Comment on above: Performed By: #### 2 [id number], [id number], [id number] #### [facility] (DEFAULT) [address] [place] [address] 98619 Coding Summaryon 11-29-2020 Coding Summary HTMLBase 64 LiqroyadMVf0rLg+PGhlY WQ+FV4UOHGaZ57ucQDqdV 6QT5gJRQ9GEZMOEPCZHQ7 CAT0azAL0UUmlY5DajeEw OwdyhBFsAY05MTb5UNC3q XanUAlfnM3btAUrR1x5Jh LzWE74mZ59IFlgSWEhQeJ 3LjZpbjsgbWFy O9orCvOwpVRlEpt+PHRhY mxlIHdpZHRoPScxMDAlJy JxbXeeVJ5sXw6lCKWtAQY vbGxhcHNlOiBj l9ilXQEmEWyjLZ0jjQswW 8QniXF8IYTmt7z2Cj66kV I+BKOsXPT7mQwmOKspb83 5KkZwv9bpEEL3 zCDxSEzkCVA7T53fz7Z3N UBpFUAvQIK7vXF8sK1hjX obmyyhQ0FigABlUgP9FME 1kLEgzW9mkGau roxpoE0aWjc+N04PKV1XM MQXMU1WSbr1M2DeEzjhzY I+RS97MIMtBE10kCRmoLY rv3agzQx0ElXi SSOvUSQ7iMtiPGitz6AcG BEcG85wfGCqs4K5ITHopV qugJZkPdEafCA5tV6dPAr ngaptl8fuwzpe Pajcw9yobe18bA69Y56gT WytMDFlSWM5LDCxVCZojP pive5aiC2uHu5+AIjpk2l mx7zoqOn8QgTp EBDnkdIpoChaFPK8l1XwO x87L9SlsDiiy4ShMxe2ec 72qUJjy8B6dHG0SZfbBEH wbP2oXRzaCcO4 JFMxGoKneA48wJAaASijI m6jaKotuAlyBZ3aSEOuud dcGZUjrR4vHAKuqONouAn hLO1tTGWwzoir z990IcEhUEC7PFAsiULkZ 6CiuO0lMjBvIBZhKYKjT2 SwjMXiIVymG923SSjcAaP 7QDAflaBqP4Ws DQTaeUisAwP4w1K7La9Jt 6PjpzjdJFX3PXemVQA4Fh M7UrEgYbL1J1GwSnd9YZH xiOhoWQ5eG4Ao HGBgyyebwfazlSS2CXJgD VRdbJ12yOXhCCdrHv7wq6 N2y127FSGbUAJnmO32Zb3 udDogMTBwdCBU sZ3inqdof7xpoxxzQsVbJ TWbDId0AAr5UXInlWjzUc KkOTL4RxI5DVR0kWUbxG6 ccZimmikkpV0d Oyc+I81wtT0aDSX0FDI4q nglVFRusaRxXZ12YR97P3 RyPjwvdGFibGU+PGRpdiB lzTavSB1uOuRp u5lze1BpLHdrO5LyMOHuF KtvHwz6QTJmJRC7eLG3wQ 4tHTHjYMujd0L0eMP2J8G ajePhjq3dw9pv JMPdZTxoV80soAYhu8F6J BRpjAC4EBWgaDliQoGmpA 93Oyc+HQNfmRvoc9ZwAze bz2whx6srmTk7 RfJqRGGhfcNewIsmZLV9x 7FhRg67V86fEGitFJFqXG QvBZOiKDUkeKjkye6jaL9 wIi8+PGNvbCB3 lQE9lJ5qBORwSjV8AVhfV 534KfPcxMOeEjnri6rsh8 odzUa8FbDeJVCrxgPujXt lYBZ0d4ExLo41 B92jQIeaDUMmVNXgLGMtG FCudWlplf8xgM6uZa0+PC 1cd3fhhf95oK49lYK+PHR qEMF5nWqcKNnc ZEJraU4oESctGyM6ROPgX jVclI74nXVkOVguJw5goS lfrYbrGX5jRSUqazahn22 0GcTej0yxEUBm qMGlMChrLXQ0S06fd7W2I MFoWWCrQTX0pLJ5zS3btP lnbjogbGVmdDsgdmVydGl sICthPMnwD934 IHRvcDsnPlBhdGllbnQgT fYcAJa1E2SoOyy6MPScsK qaER1btCZqUYudNs0rdXx ejSkkYR9lHGYy jfhhh382YpXob0blMGXvb AWpMSbsMEH2C96jo6K1NL JmIGQqQWE8hXZ6sR8ayQa nbjogbGVmdDsg pfItyAkoMRnwLCovJ130Z HRvcDsnPkJpcnRoIERhdG L3WL45HR77fQOca6D1rYR 2Q0EjSZCiuyxy asgjbDD6EBPhHFPhqI01Y e3hpIfaNk0yRQMoGNE8BK YnyPCsR0JgyI1cSsFdAOS yQOKlZ8GbrRDp EHbxY479YPbcHgN9EDHvl nWrS3TdBIKwrTroItE3n8 U8Gp3LM6H5AX13ZO16yVL az6E2lMU0P5Pp VIXhpflozcvllEQ6PWLyA GFzuA73Lf8xiDftXl6fBO MkJGO4HFXkuKWlJ7WzlW5 yOiAjMDAwMDAw C9EshZEvSNcjL835PEdxY zM2MBZrsaGgZ2RvKAOokT mkIdW2i7O2Yp8NROr9WS3 5FH41bZFaj3O6 cIN6G1QwKPPohmvwepfan KW4SOZqDEMpvW26Kg9upI hcCv2xSUPnDFF7USNsiNS gU2CebT9uCsIk PCYlPUHxW7KdcCYiTOygD 881KJydYoU0MXTxkiLeI7 SmLRZvkNqmEuK7i7X3Hq6 HWJFfAZ08YRV6 yGM6SK59PZ19U6BkQndok GFibGU+PHRhYmxlIHdpZH RoPScxMDAlJyBzdHlsZT0 fHs7uCIMhIHWb mGecgRGxAkVxj3tfDNCcR JasLS1oqQtyI1UzbHU9CL Vcz5e5Vd55P83rB0JvbCR +VSCmaPU2yFT2 jZ1iHgHlMxH1PDskS092T yRsmYAxZdebb0scv4vdrW e2FxC9YQMdrrGvrGkmOSL 0c6WvMf30B76u IHdpZHRoPSIxNSUiIHZhb Ibxjb0ruY6wIq7+PGNvbC R2oNM7xI3vTkJfJkQ9LMz lT330XyIroLVd Iarxu1bel1wyfAp5UuXiZ GEfnqWthLiyUMJ0g1MjFb 84K2ZtwWaby3FiZph9ob5 1vOUsr8A6wRB5 R3TzFSNkdsjjwEHgyYmnC C9hZTKacopiLKPthZ1lFR EeR3x9IlAhRyQ1HYokX5S sfuQ0DKUmnHHq FPkhSPT3N01bc4U7JBXtU XRyTZE6cXH0cC8snMdymb ogbGVmdDsgdmVydGljYWw iHVvhE714QSRa eClyRPZumW4yIDEebHLni FxeGO2cTQIdgkbaOd7DRQ DMVQWMXYZOJJ0WHFSWFNw GYUE9P8SoVqu8 HCRbbZxuWB5usAFwBOsbE p0koUfncXwrZP7fKJSrgx rcDDWawG2oBBJueNGqwYr fMM7aEIDbfkfe j719VmKyHKL5IQHcwACvJ 4ClvD3oWuAyJWJuEDFuQ6 SszQToKDnqW834QOpkKmX 7ASAjykSaB7Xv WXXpiQwbNmH3m7G4Wb4gT I0oDV1qAAq4AF35RZ86mP Csy6C1lPH0C6RkGRTnbjm ybbbpfDL6DYNp WPAyzO06aQYoHGklZd1pb 0P2r177EPTvMTGhmQ88Mj 9dlCmxLRNbqQIGaA6iasz ev4ttoqgdHdIq ICIuLRe1MXb4KPGzkVaeN gHzNBD9FkW0WIY0wRYndG 4qiQpzeuvvwZ3lUib+MjY vKHYdwtU5L4Fv Sxg6HCVypYbyDE7phAKcE NccKv6ozDuqhNehPM9rGW OhtdfcPZHyzY4bREChxIB ldFfmHG5dQMSn izhjq839WhLaCHP5IFPcq HVeF4EkjM0aZiMxKKJfYB EfD2OicZExYGvvI077GLp kNlZ1LHChatIp J4QdCLHuuUgfQgH9z4Z8I b2UMP1JXUH5C6ZwHpo3YK RenHfgLN7fkVWtCGpjGc1 qxOikjVmaXB1a RVHzsboyPNJoaG8kVOMry HNcbUfqXM4nVKQifqpxg9 53RlEtHLC5PSMgqUJzT7M fqV4bTsRfSZVc LRLdA5NrpTAgOSjdY750C XedNoS1FQVyuuKyE2XkFW FceJtkRoV3j6Z6Ei3KFHr vdGQ+RM72zm64 N4HrVhpjFli9EYNeONY0d MH5nF8sBQViPCopr6Y0aR X1L9TlyvEbne8in6wmBMO vNSwoG87mkLAk x1I6AMZqyCG7DSYmxEiaX fDohL97Zng+PGNvbGdyb3 JwKkpgy5pgr1xarRb2FaE wJSIgdmFsaWdu JPP0t8NlIn07S59uVWenT HRoPSIzMCUiIHZhbGlnbj 2xgG3tVd5+SBPwvHI1vBF 4xL5yWhAdOxF3 RVcoY889QcSzmUErEmlkc 1vyo7gjoWh9TxLgHASdal KlqFskGJF5x0DkAo59E3W nhSjyd6GpCss2 gf61sRGyl2T6xGQ0J0CpL QEkqonnuZPdcGbbGQ7qVI NgwzmeLKVkfX1yOYNnE9u 1UcSnUtZ9IXzq K7CuguX9NBYbfKWtBPRmm WAUaV3eilucb2mfmlrpUh JnFKRmZQj1WUa2MXXyiYc jVyWaMND5TeR6 HYX7uXWekY5kbPknhqnph G9wOyc+OYq0b1wzuQTaUC 9lbJI7YT08BB43hCImq5O 5oXE4I9VoIAEt fwajtybccAY5TJAwCTWji N02Nm0wrRbbKm9jICLeSO K0RMPguGPpC3AcrS8xEtX iUOOhKGSmA6Si yLDrNBkqT798UQbbVvR9G RUjtaZhP4KbTCHybZleAt G2a6B7Ch6GSZ63JE71NW3 4sWZan3M1eBU6 C9GdNNPxguocvgvipEU7H YYpCUVifN19Tg5lpOqrTr 6rSQHfXGT6UQHhiUKzZ3J meH5uFcDtEFWm PJWuZ1FmiCOcWNvkS598Y UshWcT7JJXrbtWbN8PbYQ VwsFqfKaI9b4A9Cp1KKj0 6CR46WR21gMDu f8Z4sED4Z7SjWXUastypp tuvuKU4DAUhSBLgxC69So 0yoCuxEx0nHISaDEN6UEX woCCpR3JbbG9v VfBlJTKuYGAmY3ClbUIvA JzcP807YAypKdS2HAUblo RaL9AaBLJprIbtJcG6f1Z 4Xg4BBCvgbqj3 P5HmUjhmsNL+VU01VYRnB I74eJBlhYRsf0tjyDl4Uh ThKTCeNET8pPpyAVdih8E rIOCbR87smAGj c2U (more content not included)... [facility] Provider Orderson 11-28-2020 Provider Orders [id number] [facility] ABORhon 11-27-2020 ABO and Rh group Nom (d) Hx Check: Not Found Anti-A: 0 Anti-B: 0 Anti-D: 4+ DCon: NT A1: 4+ B: 4+ ABORh Interp: O POS Invalid Interpretation Code [facility] Comment on above: Performed By: #### 7 [id number], [id number] #### [facility] (DEFAULT) [address] [place] [address] ABORh Retypeon 11-27-2020 ABO and Rh group Nom (d) Ordered by Discern. Anti-A: 0 Anti-B: 0 Anti-D: 4+ DCon: NT A1: 4+ B: 4+ ABORh Retype: O POS Invalid Interpretation Code [facility] Comment on above: Performed By: #### 2 [id number], [id number], [id number] #### [facility] (DEFAULT) [address] [place] [address] 83093 hCG Quantitativeon hCG Quantitative 930941.0 mIU/mL High 0.0-0.6 [facility] Comment on above: Result Comment: Resu lt confirmed by dilution Post-Menopausal Reference Range is: 0.1-11.6 mIU/mL Performed By: #### 2 [id number], [id number], [id number] #### [facility] (DEFAULT) [address] [place] [address] 39417 Vital Signs Date Time Vital Sign Value Performing Clinician Facility 01-28-2023 16:20-0400 Body height 160.02 cm Shelli Villa Other [facility] 01-28-2023 16:20-0400 Body mass index (BMI) [Ratio] 40.74 kg/m2 Shelli Perezley Other [facility] 01-28-2023 16:20-0400 Body temperature 99.7 [degF] Shelli Daisy Other [facility] 01-28-2023 16:20-0400 Body weight 104.33 kg Shelli Daisy Other [facility] 01-28-2023 16:20-0400 Respiratory rate 18 /min Shelli Daisy Other [facility] 01-28-2023 16:20-0400 SaO2% (BldA) [Mass fraction] 99 % Shelli Daisy Other [facility] Other Encounters Encounter Date Encounter Type Care Provider Facility Start: 02-22-2024 End: 02-22-2024 ambulatory JAYDEN DASIA Not Available Start: 02-15-2024 End: 02-15-2024 ambulatory JAYDEN DASIA Not Available Start: 02-01-2024 End: 02-01-2024 ambulatory JAYDEN DASIA Not Available Start: 01-18-2024 End: 01-18-2024 ambulatory JAYDEN DASIA Not Available Start: 01-04-2024 End: 01-04-2024 ambulatory JENS IQRA Not Available Start: 12-06-2023 End: 12-06-2023 ambulatory JAYDEN DASIA Not Available Start: 11-08-2023 End: 11-08-2023 ambulatory JENS IQRA Not Available Start: 10-11-2023 End: 10-11-2023 ambulatory JAYDEN DASIA Not Available Start: 09-13-2023 End: 09-13-2023 ambulatory JAYDEN DASIA Not Available Start: 08-13-2023 End: 12-22-2023 ambulatory JAYDEN DASIA Not Available Start: 01-28-2023 End: 01-28-2023 ambulatory Shelli Villa Other [facility] Start: 01-28-2023 Office outpatient ne w 20 minutes Shelli Villa [facility] [place] Start: 11-23-2022 End: 11-23-2022 ambulatory JENS ESCALONA . Facility:[facility] Start: 09-21-2022 End: 09-21-2022 ambulatory PRAVENE ZELAYA Facility:[facility] Payers Date Payer Category Payer Unknown [id number] 1995 Unknown [id number] 2.16.84 [id number] 1994 Unknown [id number] 2.16.84 0.1.886213.3.579.2.593 1994 Unknown [id number] 2.16.84 0.1.599919.3.579.2.9 1994 Unknown [id number] 2.16.84 0.1.849609.3.579.2.1259 1994 Unknown [id number] 2.16.84 0.1.667435.3.579.2.1258 1994 Unknown [id number] 2.16.84 0.1.363276.3.579.2.9 1994 Unknown [id number] 2.16.84 0.1.440441.3.579.2.9 1994 Unknown [id number] 2.16.84 0.1.952636.3.579.2.9 1994 Unknown [id number] 2.16.84 0.1.200891.3.579.2.9 1994 Unknown [id number] 2.16.84 0.1.305543.3.579.2.9 1994 Unknown [id number] 2.16.84 0.1.769970.3.579.2.1258 1994 Unknown [id number] 2.16.840 .1.382755.3.579.2.1259 1959 Unknown [id number] Social History Date Type Detail Facility Unknown if ever smoked [facility] Other Sex Assigned At Sex Assigned At Bir th [facility] Other Evaluation note 01-28-2023 Note Date & [...] worsening. Patient verbalized understanding of treatment plan. [facility] Other History general Narrative - Reported Note Date & Type Note Facility History general Narrative - Reported Type Surgical History sinus surgery x2 [facility] Other Summary Purpose Family History No Family History Records FoundNo Family History Records FoundNo Family History Records Found Advance Directives No Advanced Directives Records FoundNo Advanced Directives Records FoundNo Advanced Directives Records Found Additional Source Comments INFORMATION SOURCE (unrecogn ized section and content) DATE CREATED AUTHOR 11/03/2021 [facility] DATE CREATED AUTHOR AUTHOR'S ORGANIZ ATION 12/12/2022 [facility] DATE CREATED AUTHOR AUTHOR'S ORGANIZ ATION 02/23/2024 [facility] EPIC REASON FOR VISIT (unrecogniz [...] BE BASED ON THE PRIMARY CLINICAL RECORDS. [facility] [email or web address] [facility]. provides no warranty or guarantee of the accuracy or completeness of information in this document.
[2024-03-09 23:30] VITALS: TEMP 36.3
[2024-03-09 23:47] LABS: Hematocrit 34.5 % (36.0-48.0); Hemoglobin 11.1 g/dL (12.0-16.0); Mean Corpuscular HGB Conc 32.2 g/dL (29.9-35.2); Mean Corpuscular Hemoglobin 27.8 pg (26.7-34.0); Mean Corpuscular Volume 86.3 fL (81.0-99.0); Mean Platelet Volume 11.1 fL (9.5-13.5); Platelet Count 212 10^3/uL (150-450); Red Cell Distribution Width 14.5 % (11.0-15.0); White Blood Count 8.8 10^3/uL (4.0-11.0)
[2024-03-10] VITALS (149 sets, daily range): BP systolic 79–191; BP diastolic 38–132; PULSE 68–144; TEMP 36.2–38.3
[2024-03-10] LABS: Amphetamine Screen Urine NEGATIVE (NEGATIVE); Barbiturates Screen Urine NEGATIVE (NEGATIVE); Benzodiazepines Screen Urine NEGATIVE (NEGATIVE); Buprenorphine Screen Urine NEGATIVE (NEGATIVE); Cannabinoid Screen Urine NEGATIVE (NEGATIVE); Cocaine Screen Urine NEGATIVE (NEGATIVE); Methadone Screen Urine NEGATIVE (NEGATIVE); Methamphetamines Screen Urine NEGATIVE (NEGATIVE); Opiate Screen Urine NEGATIVE (NEGATIVE); Oxycodone Screen Urine NEGATIVE (NEGATIVE); Phencyclidine Screen Urine NEGATIVE (NEGATIVE); Tricyclic Antidepressant Urine NEGATIVE (NEGATIVE)
[2024-03-10] MEDS: 0.9 % SODIUM CHLORIDE 1,000 ML 125 ML IV ×4 (00:15→13:41)
[2024-03-10] MEDS: OXYTOCIN/0.9 % SODIUM CHLORIDE 10 UNITS/500 ML PLAST..BAG 6 UNIT IV (00:35)
[2024-03-10] MEDS: 0.9 % SODIUM CHLORIDE 1,000 ML 1000 ML IV (11:57)
[2024-03-10] MEDS: ROPIVACAINE HCL/PF 400 MG/200 ML PREMIX 6 MG EPIDURAL (11:58)
[2024-03-10] MEDS: EPHEDRINE SULFATE 50 MG/ML VIAL IV ×2 (13:50→14:17)
[2024-03-10] MEDS: OXYTOCIN/0.9 % SODIUM CHLORIDE 10 UNITS/500 ML PLAST..BAG 48 UNIT IV (16:00)
[2024-03-10] MEDS: OXYTOCIN/0.9 % SODIUM CHLORIDE 20 UNITS/1,000 ML PLAST..BAG 125 UNIT IV (20:23)
--- NOTE | 2024-03-10 20:28 | PM.OBPRCVD ---
Procedure Intrapartal events: None Induction method: per pitocin protocol Delivery augmentation: rupture of membranes and pitocin Delivery monitor: external FHT and external uterine Route of delivery: Episiotomy Description: none L&D Laceration Description: perineal - 1st degree Delivery repair: Vicryl Estimated blood loss (mL): 200 Anesthesia type: Epidural Disposition: floor Infant Delivery date: 03/10/24 Gender: male presentation: vertex Placental delivery description: Spontaneous cord description: 3 Vessels
[2024-03-11] VITALS (7 sets, daily range): BP systolic 120–129; BP diastolic 62–73; PULSE 71–89; TEMP 36.1–36.6
[2024-03-11] MEDS: IBUPROFEN 600 MG TABLET PO ×3 (04:31→16:19)
[2024-03-11 07:25] LABS: Basophils Percent Auto 0.3 % (0.2-2.0); Eosinophils Absolute Auto 0.1 10^3/uL (0.0-0.7); Eosinophils Percent Auto 0.7 % (0.9-7.0); Hematocrit 33.1 % (36.0-48.0); Hemoglobin 10.5 g/dL (12.0-16.0); Immature Granulocytes Abs Auto 0.06 10^3/uL (0.00-0.03); Immature Granulocytes Pct Auto 0.6 % (0.0-0.5); Lymphocytes Absolute Auto 1.5 10^3/uL (1.2-3.8); Lymphocytes Percent Auto 13.5 % (20.5-60.0); Mean Corpuscular HGB Conc 31.7 g/dL (29.9-35.2); Mean Corpuscular Hemoglobin 27.7 pg (26.7-34.0); Mean Corpuscular Volume 87.3 fL (81.0-99.0); Monocytes Absolute Auto 0.7 10^3/uL (0.3-0.8); Monocytes Percent Auto 6.5 % (1.7-12.0); Neutrophils Absolute Auto 8.4 10^3/uL (1.4-6.5); Neutrophils Percent Auto 78.4 % (43.0-75.0); Platelet Count 200 10^3/uL (150-450); Red Blood Count 3.79 10^6/uL (4.20-5.40); Red Cell Distribution Width 14.8 % (11.0-15.0); White Blood Count 10.7 10^3/uL (4.0-11.0)
--- NOTE | 2024-03-11 09:11 | PM.OBPN ---
OB - PN: Subj Subjective Patient comments: no complaints and pain well controlled [place] status: doing well Exam Constitutional Vital Signs, click to edit/add: Last Vital Signs Temp 97.9 F 03/11/24 04:46 Pulse 71 03/11/24 04:27 Resp 16 03/11/24 04:34 BP 127/73 03/11/24 04:27 O2 Del Method Room Air 03/11/24 04:34 Documenting provider has reviewed patient's vital signs: yes Common normals: no apparent distress Respiratory Common normals: normal respiratory effort and clear to auscultation bilaterally Cardio Common normals: regular rate and regular rhythm GI Common normals: Normal to inspection, nondistended, normoactive bowel sounds present Extremity Common normals: normal to inspection and no clubbing, cyanosis or edema Results Labs Labs: Short CBC 03/11/24 Range/Units 06:52 WBC 10.7 (4.0-11.0) 10^3/uL Hgb 10.5 L (12.0-16.0) g/dL Hct 33.1 L (36.0-48.0) % Plt Count 200 (150-450) 10^3/uL OB - PN: A/P Plan - Vaginal Delivery day: 1 Plan: routine care Time Spent with Patient Time: Total time spent is greater than 50% in coordination of care (as documented) at patient's floor/unit and/or counseling patient: Total time spent with greater than 50% in coordination of care (as documented) at patient's floor/unit and/or counseling patient: less than 15 minutes
--- NOTE | 2024-03-11 19:09 | W.PC.ACHO ---
Registration Status: ADM IN Primary Language: Togolese Preferred Language: Togolese Reported on pain control, & pumping. Active Medications Generic Name Dose Route Start Last Admin Trade Name Freq PRN Reason Stop Dose Admin Acetaminophen 650 mg 03/10/24 20:28 Acetaminophen 325 Mg Tablet PO Q6H PRN Mild Pain Al Hydroxide/Mg Hydroxide 2,400 mg 03/10/24 20:28 Magnesium Hydroxide 2,400 Mg/10 Ml Oral.Susp PO Q6H PRN Dyspepsia Benzocaine/Menthol 1 applic 03/10/24 20:28 Benzocaine/Menthol 85 Gram [place] Bottle TOPICAL Q2H PRN Pain Carboprost Tromethamine 250 mcg 03/09/24 23:32 Carboprost Tromethamine 250 Mcg/Ml 1 Ml Vial IM 03/11/24 23:32 Q15M PRN Bleeding Diphtheria/Pertussis/Tetanus Vacc 0.5 ml 03/12/24 09:00 Adacel Diph,Pertuss(Acell),Tet Vac/Pf 0.5 Ml Adult Syringe IM 03/12/24 09:01 .ONCE ONE Docusate Sodium 100 mg 03/11/24 09:00 Docusate Sodium 100 Mg Capsule PO BID [facility] Fentanyl Citrate 100 mcg 03/10/24 06:08 Fentanyl Citrate/Pf 100 Mcg/2 Ml Vial EPIDURAL ONCE PRN epidural Fentanyl Citrate 100 mcg 03/10/24 06:08 Fentanyl Citrate/Pf 100 Mcg/2 Ml Vial EPIDURAL ONCE PRN epidural Tranexamic Acid 1,000 mg/ 110 mls @ 440 mls/hr 03/09/24 23:32 Sodium Chloride IV ONCE PRN Uterine Bleeding Sodium Chloride 1,000 mls @ 125 mls/hr 03/09/24 23:45 03/10/24 20:22 Sodium Chloride 0.9% 1,000 Ml IV 125 mls/hr .Q8H [facility] Infusion Oxytocin/Sodium Chloride 10 units in 500 mls @ 6 mls/hr 03/09/24 23:45 03/10/24 20:24 Pitocin 10 Unit/500 Ml-Ns IV Infused TITR [facility] Infusion Protocol 2 MILLIUNIT/MIN Ropivacaine/Sodium Chloride 400 mg in 200 mls @ 6 mls/hr 03/10/24 06:15 03/10/24 11:58 Naropin 0.2% 400 Mg/200 Ml Bag EPIDURAL 6 mls/hr Q24H [facility] Administration Ibuprofen 600 mg 03/10/24 20:28 03/11/24 16:19 Ibuprofen 600 Mg Tablet PO 600 mg Q6H PRN Administration Moderate Pain Lidocaine 5 ml 03/09/24 23:32 Lidocaine Viscous 2% 15 Ml Solution TOPICAL 03/11/24 23:37 ONCE PRN Pain Lidocaine 1 ml 03/09/24 23:32 Lidocaine Hcl 1% 200 Mg/20 Ml Mdv INJ 03/11/24 23:37 ONCE PRN Pain Measles/Mumps/Rubella Vaccine Live 0.5 ml 03/12/24 09:00 Measles,Mumps,Rubella Vacc/Pf 0.5 Ml Vial SQ 03/12/24 09:01 .ONCE ONE Methylergonovine Maleate 0.2 mg 03/09/24 23:32 Methylergonovine Maleate 0.2 Mg/Ml Ampule IM 03/11/24 23:32 ONCE PRN Uterine Contractility/Contract Methylergonovine Maleate 0.2 mg 03/09/24 23:32 Methylergonovine Maleate 0.2 Mg Tablet PO 03/11/24 23:32 Q4H PRN Uterine Contractility/Contract Misoprostol 600 mcg 03/09/24 23:32 Misoprostol 100 Mcg Tablet PO 03/11/24 23:32 ONCE PRN Uterine Bleeding Misoprostol 800 mcg 03/09/24 23:32 Misoprostol 100 Mcg Tablet SL 03/11/24 23:32 ONCE PRN Uterine Bleeding Misoprostol 1,000 mcg 03/09/24 23:32 Misoprostol 100 Mcg Tablet ID 03/11/24 23:32 ONCE PRN Uterine Bleeding Nalbuphine HCl 10 mg 03/09/24 23:32 Nalbuphine Hcl 10 Mg/Ml Ampule IV Q3H PRN Pain Ondansetron HCl 4 mg 03/09/24 23:32 Ondansetron Pf 4 Mg/2 Ml Vial IV Q6H PRN Nausea And Vomiting Ondansetron HCl 4 mg 03/09/24 23:32 Ondansetron 4 Mg Rapdis Tablet SL Q6H PRN Nausea And Vomiting Oxytocin 10 unit 03/09/24 23:32 Oxytocin 10 Unit/Ml Vial IM 03/11/24 23:32 ONCE PRN PPH Senna 17.2 mg 03/10/24 20:00 Sennosides 8.6 Mg Tablet PO QHS PRN Constipation Simethicone 80 mg 03/10/24 20:28 Simethicone 80 Mg Tab.Chew PO QID PRN Abdominal Distention Temazepam 15 mg 03/10/24 20:28 Temazepam 15 Mg Capsule PO QHS PRN Sleep Witch Josy/Glycerin 1 pad 03/10/24 20:28 Glycerin/Witch Josy Pads TOPICAL Q2H PRN Pain Diet Category Date Time Status Regular Consistency Diet Diet 03/10/24 20:29 Active Respiratory Oxygen Delivery Method Room Air Cardiology Heart Sounds Regular Renal Bladder Pattern Continent
[2024-03-11] MEDS: DOCUSATE SODIUM 100 MG CAPSULE PO (21:24)
[2024-03-12 00:03] VITALS: TEMP 36.4
[2024-03-12 00:04] VITALS: BP 125/64; PULSE 67
[2024-03-12 09:39] VITALS: BP 131/74; PULSE 82; TEMP 36.4
[2024-03-12] MEDS: DOCUSATE SODIUM 100 MG CAPSULE PO (09:45)
--- NOTE | 2024-03-12 12:50 | PM.OBDS ---
DS: Providers Provider Date of admission: 03/09/24 22:59 Primary care physician: Ja Pena MD Admitting clinician: Jose Luis Jordan Consults: 03/09/24 Consult to Anesthesiology Routine Consulting Provider: Demario Shafer Reason for consultation: possible epidural Attending physician on discharge: Tamar Ayala Anticipated date of discharge: 03/12/24 DS: Diagnosis Discharge Diagnosis (1) Normal vaginal delivery: Assessment and plan: no issues, doing well, asking to go home Plan discharge home, follow up in six weeks for post care OB - DS: Summary Peripartum Data - Vaginal Delivery Laceration description: perineal - 1st degree Procedures: single stitch repair Complications complications: none Infant Delivery method: spontaneous vaginal delivery Gender: male Discharge plan: home Status at Discharge Cognitive/behavioral status at discharge: wnl Functional status at discharge: independent ambulation Overall status at discharge: patient is progressing back to baseline Time Spent with Patient Time attestation: Total time spent providing and/or coordinating discharge services: Time spent: greater than 30 minutes Exam Narrative Exam Narrative: voicing no complaints Constitutional Vital Signs, click to edit/add: Last Vital Signs Temp 97.5 F L 03/12/24 00:03 Pulse 82 03/12/24 09:39 Resp 16 03/11/24 16:15 BP 131/74 03/12/24 09:39 O2 Del Method Room Air 03/12/24 00:16 Documenting provider has reviewed patient's vital signs: yes Common normals: no apparent distress, oriented x3, no limitations, healthy appearing and alert General appearance: cooperative HENMT Common normals: normocephalic and head/scalp atraumatic Eye Common normals: PERRL Pupil: accommodation reflex normal Neck & C-Spine Common normals: full ROM and supple Respiratory Common normals: normal respiratory effort Cardio Common normals: regular rate and regular rhythm GI Common normals: Normal to inspection, nondistended, normoactive bowel sounds present and soft to palpation Common normals: no CVA tenderness Back & Pelvis Common normals: no thoracic nor lumbar tenderness Extremity Common normals: full ROM and no calf tenderness Neuro Common normals: CN's II-XII intact bilaterally, moves all extremities, no focal motor deficits and no sensory deficits noted Psych Common normals: mental status grossly normal, thought process normal, cooperative, affect normal and speech normal Discharge Plan Discharge Disposition: Home, Self-Care Condition: Good Assessment: condition good, not requesting pain medication, breast feeding and supplementing, only one stitch in perineum, not painful Plan of Treatment: follow up in six weeks for post exam Discharge Medications: Continued ibuprofen 800 mg tablet 800 mg PO Q8H PRN (Reason: pain) 14 Days Qty: 40 0RF Discontinued doxycycline hyclate 100 mg capsule 100 mg PO BID 7 Days Qty: 14 0RF Activity: increase activity as tolerated Activity Detail: no sex six weeks, walking only exercise, no swimming six weeks, sports bra 15/03 if decides not to breast feed, call for problem or concern Diet: regular diet Print Language: Martiniquais Activity Restrictions/Additional Instructions: as above Forms: Portal Instructions Follow Up Appointments: make a appointment for six weeks Discharge location: home
== END 2024-03-12 15:00 | disposition home or self-care (01) | DRG 807 ==
PROVIDERS: Admitting Provider Obstetrics & Gynecology; PCP Family Medicine; Visit Provider Obstetrics & Gynecology
DX: O32.0XX0 Maternal care for unstable lie, not applicable or unspecified (principal); Z37.0 Single live birth; O70.0 First degree perineal laceration during delivery; Z3A.38 38 weeks gestation of pregnancy
CPT/HCPCS: 36415; 51702; 80307; 85025; 85027; 86850; 86900; 86901; 96365; 96366; 96368; 96375; J2795

== ENCOUNTER 2024-03-15 08:15 | Outpatient (OUT) | payer OTHER, SELFPAY ==
--- OUTSIDE RECORDS SUMMARY | 2024-03-15 08:30 | XMS_ITS | CCD ---
Author Organization [facility] Care Team Providers Care Inclusion Teacher Name Role Phone IQRA ., JENS Admitting Unavailable IQRA ., JENS Attending Unavailable REQUEST, NONE LISTED Primary Care Unavaila JENS Adair Consulting Unavailable PRAVEEN ZELAYA Admitting Unavailable GARCIA, PRAVEEN Attending Unavailable WADE, NONE LISTED Primary [...] 2: 20 to 28on 11-29-2022 . . [facility] Comment on above: Performed By: #### 4 [id number] #### [facility] [address] [place] [address] Dr. Evan Mcintosh Age Gdln ACOG Testing [facility] Comment on above: Performed By: #### 4 [id number] #### [facility] [address] [place] [address] Dr. Evan Mcintosh DIAGNOSIS: Comment [facility] Comment on above: Result Comment: NEGA TIVE FOR INTRAEPITHELIAL LESION OR MALIGNANCY. Performed By: #### 4 [id number] #### [facility] [address] [place] [address] Dr. Evan Mcintosh Methodology: Comment [facility] Comment on above: Result Comment: This liquid based ThinPrep(R) pap test was screened with the use of an image guided system. Performed By: #### 4 [id number] #### [facility] [address] [place] [address] Dr. Evan Mcintosh Note: Comment [facility] Comment on above: Result Comment: The Pap smear is a screening test designed to aid in the detection of premalignant and malignant conditions of the uterine cervix. It is not a diagnostic procedure and should not be used as the sole means of detecting cervical cancer. Both false-positive and false-negative reports do occur. . Performed By: #### 4 [id number] #### [facility] [address] [place] [address] Dr. Evan Mcintosh Performed by: Comment [facility] Comment on above: Result Comment: Fiona Heath, Inspector Assembly (ASCP) Performed By: #### 4 [id number] #### [facility] [address] [place] [address] Dr. Evan Mcintosh Reflex Criteria: Comment Normal [facility] Comment on above: Result Comment: The HPV DNA reflex criteria were not met with this specimen result therefore, no HPV testing was performed. . Performed By: #### 4 [id number] #### [facility] [address] [place] [address] Dr. Evan Mcintosh Specimen adequacy: Comment Normal [facility] Comment on above: Result Comment: Sati sfactory for evaluation. Endocervical and/or squamous metaplastic cells (endocervical component) are present. Performed By: #### 4 [id number] #### [facility] [address] [place] [address] Dr. Evan Mcintosh Covid-19 PCR (CVDTB)on 08-25 SARS-CoV-2 (COVID-19) RNA CY+probe Ql (Unsp spec) Not detected Normal NOT DETECTED [facility] Comment on above: Result Comment: [...] for this test is supported by the [place] of Health and Human Service's declaration that [...] Performed By: #### C VDTBH #### [facility] [address] [place] [address] Dr. Evan Mcintosh INFLUENZA A AND B AGon 09-21 INFLUANEGH SEE BELOW Normal [facility] Comment on above: Result Comment: Nega tive for Flu A protein angiten. Infection due to Flu A cannot be ruled out. Flu A angiten in the sample may be below the detection limit of the test. Performed By: #### I NFLUAB #### [facility] [address] [place] [address] Dr. Evan Mcint[facility] SEE BELOW Normal [facility] Comment on above: Result Comment: Nega tive for Flu B protein antigen. Infection due to Flu B cannot be ruled out. Flu B antigen in the sample may be below the detection limit of the test. Performed By: #### I NFLUAB #### [facility] [address] [place] [address] Dr. Evan Mcintosh INFLUENZA A AG Negative Normal NEGATIVE SEE COMMENT [facility] Comment on above: Performed By: #### I NFLUAB #### [facility] [address] [place] [address] Dr. Evan Mcintosh INFLUENZA B AG Negative Normal NEGATIVE SEE COMMENT [facility] Comment on above: Performed By: #### I NFLUAB #### [facility] [address] [place] [address] Dr. Evan Mcintosh Release of Informationon Release of Information [id number] .[id number] [facility] Nicotine and Metabolite, Drew nt LCon 06-15-2021 Cotinine LC <1.[address] [facility] Comment on above: Result Comment: This test was developed and its performance characteristics determined by [facility]. It has not been cleared or approved by the Food and Drug Administration. Cotinine levels greater than 20.0 are consistent with the use of tobacco or tobacco cessation products. Performed At: [address] [id number] Richmond Merino MD Ph:[phone] Performed By: #### 3 [id number], [id number], 72864848, [id number], 5723922, [id number] #### [facility] (DEFAULT) [address] [place] [address] Nicotine LC <1.[address] [facility] Comment on above: Result Comment: This test was developed and its performance characteristics determined by [facility]. It has not been cleared or approved by the Food and Drug Administration. Nicotine levels greater than 2.0 are consistent with the use of tobacco or tobacco cessation products. Performed By: #### 3 1561860, [id number], 41310500, 1537906254, 7880677, [id number] #### [facility] (DEFAULT) [address] [place] [address] .Auto Diff on 06-09-2021 Auto Walsh % 6 % Normal -12 [facility] Comment on above: Performed By: #### 3 [id number], [id number], 84428475, 3979899598, 2175694, 7778596780 #### [facility] (DEFAULT) [address] [place] [address] Baso Abs# 0.0 x10 Normal 0.0-0.2 [facility] Comment on above: Performed By: #### 3 4824755, [id number], 06461490, 4129378669, 5740669, 8467557296 #### [facility] (DEFAULT) [address] [place] [address] Basophils/100 WBC (Bld) 0.1 % Low 0.2-2.0 [facility] Comment on above: Performed By: #### 3 6062869, 0646865469, 32542643, 6417796433, 9190356, 8477924495 #### [facility] (DEFAULT) [address] [place] [address] Eos Abs# 0.2 x10 Normal 0.0-0.4 [facility] Comment on above: Performed By: #### 3 4921758, 5714133372, 27009333, 0255206930, 9977096, 3517264655 #### [facility] (DEFAULT) [address] [place] [address] Eosinophils/100 WBC (Bld) 1.6 % Normal 0.9-4.0 [facility] Comment on above: Performed By: #### 3 1202668, 5324938821, 02350966, 0927512823, 2472661, 3608434728 #### [facility] (DEFAULT) [address] [place] [address] Lymph Abs# 1.5 x10 Normal 1.3-2.9 [facility] Comment on above: Performed By: #### 3 5111158, 6569897610, 85541839, 3791034243, 9851178, 2275752019 #### [facility] (DEFAULT) [address] [place] [address] Lymphocytes/100 WBC (Bld) 15 % Normal 14-48 [facility] Comment on above: Performed By: #### 3 1633423, 8065979173, 88689022, 5667422774, 9901541, 6389978497 #### [facility] (DEFAULT) [address] [place] [address] Walsh Abs# 0.6 x10 Normal 0.0-0.8 [facility] Comment on above: Performed By: #### 3 1014941, 5612849589, 51080856, 9178046713, 3270296, 9688602179 #### [facility] (DEFAULT) [address] [place] [address] Neut Abs# 7.8 x10 Normal 1.5-9.2 [facility] Comment on above: Performed By: #### 3 4257000, 3548553726, 51387393, 1665590991, 1564711, 5906932605 #### [facility] (DEFAULT) [address] [place] [address] Neutrophils/100 WBC (Bld) 77 % Normal 44-88 [facility] Comment on above: Performed By: #### 3 4642141, 4542825989, 02788994, 1829329210, 5504982, 9097365659 #### [facility] (DEFAULT) [address] [place] [address] CBC w/ Auto Diffon 202 1 Erythrocyte distribution width (RBC) [Ratio] 14.4 % Normal 11.5-15.0 [facility] Comment on above: Performed By: #### 3 6777038, 1257822355, 17451139, 5566541280, 9360055, 3463832196 #### [facility] (DEFAULT) [address] [place] [address] Hematocrit (Bld) [Volume fraction] 37.3 % Normal 33.7-40.4 [facility] Comment on above: Performed By: #### 3 7134311, 2571646091, 88456151, 1768835515, 9957239, 2137345130 #### [facility] (DEFAULT) [address] [place] [address] Hemoglobin (Bld) [Mass/Vol] 12.2 g/dL Normal 11.3-15.9 [facility] Comment on above: Performed By: #### 3 1459414, 5980068074, 58573976, 0269804649, 2403091, 2463616227 #### [facility] (DEFAULT) [address] [place] [address] Instr WBC 10.1 x10 Invalid Interpretation Code [facility] Comment on above: Performed By: #### 3 6002066, 8334144686, 30556290, 0126478877, 4544463, 1620978535 #### [facility] (DEFAULT) [address] [place] [address] Man Diff? Auto Normal [facility] Comment on above: Performed By: #### 3 6551288, 9181603962, 37658494, 9262911034, 4310436, 9171741575 #### [facility] (DEFAULT) [address] [place] [address] MCH (RBC) [Entitic mass] 29 pg Normal 24-34 [facility] Comment on above: Performed By: #### 3 2407770, 6942106000, 57576496, 0310353369, 3251037, 2622755751 #### [facility] (DEFAULT) [address] [place] [address] MCHC (RBC) [Mass/Vol] 33 g/dL Normal 26-37 [facility] Comment on above: Performed By: #### 3 6977321, 4838071450, 87144130, 7168259987, 2698827, 9438756627 #### [facility] (DEFAULT) [address] [place] [address] MCV (RBC) [Entitic vol] 88 fL Normal 81-100 [facility] Comment on above: Performed By: #### 3 6404271, 6852517970, 41623151, 0151361661, 2975212, 6409109811 #### [facility] (DEFAULT) [address] [place] [address] Platelet 234 x10 Normal 138-427 [facility] Comment on above: Performed By: #### 3 7647199, 8130237828, 20441928, 3747182504, 0469849, 4844989553 #### [facility] (DEFAULT) [address] [place] [address] Platelet mean volume (Bld) [Entitic vol] 10.8 fL High 6.3-10.2 [facility] Comment on above: Performed By: #### 3 3053611, 5298311353, 66575140, 5859427136, 3580939, 6615225141 #### [facility] (DEFAULT) [address] [place] [address] RBC 4.23 x10 Normal 3.70-5.30 [facility] Comment on above: Performed By: #### 3 9300049, 7669381554, 76995257, 0950934858, 1168520, 4458227861 #### [facility] (DEFAULT) [address] [place] [address] WBC 10.1 x10 Normal 3.5-10.5 [facility] Comment on above: Performed By: #### 3 4848883, 6636778705, 65425983, 9842145431, 0304616, 6505829480 #### [facility] (DEFAULT) [address] [place] [address] CMP Standardon 06-09-2021 eGFR Non AA >60 Invalid Interpretation Code [facility] Comment on above: Performed By: #### 3 4620460, 9713097505, 88201054, 3412521660, 4388540, 4623317646 #### [facility] (DEFAULT) [address] [place] [address] eGFR AA >60 Invalid Interpretation Code [facility] Comment on above: Result Comment: System Designer kulwinder Kidney disease could be indicated at eGFRs of less than 60 ml/min/1.73m2. Kidney Failure is indicated at less than 15 ml/min/1.73m2 Performed By: #### 3 2308843, 2603472910, 02405809, 9217237654, 7625630, 7812955830 #### [facility] (DEFAULT) [address] [place] [address] Albumin [Mass/Vol] 3.1 g/dL Low 3.5-5.0 [facility] Comment on above: Performed By: #### 3 3593594, 5682631943, 24909795, 9225198473, 8402685, 0611794236 #### [facility] (DEFAULT) [address] [place] [address] Albumin/Globulin [Mass ratio] 1.0 {ratio} Low 1.4-2.6 [facility] Comment on above: Performed By: #### 3 1376634, 2336323927, 11774974, 1071710088, 8644273, 2612305191 #### [facility] (DEFAULT) [address] [place] [address] Alk Phos 107 IU/L High 32-91 [facility] Comment on above: Performed By: #### 3 4159367, 5650795059, 80091049, 4408802034, 6789662, 2443413087 #### [facility] (DEFAULT) [address] [place] [address] ALT [Catalytic activity/Vol] 16.0 U/L Normal 14.0-54.0 [facility] Comment on above: Performed By: #### 3 2843067, 7693579624, 13051302, 5784119660, 7815003, 1892897124 #### [facility] (DEFAULT) [address] [place] [address] Anion gap [Moles/Vol] 12.0 mmol/L Normal 5.0-19.0 [facility] Comment on above: Performed By: #### 3 8452410, 1135307638, 44996599, 9106144465, 8218875, 0894620450 #### [facility] (DEFAULT) [address] [place] [address] AST [Catalytic activity/Vol] 19 U/L Normal 15-41 [facility] Comment on above: Performed By: #### 3 7036370, 6139441648, 66104545, 4019699891, 9447660, 7767166420 #### [facility] (DEFAULT) [address] [place] [address] Bili Total 0.1 mg/dL Low 0.3-1.2 [facility] Comment on above: Performed By: #### 3 5358188, 9682466172, 59620987, 1644340731, 6297480, 3312870488 #### [facility] (DEFAULT) [address] [place] [address] Calcium [Mass/Vol] 8.6 mg/dL Low 8.9-10.3 [facility] Comment on above: Performed By: #### 3 4536963, 3318734657, 20198958, 9282087482, 9019769, 7967395487 #### [facility] (DEFAULT) [address] [place] [address] Chloride [Moles/Vol] 105 mmol/L Normal 101-111 [facility] Comment on above: Performed By: #### 3 8373278, 5292984627, 64178949, 5429779982, 4650746, 8548829959 #### [facility] (DEFAULT) [address] [place] [address]3762 CO2 [Moles/Vol] 20 mmol/L Low 21-32 [facility] Comment on above: Performed By: #### 3 2970131, 0695083909, 18808496, 1898281625, 8979826, 3717694444 #### [facility] (DEFAULT) [address] [place] [address] Creatinine [Mass/Vol] 0.63 mg/dL Normal 0.60-1.30 [facility] Comment on above: Performed By: #### 3 7037018, 0656862051, 57083049, 3743977301, 9115118, 1856544080 #### [facility] (DEFAULT) [address] [place] [address]15[address] Globulin (S) [Mass/Vol] 3.2 g/dL Normal 1.5-4.3 [facility] Comment on above: Performed By: #### 3 8297191, 4254772537, 86259054, 4933870485, 3405175, 1245985680 #### [facility] (DEFAULT) [address] [place] [address] Glucose [Mass/Vol] 81.0 mg/dL Normal 74.0-118.0 [facility] Comment on above: Performed By: #### 3 5574486, 6571383395, 48649545, 5669046530, 1635896, 2222327621 #### [facility] (DEFAULT) [address] [place] [address] 22775 Osmolality 264 mOsm/L Invalid Interpretation Code [facility] Comment on above: Performed By: #### 3 8059887, 7899654514, 05645148, 6131016483, 5249351, 7828935931 #### [facility] (DEFAULT) [address] [place] [address]03 Potassium [Moles/Vol] 4.0 mmol/L Normal 3.6-5.1 [facility] Comment on above: Performed By: #### 3 4737470, 3184315662, 73511083, 0638708454, 7713990, 6158316462 #### [facility] (DEFAULT) [address] [place] [address] 49593 Protein [Mass/Vol] 6.3 g/dL Low 6.5-8.1 [facility] Comment on above: Performed By: #### 3 7741335, 8534191834, 18323799, 1772969423, 2033156, 5201970584 #### [facility] (DEFAULT) [address] [place] [address] Sodium [Moles/Vol] 133.0 mmol/L Low 136.0-144.0 [facility] Comment on above: Performed By: #### 3 3772141, 0297478506, 95098391, 0175036601, 8326844, 5660359870 #### [facility] (DEFAULT) [address] [place] [address] Urea nitrogen [Mass/Vol] 10 mg/dL Normal 8-26 [facility] Comment on above: Performed By: #### 3 1731234, 5739015149, 19470930, 1170900966, 6959899, 1569628380 #### [facility] (DEFAULT) [address] [place] [address] Urea nitrogen/Creatinine [Mass ratio] 16.0 mg/mg Normal 4.6-16.2 [facility] Comment on above: Performed By: #### 3 8864793, 8418250533, 71496560, 1247223351, 3673703, 3145004748 #### [facility] (DEFAULT) [address] [place] [address] HgbA1c Standardon 06-09-2021 .Hb 13.7 Invalid Interpretation Code [facility] Comment on above: Performed By: #### 3 7308132, 2797748040, 11442400, 5352475186, 2780218, 0258247048 #### [facility] (DEFAULT) [address] [place] [address]208 .Hgb A1c 0.47 g/dL Invalid Interpretation Code [facility] Comment on above: Performed By: #### 3 0336339, 9366765389, 20692876, 6414323515, 6691633, 6639269680 #### [facility] (DEFAULT) [address] [place] [address] Glucose [Mass/Vol] 105 mg/dL Invalid Interpretation Code [facility] Comment on above: Performed By: #### 3 9811317, 5578055471, 82394013, 7009285326, 8271867, 6402704506 #### [facility] (DEFAULT) [address] [place] [address] 93373 HbA1c (Bld) [Mass fraction] 5.3 % Normal 4.6-6.2 [facility] Comment on above: Performed By: #### 3 1918121, 5247453490, 19809224, 9837107239, 7661160, 1570169744 #### [facility] (DEFAULT) [address] [place] [address] 69504 Lipid Panel Standardon 06-09 Cholesterol [Mass/Vol] 269.0 mg/dL High 66.0-200.0 [facility] Comment on above: Result Comment: Ruby rable - Less than 200 mg/dL Borderline high risk - 200-239 mg/dL High risk - 240 mg/dL and over. Performed By: #### 3 2481018, 6286359679, 83053148, 6436254348, 3175936, 8459371456 #### [facility] (DEFAULT) [address] [place] [address]7077 Cholesterol in HDL [Mass/Vol] 102 mg/dL High 40-71 [facility] Comment on above: Result Comment: High risk - <40 mg/dL. Performed By: #### 3 7029602, 5348117169, 74652632, 5137600520, 3304871, 2230980226 #### [facility] (DEFAULT) [address] [place] [address] 79764 Cholesterol in LDL [Mass/Vol] 142 mg/dL High 1-100 [facility] Comment on above: Result Comment: Opti mal - Less than 100 mg/dL Borderline high risk - 130-159 mg/dL High risk - 160-189 mg/dL. Performed By: #### 3 6289775, 7968682869, 18624787, 1290335035, 9482602, 9878237308 #### [facility] (DEFAULT) [address] [place] [address] 40798 Cholesterol.total/C holesterol in HDL [Mass ratio] 2.6 {ratio} Normal 0.0-4.5 [facility] Comment on above: Performed By: #### 3 7207900, 2935781401, 86666706, 1557022274, 1336280, 1156863750 #### [facility] (DEFAULT) [address] [place] [address] 39587 Triglyceride [Mass/Vol] 120.0 mg/dL Normal 0.0-150.0 [facility] Comment on above: Performed By: #### 3 5306874, 4460066019, 86645026, 9999110330, 4281161, 5598980737 #### [facility] (DEFAULT) [address] [place] [address] VLDL. 24 mg/dL Normal 5-40 [facility] Comment on above: Performed By: #### 3 6708133, 3576692598, 45732500, 3836934868, 4962381, 4430507575 #### [facility] (DEFAULT) [address] [place] [address] Coding Summaryon 04-08-2021 Coding Summary HTMLBase 64 AougtspgWQv9vDr+PGhlY WQ+FT3NSKMoB42xsCNcwL 6BO8hGBT0CYEGLVGWEAY5 XXV3tfJW4ZMjlJ2QhuyHo IufwbYKoWM68NZy1MQD9y WsmQSqugD4tuMSbF1j2Mp TjEN04sU79VZlbEZQzLeY 3LjZpbjsgbWFy B3uyMaZufJYmNom+PHRhY mxlIHdpZHRoPScxMDAlJy BmkYqhNS7yFd9oRIEwART vbGxhcHNlOiBj b1kvMPFtFPbrWM6xyZipJ 6TapPE0VTFrh5q3Hw90iA I+GVGjIKC3wHqbDAgju98 0AfSqa1mbCJV9 fQOuQPxqBEW0P68zk6F2L EQcJCRvYVZ1kNS8mA3fyS fhfnmcG9VkbWNzAcC4LPB 9uRXyvS7ugWfg jkveqK1xJcz+F11SBW3EC RDSLK4OTrf9Z2ZdVbosiT I+GB49VCHlFC37dGCrfOF sc2fttWm6OzJu XTAbAID2qCjnQHxdq2PrF IGuG56cqXIdd8E0FXXutZ vmrIShFuFycQX7jP0fONl zpnltd1ihjbqm Yyzzo0avqr06rG72S82nG EviEJNdHQC9GVJcSALuiP dozu4jiH6hHz8+ZEbnm8m rm6achJf4SyBy SXStgmYqtRyjIEI2w2ZaH r19M1TdgFjdm3ZrAdf1fr 27gRUgn0Y6zBQ8OIjwJRX buZ0yAQddRdH1 YPPgZbTnkA52nJWdMBzxS n8kaFzlyWjsNU2yBYJddq siQFKguF4uCEWaxZHaaPg bFU3yTHXmvjms o798IrZkYVE8BPGotUDlY 3EtkJ6sQnXnVXItBOCeR1 VezYYdTQrtD983JMpoStT 3HNWgyoXqF6Sj GPVhnOguOhC6u9K7Vx6Zc 5EczzcaBGU9VQxdOIO0Js O3UyIyKcD2T7JjSlm3MVL qgScyLD5zW0Fl LOJpycsrohbncXO4YOBbB ATzkQ96tTXvEZdzHo1tu9 L5t131KWLxENJcrG95Hs2 udDogMTBwdCBU dK0likxuq8juqngoXyKxE OOoLMq9CXc3BLLehRftOx JbMFN9PiE5ANY0uKQlhV4 umYkuelioyF6h Oyc+F94hpF6tIKG6FCX4g binTWPbgdBrZV14QS40M2 RyPjwvdGFibGU+PGRpdiB tmCuwNA8qHoKh o3jam6FkQFmeF9FlWGZaV HddGva8IIHhDBX5lXT0zT 0bPERlRQokr8K9rVI5G8J fokPmdr6jj0ep ORFnXUlwB04riDOea9I8R AAwtHJ8FPVtlEefQbYnuX 93Oyc+ZCBekEdrc8YzViw mv3ydb4qhwUx4 AhKjBYElpbQczLxpTFX7t 2CsMf15G40gLRsnNKIzMQ NwVMLaADYfcCjwrr9trG0 wIi8+PGNvbCB3 vOK3dP5dNBVqQjK1IMeqE 372XaNvrKYiXeihd9udw4 hdaFc2YkSfBXKqlsYhqSt rCDM0l8QsGm67 C20kHVpcZDRdXHCiPOSvD TQghFrpzq3kyK2qYv4+PC 4qb7qyar37iD11vEW+PHR cTEZ2pDxcDLbe NFRyqE8yNEzjFiO9XJCaX hCouS64fGYzHQjmJw3rdZ edsVufQU9eTCKgpusqn69 3MkWra6irZKMw iEJgIIheUOL2T25cf2L7W JJkBCTfEOQ7lTV5bH6nhK lnbjogbGVmdDsgdmVydGl wILttDQwoK240 IHRvcDsnPlBhdGllbnQgT tAxKYe8P2YtMjt0YIIjsO gcRE1fuNMbXUanMn0iwSy lhIdsDS1jDZLe pjjbi292IxDpp1vqMVDbf JJeGMtqMQU2C84zd5H6GE YdYNLrWZT3mUS8bC0ikBj nbjogbGVmdDsg rdVkwQpjRTpuYLyeE644R HRvcDsnPkJpcnRoIERhdG G2MB43JR35eQXwu8E1iJP 1A9NtISCfkmmq zedcfBW9DXOyCAZcuB61K b8vwCgjUy5mAQOfXOF2IX AeyHMlT1NfyZ7uKtFeKTF uPDOsB2TqeAEq BYupE819CRftYmH7BSGhh jSkC3OyETPnlCbwIkS6i0 G4Dc2IR0T1VF52RZ06kIP rb2V7hLY2A5Ls CIOnyxdanmuonRJ7MKTuZ LWjmB88Ev0clScfZa5xBG TnIBZ8OKVnlLWcL3SenB0 yOiAjMDAwMDAw G8McwSHbTXjaO485RQkwA fG4NNDppfQgC0XsBYNijQ wbHnX2q9Q3Nc7ASZo9XM8 3FU97eTLpd6W0 oEZ6I4IkDEQrjgauimeob UH9YXNxBKVqrW54Gl7omX wlKd6gWYYvHBN8XDPidQZ wC7CjlZ2rJdCr DVGsSLSrO0VdxJCjKGwaB 191XTxxQkS1FIHujtJtA7 ZaJJGbnOalYiF0e4Z3Jz6 FQMIyCQ37MHO3 oJQ4EH13DJ75C1QvXzjso GFibGU+PHRhYmxlIHdpZH RoPScxMDAlJyBzdHlsZT0 iIg2yQSPqKLNi mGnrjOQhWaOge9jtLXDuB WglNX9mkVlgB7MaeEV5IS Swr0f7Po46Z06zV4EkjRA +KCMegKS7bUX9 fT0zZdAiOuL1PJzmO536K cXylQMjMgjcz0lzh3vwrB a0DpB8YGNnueCpeNmmVDV 5l4PoRm31M53i IHdpZHRoPSIxNSUiIHZhb Fctoc3afK6aMu7+PGNvbC K3oDY6aN8oIcCrWnF2UAg xZ108FuUipTWs Ranle0zas2nqkOg4ViFnQ TXpxeIyzEuuQGY1f5BqMg 72E3JseVgwd0WdYtl4ks0 3aYTyo3B2aLE7 C5PoYPKmhgofvMRuaPueE M8gOZFnweuzMUXnwG3mLQ NsK7y7ImDdPwB8BNeyI0T jwtZ2XUTifANr SCjcXOQ9A71uw7N2FLMwP DNkBBL1vIN2vY3dlZvems ogbGVmdDsgdmVydGljYWw aIWzwN087IHTn lRwaIGSaaM2bFJIqmAFsu FyjYU3tSFTrivcdPy4GTU SVRVTPMIDAVY8XHGZYOEw EXEK9N9RuSol2 NOMglYujSI1xeLUjAHmpY s4yqWlhgBmsWA1gSOPrcc hfQYUgqB8wJGUtdXKjjBy gXY0mWMZgnwzu g251ZjCqMYY5HHAspIRkF 5QwuN1bDmPrYUVuOTVuZ8 ZwoTSwZEnbJ399JUsuGxZ 1TQXvzfGhY3Eq UDPyuLnwIxB4g0U8Ov3wA Z9jSV0zXHw0NX15MY99sB Sxi4U9tSP8J3RqWBCjmjw kazdgpNV0OUTm WIIyqI61dEKcESlnVh7xq 3A7k201UFTsDSIseO05Cv 9znJiqCVWxiZIMmG8yxub rt1zmfaopXhBh XXRoKVl4LCa9QNZncKyxS zZpEZW7FgE4SDX3tFUayP 7ehBwzjwcgcH2eVbr+MjY cQIQejnC9F9Mf Iov4KWQriAzaXH1hbGTiT ImbUb4xdFccxPlhWE7oTA WkgtzcVQQzhM0hLPRojMX kfHikSK5fWLFo mdwup980QhOeEEU7JOKpb NPeE5BbnF2lCcWfUTTmDS DuO5FlxFDfJOuhO637JTn rQyF0IMYmwiKg R3WmGMOdpXtyXmT2g3S0L v8JYD6APAR3U6BtWup6EB NonBgpAF3dxQUzCQeoAl5 nzQotyJfaOT9s PNJydxwcMAFbeJ4kBSVbm IGxsJluHM7bESTgcsaxz3 82HaRcKNL6XGQgpNSxZ4Q rmH6bDoAhXPAi QPJcG3FcwHHpAUdvG637S JojKvL3GUAusxEiZ1LlZV NkjHcjCgW0t1T2Fj0ZEEa vdGQ+NT10eh83 K9NyTpdiIhc6VLWqONX6r EO2zR1yCSYgTLook2Z6wB K4K9XnqlKpim1vx7wcRTJ tQDhqT72bgZLy n5I5DJDfpFK5KFDmqNvoC nAvbD82Zwq+PGNvbGdyb3 JpVsuyu3ukr4uvbLh5ZuA wJSIgdmFsaWdu OHU8m4VqHm15O51qNZuvW HRoPSIzMCUiIHZhbGlnbj 4ztQ8xGp9+ATZniLV7eLR 1fV2tSqKbLkI0 DEetI784BmVzdHBvFujjm 6bbs7btlDi4BxInGZOhmb NrnDecKED0x9SjVa91U3C kxIfku6TxZjg7 sq39pSOzd3W4fFN9Q7DnC MEkotlrdZAugNssON3sYW LcnegdMJZvrS6yCTRcA8d 3IfOsSrU8VWso V9CtygL5ZOSkaCQzHZQuz PAXhZ3oiwnay0bnegowPr PkXWSiTHi8OHd6ZVKpwFk qKkNhLKN0NhE1 VFJ3jBVhsO5rwXmslrxqz G9wOyc+RNw9t1wmcALtFU 9bwFU2DW49OL79gBVxd9W 9qCI8L8CkILGo thevaisgyHU7MALjMEUhy Q06Uk0pnOclMm3lNIBmJB L6KEUorKTdL1BmuX1mDtZ yHWOjWKErN2Sq cYRaUKguE338UEkoVwV2J IIycoKbN8RcFWOjqGuhPm Q9z7G4Me3DXC59KQ85PD4 1yPYcm2G9bEP6 K8WiWYLbuzlxtfskaWR7L SMqYAJkrF53Jv9dmKuaXd 1bGPXxCPD8IZOnxUQbK5F smK0jUnYjTZZe VEFvX7UsxWBvBOozP393I KcfMbE7JSYabrDkA1FpNE OncXcrQdY5r0B4Fl1BWs9 6PK91ZR25fFEt h5R9cGW6E7KpCVNhrzlwb jvrhAS2TEWlHBHykE72Nh 4yfRruDx8sZZQnOND0MVK dsMSzU8CwrF5i EoEdRBVpITPbA1MljJRsY OdmG852FScgRuZ1OEIzsl MhP2DqJKKzjFonBoH7m7X 5Vl5MMKrhfhd1 W4OcXtjzlCL+ME53YSRjI D53lNUlcJVtk0cycDy4Op CfBLTyCNW4eSxkBZabl8N lSKZbG59mnTMs c2U (more content not included)... [facility] Provider Orderson 04-07-2021 Provider Orders [id number] .[id number] [facility] .Auto Diff 104-04-2021 Auto Walsh % 5 % Normal 09-03 [facility] Comment on above: Performed By: #### 2 [id number] #### [facility] (DEFAULT) [address] [place] [address] Baso Abs# 0.0 x10 Normal 0.0-0.2 [facility] Comment on above: Performed By: #### 2 [id number], [id number], [id number] #### [facility] (DEFAULT) [address] [place] [address] 29668 Basophils/100 WBC (Bld) 0.1 % Low 0.2-2.0 [facility] Comment on above: Performed By: #### 2 [id number], [id number], [id number] #### [facility] (DEFAULT) [address] [place] [address] 44665 Eos Abs# 0.1 x10 Normal 0.0-0.4 [facility] Comment on above: Performed By: #### 2 [id number], [id number], [id number] #### [facility] (DEFAULT) [address] [place] [address] 48839 Eosinophils/100 WBC (Bld) 2.0 % Normal 0.9-4.0 [facility] Comment on above: Performed By: #### 2 [id number], [id number], [id number] #### [facility] (DEFAULT) [address] [place] [address] 00510 Lymph Abs# 1.2 x10 Low 1.3-2.9 [facility] Comment on above: Performed By: #### 2 [id number], [id number], [id number] #### [facility] (DEFAULT) [address] [place] [address] 72259 Lymphocytes/100 WBC (Bld) 17 % Normal 14-48 [facility] Comment on above: Performed By: #### 2 [id number], [id number], [id number] #### [facility] (DEFAULT) [address] [place] [address] 80253 Walsh Abs# 0.3 x10 Normal 0.0-0.8 [facility] Comment on above: Performed By: #### 2 [id number], [id number], [id number] #### [facility] (DEFAULT) [address] [place] [address] 81353 Neut Abs# 5.4 x10 Normal 1.5-9.2 [facility] Comment on above: Performed By: #### 2 [id number], [id number], [id number] #### [facility] (DEFAULT) [address] [place] [address] Neutrophils/100 WBC (Bld) 76 % Normal 44-88 [facility] Comment on above: Performed By: #### 2 [id number], [id number], [id number] #### [facility] (DEFAULT) [address] [place] [address] CBC w/ Auto Diffon 1 Erythrocyte distribution width (RBC) [Ratio] 13.7 % Normal 11.5-15.0 [facility] Comment on above: Performed By: #### 2 [id number], [id number], [id number] #### [facility] (DEFAULT) [address] [place] [address] Hematocrit (Bld) [Volume fraction] 34.4 % Normal 33.7-40.4 [facility] Comment on above: Performed By: #### 2 [id number], [id number], [id number] #### [facility] (DEFAULT) [address] [place] [address] Hemoglobin (Bld) [Mass/Vol] 11.1 g/dL Low 11.3-15.9 [facility] Comment on above: Performed By: #### 2 [id number], [id number], [id number] #### [facility] (DEFAULT) [address] [place] [address] Instr WBC 7.1 x10 Invalid Interpretation Code [facility] Comment on above: Performed By: #### 2 [id number], [id number], [id number] #### [facility] (DEFAULT) [address] [place] [address] Man Diff? Auto Normal [facility] Comment on above: Performed By: #### 2 [id number], [id number], [id number] #### [facility] (DEFAULT) [address] [place] [address] MCH (RBC) [Entitic mass] 30 pg Normal 24-34 [facility] Comment on above: Performed By: #### 2 [id number], [id number], [id number] #### [facility] (DEFAULT) [address] [place] [address] MCHC (RBC) [Mass/Vol] 32 g/dL Normal 26-37 [facility] Comment on above: Performed By: #### 2 [id number], [id number], [id number] #### [facility] (DEFAULT) [address] [place] [address] 86674 MCV (RBC) [Entitic vol] 92 fL Normal 81-100 [facility] Comment on above: Performed By: #### 2 [id number], [id number], [id number] #### [facility] (DEFAULT) [address] [place] [address] 27209 Platelet 225 x10 Normal 138-427 [facility] Comment on above: Performed By: #### 2 [id number], [id number], [id number] #### [facility] (DEFAULT) [address] [place] [address] 13258 Platelet mean volume (Bld) [Entitic vol] 9.8 fL Normal 6.3-10.2 [facility] Comment on above: Performed By: #### 2 [id number], [id number], [id number] #### [facility] (DEFAULT) [address] [place] [address] 96134 RBC 3.73 x10 Normal 3.70-5.30 [facility] Comment on above: Performed By: #### 2 [id number], [id number], [id number] #### [facility] (DEFAULT) [address] [place] [address] 82682 WBC 7.1 x10 Normal 3.5-10.5 [facility] Comment on above: Performed By: #### 2 [id number], [id number], [id number] #### [facility] (DEFAULT) [address] [place] [address] 86452 O'Aguilar Teston 04-04-2021 Glucose [Mass/Vol] 115 mg/dL Normal <=139 [facility] Comment on above: Performed By: #### 2 [id number], [id number], [id number] #### [facility] (DEFAULT) [address] [place] [address] 85245 Coding Summaryon 11-29-2020 Coding Summary HTMLBase 64 DtnpfbexRPy4zSl+PGhlY WQ+BU3LEOPaG99iqGIhyH 3HJ4sFDQ1QRBQAPUNETU3 RPJ1ptLI7KNhpR2LrlpJp NhdpuVGnAJ09QKm9NDV0z SjePHlnfO0eeZXzF8y4Cd VnUH54dQ65PBumORGpQgX 3LjZpbjsgbWFy C6giBpZnvFJpOgd+PHRhY mxlIHdpZHRoPScxMDAlJy CefTmuQG3oYx1pXMNgVYQ vbGxhcHNlOiBj y4sjUVTaOIruAY2asKrcG 4BirMQ5VOGja8g1Pv74qM I+SEIzPHX8sAviKTdpa99 2KgFgf1gpSYA1 wIJdHRuwVIN9X45og0P9P CKsCPWeMTV3mQR6wM6ojO wtpmmcZ8KbgFMoMtT8HPB 7zFFwpN8guAam gwsegH9eZkl+M08VFM9WN IMBEA4SCve8M5TvWntaxG I+KF92PLDyYI58iHJawHR ls8kftRk4QaUa QLHwNNR0uIahJSiok7WpS YHqF61qnASli9D7TKTuuB qpuTGwJnSweUE0jS4uCXr zirgdv1zwryln Ptiyt7qpxa01pN67P25aT BpuJPNbLQJ3OOShLEMldW mjww3njN2gAv7+DEcup1e ha3balZk1RyRp TREnrfRmcFloSSB9u5UiU m51C5XhrXzpf9EeGux5jm 90nEYdd7O0hLN8QUxhOZY reN9eWYihDqS8 UWSnIvQvuN39zVIdGBpkM t2cdYcdgBdsXZ1aUSJuul kmJITycF5dUWNaaMMlvQq gVV4bKGHhkcdd s903QwAkUPP5HJAgrXVzF 3PohU2rBgSmYUQxKTDvS1 YapQGuWBzhO026SJteZeP 1EJVnnqZdQ2Yt TCGdxQkeGlK9h7L3Ob2Wn 6HbiphlSQD4SXjtOUT6Sl J1NeIwCnU3C0QrCtw9OHT rqKqjHU5yO0Xu MEYclbbwehdhpBD1QKNjB FDtmH45rIIkUNvhSx8qn0 V2b793IVIfUDVkgT80Tx8 udDogMTBwdCBU sW5uzpnmn3cygjfxRaIlK JCiWTn2YNi4RSDewRktLz JcBMM8PmM6TBU6oOFxvM5 zgXzrsmrqnA9v Oyc+S77tkF3yMNM0HNK5g smvZEZbwtZhOV87GL38T5 RyPjwvdGFibGU+PGRpdiB jgHjtPV7zXrNd t0cnt0QwSPvzR4PdWGFvM ZmhMqc8KXNxOBI7tHP2hM 9aRIDmXCucx0I4aXW3Q5D scyPaah7xq0pj KRWzSIruN10msBCmd5T7R NDmjVY5WUDivBfzQcIiqA 93Oyc+GBUciKylb7OpPdh wq1evk7fpkGh1 BgEvZUFnzbWnlGnuEHQ7q 8BjZn45Y49lJKhxQDGfLH JbQXUuCYFyoBvdjn6oaF1 wIi8+PGNvbCB3 kPE1tZ0pQHTgXlQ1MCfzY 692TyTadDZtAtici6dca4 qbeMm4NtJeNISbfeRcmTg xIGG5w2KwLb86 K43zSVkmYHVhUCHlDYYlU MUvhSeubd6lbD7nEc4+PC 7uv9pykg49bM15nPN+PHR sJOT2ePlgWJca COPnnI5lYXqcDzV6PDNpU uRwgA79mYAoJNmnXw4guA ukhYfnBE2xKTTdnmcee48 7VaWfg1naJBGu wPTuHUqvWSN7L62rb6M9H TUcAYXdZQU8kQR1zK0xjT lnbjogbGVmdDsgdmVydGl iLBcsPKeqF411 IHRvcDsnPlBhdGllbnQgT hDjUSt4W8DiEnw1GEBnrF mfEW4shPDfMCyhKb5xySg gaEstCR4fWFZd pugyk588FfTex6puGENmp OKaOVzbGPO6X03pp3Y8UK ZwQNTdSWF1cXZ4pX6cgQt nbjogbGVmdDsg ucMqzUraZWhsTIynW124N HRvcDsnPkJpcnRoIERhdG Z3WX02DU84uAXce8P5oMD 7Z1RfJTOfygud qaisaTL4IBSgHFOqbU24M p6wjNguXn8kDVMhIFG5WV HjeELrK4BbbB5nHmQaFCD fUDImK0BsaEDf UYsdU661XOxaYkF8PBCxt iZkI1OhJHNopAvqEeS7a0 P1Kf5SH7L2AU35ZE24zZU co2P5aZG8J3Pg FUXqxgtyrdhkrXB3VGJcM MJbyW86Db8pbSgfVy3qHS FwODU9NZBtvXKdZ5YbkJ6 yOiAjMDAwMDAw X5AxhKLwEUjlT470UJhxU gS3OIZyugQcB6ZpIPFzvI xhPeK5q1N8Qf3GPXr6PE5 8ZR82fHQcq1J5 vHW1B4LqPZRgzrlidarmv ZX7UTDrKOEtyU85Hb0evB dyPe5kAPRaFGA8IVIzrVX oC1KqnH6rPzWp KPQoJBTtR7LftDYlLNjxB 437PHknGkJ0PAOorlAuU6 KcGNZwmLbyXpA1z6O2Qz0 RIGPhNG71FBB1 yZU6JF03LP98T3DgPifqv GFibGU+PHRhYmxlIHdpZH RoPScxMDAlJyBzdHlsZT0 sLh3aUSSiCDMt eKnduPUdJfFwh4kgDSOzK ZqpKF9elSnuJ9TgjNL8GK Cyw2p3Gq05A77hV9OdjYU +DVHcmNA1vFB8 fT5aIyMoJaU0OZcnV938I gByyKHcHajlg1vxm3jgtT f1UzA3IYQdwyAqdWqxJZR 8m0QfUg00P36a IHdpZHRoPSIxNSUiIHZhb Kccde3njN0qZe9+PGNvbC B6dVQ8tO3fKzReCyT5EVe bM313RiQdoGYt Icsit1mtp9txkEb2QlCaV RCzehLntOoySRB3b2WzTo 85L0UijKqod9ZuOtm3xc8 2nVTrh6J5oOW6 F2BpKJWpgdqjtFXkfBucJ J1gALQfsyikKEAwsM1iEH NsI5b4KoDcIgY1RQssS4K xuuX2OVNaxDWa VRqnABT2T27ya8H2LNGmI KAmIHD5eFU6fQ1bfVglgo ogbGVmdDsgdmVydGljYWw lTLiyZ723TXSs tMylRKKahH7sLFZtqLGwo QdcUM0aJRUsnwthFj6GJE OMKUATRDWVJX5PTTFVCNo GMUX7H7EeQwa4 TSMwiHcpJU0naGIbKEbsQ u1orPwyeJorFN4uHMVemc nbYIAhzT8yJLKvkKLpeXz xIO7aZEKsppyp a449AsFbGIL2BERybFBwX 6PywG4aUaQvBKUzZKXcC6 BcuEIyRHmvH730VJpkHnT 5NWEvclGzE0Il NYItkTslKwJ4p3H3Yg0fC L3fGP7xZSi2FT09DP56vJ Nxi4I0tJL4G7XbBXEehhw sjitqzSW9GBCl CVTktZ30hHRpJRzzAj8cb 2P4t059EZKpTKYeqB68Bd 6ddGcxZCGoaOKOyK5wwiw ho9jaqsbsEvCk XSAmKGn7DYz5BMLyiOarG kCnKOS0DaU6GIN3vHGbgV 5noIewpbbiuT3uZti+MjY jLMGbfgV4G1Pd Huh5GSQawAfbIY9kkYEdV PunJg2foGdviRsvTG5sGV JykgjkGOHqlN9aMRLxcRV hfSqgYA3zLVLu yknwd508NiDyOGR5IOTbi RFdK6WktB4oKiLrBVIeOP ChS3HptAZfURukU014YDm mAoO1MHUxhpHj Q9WuSHZzuZucNtY1d6N5G d6CXA3NFNN6R5DmFli7CW CitFtkDZ0hzXRcGHocKw0 bcKqdfPtmEP7o WOGpxqnoWJVvqI4iMRIdt DFtgRtvWM8cYKDznruio0 89XwUvEEX0TJPfaQMrI5E niJ7xPrIzZBQm SLAqF7AmlVOcWBfvA587C VrjCrP5QIMacbRlE7EwTZ WbgLwdQiX9f9I2Bu8WXNg vdGQ+SF39af90 U6AqIfdhOll1DXPoBSG3f AV2dB7sVCFkKZnmw3Y2iN Q3E9UwpsQjjf7zb5fcAVY kQRlrX75blCWc x7K0WRAgbYQ4BJDjnYdrV vWypR13Fny+PGNvbGdyb3 JkJeiic6iwc4uyoKp0TlM wJSIgdmFsaWdu WCQ5n7MtEx04X94oAFloB HRoPSIzMCUiIHZhbGlnbj 0xbX3pLs7+URUajDI2iOV 1zD5kNyOcKzM3 USonD485RgZasQVrCjmgk 6kvk8eoeXm8SmGuFQKzmt FsuObjBRI2j7DnYs12M8W feStwh9UzJlq4 gs91rWOsb1E9aPG5B1LnE UWfgtrhdEOgfPfmZZ5pRA YkcuntJHKbaK1rPTAnR9x 6MqNcVoR6UNuw G0QfjvD3KZIezTQxJMQkd MIMsS9kpziqg8yocrycWf GgMVEvWLz4KGp9DNLxkRy tSuRiJFT0DxE9 JOQ2wLFdgM2axTdtuhusu G9wOyc+VMg5j3cnlDCiPE 0ogHR0ME72XI81vSMyy0M 9wYQ4G6JhJKYm zjzfrlksvKF0SQWnHBJwl R90Ml0ekWfxMh3dUMYeZP W7PXMebBJkY1GkmA6tWzR bEKRzSKNjQ6Lu aLIbJDfwZ405XDuiJrX4R TYndeClY2BoSOCnjZryKb N0n2L4Dk8NAD88VA39OK7 4tQUlo0E1wZC4 R8WkAMMdcvbacinfbMK7M CWqOUQpvS75Dt2lkRevRa 9qWQOhODR8JTEceEVmV5B cgM1qZdMoGOWz XABjK1EaeNIwRXwzI863M UdeZeT9HSLnaqSxA4WcFQ ZkeMknSaT4t2S8Fs3QCy5 6TD44QT07uLXo v1Z0vJU5J8OyXCZdfvyjt qlabDO0TIVmNMUdyO45Be 8pwCjjOr7tCGEbOIF0SZZ snTYkC4PrmV0j DeAlPEEzCGPaS5QtkNLyR MmlK016MXguYeE7FAOflu LmQ6EzDRUwrBchQcC0b0I 2Vu0CJWnixyz1 Z5SsVgwaxAG+BY77DQNzI Z01iMOecSNtk9ajwJt1Kb ZlUIBuQBR1gKahRLjjo0H qFTZjJ72npDHj c2U (more content not included)... [facility] Provider Orderson 11-28-2020 Provider Orders [id number] .00OTGTIFF [facility] ABORhon 11-27-2020 ABO and Rh group Nom (d) Hx Check: Not Found Anti-A: 0 Anti-B: 0 Anti-D: 4+ DCon: NT A1: 4+ B: 4+ ABORh Interp: O POS Invalid Interpretation Code [facility] Comment on above: Performed By: #### 7 [id number], [id number] #### [facility] (DEFAULT) [address] [place] [address] ABORh Retypeon 11-27-2020 ABO and Rh group Nom (d) Ordered by Discern. Anti-A: 0 Anti-B: 0 Anti-D: 4+ DCon: NT A1: 4+ B: 4+ ABORh Retype: O POS Invalid Interpretation Code [facility] Comment on above: Performed By: #### 2 [id number], [id number], [id number] #### [facility] (DEFAULT) [address] [place] [address] 32953 hCG Quantitativeon hCG Quantitative 696174.0 mIU/mL High 0.0-0.6 [facility] Comment on above: Result Comment: Resu lt confirmed by dilution Post-Menopausal Reference Range is: 0.1-11.6 mIU/mL Performed By: #### 2 [id number], [id number], [id number] #### [facility] (DEFAULT) [address] [place] [address] 98518 Vital Signs Date Time Vital Sign Value Performing Clinician Facility 01-28-2023 16:20-0400 Body height 160.02 cm Shelli Villa Other [facility] Other 01-28-2023 16:20-0400 Body mass index (BMI) [Ratio] 40.74 kg/m2 Shelli Perezley Other [facility] Other 01-28-2023 16:20-0400 Body temperature 99.7 [degF] Shelli Daisy Other [facility] Other 01-28-2023 16:20-0400 Body weight 104.33 kg Shelli Daisy Other [facility] Other 01-28-2023 16:20-0400 Respiratory rate 18 /min Shelli Daisy Other [facility] Other 01-28-2023 16:20-0400 SaO2% (BldA) [Mass fraction] 99 % Shelli Daisy Other [facility] Other Encounters Encounter Date Encounter Type Care [...] 01-28-2023 End: 01-28-2023 ambulatory Shelli Villa Other [facility] Other Start: 01-28-2023 Office outpatient ne w 20 minutes Shelli Villa [facility] [place] Start: 11-23-2022 End: 11-23-2022 ambulatory JENS ESCALONA . Facility:[facility] Start: 09-21-2022 End: 09-21-2022 ambulatory PRAVEEN ZELAYA Facility:[facility] Payers Date Payer Category Payer Unknown [id number] 1995 Unknown [id number] 2.16.84 [id number] 1994 Unknown [id number] 2.16.84 [id number] 1994 Unknown [id number] 2.16.84 0.1.081539.3.579.2.9 1994 Unknown [id number] 2.16.84 0.1.063663.3.579.2.1259 1994 Unknown [id number] 2.16.84 0.1.377939.3.579.2.1258 1994 Unknown [id number] 2.16.84 0.1.382037.3.579.2.9 1994 Unknown [id number] 2.16.84 0.1.827722.3.579.2.9 1994 Unknown [id number] 2.16.84 0.1.879626.3.579.2.9 1994 Unknown [id number] 2.16.84 0.1.668001.3.579.2.9 1994 Unknown [id number] 2.16.84 0.1.238267.3.579.2.9 1994 Unknown [id number] 2.16.84 0.1.136485.3.579.2.1258 1994 Unknown [id number] 2.16.840 .1.732437.3.579.2.1259 1959 Unknown [id number] Social History Date Type Detail Facility Unknown if ever smoked [facility] Other Sex Assigned At Sex Assigned At Bir th [facility] Other Evaluation note 01-28-2023 Note Date & [...] worsening. Patient verbalized understanding of treatment plan. [facility] Other History general Narrative - Reported Note Date & Type Note Facility History general Narrative - Reported Type Surgical History sinus surgery x2 [facility] Other Summary Purpose Family History No Family History Records FoundNo Family History Records FoundNo Family History Records Found Advance Directives No Advanced Directives Records FoundNo Advanced Directives Records FoundNo Advanced Directives Records Found Additional Source Comments INFORMATION SOURCE (unrecogn ized section and content) DATE CREATED AUTHOR 11/03/2021 [facility] DATE CREATED AUTHOR AUTHOR'S ORGANIZ ATION 12/12/2022 [facility] DATE CREATED AUTHOR AUTHOR'S ORGANIZ ATION 02/23/2024 [facility] EPIC REASON FOR [...] BE BASED ON THE PRIMARY CLINICAL RECORDS. [facility]. provides no warranty or guarantee of the accuracy or completeness of information in this document.
--- NOTE | 2024-03-15 10:36 | PC.NURSE ---
[place] and 5 day old Kris arrive for follow up. Mom states feeling great Denies concerns or complaints at this time. Able to rest between feeds as mother is staying to help with 2 yo child at home. [place] with VSS and assessment WNL. States felt crampy with nursing but is diminishing daily. Does have a concern over milk supply. States Breasts felt full, like milk was coming in fo day, and now not tender, hard or lumpy feeling. Nipples slightly tender, but is better than at the hospital Denies trauma to nipples. Breasts palpated, mod fullness noted, no redness, edema, engorgement or trauma noted by LC. States has been giving baby 15-20 ml formula after every feed told to do that in the hospital because he acted so hungry the day we were going home. Baby Kris wakes to feed every 2.5 hours during the day and every 3 hours at night. Mom reports 8-10 wets with small stool in every diaper as well. Mom reports latching has improved significantly since delivery, able to report audible swallows throughout feed. Kris with VSS and assessment WNL. Oral exam with gloved finger due to visible frenulum under tongue. Thin filmy frenulum slightly restricts from keeping tongue to palate. Able to lateralize tongue left and right, slight heart shape to tongue during crying. Baby has fair to good suck with some resistance to finger being pulled out of mouth in tug of war . Discussed pro's and con's of tongue tie and release. Mom interested in information and referral for pediatric dentist evaluation. Same given. Baby to breast in cross cradle hold, shallow latch noted, assisted mom with deeper latch, immediate comfort and audible swallows noted. Pre feed weigh of 2830 gms (diapered) and post feed weight 2870 gms (diapered) with nursing 1 breast for 17 minutes. Mom encouraged to have baby finish feed on second breast, if continues to act hungry, return to breast. Encouraged to decrease supplemental formula after breast feeds over next few days. Verbalized understanding. Will call for further support as needed and definitley after tongue tie evaluation. Family leaves ambulatory.
[2024-03-15 12:24] VITALS: BP 126/82; PULSE 90; TEMP 36.6; O2SAT 97
== END 2024-03-15 10:10 | disposition home or self-care (01) ==
PROVIDERS: PCP Family Medicine; Visit Provider Obstetrics & Gynecology
DX: Z39.2 Encounter for routine postpartum follow-up (principal)

== ENCOUNTER 2024-07-17 20:28 | Outpatient (REF) | payer OTHER, SELFPAY ==
--- OUTSIDE RECORDS SUMMARY | 2024-07-17 20:31 | XMS_ITS | CCD ---
Author Organization [facility] Care Team Providers Care Baseball Inspector And Repairer Name Role Phone IQRA ., JENS Admitting Unavailable IQRA ., JENS Attending Unavailable REQUEST, NONE LISTED Primary Care Unavaila fantasma Guerrero, JENS Consulting Unavailable GARCIA, PRAVEEN Admitting Unavailable GARCIA, PRAVEEN Attending Unavailable WADE, NONE LISTED Primary Care Unavaila fantasma ZELAYA, PRAVEEN Consulting Unavailable Shelli Villa Unavailable DASIA, JAYDEN Attending Unavailable DASIA, JAYDEN Attending Unavailable IQRA, JENS Attending Unavailable DASIA, JAYDEN Attending Unavailable IQRA, JENS Attending Unavailable DASIA, JAYDEN Attending Unavailable DASIA, JAYDEN Attending Unavailable DASIA, JAYDEN Attending Unavailable DASIA, JAYDEN Attending Unavailable DASIA, JAYDEN Attending Unavailable DASIA, JAYDEN Attending Unavailable IQRA, JENS Attending Unavailable Medications Current Medications Medication Drug [...] 2: 21 to 28on 11-29-2022 . . [facility] Comment on above: Performed By: #### 4 [id number] #### [facility] [address] [place] [address] Dr. Evan Mcintosh Age Gdln ACOG Testing [facility] Comment on above: Performed By: #### 4 [id number] #### [facility] [address] [place] [address] Dr. Evan Mcintosh DIAGNOSIS: Comment [facility] Comment on above: Result Comment: NEGA TIVE FOR INTRAEPITHELIAL LESION OR MALIGNANCY. Performed By: #### 4 [id number] #### [facility] [address] [place] [address] Dr. Evan Mcintosh Methodology: Comment [facility] Comment on above: Result Comment: This liquid based ThinPrep(R) pap test was screened with the use of an image guided system. Performed By: #### 4 [id number] #### [facility] [address] [place] [address] Dr. Evan Mcintosh Note: Comment [facility] Comment on above: Result Comment: The Pap smear is a screening test designed to aid in the detection of premalignant and malignant conditions of the uterine cervix. It is not a diagnostic procedure and should not be used as the sole means of detecting cervical cancer. Both false-positive and false-negative reports do occur. . Performed By: #### 4 [id number] #### [facility] [address] [place] [address] Dr. Evan Mcintosh Performed by: Comment [facility] Comment on above: Result Comment: Fiona Heath, Rug Dyer (ASCP) Performed By: #### 4 [id number] #### [facility] [address] [place] [address] Dr. Evan Mcintosh Reflex Criteria: Comment Normal [facility] Comment on above: Result Comment: The HPV DNA reflex criteria were not met with this specimen result therefore, no HPV testing was performed. . Performed By: #### 4 [id number] #### [facility] [address] [place] [address] Dr. Evan Mcintosh Specimen adequacy: Comment Normal [facility] Comment on above: Result Comment: Sati sfactory for evaluation. Endocervical and/or squamous metaplastic cells (endocervical component) are present. Performed By: #### 4 [id number] #### [facility] [address] [place] [address] Dr. Evan Mcintosh [facility] SARS-CoV-2 (COVID-19) RNA CY+probe Ql (Unsp spec) Not detected Normal NOT DETECTED [facility] Comment on above: Result Comment: When [...] for this test is supported by the Tying Machine Operator of Health and Human Service's declaration that [...] used). Performed By: #### C VDTBH #### [facility] [address] [place] [address] Dr. Evan Mcintosh INFLUENZA A AND B AGon 09-21 INFLUANEGH SEE BELOW Normal [facility] Comment on above: Result Comment: Nega tive for Flu A protein angiten. Infection due to Flu A cannot be ruled out. Flu A angiten in the sample may be below the detection limit of the test. Performed By: #### I NFLUAB #### [facility] [address] [place] [address] Dr. Evan Mcintosh [facility] SEE BELOW Normal [facility] Comment on above: Result Comment: Nega tive for Flu B protein antigen. Infection due to Flu B cannot be ruled out. Flu B antigen in the sample may be below the detection limit of the test. Performed By: #### I NFLUAB #### [facility] [address] [place] [address] Dr. Evan Mcintosh INFLUENZA A AG Negative Normal NEGATIVE SEE COMMENT [facility] Comment on above: Performed By: #### I NFLUAB #### [facility] [address] [place] [address] Dr. Evan Mcintosh INFLUENZA B AG Negative Normal NEGATIVE SEE COMMENT [facility] Comment on above: Performed By: #### I NFLUAB #### [facility] [address] [place] [address] Dr. Evan Mcintosh Release of Informationon Release of Information [id number] .[id number] [facility] Nicotine and Metabolite, Drew nt LCon 06-15-2021 Cotinine LC <1.0 Invalid Interpretation Code [facility] Comment on above: Result Comment: This test was developed and its performance characteristics determined by [facility]. It has not been cleared or approved by the Food and Drug Administration. Cotinine levels greater than 20.0 are consistent with the use of tobacco or tobacco cessation products. Performed At: [address] [id number] Richmond Merino MD Ph:[phone] Performed By: #### 3 [id number], [id number], 19316121, 2719329436, 2403036, [id number] #### [facility] (DEFAULT) [address] [place] [address] Nicotine LC <1.0 Invalid Interpretation Code [facility] Comment on above: Result Comment: This test was developed and its performance characteristics determined by [facility]. It has not been cleared or approved by the Food and Drug Administration. Nicotine levels greater than 2.0 are consistent with the use of tobacco or tobacco cessation products. Performed By: #### 3 [id number], [id number], 85658887, 8231859133, 7597354, 1506045856 #### [facility] (DEFAULT) [address] [place] [address] .Auto Diff 1on 06-09-2021 Auto Mckinley % 6 % Normal -12 [facility] Comment on above: Performed By: #### 3 6476280, [id number], 81252371, 8315138566, 7495460, 7832671009 #### [facility] (DEFAULT) [address] [place] [address] Baso Abs# 0.0 x10 Normal 0.0-0.2 [facility] Comment on above: Performed By: #### 3 3880567, 8564630223, 33750111, 6132884195, 8060989, 9139303492 #### [facility] (DEFAULT) [address] [place] [address] Basophils/100 WBC (Bld) 0.1 % Low 0.2-2.0 [facility] Comment on above: Performed By: #### 3 9031543, [id number], 09373435, 8906981843, 9044716, 3618880088 #### [facility] (DEFAULT) [address] [place] [address] Eos Abs# 0.2 x10 Normal 0.0-0.4 [facility] Comment on above: Performed By: #### 3 1573943, 3395916867, 94430676, 6030622845, 7651346, 6833293291 #### [facility] (DEFAULT) [address] [place] [address] Eosinophils/100 WBC (Bld) 1.6 % Normal 0.9-4.0 [facility] Comment on above: Performed By: #### 3 9664463, 2369739492, 05501477, 8177699161, 2787349, 8940576154 #### [facility] (DEFAULT) [address] [place] [address] Lymph Abs# 1.5 x10 Normal 1.3-2.9 [facility] Comment on above: Performed By: #### 3 9547755, 3573802141, 28127707, 7304524174, 0189695, 3901854398 #### [facility] (DEFAULT) [address] [place] [address] Lymphocytes/100 WBC (Bld) 15 % Normal 14-48 [facility] Comment on above: Performed By: #### 3 3906311, 3833548925, 35864352, 5404815497, 2718960, 1554430403 #### [facility] (DEFAULT) [address] [place] [address] Mckinley Abs# 0.6 x10 Normal 0.0-0.8 [facility] Comment on above: Performed By: #### 3 7330944, 9213431010, 31159760, 4571536197, 0185158, 0338435395 #### [facility] (DEFAULT) [address] [place] [address] Neut Abs# 7.8 x10 Normal 1.5-9.2 [facility] Comment on above: Performed By: #### 3 8064398, 2602289978, 52674448, 2064652460, 7742914, 3403950363 #### [facility] (DEFAULT) [address] [place] [address] Neutrophils/100 WBC (Bld) 77 % Normal 44-88 [facility] Comment on above: Performed By: #### 3 0662757, 0795049414, 92165867, 1976397294, 0933621, 3013079875 #### [facility] (DEFAULT) [address] [place] [address] CBC w/ Auto Diffon 1 Erythrocyte distribution width (RBC) [Ratio] 14.4 % Normal 11.5-15.0 [facility] Comment on above: Performed By: #### 3 6797356, 9801385276, 18494585, 2610223191, 0848132, 9112952830 #### [facility] (DEFAULT) [address] [place] [address] Hematocrit (Bld) [Volume fraction] 37.3 % Normal 33.7-40.4 [facility] Comment on above: Performed By: #### 3 2091366, 0488939156, 24589255, 1557370722, 1925618, 8691474595 #### [facility] (DEFAULT) [address] [place] [address] Hemoglobin (Bld) [Mass/Vol] 12.2 g/dL Normal 11.3-15.9 [facility] Comment on above: Performed By: #### 3 1969748, 8132992267, 66787134, 9406342655, 8995240, 1353997711 #### [facility] (DEFAULT) [address] [place] [address] Instr WBC 10.1 x10 Invalid Interpretation Code [facility] Comment on above: Performed By: #### 3 1444456, 2550469732, 13268350, 7973465930, 5237057, 1437375507 #### [facility] (DEFAULT) [address] [place] [address] 39788 Man Diff? Auto Normal [facility] Comment on above: Performed By: #### 3 2600989, 2137215714, 36727954, 3876464040, 3026227, 9175616557 #### [facility] (DEFAULT) [address] [place] [address] 13856 MCH (RBC) [Entitic mass] 29 pg Normal 24-34 [facility] Comment on above: Performed By: #### 3 6324571, 6291458759, 52132700, 5767439019, 0429245, 2290889327 #### [facility] (DEFAULT) [address] [place] [address] 15971 MCHC (RBC) [Mass/Vol] 33 g/dL Normal 26-37 [facility] Comment on above: Performed By: #### 3 8107042, 7729261115, 23572369, 6499248623, 9486940, 1629361220 #### [facility] (DEFAULT) [address] [place] [address] MCV (RBC) [Entitic vol] 88 fL Normal 81-100 [facility] Comment on above: Performed By: #### 3 8723032, 8310379728, 29647217, 5775691756, 6009039, 1502675751 #### [facility] (DEFAULT) [address] [place] [address] Platelet 234 x10 Normal 138-427 [facility] Comment on above: Performed By: #### 3 2715090, 5177385402, 87878754, 5158316137, 0035495, 7682368020 #### [facility] (DEFAULT) [address] [place] [address] Platelet mean volume (Bld) [Entitic vol] 10.8 fL High 6.3-10.2 [facility] Comment on above: Performed By: #### 3 0492835, 4380143866, 32461997, 4014337868, 3143157, 3493028434 #### [facility] (DEFAULT) [address] [place] [address] RBC 4.23 x10 Normal 3.70-5.30 [facility] Comment on above: Performed By: #### 3 5617997, 1476482786, 47970447, 6098807128, 8934849, 6255784810 #### [facility] (DEFAULT) [address] [place] [address] WBC 10.1 x10 Normal 3.5-10.5 [facility] Comment on above: Performed By: #### 3 2845955, 5744814254, 57774834, 8668812744, 0877995, 9523137503 #### [facility] (DEFAULT) [address] [place] [address] CMP Standardon 06-09-2021 eGFR Non AA >60 Invalid Interpretation Code [facility] Comment on above: Performed By: #### 3 1387940, 1446634341, 35824421, 7675933781, 7153091, 9641054285 #### [facility] (DEFAULT) [address] [place] [address] 03940 eGFR AA >60 Invalid Interpretation Code [facility] Comment on above: Result Comment: Survival Specialist kulwinder Kidney disease could be indicated at eGFRs of less than 60 ml/min/1.73m2. Kidney Failure is indicated at less than 15 ml/min/1.73m2 Performed By: #### 3 1640824, 0691334671, 63278623, 4917168908, 4887014, 8104406289 #### [facility] (DEFAULT) [address] [place] [address] 52649 Albumin [Mass/Vol] 3.1 g/dL Low 3.5-5.0 [facility] Comment on above: Performed By: #### 3 3719306, 8678477216, 76767740, 3857964456, 8536052, 7842201851 #### [facility] (DEFAULT) [address] [place] [address] 70736 Albumin/Globulin [Mass ratio] 1.0 {ratio} Low 1.4-2.6 [facility] Comment on above: Performed By: #### 3 3599826, 9378316689, 29687709, 0989425033, 7179247, 6103399195 #### [facility] (DEFAULT) [address] [place] [address] 18062 Alk Phos 107 IU/L High 32-91 [facility] Comment on above: Performed By: #### 3 6715974, 8953517481, 97798597, 1921592966, 2080844, 7171011230 #### [facility] (DEFAULT) [address] [place] [address] 95266 ALT [Catalytic activity/Vol] 16.0 U/L Normal 14.0-54.0 [facility] Comment on above: Performed By: #### 3 6038527, 7498177629, 16196269, 8969261635, 0547429, 6549386512 #### [facility] (DEFAULT) [address] [place] [address] 23141 Anion gap [Moles/Vol] 12.0 mmol/L Normal 5.0-19.0 [facility] Comment on above: Performed By: #### 3 5813354, 0112717840, 05891466, 3376412948, 4566639, 8071235512 #### [facility] (DEFAULT) [address] [place] [address] AST [Catalytic activity/Vol] 19 U/L Normal 15-41 [facility] Comment on above: Performed By: #### 3 5738001, 9380465300, 62257948, 2323953488, 1865154, 2834844667 #### [facility] (DEFAULT) [address] [place] [address] 34495 Bili Total 0.1 mg/dL Low 0.3-1.2 [facility] Comment on above: Performed By: #### 3 1117205, 2441358821, 30115805, 4145810703, 8709260, 0862164404 #### [facility] (DEFAULT) [address] [place] [address] 15787 Calcium [Mass/Vol] 8.6 mg/dL Low 8.9-10.3 [facility] Comment on above: Performed By: #### 3 3656678, 3216274873, 88964593, 1254335448, 7436430, 4066372430 #### [facility] (DEFAULT) [address] [place] [address] 20656 Chloride [Moles/Vol] 105 mmol/L Normal 101-111 [facility] Comment on above: Performed By: #### 3 4707383, 7795849430, 76199289, 5161770019, 8186849, 1152979614 #### [facility] (DEFAULT) [address] [place] [address] 64584 CO2 [Moles/Vol] 20 mmol/L Low 21-32 [facility] Comment on above: Performed By: #### 3 3839639, 0563981850, 55916599, 2788850808, 3236338, 4400030579 #### [facility] (DEFAULT) [address] [place] [address] 24655 Creatinine [Mass/Vol] 0.63 mg/dL Normal 0.60-1.30 [facility] Comment on above: Performed By: #### 3 9183270, 8258084447, 84061279, 4949572450, 3956042, 0288819416 #### [facility] (DEFAULT) [address] [place] [address] 03025 Globulin (S) [Mass/Vol] 3.2 g/dL Normal 1.5-4.3 [facility] Comment on above: Performed By: #### 3 2288507, 1407207604, 76314806, 8317027760, 5343499, 1302884616 #### [facility] (DEFAULT) [address] [place] [address] 86085 Glucose [Mass/Vol] 81.0 mg/dL Normal 74.0-118.0 [facility] Comment on above: Performed By: #### 3 9108462, 3999277755, 71895335, 3592002397, 1538204, 2098122902 #### [facility] (DEFAULT) [address] [place] [address] 60469 Osmolality 264 mOsm/L Invalid Interpretation Code [facility] Comment on above: Performed By: #### 3 8105711, 6224809429, 66072001, 3656368967, 0303498, 7679767552 #### [facility] (DEFAULT) [address] [place] [address] 67954 Potassium [Moles/Vol] 4.0 mmol/L Normal 3.6-5.1 [facility] Comment on above: Performed By: #### 3 0403583, 7850590704, 96877163, 0826032095, 8338823, 0492825200 #### [facility] (DEFAULT) [address] [place] [address] Protein [Mass/Vol] 6.3 g/dL Low 6.5-8.1 [facility] Comment on above: Performed By: #### 3 6913380, 7412638628, 84748796, 3061807459, 0841319, 8538945682 #### [facility] (DEFAULT) [address] [place] [address] Sodium [Moles/Vol] 133.0 mmol/L Low 136.0-144.0 [facility] Comment on above: Performed By: #### 3 4483767, 0880985679, 80707128, 2589244484, 6984056, 7757899993 #### [facility] (DEFAULT) [address] [place] [address] Urea nitrogen [Mass/Vol] 10 mg/dL Normal 8-26 [facility] Comment on above: Performed By: #### 3 9151383, 1163485681, 29083189, 5053109525, 8391679, 4588902273 #### [facility] (DEFAULT) [address] [place] [address] Urea nitrogen/Creatinine [Mass ratio] 16.0 mg/mg Normal 4.6-16.2 [facility] Comment on above: Performed By: #### 3 8336688, 1918036587, 62466214, 1226831637, 5875562, 0812382074 #### [facility] (DEFAULT) [address] [place] [address] HgbA1c Standardon 06-09-2021 .Hb 13.7 Invalid Interpretation Code [facility] Comment on above: Performed By: #### 3 9719243, 4201228784, 49738014, 9710858783, 2925740, 5854402940 #### [facility] (DEFAULT) [address] [place] [address] .Hgb A1c 0.47 g/dL Invalid Interpretation Code [facility] Comment on above: Performed By: #### 3 7391476, 9042062888, 59395453, 2967900456, 0774243, 5284546525 #### [facility] (DEFAULT) [address] [place] [address] 45849 Glucose [Mass/Vol] 105 mg/dL Invalid Interpretation Code [facility] Comment on above: Performed By: #### 3 4714617, 2024763493, 82432781, 2414089556, 9856964, 2813007423 #### [facility] (DEFAULT) [address] [place] [address] 50475 HbA1c (Bld) [Mass fraction] 5.3 % Normal 4.6-6.2 [facility] Comment on above: Performed By: #### 3 2663927, 9027685352, 98524995, 5377862812, 6635622, 3449024225 #### [facility] (DEFAULT) [address] [place] [address] Lipid Panel Standardon 06-09 Cholesterol [Mass/Vol] 269.0 mg/dL High 66.0-200.0 [facility] Comment on above: Result Comment: Ruby rable - Less than 200 mg/dL Borderline high risk - 200-239 mg/dL High risk - 240 mg/dL and over. Performed By: #### 3 8647630, 2245989789, 04957214, 7799608587, 5926291, 4791270591 #### [facility] (DEFAULT) [address] [place] [address] 08795 Cholesterol in HDL [Mass/Vol] 102 mg/dL High 40-71 [facility] Comment on above: Result Comment: High risk - <40 mg/dL. Performed By: #### 3 3735930, 8814973839, 28310112, 7627594901, 1794520, 3693187647 #### [facility] (DEFAULT) [address] [place] [address] 91932 Cholesterol in LDL [Mass/Vol] 142 mg/dL High 1-100 [facility] Comment on above: Result Comment: Opti mal - Less than 100 mg/dL Borderline high risk - 130-159 mg/dL High risk - 160-189 mg/dL. Performed By: #### 3 3066014, 3575541806, 38687009, 7929549728, 4630168, 4304062980 #### [facility] (DEFAULT) [address] [place] [address] Cholesterol.total/C holesterol in HDL [Mass ratio] 2.6 {ratio} Normal 0.0-4.5 [facility] Comment on above: Performed By: #### 3 3726645, 6791351603, 23047001, 1137248350, 2429912, 5013032101 #### [facility] (DEFAULT) [address] [place] [address] Triglyceride [Mass/Vol] 120.0 mg/dL Normal 0.0-150.0 [facility] Comment on above: Performed By: #### 3 2671992, 8575578558, 52076065, 7075985128, 4034922, 8763255255 #### [facility] (DEFAULT) [address] [place] [address] VLDL. 24 mg/dL Normal 5-40 [facility] Comment on above: Performed By: #### 3 8747799, 0783700716, 38205273, 7398324933, 7385896, 7309890918 #### [facility] (DEFAULT) [address] [place] [address] Coding Summaryon 04-08-2021 Coding Summary [employer] 64 YaztridzDRh6bVd+PGhlY WQ+RK0IUMEwZ61ghGIuzW 2PG0yETI3SSDJKIJYLFF9 TZL8wwQJ6DJedV0GjkcAp TlzmyBIaVS74OAp1VKB9c TytBKczvY3qiQSuS5y5At PvJE55gS56EMtqQBCdSxM 3LjZpbjsgbWFy J2moHjMxkSKdXak+PHRhY mxlIHdpZHRoPScxMDAlJy MelKrwXR4wKg1vPZIqKMD vbGxhcHNlOiBj q7olIPEeRHqjXU4evVpuY 4YcfOR0FWOsf5z5Fk43kC I+GJJaXUO5iBzpZVzpq76 8QoIuh1ypBSM6 cQEoIGsiCZD5K70zt4A8Q KRvUCBlGFM4zNZ6gJ2sqI kpsxoeY0XknZQhMcR8JHM 7uNAfkG6kgFzs qnryoO9vHyy+I50RDS8DL JZJKQ1IGoi8G5OrKaleeQ I+ZS61LBTeRX51nBLxdCM uq1xscBv1UsQi ILOzYZF0fYesPBscy0CaJ TNmG10puPLce7J5YGCjnC wqxDIxWnTtlCU5gZ3kIZh ywczwz6ypbnrt Uttcc9lmwx62bO14G03nC EfwBFNfOHG1DDMbDEXuvZ uyoa6krP1oAh7+JHxee1h av8wxsPd7MzOs IVBvtqNgkWuwNTV4e8HuE r84Q1OiyTixm5ZlLxn3mu 66cOWwa7G6fFG7RXghNGP pbW3dZXvsAzP5 CAWfUiPscI68oKDyGOipG j8jqRroyXidND6bNKGdxf fqBDMgnX5uUPTntJJkzLm xSJ0qTXGupvex w419UbThDFJ2RBEwsWSsK 2TflP3zYnOcPJOeZQCkM8 IfjDLjQAcrX510VMtzMlZ 3EAYhmtInV1Su VESuiFqgRyL4c8Z4Mz2Ww 0PffuayKHN1TQpyFIH6Oh O5MdCgUcA5B2IhQrz0RYU vtHbhIL0wU9Dx CAGcnexociiigUG7LIBeD OFyvP09iIFtTKrnNt6ps5 K4d115CFXbOYExjM15Mc2 udDogMTBwdCBU oS2yytuxo1mxhecyRqJlS JAySJl9WKv5ZAGtcPjoDl SxJNU0VsD7KLA0mAKgvC1 riPwmheazlM3n Oyc+C09lhJ1xCCI6IOR4s qayWWOblrCtYN38PV57Z4 RyPjwvdGFibGU+PGRpdiB uxQdmXL0kXcTj e1xwz4XzWZuzW8PfIEHiI PnlNtf0BFDlMAI3kOK5yY 5pRUEzTDdmt5S6zVU1B5X btzUfnt4fa3ni PNVhSHybH23vlWQny3G8N UTssMJ3PIZsiSdbZpRcvU 93Oyc+GLAmlHbkd3FfZos kq8tji9xbyTo9 AbHdUZRavoJbfLxbCQB3l 3RyMc21O92fCGemROAaCI XmGCXqQJIymHabsf5kfJ3 wIi8+PGNvbCB3 pNR1kX9eCVZaUtE4SJllD 885MtMorXCfOwwcc0wjw5 nowOf5MsTiXHQsrpNfgEq vVBZ4x0JwWj21 X79tZJeyKFYyAKEzIREzG VFbbFplhq8gkN0yTu4+PC 1rp7oplf51lH50tOG+PHR lRTV5rHyhQUec OMZmoI2dRLinEdZ3QZFbH zVmaM19jFErUEfuEs3efT zqtXwxHL6oFEDkogwwr54 8SvAyp6scDKXq yUIvQJnmIVJ5D00eb0M2C IRyEWXvRLX1qTI8fP6xaO lnbjogbGVmdDsgdmVydGl hYVlhELpuW427 IHRvcDsnPlBhdGllbnQgT hZzRRh3N5ZbHqh4QICwkX owQD4wbZZmBUvxLf5nrLc ysMywYW3qNTVr pagwr059PaVvc5gzZKGzi PJlUVcxYBU6Z25kg1Z4XM OnCOJpKJE6aSS8bA9uqNt nbjogbGVmdDsg ukZitPfsQFijUJjbU230C HRvcDsnPkJpcnRoIERhdG R0LJ94NA83nUUaw0Y4gHB 4I7GyXNNskmuh lphgnOR2TAImKXXtyX02A c4lyXlvDu4bHKNeIPI2VI AsrTEhW3EfdS3mGtDoYLH bVPNxJ8ZjdKWm TJylX847NCdrVpD6LLEie aInH3HcMWExmNzcPfG9u5 C2Vn3KS3D7PK57RF05aUA gh1Q7yPU8K6Co GGPjaiskalyulKM7ERKrD XVncT61Ia8tfXhtFt7eFR LkMBV6YCAjkUVwC8GfbE7 yOiAjMDAwMDAw M1FkiBLiHSrbW594OQwoG rB2DRJgknXdR0TaKWKnpR ueYuS2h7J1Xj7MOKu3MO6 4BK64oOEzb3E3 mUG0G9HlKESjvlkmuflyv EY7YCJzAHRieH39Qz9ylY axTp1nIIIqFGF3OIRbbXG iY4WwzC0mKtMy BEGsCLLqE7GosKGtEBmcD 312GGdeFzF8JEEhwyLxH2 ErGVQovYsfHgX8q8D5Tg7 LNIAwUN02GGQ3 hEK4GU50UX89H3JwSevcc GFibGU+PHRhYmxlIHdpZH RoPScxMDAlJyBzdHlsZT0 iWt3dESHjUKQu xWehzQYjJoMhj1nhBRWaS FhlOU5jpDbzZ5UyeWR4OT Crv9e4Na94B73yE5YdrYF +HZMacUX3rFF7 rC5fSqYfKpG8HHgwC001G fDbvDIeAhbpq5oqh1ftxA m2WjL1EDLhbbJicIbhKDI 8s3TsTg92F55b IHdpZHRoPSIxNSUiIHZhb Yykpo0bmT0pDu4+PGNvbC N4hES5bH0rWaEkMsJ0UEp yQ247EeKzyDEk Fmzxt3umo9enkPc8EoUhA IAmonJifKjjVUZ5a7IhGy 08I0RgwYifv5WyDom0xo5 3zRHoz8T5eBB7 P5RvFWDajozdlOQemZgeN G2oMJVrbctdGCGcsY8sEB XrW1r6MyJiHjA0EAeoA0O yjkT3JFVnuQFf OVfhYTU4Q37og9F6YLWiG BTpYYS8hRE8cV6ytZhemt ogbGVmdDsgdmVydGljYWw eLIdrO024YDCw ySgfNWShgG6qLHSutFTqp TfeUJ7mORHaildnFp2CVK RFECJTNBCDEI4RFZEPDIv ACVR7A3FqQvj0 OLCvzCewQA5gtNOlKWcrH b5amGrokLjhKO6rUJXemn loVOLrxO1pOLJhwRIbiPx bIJ5lPQMgffux c286NdUoNYP5LMSpgDQvH 3UrfE9bEpUdSVUgNBWgH5 UetTCbJSroJ220RIqiReN 9IOMfnuHkU0Sl YNXccIauGeM0z5I9Lw9mT W2mGJ8kBGa1BL24IF95fE Qsl1F4bWY0L6NbMVLlrvr dllfzxCW1KJEj EWXtuQ55mNAxBOirRl1tb 6K9z212VXDuYLVyaS64Jk 0lhHdbZXWynUEDyF0exzc wd7grgnhiNwUt POAnFPy6XSh1QTEjiVptC tEqEEO9TxC6MZJ3oCYcuL 8vfYtacslftP9aBsg+MjY tYGKpfxQ6C9Qm Fvm3MUTmrDlaVB1gvFJwT YhrZn8gwRenkEzfOP2zES MdwrrrOQNbdG9qAJXerMN tyGtxDV1vAZDi eeepy395MuYgMFE9ODBjf OLdL8VmyX7xPrOaUOLbEY MaM0XlfZKiERsaH337OLu mVoL5IJOadjWy D2OuZUFgkRrcOhZ1x6W9N q5IBS5VUHW9N3XtIxz8YI NxhPibML5vcDTjDGhuSg3 lmYnpcWllVR5o KVVggnttQLVwxD8fGTCqz QVvhVvgKZ0lOTWxfsnop3 24UqHyQPN6PMRcyZUtI6L toG1eEeLqICKh ULMtJ5PjtEUfJOlkI523Z FqgJlV2MFDmfwUfH4FiDB JnkNhwPrP1b8R0Qr6UWHs vdGQ+KC40sc97 Z8SxAvmlLca5UMLfCFI4u OZ6fR3kOPPbLGfiy4H3jY I8B4SvmbShee8fi1liHGB yTAvbP64cmWKq s3O6XGGrrOL1AIQrmXtrM jRkyO79Rpt+PGNvbGdyb3 MiLsotn1vrb9sgyIe3XtE wJSIgdmFsaWdu BLQ7g5IaDw36D22jHZofY HRoPSIzMCUiIHZhbGlnbj 6zyE8nNi3+NESwfMY6dLC 3iX7eUnPjBxE3 SApwS802FxPnfCWvPtnth 6oyi7gtqNt1XeBuGMXbqh YyqTctENT5i0ZfCz78L0U apKnht0GiMxd8 ju63aZBfb6C6xZQ7E1UbZ TGvtvcqpZTpnLhsPW8aHR GgjakwVHIvwD4eRCOqK9d 7XgFnSmD2UGls X0RvisN2ZNCqhXJlMDGrd AJCgC9ehuqtu3ouapoxUk IvNHQdGUz4MYd1KQWjtJu bTmVnQOM8VnP8 ITO3kQKhmO9grYtjpvkeb G9wOyc+LXu7t4titCHgPQ 6cjOQ1ZZ29NO39dQLkn2A 4yNM1O3EcFCKf fsktvsoheDO3YYPpBAGdh J25Fk9zyYqmSp2oUEFeYL O8CYRovHDwW0YhvM5kUbW kASEaHLFaF2Of hITvTFdhI625GWslMaD4A BKswdQvA4KfZMDfaBrrZs X0f8U4Jr6SFY76EP26HB5 1qYLkz0J9bFR6 E7KzVHHbidrewcucoFD2O RDvFTLjfV77Bs9rxVfxRw 6iZGRdYJJ6EYWkfDWhT4R kiI5yWqPcWGDr PANeQ9XvrEIzMYibA574Z YznYwX1YGSxyuHgS2DcMJ HepJiyKeV4y9N9Bl8LEb1 6LR84MH46bYJe d6F4xFQ3I3EaJLOqxoffb cxxwGR7KWZaZKWonO84Qw 2xfZwiVx8kZEBdHTJ1VYV muGGcV4FmoX5c OrIlDQDnWMZeF6KruNHoK YlpP806GDkaMjA8NUQeqq ZsZ7DxQWWtrTprTqO2g0F 6Tm6RLIkkkip4 K8OlWarkfSO+GH38RZZwJ M38uFLytSBxi6bgxXj9Uh IyYLAuUOU4dRqvLCaaw3X pZGNvP97joKWa c2U (more content not included)... Normal [facility] Provider Orderson 04-07-2021 Provider Orders [id number]#1 .[id number] [facility] .Auto Diff 104-04-2021 Auto Mckinley % 5 % Normal 09-03 [facility] Comment on above: Performed By: #### 2 [id number] #### [facility] (DEFAULT) [address] [place] [address] Baso Abs# 0.0 x10 Normal 0.0-0.2 [facility] Comment on above: Performed By: #### 2 [id number], [id number] #### [facility] (DEFAULT) [address] [place] [address] 30284 Basophils/100 WBC (Bld) 0.1 % Low 0.2-2.0 [facility] Comment on above: Performed By: #### 2 [id number], [id number] #### [facility] (DEFAULT) [address] [place] [address] 21582 Eos Abs# 0.1 x10 Normal 0.0-0.4 [facility] Comment on above: Performed By: #### 2 [id number], [id number], [id number] #### [facility] (DEFAULT) [address] [place] [address] 64074 Eosinophils/100 WBC (Bld) 2.0 % Normal 0.9-4.0 [facility] Comment on above: Performed By: #### 2 [id number], [id number], [id number] #### [facility] (DEFAULT) [address] [place] [address] 90974 Lymph Abs# 1.2 x10 Low 1.3-2.9 [facility] Comment on above: Performed By: #### 2 [id number], [id number], [id number] #### [facility] (DEFAULT) [address] [place] [address] 24916 Lymphocytes/100 WBC (Bld) 17 % Normal 14-48 [facility] Comment on above: Performed By: #### 2 [id number], [id number], [id number] #### [facility] (DEFAULT) [address] [place] [address] 25289 Mckinley Abs# 0.3 x10 Normal 0.0-0.8 [facility] Comment on above: Performed By: #### 2 [id number], [id number], [id number] #### [facility] (DEFAULT) [address] [place] [address] 13018 Neut Abs# 5.4 x10 Normal 1.5-9.2 [facility] Comment on above: Performed By: #### 2 [id number], [id number], [id number] #### [facility] (DEFAULT) [address] [place] [address] 78189 Neutrophils/100 WBC (Bld) 76 % Normal 44-88 [facility] Comment on above: Performed By: #### 2 [id number], [id number], [id number] #### [facility] (DEFAULT) [address] [place] [address] CBC w/ Auto Diffon 1 Erythrocyte distribution width (RBC) [Ratio] 13.7 % Normal 11.5-15.0 [facility] Comment on above: Performed By: #### 2 [id number], [id number], [id number] #### [facility] (DEFAULT) [address] [place] [address] Hematocrit (Bld) [Volume fraction] 34.4 % Normal 33.7-40.4 [facility] Comment on above: Performed By: #### 2 [id number], [id number], [id number] #### [facility] (DEFAULT) [address] [place] [address] Hemoglobin (Bld) [Mass/Vol] 11.1 g/dL Low 11.3-15.9 [facility] Comment on above: Performed By: #### 2 [id number], [id number], [id number] #### [facility] (DEFAULT) [address] [place] [address] Instr WBC 7.1 x10 Invalid Interpretation Code [facility] Comment on above: Performed By: #### 2 [id number], [id number], [id number] #### [facility] (DEFAULT) [address] [place] [address] 95827 Man Diff? Auto Normal [facility] Comment on above: Performed By: #### 2 [id number], [id number], [id number] #### [facility] (DEFAULT) [address] [place] [address] 69109 MCH (RBC) [Entitic mass] 30 pg Normal 24-34 [facility] Comment on above: Performed By: #### 2 [id number], [id number], [id number] #### [facility] (DEFAULT) [address] [place] [address] 82602 MCHC (RBC) [Mass/Vol] 32 g/dL Normal 26-37 [facility] Comment on above: Performed By: #### 2 [id number], [id number], [id number] #### [facility] (DEFAULT) [address] [place] [address] 92868 MCV (RBC) [Entitic vol] 92 fL Normal 81-100 [facility] Comment on above: Performed By: #### 2 [id number], [id number], [id number] #### [facility] (DEFAULT) [address] [place] [address] Platelet 225 x10 Normal 138-427 [facility] Comment on above: Performed By: #### 2 [id number], [id number], [id number] #### [facility] (DEFAULT) [address] [place] [address] Platelet mean volume (Bld) [Entitic vol] 9.8 fL Normal 6.3-10.2 [facility] Comment on above: Performed By: #### 2 [id number], [id number], [id number] #### [facility] (DEFAULT) [address] [place] [address] RBC 3.73 x10 Normal 3.70-5.30 [facility] Comment on above: Performed By: #### 2 [id number], [id number], [id number] #### [facility] (DEFAULT) [address] [place] [address] WBC 7.1 x10 Normal 3.5-10.5 [facility] Comment on above: Performed By: #### 2 [id number], [id number], [id number] #### [facility] (DEFAULT) [address] [place] [address] O'Aguilar Teston 04-04-2021 Glucose [Mass/Vol] 115 mg/dL Normal <=139 [facility] Comment on above: Performed By: #### 2 [id number], [id number], [id number] #### [facility] (DEFAULT) [address] [place] [address] Coding Summaryon 11-29-2020 Coding Summary HTMLBase 64 OhqymtyvFOx0qId+PGhlY WQ+WQ0IDPGvH34ubMSpnM 3ST6oBFR2PBWLZOYXWJU6 BOA6rkOC4ATrvY3TurtQl XnrolBTtYP10WYt5ENQ0l IobSGzrxX5viPFuB2l2Oi DuJT44yF51ELyvGKRfFvQ 3LjZpbjsgbWFy A9hsWtFnjZVdApe+PHRhY mxlIHdpZHRoPScxMDAlJy LbyRyiLW0oTe4gRKUmPVE vbGxhcHNlOiBj q4baWWYpZOxlMH6juFzbY 0LodLA6WENpj8n0Lv06xA I+NQUtRBM4sWmuWCsut15 1OsVws7kqWYN1 oHIyNYjvDXD5L60pq2M6F IUjGGZeRHX2hZZ5dA5tkX lthsmtT4RhmUCzUgN9HNK 7zBJwdW0huMuq sumpvM0lQzo+P41LUE6LG WEOTD9KFlb1B4AnYxgetX I+BI89ZDBnFY60iGXwaUM pp7kpoPf0YjNc JHYzHBJ9eFsfNTzos7ZqD VGcA38ceSBfe3G0EHRqzS oxkIXyKfYjyUT1fC1bVNi nlnovf3xbxzun Yazpc9oczn88wL47G63oG LafTKQdOCH0BBXzXPUpnX znaw4utW5pQo8+QJerq4a su6zncSm5QsWi MWFqzeUjzJaoUIT1r8UvN x44Y4WbtQvph2BeVdp7me 79kJFzg3R9dXO7GWwuJUP uqU9cWUgpSeX1 QLCqGvBerH67iXVzUYruA e9uzZbixRppTU7wPCXohz zmMBOgzE4eJQCisQAciDu xYW4yXKThppri z153SoAzDXF2VXXlmJOkI 8YeqW4qWbWhSTKvKRBlI4 WnxQEmDVvlE998POjkTcE 9YLNtdhCrN9Wo EMWxmUwuIlA7b1Q0Qa7Fl 3SodfwuWXM3SYnlCMA8Vp Q1BpJfXhK6Z4PmErk3TEK ztZybTY9wF2Ai HQItbpszbzkwxAO1TLUeS INgjZ41iJEnNPbrHm7rb6 J5j583XPUuCYSnxE89Kx5 udDogMTBwdCBU jA1nzqeri0hvewmmYqGbT TJkNXx4YAw9EGDweTvhQk ReLYA0PzY0XGT8zKOaqG2 ylEbmkngsaO9e Oyc+M33pnW3lIWO6DRD7o ekrCQFiuzRkFX43PA10I4 RyPjwvdGFibGU+PGRpdiB pbZqtLI2pPjXq w7qkb7TpUOcqI6UdDRVwI FkmBbr3STEeUAY9nQT0jU 9qTZYaXEpir7X0nZG8I7N tguJwqs6fw5yu ZNNdJFefC19sjDZgn0G4N MDxjUJ2HWLqbMcbGpYleW 93Oyc+PGSakXtaj0KuEhh tt6ldr0wapJu9 ZzBqDNPgrlEgySqiVDQ6k 1XuUt16F88zSPzbTVLjYD NrPMZpCJDmsJyttg5mhR7 wIi8+PGNvbCB3 vSL1nP7dAQAdYgJ1PQoqO 132WiYbwZXdWlzek3vas3 qaaEl4QyUhDARdhoYriVa hFVH3i0KpUd72 P40mABijALUaCETmOEGcR BIwsIckmo7ldA1yEg2+PC 1sh2mgow15sH63xXZ+PHR fOUH4qKahSVyh UKYbrS4fXWemIeV1LTImD yLkcC53kIFhACsmZv2ibH iluXetCF4uUNNyclxgb27 2LsMsg4moAWXq yWKbRWolPCE0H00rg0U4U OKsTCEhRHV1kDI4aI8unH lnbjogbGVmdDsgdmVydGl lIFxaLClgX925 IHRvcDsnPlBhdGllbnQgT jBbAEo2D1NkRdd5YOKjuR woBC8avVYoXTrlYa2jeHu iuWzcFM8nOELc txsyj988MzLuz8kcNKZeh TBgTOveISI7W27qy8M0BU ZeODSwDUZ0tVJ0eI2xeVc nbjogbGVmdDsg jkIhtMchDLtjXCzxN779H HRvcDsnPkJpcnRoIERhdG G4ZF50GQ33vHIvg6Y5jJV 0F8GxDCLjwiet mifycSZ8UPFlWELjuJ12T d5fmWmqCc7yOLCuUAU8FP HfsVMlW5RzqT7aYqUwKPS zCQZiE2JgnSJu AMmgW859VUzvWrJ7XAFir yPxN9HcMVExzZkjPgW2g5 W3Cy6RQ5G1YW11KM79hQM jy8Q5oMV0M4Ix MBGgxltdgefrcEN9XNNnD BNojK70At4ntYxaEh2iDD HjSQR2ETVwpIJoK9HtnH0 yOiAjMDAwMDAw I4RumNZwDJgoS259OCpaI pX2TJMkwqVvY4HnBJOraJ flBtV5c8V3Vz2MYKq4HX7 2VD99eEFia2R8 rHC6Z9XcGABndgkamvlzh JK6BAOlKDDrgN44Je6trL mfOn6bXYNqECT2PNAyhWJ fF1QjdG7fOgPe HNAvVPTyV9VeqHUvIHuzT 587YCipVcQ9ITQvkcOwB3 YbPMNlrKneNpH9t6J6Kq7 ZXMOeLA20NBK4 hVD1MJ73NM53H1GlTuqxr GFibGU+PHRhYmxlIHdpZH RoPScxMDAlJyBzdHlsZT0 yRh2oADQkJPMp zHktxTLrSeCyd6qqXWAbQ LwuDD1ynBjeI2SqfXX4TX Hnn4b0Ik43V82dE4FlyQN +QQXzqZZ1xZR6 qY4oVhTjAyA4AMxsY616X mFfpRNvCmpjy8loa8sauL i2UpJ5TTSaesNilQecZFU 1i1LfLu05A78e IHdpZHRoPSIxNSUiIHZhb Enedj8ujV9oMb6+PGNvbC W3iBE9rF5yYzFvBjP3BYd gQ205VcNqyUCj Zhiqn9knh6pmiVu9XwWlF XKtbjXeaMfbIKF4m9JhEa 03A1JbvGzae4DpMhv7bt8 9lZRhu9P4fDL2 C7KlQPSxbsncpLSuuTlsY D3qCCPvsckvGSSejV7cHL DiP6b0GvEeAtR9LMwqL5A ofiN2CKGsuCXq RGcoTQY5I29sm4R3ISWrV AHySUT4iHZ4aN5fsNeweu ogbGVmdDsgdmVydGljYWw eZSpgM631IMGs jCujFJWmvN2kBXTmnKAog YmjTE9rXWBseecqMs6SHZ OSBWBXGHYLRF2ZOCXPQCa OAPH4M8BgLii5 LUAfjBqnII6kuTTpJSlkX c4jhAdyqMsfJI8aGKVvqt wwBBWmzG1uDASdwFMigZg hAL7fJBKkcuqd n724VyBfBYJ0HQAefKKvG 0AjfX8rCfRoDTRbJKOgX5 UawNIlWMglS223EHmbSoX 0VPMnviPwB6Ym XHIplNdjHoW6t7Z7Fa1zM U7lVY6cBLv6RG01DS67jB Xdz1T3jCP0O6PhJNImiih diisyzWW9ZZDz ANRztG62mBNjZBaqNy3fe 8Q8m985TDTjPSMkgK97Tm 2ypZwhYVGamYWPkX7hpec gy0hkwhquVdYp SBNtFGm3UFl7GHCzyPgiG fChSVW6CgL1VDK3xQNqqW 3yeMbyctcaiS7fFys+MjY lILKewjE8K6It Owl6QRCrmNctWN6kgMFeV UzmKr1ryEanvPqlVL4tJN PuhcteGSOkfB9cFGGnbOK dnOuuER4lLHUw upmfn703JkUaNCS4QOLiu GBwW0XbvX2pOwZoEWIrQB ApO3GlfJVjALirC759DAr vJtJ4YANezlOf Y1TiAJQeuJcuEfK8m0R9N f7UKJ1EQLU0O3KsJis7KC FadUkoFP4lvZBhMPpjTl3 naRwlnVumXS3e FKKdngmcSXIxyF9wPATyt OOuyXnpPB1aXXSufskca6 70JePzLYI3LKJsoWFtM8R vtV2sPoNkGNLp DFIgM2PkpXIkFIdiW226X IpfFfM6IMGpbpNxG1CxRO OujOfvCcD7w5I4Yq9OQLm vdGQ+QK69jn81 J9JtEgaaZdr8FLQwTRT8r AJ2wE7mOHWgBFelh8O6aT D6R4XkrbWjtk0nm5lyHEL uNEswN20ehJTp y1P5YQQteDD0YMQfuZxwE fIslY38Ofq+PGNvbGdyb3 UaIvnwk2dpw4arkXr3VkL wJSIgdmFsaWdu PXF0t1EgRq45J11tXSzrQ HRoPSIzMCUiIHZhbGlnbj 9kiM9eKw3+OLXjlBO8oMQ 3qK4dAiKgKyF7 GNauH871CqTyfDJbTtmlq 4ubf5isrAr6TuMlFWGzrp SqaKupMWV4b8YzDo24A5I aoEwad2SmVfs0 qc38rXVvt6R2tBM3I2WgB BLehrljaKMcpMvjHH6qKX KvgupqVXBzvU3zWYXnY0x 3CyZkGrA2ACko G6PftzI5RZRdyWIbICEpn QHHsX3eommhk7wnusceMw OaYKQqRFo3IEs5ZGSzzDf zKdQjEUW6OeE1 MKB1dQEtwY5ekUuefoeso G9wOyc+LUc3r4gqyMYiLC 5ghJD0XD16LW20uHPng6G 0dUP4M6SrTTIh ccqhrsxcsDO0VQJbYNAje G39Wi4lpHmkGq0wRIYuPY Q8AEJhwZFkY5KqaM5vNuW gVAFuNDUiH9Th sAQeGEetR973WXqlYcL0B DKpsaBuN7SrAINgsVykQa K1p9D7Bi8OHY69WS58JK1 9pHSuf5V4jKL3 Y3WjKYFhbvjmrpskyWG9S EEuDAPgtW10Zt1siUawDp 1yEEEbQQF2NGAxuNNoI3L fkD1bNhEfJEGp BGOeI3AwqRGkCEzgW407M OhrLnF5ECShogReQ3EePR EtiPwoBdS8b0F3Qy6IZo2 4XB36PV72pOZh l5T3kRD5J7XdYTRofvbkh hbslYL9OCPtCXToiD50Wp 0pgBcfOj3vZBQbGSF3YWY rjVHkF4JoeZ1y XkEcLAOeHOAaE9XevNUaV EufZ090SIpbLrE7YHDzfk XgU8RyPUUamTsoYvC9h1T 1Ed7ZRItwnst7 N4CtXhttvHZ+OI87ZKWuH T58pIWmzKUjn7ereEs1Pz McTODoNKO5kUajZHbec4V kDIFmJ00pvGWt c2U (more content not included)... [facility] Provider Orderson 11-28-2020 Provider Orders [id number]#1 .[id number] [facility] ABORhon 11-27-2020 ABO and Rh group Nom (d) Hx Check: Not Found Anti-A: 0 Anti-B: 0 Anti-D: 4+ DCon: NT A1: 4+ B: 4+ ABORh Interp: O POS Invalid Interpretation Code [facility] Comment on above: Performed By: #### 7 [id number], [id number] #### [facility] (DEFAULT) [address] [place] [address] ABORh Retypeon 11-27-2020 ABO and Rh group Nom (Bld) Ordered by Discern. Anti-A: 0 Anti-B: 0 Anti-D: 4+ DCon: NT A1: 4+ B: 4+ ABORh Retype: O POS Invalid Interpretation Code [facility] Comment on above: Performed By: #### 2 [id number] #### [facility] (DEFAULT) [address] [place] [address] hCG Quantitativeon 1 hCG Quantitative 818185.0 mIU/mL High 0.0-0.6 [facility] Comment on above: Result Comment: Resu lt confirmed by dilution Post-Menopausal Reference Range is: 0.1-11.6 mIU/mL Performed By: #### 2 [id number] #### [facility] (DEFAULT) [address] [place] [id number] Vital Signs Date Time Vital Sign Value Performing Clinician Facility 01-28-2023 16:20-0400 Body height 160.02 cm Shelli Villa Other [facility] 01-28-2023 16:20-0400 Body mass index (BMI) [Ratio] 40.74 kg/m2 Shelli Villa Other [facility] 01-28-2023 16:20-0400 Body temperature 99.7 [degF] Shelli Villa Other [facility] Other 01-28-2023 16:20-0400 Body weight 104.33 kg Shelli Villa Other [facility] Other 01-28-2023 16:20-0400 Respiratory rate 18 /min Shelli Villa Other [facility] Other 01-28-2023 16:20-0400 SaO2% (BldA) [Mass fraction] 99 % Shelliesmer Villa Other [facility] Other Encounters Encounter Date Encounter Type Care Provider Facility Start: 04-25-2024 End: 04-25-2024 ambulatory JENS ESCALONA Not Available Start: 03-07-2024 End: 03-07-2024 ambulatory JAYDEN DASIA Not Available Start: 02-29-2024 End: 02-29-2024 ambulatory JAYDEN DASIA Not Available Start: 02-22-2024 End: 02-22-2024 ambulatory JAYDEN DASIA Not Available Start: 02-15-2024 End: 02-15-2024 ambulatory JAYDEN DASIA Not Available Start: 02-01-2024 End: 02-01-2024 ambulatory JAYDEN DASIA Not Available Start: 01-18-2024 End: 01-18-2024 ambulatory JAYDEN DASIA Not Available Start: 01-04-2024 End: 01-04-2024 ambulatory JENS IQRA Not Available Start: 12-06-2023 End: 12-06-2023 ambulatory JAYDEN DASIA Not Available Start: 11-08-2023 End: 11-08-2023 ambulatory JENS ESCALONA Not Available Start: 10-11-2023 End: 10-11-2023 ambulatory JAYDEN DASIA Not Available Start: 09-13-2023 End: 09-13-2023 ambulatory JAYDEN DASIA Not Available Start: 08-13-2023 End: 08-13-2023 ambulatory JAYDEN DASIA Not Available Start: 01-28-2023 End: 01-28-2023 ambulatory Shelli Villa Other [facility] Start: 01-28-2023 Office outpatient ne w 20 minutes Shelli Villa [facility] [place] Start: 11-23-2022 End: 11-23-2022 ambulatory JENS ESCALONA . Facility: Start: 09-21-2022 End: 09-21-2022 ambulatory PRAVEEN ZELAYA Facility: Payers Date Payer Category Payer Unknown [id number] 1995 Unknown [id number] 2.16.84 0.1.351480.3.579.2.593 1994 Unknown [id number] 2.16.84 0.1.438277.3.579.2.593 1994 Unknown [id number] 2.16.84 0.1.316403.3.579.2.1258 1994 Unknown [id number] 2.16.84 0.1.459952.3.579.2.9 1994 Unknown [id number] 2.16.84 0.1.968047.3.579.2.9 1994 Unknown [id number] 2.16.84 0.1.199394.3.579.2.1258 1994 Unknown [id number] 2.16.84 0.1.244563.3.579.2.9 1994 Unknown [id number] 2.16.84 0.1.947762.3.579.2.9 1994 Unknown [id number] 2.16.84 0.1.767154.3.579.2.9 1994 Unknown [id number] 2.16.84 0.1.100943.3.579.2.1258 1994 Unknown [id number] 2.16.84 0.1.387940.3.579.2.1258 1994 Unknown [id number] 2.16.84 0.1.170437.3.579.2.1258 1994 Unknown [id number] 2.16.84 0.1.294028.3.579.2.1258 1994 Unknown [id number] 2.16.84 0.1.656029.3.579.2.1258 1994 Unknown [id number] 2.16.840 .1.227428.3.579.2.9 1959 Unknown [id number] Social History Date Type Detail Facility Unknown if ever smoked [facility] Other Sex Assigned At Sex Assigned At Bir th [facility] Other Evaluation note 01-28-2023 Note Date & [...] worsening. Patient verbalized understanding of treatment plan. [facility] Other History general Narrative - Reported Note Date & Type Note Facility History general Narrative - Reported Type Surgical History sinus surgery x2 [facility] Other Summary Purpose Family History No Family History Records FoundNo Family History Records FoundNo Family History Records Found Advance Directives No Advanced Directives Records FoundNo Advanced Directives Records FoundNo Advanced Directives Records Found Additional Source Comments INFORMATION SOURCE (unrecogn ized section and content) DATE CREATED AUTHOR 11/03/2021 [facility] DATE CREATED AUTHOR AUTHOR'S ORGANIZ ATION 12/12/2022 [facility] DATE CREATED AUTHOR AUTHOR'S ORGANIZ ATION 04/25/2024 [facility] EPIC REASON FOR VISIT [...] BE BASED ON THE PRIMARY CLINICAL RECORDS. [facility] [employer] [facility]. provides no warranty or guarantee of the accuracy or completeness of information in this document.
== END 2024-07-17 20:29 | disposition home or self-care (01) ==
LOC: LAB 20:28
PROVIDERS: PCP Family Medicine; Visit Provider Obstetrics & Gynecology
DX: Z01.419 Encounter for gynecological examination (general) (routine) without abnormal findings (principal)
CPT/HCPCS: 88175

== ENCOUNTER 2025-05-12 09:09 | Emergency (ER) | payer BC, SELFPAY ==
--- OUTSIDE RECORDS SUMMARY | 2013-09-15 09:45 | XMS_ITS | Continuity of Care Document ---
Author Organization [employer] [facility] Address [address] [place] [address] Phone Care Team Providers Care Field Sales Associate Name Role Phone Joanne Waterman MD Unavailable Unavailable Allergies, Adverse Reactions, Alerts Substance Reaction Status Criticality No Known Drug Allergies Active No I nformation Medications Medication Instructions Dosage Effective Dates (start - stop) Status Comments Sprintec (28) 0.25 mg-35 mcg tablet take 1 tablet by oral route every day 1.00 tablet - Active Zithromax Z-Fernando 250 mg tablet take 2 tablet by oral route every day for 1 day then 1 tablet (250 mg) by oral route once daily for 4 days 500 MG - No Longer Active Procedures Procedure Date OFFICE/OUTPATIENT VISIT, [facility] Advance Directives Directive Yes / No Effective Date File Name Resuscitation Not Answered N/A N/A Life Support Not Answered N/A N/A Intubation Not Answered N/A N/A Antibiotics Not Answered N/A N/A IV Fluid Support Not Answered N/A N/A Tube Feed Not Answered N/A N/A Other Directive N/A N/A WARNING:The information contained in this section is historical and is provided for information only and does not constitute a legal document or any assurance that the information is still accurate. Please verify the information with the hernandez of the legal document before using it for clinical purposes. Encounters Encounter Description Practice Location Reason(s) For Visit Diagnoses Date Provider Providers Copied on Encounter OFFICE/OUTPATI ENT VISIT, [facility], [address] [place], [place], [id number], [place] tel:[phone] [facility] sore throat (chief complaint) Pharyngitis Columba Rubio. [address], [place], [id number], [place]. tel:[phone] Referring Provider: Joanne Guerrero, [address] [place], [address]. tel:[phone] Family History Family Member Type Diagnosis Age At Onset No Information Payers Payer name Insurance type Covered libertarian ID Sterling hou(sReggie MORTON [id number] Social History Type Description Quantity Date Captured Comments Alcohol Use Details beer & liquor Caffeine Use Details No Tobacco Use Status No Information Smoking Status Never smoker Sex Female Vital Signs Date / Time: Height Weight BMI Pulse Rate Blood Pressure Temperature Respiratory Rate Body Surface Area Head Circumference Head Circ. Percentile Wt./Dylan. Percentile BMI percentile Pulse Ox Inhaled Ox 1:46 PM 64.25 in 174.60 lbs 29.7 3 kg/m eter (2) 79 /min 136/79 mm[Hg] 98.90 F 18 /min 100 % Chief Complaint And Reason For Visit From encounter dated '09/15/2013 13:45'. sore throat (chief complaint) Reason For Referral Reason For Referral No Information History Of Present Illness Encounter Date Complaint History Of Prese nt Illness No Information Functional Status Date Functional Assessmen t No Information Instructions Date Instruction Additional Infor mation Patient advised to push oral flu ids. Related to Pharyngitis Recommend back up control until next menses. Related to Pharyngitis Assessments Type Assessment Date No Information Mental Status Date Cognitive Assessment Orientation - [place] ed to time, place, person, situation. Patient Care Teams Name Effective Dates (start - stop) Status Members No Information
[2025-05-12 09:13] VITALS: BP 132/89; PULSE 81; TEMP 37.1; O2SAT 99; BMI 36.1
--- OUTSIDE RECORDS SUMMARY | 2025-05-12 09:20 | XMS_ITS | Patient Health Record ---
Author Organization [facility] [place] Address [address] [place] [address] Care Team Providers Care Puller Over Name Role Phone Cash Pena Primary Care Provider Allergies No Known Allergies Results Component Value Reference Range Notes IGP,Aptima HPV,Age Gdln Reviewed date:07/26/2024 07:37:18 PM Interpretation: Performing Lab: Notes/Report: BRUSH-SPATULA CERVIX ENDOCERVIX [facility] , Age Gdln ACOG Testing Note . 01 =G [facility] [place] FLAG LEGEND: [address] [place] [address] Age Algo ACOG Mei... 21-29 01 Clinician Provided Cytology Information L-Low Normal,H-High Normal,LL-Alert Low,HH-Alert High Sofia Fang MD, Performed at: Source.............Cervix;Endocer vix TESTS RESULT FLAG UNITS REF RANGE LAB <-Panic Low,>-Panic High,A-Abnormal,AA-Critical Abnormal No. of containers..01 ThinPrep Vial IGP, rfx Aptima HPV ASCU Note . . 02 cells (endocervical component) are present. 02 [facility] NEGATIVE FOR INTRAEPITHELIAL LESION OR MALIGNANCY. <-Panic Low,>-Panic High,A-Abnormal,AA-Critical Abnormal Test Methodology: Note 02 TESTS RESULT FLAG UNITS REF RANGE LAB Operator Supply: Sofia Fang MD, Phone: [phone] . 02 FLAG LEGEND: The HPV DNA reflex criteria were not met with this specimen Specimen adequacy: 02 Performed at: =[facility] cancer. Both false-positive and false-negative reports do Performed at: [facility] detection of premalignant and malignant conditions of the This liquid based ThinPrep(R) pap test was screened with occur. [address] [place], [place] [id number] the use of an image guided system. Performed by: 02 [address] [place] [address] uterine cervix. It is not a diagnostic procedure and [address] [place], [place] [id number] Note: Note 02 Sofia Fang MD, should not be used as the sole means of detecting cervical Operator Supply: Sofia Fang MD, Phone: [phone] The Pap smear is a screening test designed to aid in the L-Low Normal,H-High Normal,LL-Alert Low,HH-Alert High Julissa Jones, [employer] (ASCP) result therefore, no HPV testing was performed. Performed at: Satisfactory for evaluation. Endocervical and/or squamous metaplastic DIAGNOSIS: 02 Performing Lab: see note LC - [facility] Reason For Referral No Information Medications Medication SIG (Take, Route, Frequency, Duration) Notes Start Date End Date Status Amoxicillin-Pot Clavulanate 875-125 MG 1 tablet Orally every 12 hrs; Duration: 10 days 01/29/2023 Active Social History Tobacco Use: Social History Observation Description Date Details (start date - stop date) Never Smoker NA - NA Tobacco Use/Smoking Question Answer Notes Patient is a nonsmoker Alcohol Screen (Audit-C) Question Answer Notes Did you have a drink contain ing alcohol in the past year? Yes How often did you have 6 or more drinks on one occasion in the past year? Monthly or less (1 point) How many drinks did you have on a typical day when you were drinking in the past year? 1 or 2 drinks (0 point) How often did you have a dri nk containing alcohol in the past year? Weekly (3 points) Points 4 Interpretation Positive Plan Of Treatment No Information Insurance Providers Payer Name Payer Address Payer Phone Subscriber Number Group Number Insured Name Patient Relationship to Insured Coverage Start Date Coverage End Date 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
--- OUTSIDE RECORDS SUMMARY | 2025-05-12 09:20 | XMS_ITS | Encounter Summary ---
Author Organization [facility] Address [address] [place] [address] Care Team Providers Care Scissors Grinder Name Role Phone Ja Pena MD Primary Care Provider [phone] Encounter Details Date Type Department Care Team (Late Contact Info) Description 08/14/2023 Clinisync Result Encounter [facility] External Department Unsolicited Jayden Jordan DO [address] [place] [address] Social History Tobacco Use Types Packs/Day Years Used Date Smoking Tobacco: Never Assessed Comments Yes Sex and Gender Information Value Date Recorded Sex Assigned at Female 04/08/2023 7:49 AM EDT Legal Sex Female 11:47 PM EDT Gender Identity Female 04/08/2023 7:49 AM EDT Sexual Orientation Not on file documented as of this encounter Plan of Treatment Upcoming Encounters Date Type Department Care Team ([facility] Contact Info) Description 07/24/2025 11:00 AM EST [facility] [address] [place] [phone] Jayden Jordan DO [address] [place] [address] documented as of this encounter Procedures Procedure Name Priority Date/Time Associated Diagnosis Comments US OB TRANSVAGINAL 08/14/2023 12 :30 AM EST documented in this encounter Results * US OB TRANSVAGINAL (08/14/2023 12:30 AM EST) Anatomical Region Laterality Modality Other 08/14/2023 12:3 0 AM EST Narrative 08/14/2023 12:32 AM EST [address] [address] Ultrasound Report Signed Patient: ALYSON GARCIA MR#: [id number] : 1995 Acct:[id number] Age/Sex: 27 / F ADM Date: 08/13/23 Loc: US Attending Dr: Jayden Jordan D.O. Ordering Physician: Jayden Jordan D.O. Date of Service: 08/13/23 Procedure(s): US OB transvaginal Accession Number(s): [id number] cc: Jayden Jordan D.O.; Ja Pena M.D. [place] [address] Patient Name: ALYSON GARCIA MRN: [id number] date: 1995 Sex: F Assigned Patient Location: US Current Patient Location: Accession/Order Number: [id number] Exam Date: 08/13/2023 09:03 Report Date: 08/14/2023 00:30 At the request of: JAYDEN JORDAN Procedure: US OB transvaginal EXAMINATION: US OB transvaginal HISTORY: MISSED MENSES COMPARISON: No relevant comparison available. FINDINGS: GESTATIONAL SAC: Present and normal appearing. YOLK SAC: Present and normal appearing. POLE: Present and normal appearing. CARDIAC: Present. UTERUS: Normal size and appearance. OVARIES: Right: Normal. Left: Corpus lutein cyst. CERVIX: 4.2 cm in length and closed. CUL-DE-SAC: Normal. OTHER: None. AGE BY LMP: 8 weeks 0 days MARIANA BY LMP: 03/24/2024 AGE BY US CRL: 8 weeks 0 days MARIANA BY US CRL: 03/24/2024 US/US OB transvaginal IMPRESSION: 1. Single live intrauterine . Electronically authenticated by: AVERY CARRENO Date: 08/14/2023 00:30 Dictated By: Avery Carreno M.D. Signed By: 08/14/2331 DD/ TD/TT: Refinery Operator Crude Unit: Procedure Note Radiology, Radiologist, - 10/27/2023 [place] [address] Ultrasound Report Signed Patient: ALYSON GARCIA NMR#: [id number] : 1995Acct:[id number] Age/Sex: 27 / FADM Date: 08/13/23 Loc: US Attending Dr: Jayden Jordan D.O. Ordering Physician: Jayden Jordan D.O. Date of Service: 08/13/23 Procedure(s): US OB transvaginal Accession Number(s): [id number] cc: Jayden Jordan D.O.; Ja Pena M.D. [place] [address] Patient Name: ALYSON GARCIA MRN: [id number] date: 1995 Sex: F Assigned Patient Location: US Current Patient Location: Accession/Order Number: [id number] Exam Date: 08/13/2023 09:03 Report Date: 08/14/2023 00:30 At the request of: JAYDEN JORDAN Procedure: US OB transvaginal EXAMINATION: US OB transvaginal HISTORY: MISSED MENSES COMPARISON: No relevant comparison available. FINDINGS: GESTATIONAL SAC: Present and normal appearing. YOLK SAC: Present and normal appearing. POLE: Present and normal appearing. CARDIAC: Present. UTERUS: Normal size and appearance. OVARIES: Right: Normal. Left: Corpus lutein cyst. CERVIX: 4.2 cm in length and closed. CUL-DE-SAC: Normal. OTHER: None. AGE BY LMP: 8 weeks 0 days MARIANA BY LMP: 03/24/2024 AGE BY US CRL: 8 weeks 0 days MARIANA BY US CRL: 03/24/2024 US/US OB transvaginal IMPRESSION: 1. Single live intrauterine . Electronically authenticated by: AVERY CARRENO Date: 08/14/2023 00:30 Dictated By: Avery Carreno M.D. Signed By:08/14/232 DD/ TD/TT: Refinery Operator Crude Unit: us Jayden Jordan DO [facility] Final Result documented in this encounter Visit Diagnoses Not on filedocumented in this encounter Care Teams Scissors Grinder Relationship Specialty Start Date End Date Ja Pena MD PCP - General 04/29/23 documented as of this encounter
--- OUTSIDE RECORDS SUMMARY | 2025-05-12 09:20 | XMS_ITS | Encounter Summary ---
Author Organization [facility] Address [address] [place] [address] Care Team Providers Care Sales And Leasing Consultant Name Role Phone Ja Pena MD Primary Care Provider [phone] Encounter Details Date Type Department Care Team (Late Contact Info) Description 11/08/2023 Clinisync Result Encounter [facility] External Department Unsolicited Jayden Jordan DO [address], [facility] Social History Tobacco Use Types Packs/Day Years Used Date Smoking Tobacco: Never Assessed Comments Yes Sex and Gender Information Value Date Recorded Sex Assigned at Female 04/08/2023 7:49 AM EDT Legal Sex Female 11:47 PM EDT Gender Identity Female 04/08/2023 7:49 AM EDT Sexual Orientation Not on file documented as of this encounter Plan of Treatment Upcoming Encounters Date Type Department Care Team (Late Contact Info) Description 07/24/2025 11:00 AM EST [facility] Visit [facility] [address] [place] [address] Jayden Jordan DO [address] [place], [place] [id number] documented as of this encounter Goals Goal Patient Goal Type Associated Problems Recent Progress Patient-Stated? Author Reminders Care Plan OB Reminders No Open Scheduling, Background documented as of this encounter Procedures Procedure Name Priority Date/Time Associated Diagnosis Comments US OB ANATOMY 11/08/2023 11:08 AM EDT documented in this encounter Results * US OB ANATOMY (11/08/2023 11:08 AM EDT) Anatomical Region Laterality Modality Other 11/08/2023 11:0 8 AM EDT Narrative 11/08/2023 11:11 [place] [address] Ultrasound Report Signed Patient: ALYSON GARCIA MR#: [id number] : 1995 Acct:[id number] Age/Sex: 28 / F ADM Date: 11/08/23 Loc: NOM[facility] Attending Dr: Jayden Jordan D.O. Ordering Physician: Jayden Jordan D.O. Date of Service: 11/08/23 Procedure(s): US OB anatomy Accession Number(s): [id number] cc: Jayden Jordan D.O.; Ja Pena M.D. [place] [address] Patient Name: ALYSON GARCIA MRN: [id number] date: 1995 Sex: F Assigned Patient Location: [facility] Current Patient Location: [facility] Accession/Order Number: [id number] Exam Date: 11/08/2023 08:43 Report Date: 11/08/2023 11:08 At the request of: JAYDEN JORDAN Procedure: US OB anatomy EXAMINATION: US OB anatomy, US OB cervical length HISTORY: ANATOMY COMPARISON: No relevant comparison available. TECHNIQUE: Transabdominal sonographic examination was performed for obstetrical and evaluation. FINDINGS: Number: 1 Heart Rate: Not measured Amniotic Fluid Volume: Subjectively normal position: Transverse presentation and lie Placental Location: Anterior, placental edge 4.5 cm from the internal os, grade 1 Cervix Length: 4.6 cm Normal anatomy: Lateral ventricles, cerebellum, posterior fossa, nose, lips, orbits, four-chamber heart, RVOT, LVOT, diaphragm, stomach, kidneys, abdominal cord insertion, bladder, umbilical arteries, three-vessel cord, spine, extremities BIOMETRY: BPD: 4.7 cm 20 weeks 1 days , 39% HC: 17.6 cm 20 weeks 1 days, 28% AC: 15.6 cm 20 weeks 5 days, 54% FL: 3.5 cm 20 weeks 6 days , 57% EFW:371.3 grams; 1 oz, 61% FL/AC: 22.2 FL/BPD: 73.6 HC/AC: 1.1 GESTATIONAL AGE: Age by EDC: 20 weeks 3 days MARIANA by EDC: 03/24/2024 Age by current US: 20 weeks 3 days MARIANA by current US: 03/24/2024 US/US OB anatomy IMPRESSION: Normal anatomy scan Closed cervix measuring 4.6 cm in length *Reference: [employer] Practice Guideline for the performance of Obstetric Ultrasound Examinations, May 23, 2007. Electronically authenticated by: VICK DUKE Date: 11/08/2023 11:08 Dictated By: Vick Duke M.D. Signed By: 11/08/23 1111 DD/ 1108 TD/TT: Cyber Intelligence Analyst: Procedure Note Radiology, Radiologist, MD - 11/08/2023 [place] [address] Ultrasound Report Signed Patient: ALYSON GARCIA NMR#: [id number] : 1995Acct:[id number] Age/Sex: 28 / FADM Date: 11/08/23 Loc: NOMS Attending Dr: Jayden Jordan D.O. Ordering Physician: Jayden Jordan D.O. Date of Service: 11/08/23 Procedure(s): US OB anatomy Accession Number(s): [id number] cc: Jayden Jordan D.O.; Ja Pena M.D. [place] [id number] Patient Name: ALYSON GARCIA MRN: [id number] date: 1995 Sex: F Assigned Patient Location: [facility] Current Patient Location: [facility] Accession/Order Number: [id number] Exam Date: 11/08/2023 08:43 Report Date: 11/08/2023 11:08 At the request of: JAYDEN JORDAN Procedure: US OB anatomy EXAMINATION: US OB anatomy, US OB cervical length HISTORY: ANATOMY COMPARISON: No relevant comparison available. TECHNIQUE: Transabdominal sonographic examination was performed for obstetrical and evaluation. FINDINGS: Number: 1 Heart Rate: Not measured Amniotic Fluid Volume: Subjectively normal position: Transverse presentation and lie Placental Location: Anterior, placental edge 4.5 cm from the internal os, grade 1 Cervix Length: 4.6 cm Normal anatomy: Lateral ventricles, cerebellum, posterior fossa, nose,lips, orbits, four-chamber heart, RVOT, LVOT, diaphragm, stomach, kidneys,abdominal cord insertion, bladder, umbilical arteries, three-vessel cord, spine, extremities BIOMETRY: BPD: 4.7 cm 20 weeks 1 days , 39% HC: 17.6 cm 20 weeks 1 days, 28% AC: 15.6 cm 20 weeks 5 days, 54% FL: 3.5 cm 20 weeks 6 days , 57% EFW:371.3 grams; 1 oz, 61% FL/AC: 22.2 FL/BPD: 73.6 HC/AC: 1.1 GESTATIONAL AGE: Age by EDC: 20 weeks 3 days MARIANA by EDC: 03/24/2024 Age by current US: 20 weeks 3 days MARIANA by current US: 03/24/2024 US/US OB anatomy IMPRESSION: Normal anatomy scan Closed cervix measuring 4.6 cm in length *Reference: [employer] Practice Guideline for the performance of Obstetric Ultrasound Examinations, May 23, 2007. Electronically authenticated by: VICK DUKE Date: 11/08/2023 11:08 Dictated By: Vick Duke M.D. Signed By:11/08/23 1111 DD/ 1108 TD/TT: Cyber Intelligence Analyst: us Jayden Jordan DO [facility] Final Result documented in this encounter Visit Diagnoses Not on filedocumented in this encounter Additional Health Concerns Active Problems Noted Date Diagnosed Date OB Reminders 09/29/2023 documented as of this encounter Care Teams Sales And Leasing Consultant Relationship Specialty Start Date End Date Ja Pena MD PCP - General 04/29/23 documented as of this encounter
--- OUTSIDE RECORDS SUMMARY | 2025-05-12 09:20 | XMS_ITS | Encounter Summary ---
Author Organization [facility] Address [address] [place] [address] Care Team Providers Care Silk Worker Name Role Phone Ja Pena MD Primary Care Provider [phone] Encounter Details Date Type Department Care Team (Late Contact Info) Description 01/18/2024 Clinisync Result Encounter [facility] External Department Unsolicited Karie Escalona PA [address] [place], [place] [address] Social History Tobacco Use Types Packs/Day Years Used Date Smoking Tobacco: Never Assessed Comments Yes Sex and Gender Information Value Date Recorded Sex Assigned at Female 04/08/2023 7:49 AM EDT Legal Sex Female 11:47 PM EDT Gender Identity Female 04/08/2023 7:49 AM EDT Sexual Orientation Not on file documented as of this encounter Plan of Treatment Upcoming Encounters Date Type Department Care Team ([facility] Contact Info) Description 07/24/2025 11:00 AM EST Office Visit [facility] [address] [place] [phone] Jose Luis Jordan DO [address] [place] [address] documented as of this encounter Goals Goal Patient Goal Type Associated Problems Recent Progress Patient-Stated? Author Reminders Care Plan OB Reminders No Open Scheduling, Background documented as of this encounter Procedures Procedure Name Priority Date/Time Associated Diagnosis Comments US OB GROWTH 01/18/2024 10:17 AM EDT documented in this encounter Results * US OB GROWTH (01/18/2024 10:17 AM EDT) Anatomical Region Laterality Modality Other 01/18/2024 10:1 7 AM EDT Narrative 01/18/2024 10:20 [place] [address] Ultrasound Report Signed Patient: ALYSON GARCIA MR#: [id number] : 1995 Acct:[id number] Age/Sex: 28 / F ADM Date: 01/18/24 [facility] Karie Escalona Ordering Physician: Karie Escalona Date of Service: 01/18/24 Procedure(s): US OB growth Accession Number(s): [id number] cc: Karie Escalona; Ja Pena M.D. [address] [address] Patient Name: ALYSON GARCIA MRN: [id number] date: 1995 Sex: F Assigned Patient Location: [facility] Current Patient Location: [facility] Accession/Order Number: [id number] Exam Date: 01/18/2024 09:36 Report Date: 01/18/2024 10:17 At the request of: KARIE ESCALONA Procedure: US OB growth EXAMINATION: US OB growth HISTORY: SIZE INCONSISTENT WITH DATES COMPARISON: No relevant comparison available. FINDINGS: Heart Rate: 138.0 bpm Number: 1.0 Position: Breech Amniotic Fluid Volume: 16.9 cm Maximum Vertical Pocket: 5.5 cm BIOMETRY: BPD: 7.7 cm cm; 30 weeks 5 days; 45% HC: 29.0 cmcm; 31 weeks 6 days ; 51% AC: 27.5 cm cm; 31 weeks 4 days 74% FL: 5.7 cm cm; 30 weeks 0 days; 22% % EFW: 1688.8 grams; 54% FL/AC: 20.9 FL/BPD: 74.7 HC/AC: 1.1 GESTATIONAL AGE: Age by EDC: 30 weeks 4 days MARIANA by EDC: 03/24/2024 Age by US: 31 weeks 0 days MARIANA by US: 03/21/2024 US/US OB growth IMPRESSION: 1. Single live intrauterine with growth detailed above. Electronically authenticated by: AVERY CARRENO Date: 01/18/2024 10:17 Dictated By: Avery Carreno M.D. Signed By: 01/18/24 1020 DD/ 1017 TD/TT: Grinding Wheel Facer: Procedure Note Radiology, Radiologist, MD - 01/18/2024 [place] [address] Ultrasound Report Signed Patient: ALYSON GARCIA NMR#: [id number] : 1995Acct:[id number] Age/Sex: 28 / FADM Date: 01/18/24 Loc: [facility] Attending Dr: Karie Escalona Ordering Physician: Karie Escalona Date of Service: 01/18/24 Procedure(s): US OB growth Accession Number(s): [id number] cc: Karie Escalona; Ja Pena M.D. [place] [id number] Patient Name: ALYSON GARCIA MRN: [facility]:[id number] date: 1995 Sex: F Assigned Patient Location: [facility] Current Patient Location: [facility] Accession/Order Number: [id number] Exam Date: 01/18/2024 09:36 Report Date: 01/18/2024 10:17 At the request of: KARIE ESCALONA Procedure: US OB growth EXAMINATION: US OB growth HISTORY: SIZE INCONSISTENT WITH DATES COMPARISON: No relevant comparison available. FINDINGS: Heart Rate: 138.0 bpm Number: 1.0 Position: Breech Amniotic Fluid Volume: 16.9 cm Maximum Vertical Pocket: 5.5 cm BIOMETRY: BPD: 7.7 cm cm; 30 weeks 5 days; 45% HC: 29.0 cmcm; 31 weeks 6 days ; 51% AC: 27.5 cm cm; 31 weeks 4 days 74% FL: 5.7 cm cm; 30 weeks 0 days; 22% % EFW: 1688.8 grams; 54% FL/AC: 20.9 FL/BPD: 74.7 HC/AC: 1.1 GESTATIONAL AGE: Age by EDC: 30 weeks 4 days MARIANA by EDC: 03/24/2024 Age by US: 31 weeks 0 days MARIANA by US: 03/21/2024 US/US OB growth IMPRESSION: 1. Single live intrauterine with growth detailed above. Electronically authenticated by: AVERY CARRENO Date: 01/18/2024 10:17 Dictated By: Avery Carreno M.D. Signed By:01/18/24 1020 DD/ 1017 TD/TT: Grinding Wheel Facer: us Karie [facility] Final Result documented in this encounter Visit Diagnoses Not on filedocumented in this encounter Additional Health Concerns Active Problems Noted Date Diagnosed Date OB Reminders 09/29/2023 documented as of this encounter Care Teams Silk Worker Relationship Specialty Start Date End Date Ja Pena MD PCP - General 04/29/23 documented as of this encounter
--- OUTSIDE RECORDS SUMMARY | 2025-05-12 09:20 | XMS_ITS | Encounter Summary ---
Author Organization [facility] [employer] [facility] tem Address [id number] [address] [place] [address] Care Team Providers Care Lime Mixer Name Role Phone Ja Pena MD Primary Care Provider [phone] Reason for Referral * Diagnostic Imaging (Routine) - Closed Specialty Diagnoses / Procedures Referred By Contac t Referred To Contact Maternal and Medicine Diagnoses Family history of autosomal recessive polycystic kidney disease Family history of heart murmur Obesity affecting in second trimester Procedures US MFM with or without consult Lucian Cole MD Phone: tel: fax: Maternal- Medicine at [facility] [address] [place] [address] Phone: tel: fax: Referral ID Status Reason Start Date Expiration Date Visits Re quested Visits Authorized [id number] Closed 03/03/2021 03/03/2022 1 1 Encounter Details Date Type Department Care Team (Late st Contact Info) Description 03/03/2021 Orders Only Maternal- Medicine at [facility] [address] [place] [address] Lucian Cole MD [address] [facility], [address] [place] [address] Family history of autosomal recessive polycystic kidney disease (Primary Dx); Family history of heart murmur; Obesity affecting in second trimester Social History Tobacco Use Types Packs/Day Years Used Date Smoking Tobacco: Never Smokeless Tobacco: Never Alcohol Use Standard Drinks/Week Comments Not Currently 0 (1 standard drink = 0.6 oz pur e alcohol) Comments Yes Sex and Gender Information Value Date Recorded Sex Assigned at Not on file Legal Sex Female 1:20 PM EDT Gender Identity Not on file Sexual Orientation Not on file COVID-19 Exposure Response Date Recorded In the last month, have you been in contact with someone who was confirmed or suspected to have Coronavirus / COVID-19? No / Unsure 03/03/2021 7:11 AM EDT documented as of this encounter Plan of Treatment Not on file documented as of this encounter Results * [facility] OB FOLLOW-UP, 1 FETUS (03/31/2021 10:18 AM EDT) Anatomical Region Laterality Modality Pelvis Ultrasound 03/31/2021 10:0 6 AM EDT Impressions 03/31/2021 12:20 PM EDT IMPRESSION: 1. Single intrauterine with expected interval growth from the previous ultrasound. 2. Amniotic fluid index is normal. Narrative 03/31/2021 12:20 PM EDT OBSTETRICS REPORT (Signed Final 03/31/2021 12:20) PATIENT INFO: ID #: [id number] : [birth year] (25 yrs)(F) Name: ALYSON GARCIA Visit Date: 03/31/2021 10:06 PERFORMED BY: Performed By: La Boyer RDMS Attending: Roshan Hoffmann MD Referred By: Joey Purdy MD Ref. Address: [address] [place] [address] Location: Maternal Medicine [place] SERVICE(S) PROVIDED: OB Follow-up, 1 fetus [id number] INDICATIONS: Screening for follow-up survey Z36.2 Supervision of other high risk , O09.90 antepartum FOB PCK Obesity in , antepartum O99.210 VITAL SIGNS: Weight (lb): 231 Height: 5'2 BMI: 42.25 EVALUATION: Num Of Fetuses: 1 Heart Rate(bpm): 135 Cardiac Activity: Present & appears normal Presentation: Cephalic Placenta: Anterior, away from cervical os P. Cord Insertion: Eccentric (>2cm from edge) Amniotic Fluid ROLF FV: Subjectively within normal limits ROLF Sum(cm) %Tile Largest Pocket(cm) 16.92 63 6.78 RUQ(cm) RLQ(cm) LUQ(cm) LLQ(cm) 6.78 3.3 2.94 3.9 BIOMETRY: BPD: 60.8 mm G.Age: 24w 5d 28 % OFD: 81.6 mm HC: 227.4 mm G.Age: 24w 5d 17 % AC: 209.9 mm G.Age: 25w 4d 54 % FL: 49.5 mm G.Age: 26w 5d 82 % HUM: 42.2 mm G.Age: 25w 3d 49 % CER: 28.9 mm G.Age: 25w 3d 68 % LV: 6.2 mm CM: 6.1 mm TIB: 38.7 mm G.Age: 24w 5d 36 % CI: 74.5 % 70 - 86 FL/HC: 21.8 % 18.7 - 20.3 HC/AC: 1.08 1.04 - 1.22 FL/BPD: 81.4 % 71 - 87 FL/AC: 23.6 % 20 - 24 Est. FW: 857 gm 1 lb 14 oz 70 % OB HISTORY: : 1 GESTATIONAL AGE: LMP: 25w 1d Date: 10/06/20 MARIANA: 07/13/21 U/S Today: 25w 3d MARIANA: 07/11/21 Best: 25w 1d Det. By: LMP (10/06/20) MARIANA: 07/13/21 TARGETED ANATOMY: Central Nervous System Calvarium/Cranial V.: Appears normal Intracranial Miguelina: Appears normal Cavum: Appears normal Lateral Ventricles: Appears normal Choroid Plexus: Appears normal Cereb./Vermis: Appears normal Cisterna Magna: Appears normal Midline Falx: Appears Normal Spine Cervical: Appears normal Thoracic: Appears normal Lumbar: Appears normal Sacral: Appears normal Head/Neck Face: Appears normal Lips: Appears normal Neck: Previously seen Nuchal Fold: Not evaluated d/t GA Nasal Bone: Present Profile: Appears normal Orbits/Eyes: Appears normal Mandible: Appears Normal Maxilla: Appears normal Thorax Thoracic Contour: Appears normal Lungs: Appears normal 4 Chamber View: Appears normal Cardiac Motion: Appears normal Cardiac Rhythm: Normal Rt Outflow Tract: Not well visualized Lt Outflow Tract: Appears normal Aortic Arch: Appears normal Ductal Arch: Appears normal SVC: Appears Normal Cardiac [place]: Appears normal Diaphragm: Previously seen 3 Vessel View: Appears normal IVC: Appears normal Abdomen Ventral Wall: Appears normal Cord Insertion: Appears normal Situs: Previously seen Stomach: Appears normal Liver: Appears normal Lt Kidney: Appears normal Rt Kidney: Appears normal Bladder: Appears normal Extremities Lt Humerus: Appears normal Rt Humerus: Appears normal Lt Forearm: Appears normal Rt Forearm: Appears normal Lt Hand: Not well visualized Rt Hand: Appears normal Lt Femur: Appears normal Rt Femur: Appears normal Lt Lower Leg: Appears normal Rt Lower Leg: Appears normal Lt Foot: Appears normal Rt Foot: Appears normal Other Umbilical Cord: Appears normal Genitalia: Female Comment: PATIENT DOES NOT KNOW GENDER! CERVIX UTERUS ADNEXA: Cervix Normal appearance by abdominal scan Uterus Gravid uterus Left Ovary Visualized Right Ovary Visualized Cul De Sac No fluid seen Adnexa No adnexal masses identified COMMENTS: 1. Ultrasound is not diagnostic for chromosomal abnormalities, will not detect all structural abnormalities, and is not diagnostic for genetic disorders even if multiple exams are performed during a given . 2. anatomic survey is incomplete due to position. RECOMMENDATIONS: 1. Patient is scheduled in four weeks to complete the anatomic survey. 2. Subsequent follow up or other follow up as clinically determined by primary OB provider unless otherwise specified by MFM. 3. Results forwarded to ordering provider so they can follow up with the patient as necessary. Roshan Hoffmann MD Electronically Signed Final Report 03/31/2021 12:20 Procedure Roshan Jackson MD - 03/31/2021 OBSTETRICS REPORT (Signed Final 03/31/2021 12:20) PATIENT INFO: ID #: [id number] : [birth year] (25 yrs)(F) Name: ALYSON Arleen GARCIA Visit Date: 03/31/2021 10:06 PERFORMED BY: Performed By: La Boyer [facility] Attending: Roshan Hoffmann MD Referred By: Joey Purdy MD Ref. Address: [address] [place] [address] Location: Maternal Medicine [place] SERVICE(S) PROVIDED: OB Follow-up, 1 fetus [id number] INDICATIONS: Screening for follow-up survey Z36.2 Supervision of other high risk , O09.90 antepartum FOB PCK Obesity in , antepartum O99.210 VITAL SIGNS: Weight (lb): 231 Height: 5'2 BMI: 42.25 EVALUATION: Num Of Fetuses: 1 Heart Rate(bpm): 135 Cardiac Activity: Present & appears normal Presentation: Cephalic Placenta: Anterior, away from cervical os P. Cord Insertion: Eccentric (>2cm from edge) Amniotic Fluid ROLF FV: Subjectively within normal limits ROLF Sum(cm) %Tile Largest Pocket(cm) 16.92 63 6.78 RUQ(cm) RLQ(cm) LUQ(cm) LLQ(cm) 6.78 3.3 2.94 3.9 BIOMETRY: BPD: 60.8 mm G.Age: 24w 5d 28 % OFD: 81.6 mm HC: 227.4 mm G.Age: 24w 5d 17 % AC: 209.9 mm G.Age: 25w 4d 54 % FL: 49.5 mm G.Age: 26w 5d 82 % HUM: 42.2 mm G.Age: 25w 3d 49 % CER: 28.9 mm G.Age: 25w 3d 68 % LV: 6.2 mm CM: 6.1 mm TIB: 38.7 mm G.Age: 24w 5d 36 % CI: 74.5 % 70 - 86 FL/HC: 21.8 % 18.7 - 20.3 HC/AC: 1.08 1.04 - 1.22 FL/BPD: 81.4 % 71 - 87 FL/AC: 23.6 % 20 - 24 Est. FW: 857 gm 1 lb 14 oz 70 % OB HISTORY: : 1 GESTATIONAL AGE: LMP: 25w 1d Date: 10/06/20 MARIANA: 07/13/21 U/S Today: 25w 3d MARIANA: 07/11/21 Best: 25w 1d Det. By: LMP (10/06/20) MARIANA: 07/13/21 TARGETED ANATOMY: Central Nervous System Calvarium/Cranial V.: Appears normal Intracranial Miguelina: Appears normal Cavum: Appears normal Lateral Ventricles: Appears normal Choroid Plexus: Appears normal Cereb./Vermis: Appears normal Cisterna Magna: Appears normal Midline Falx: Appears Normal Spine Cervical: Appears normal Thoracic: Appears normal Lumbar: Appears normal Sacral: Appears normal Head/Neck Face: Appears normal Lips: Appears normal Neck: Previously seen Nuchal Fold: Not evaluated d/t GA Nasal Bone: Present Profile: Appears normal Orbits/Eyes: Appears normal Mandible: Appears Normal Maxilla: Appears normal Thorax Thoracic Contour: Appears normal Lungs: Appears normal 4 Chamber View: Appears normal Cardiac Motion: Appears normal Cardiac Rhythm: Normal Rt Outflow Tract: Not well visualized Lt Outflow Tract: Appears normal Aortic Arch: Appears normal Ductal Arch: Appears normal SVC: Appears Normal Cardiac [place]: Appears normal Diaphragm: Previously seen 3 Vessel View: Appears normal IVC: Appears normal Abdomen Ventral Wall: Appears normal Cord Insertion: Appears normal Situs: Previously seen Stomach: Appears normal Liver: Appears normal Lt Kidney: Appears normal Rt Kidney: Appears normal Bladder: Appears normal Extremities Lt Humerus: Appears normal Rt Humerus: Appears normal Lt Forearm: Appears normal Rt Forearm: Appears normal Lt Hand: Not well visualized Rt Hand: Appears normal Lt Femur: Appears normal Rt Femur: Appears normal Lt Lower Leg: Appears normal Rt Lower Leg: Appears normal Lt Foot: Appears normal Rt Foot: Appears normal Other Umbilical Cord: Appears normal Genitalia: Female Comment: PATIENT DOES NOT KNOW GENDER! CERVIX UTERUS ADNEXA: Cervix Normal appearance by abdominal scan Uterus Gravid uterus Left Ovary Visualized Right Ovary Visualized Cul De Sac No fluid seen Adnexa No adnexal masses identified COMMENTS: 1. Ultrasound is not diagnostic for chromosomal abnormalities, will not detect all structural abnormalities, and is not diagnostic for genetic disorders even if multiple exams are performed during a given . 2. anatomic survey is incomplete due to position. RECOMMENDATIONS: 1. Patient is scheduled in four weeks to complete the anatomic survey. 2. Subsequent follow up or other follow up as clinically determined by primary OB provider unless otherwise specified by M. 3. Results forwarded to ordering provider so they can follow up with the patient as necessary. Roshan Hoffmann MD Electronically Signed Final Report 03/31/2021 12:20 IMPRESSION: IMPRESSION: 1. Single intrauterine with expected interval growth from the previous ultrasound. 2. Amniotic fluid index is normal. us Lucian Cole MD [facility] US ORDERABLES Final Result documented in this encounter Visit Diagnoses Diagnosis Family history of autosomal recessive polycystic kidney disease- Primary Family history of polycystic kidney Family history of heart murmur Obesity affecting in second trimester Family history of autosomal recessive polycystic kidney disease Family history of polycystic kidney Family history of heart murmur Obesity affecting in second trimester Encounter for other screening follow-up Supervision of high risk , unspecified, unspecified trimester Obesity complicating , unspecified trimester documented in this encounter Care Teams Lime Mixer Relationship Specialty Start Date End Date Ja Pena MD PCP - General Family Medicine 03/03/21 documented as of this encounter
--- OUTSIDE RECORDS SUMMARY | 2025-05-12 09:20 | XMS_ITS | Encounter Summary ---
Author Organization [facility] Address [address] [place] [address] Care Team Providers Care Languages And Literature Instructor Name Role Phone Ja Pena MD Primary Care Provider [phone] Encounter Details Date Type Department Care Team (Late Contact Info) Description 03/07/2024 Abstract [facility] [address] [address] Juliet Perry LPN [address] [place] [facility] Social History Tobacco Use Types Packs/Day Years Used Date Smoking Tobacco: Never Smokeless Tobacco: Never Comments:None Alcohol Use Standard Drinks/Week Comments Not Currently 0 (1 standard drink = 0.6 oz pur e alcohol) None currently Comments Yes Sex and Gender Information Value Date Recorded Sex Assigned at Female 04/08/2023 7:49 AM EDT Legal Sex Female 11:47 PM EDT Gender Identity Female 04/08/2023 7:49 AM EDT Sexual Orientation Not on file documented as of this encounter Plan of Treatment Upcoming Encounters Date Type Department Care Team (Late Contact Info) Description 07/24/2025 11:00 AM EST Office Visit [facility] [address] [address] Jose Luis Jordan DO [address] [facility] [place] [id number] documented as of this encounter Goals Goal Patient Goal Type Associated Problems Recent Progress Patient-Stated? Author Reminders Care Plan OB Reminders No Open Scheduling, Background documented as of this encounter Visit Diagnoses Not on filedocumented in this encounter Additional Health Concerns Active Problems Noted Date Diagnosed Date OB Reminders 09/29/2023 documented as of this encounter Care Teams Languages And Literature Instructor Relationship Specialty Start Date End Date Ja Pena MD PCP - General 04/29/23 documented as of this encounter
--- OUTSIDE RECORDS SUMMARY | 2025-05-12 09:20 | XMS_ITS | Encounter Summary ---
Author Organization [facility] Address [address] [place] [address] Care Team Providers Care Casino Supervisor Name Role Phone Ja Pena MD Primary Care Provider [phone] Encounter Details Date Type Department Care Team (Late Contact Info) Description 08/08/2024 Orders Only [facility] [address] [place] [address] Bisi Mittal [place] [address] [facility] [place] [address] Social History Tobacco Use Types Packs/Day Years Used Date Smoking Tobacco: Never Smokeless Tobacco: Never Comments:None Alcohol Use Standard Drinks/Week Comments Not Currently 0 (1 standard drink = 0.6 oz pur e alcohol) None currently Comments No Sex and Gender Information Value Date Recorded Sex Assigned at Female 04/08/2023 7:49 AM EDT Legal Sex Female 11:47 PM EDT Gender Identity Female 04/08/2023 7:49 AM EDT Sexual Orientation Not on file documented as of this encounter Plan of Treatment Upcoming Encounters Date Type Department Care Team (Late Contact Info) Description 07/24/2025 11:00 AM EST Office Visit [facility] [address] [place] [address] JoseL uis Jordan DO [address] [facility] [address] [place], [place] [id number] documented as of this encounter Goals Goal Patient Goal Type Associated Problems Recent Progress Patient-Stated? Author Reminders Care Plan OB Reminders No Open Scheduling, Background documented as of this encounter Procedures Procedure Name Priority Date/Time Associated Diagnosis Comments PAP SMEAR Routine 07/17/2024 12:00 AM EST documented in this encounter Results * Pap Smear (07/17/2024 12:00 AM EST) Swab Cervical swab / Unknown us Jose Luis Nikki DO LAB CYTOLOGY ORDERABLES Final Re sult EXTERNAL LAB documented in this encounter Visit Diagnoses Not on filedocumented in this encounter Additional Health Concerns Active Problems Noted Date Diagnosed Date OB Reminders 09/29/2023 documented as of this encounter Care Teams Casino Supervisor Relationship Specialty Start Date End Date Ja Pena MD PCP - General 04/29/23 documented as of this encounter
--- OUTSIDE RECORDS SUMMARY | 2025-05-12 09:20 | XMS_ITS | Encounter Summary ---
Author Organization [facility] Address [address] [place] [address] Care Team Providers Care Superintendent Maintenance Name Role Phone Ja Pena MD Primary Care Provider [phone] Encounter Details Date Type Department Care Team (Late Contact Info) Description 11/08/2023 Clinisync Result Encounter [facility] External Department Unsolicited Jayden Jordan DO [address] [place], [facility]11 Social History Tobacco Use Types Packs/Day Years [...] Visit [facility] [address] [place] [address] Jayden Jordan DO [address] [place], [place] [id number] documented as of this encounter Goals Goal Patient Goal Type Associated Problems Recent Progress Patient-Stated? Author Reminders Care Plan OB Reminders No Open Scheduling, Background documented as of this encounter Procedures Procedure Name Priority Date/Time Associated Diagnosis Comments US OB CERVICAL LENGTH 11/08/2023 11:08 AM EDT documented in this encounter Results * US OB CERVICAL LENGTH (11/08/2023 11:08 AM EDT) Anatomical Region Laterality Modality Other 11/08/2023 11:0 8 AM EDT Narrative 11/08/2023 11:11 [place] [address] Ultrasound Report Signed Patient: ALYSON GARCIA MR#: [id number] : 1995 Acct:[id number] Age/Sex: 28 / F ADM Date: 11/08/23 Loc: [facility] Attending Dr: Jayden Jordan D.O. Ordering Physician: Jayden Jordan D.O. Date of Service: 11/08/23 Procedure(s): US OB cervical length Accession Number(s): [id number] cc: Jayden Jordan D.O.; Ja Pena M.D. [address] [place] [address] Patient Name: ALYSON GARCIA MRN: [id number] date: 1995 Sex: F Assigned [facility] Current Patient Location: [facility] Accession/Order Number: [id number] Exam Date: 11/08/2023 08:43 Report Date: 11/08/2023 11:08 At the request of: JAYDEN JORDAN Procedure: US OB cervical length EXAMINATION: US OB anatomy, US OB cervical [...] MARIANA by current US: 03/24/2024 US/US OB cervical length IMPRESSION: Normal anatomy scan Closed cervix measuring 4.6 cm in length *Reference: [employer] Practice Guideline for the performance of Obstetric Ultrasound Examinations, May 23, 2007. Electronically authenticated by: VICK DUKE Date: 11/08/2023 11:08 Dictated By: Vick Duke M.D. Signed By: 11/08/23 1111 DD/ 1108 TD/TT: Candy Decorator: Procedure Note Radiology, Radiologist, MD - 11/08/2023 [place] [address] Ultrasound Report Signed Patient: ALYSON GARCIA NMR#: [id number] : 1995Acct:[id number] Age/Sex: 28 / FADM Date: 11/08/23 Loc: [facility] Attending Dr: Jayden Jordan D.O. Ordering Physician: Jayden Jordan D.O. Date of Service: 11/08/23 Procedure(s): US OB cervical length Accession Number(s): [id number] cc: Jayden Jordan D.O.; Ja Pena M.D. The [address] [address] Patient Name: ALYSON GARCIA MRN: [id number] date: 1995 Sex: F Assigned Patient Location: [facility] Current Patient Location: [facility] Accession/Order Number: [id number] Exam Date: 11/08/2023 08:43 Report Date: 11/08/2023 11:08 At the request of: JAYDEN JORDAN Procedure: US OB cervical length EXAMINATION: US OB anatomy, US OB cervical [...] MARIANA by current US: 03/24/2024 US/US OB cervical length IMPRESSION: Normal anatomy scan Closed cervix measuring 4.6 cm in length *Reference: AIUM Practice Guideline for the performance of Obstetric Ultrasound Examinations, May 23, 2007. Electronically authenticated by: VICK DUKE Date: 11/08/2023 11:08 Dictated By: Vick Duke M.D. Signed By:11/08/23 1111 DD/ 1108 TD/TT: Candy Decorator: us Jayden Jordan DO [facility] Final Result documented in this encounter Visit Diagnoses Not on filedocumented in this encounter Additional Health Concerns Active Problems Noted Date Diagnosed Date OB Reminders 09/29/2023 documented as of this encounter Care Teams Superintendent Maintenance Relationship Specialty Start Date End Date Ja Pena MD PCP - General 04/29/23 documented as of this encounter
--- OUTSIDE RECORDS SUMMARY | 2025-05-12 09:20 | XMS_ITS | Encounter Summary ---
Author Organization [facility] Address [address] [place] [address] Care Team Providers Care Enrollment Nurse Name Role Phone Ja Pena MD Primary Care Provider [phone] Encounter Details Date Type Department Care Team (Late Contact Info) Description 03/07/2024 Abstract [facility] [address] [place] [address] Juliet Perry LPN [address] [place] [facility]11 Social History Tobacco Use Types Packs/Day [...] AM EST Office Visit [facility] [address] [place] [place] [address] Jose Luis Jordan DO [address] [facility] [place] [id number] documented as of this encounter Goals Goal Patient Goal Type Associated Problems Recent Progress Patient-Stated? Author Reminders Care Plan OB Reminders No Open Scheduling, Background documented as of this encounter Visit Diagnoses Not on filedocumented in this encounter Additional Health Concerns Active Problems Noted Date Diagnosed Date OB Reminders 09/29/2023 documented as of this encounter Care Teams Enrollment Nurse Relationship Specialty Start Date End Date Ja Pena MD PCP - General 04/29/23 documented as of this encounter
--- OUTSIDE RECORDS SUMMARY | 2025-05-12 09:20 | XMS_ITS | Encounter Summary ---
Author Organization [facility] Address [address] [place] [address] Care Team Providers Care Typewriter Assembler Name Role Phone Ja Pena MD Primary Care Provider [phone] Encounter Details Date Type Department Care Team ([facility] Contact Info) Description 02/29/2024 Abstract [facility] [address] [facility] [place] [address] Jose Luis Jordan DO [address] [place] [address] [place], [place] [id number] Social History Tobacco Use Types Packs/Day Years Used Date Smoking Tobacco: Never Assessed Comments Yes Sex and Gender Information Value Date Recorded Sex Assigned at Female 04/08/2023 7:49 AM EDT Legal Sex Female 11:47 PM EDT Gender Identity Female 04/08/2023 7:49 AM EDT Sexual Orientation Not on file documented as of this encounter Plan of Treatment Upcoming Encounters Date Type Department Care Team ([facility] Contact Info) Description 07/24/2025 11:00 AM EST Office Visit [facility] [address] [facility] [place] [address] Jose Luis Jordan DO [address] [place], [place] [id number] documented as of this encounter Goals Goal Patient Goal Type Associated Problems Recent Progress Patient-Stated? Author Reminders Care Plan OB Reminders No Open Scheduling, Background documented as of this encounter Visit Diagnoses Not on filedocumented in this encounter Additional Health Concerns Active Problems Noted Date Diagnosed Date OB Reminders 09/29/2023 documented as of this encounter Care Teams Typewriter Assembler Relationship Specialty Start Date End Date Ja Pena MD PCP - General 04/29/23 documented as of this encounter
--- OUTSIDE RECORDS SUMMARY | 2025-05-12 09:20 | XMS_ITS | Encounter Summary ---
Author Organization [facility] Address [address] [place] [address] Care Team Providers Care Supervisor Bindery Name Role Phone Ja Pena MD Primary Care Provider [phone] Encounter Details Date Type Department Care Team (Late Contact Info) Description 05/29/2024 Abstract [facility] [address] [place] [address] Jose Luis Jordan DO [address] [facility] [address] [place], [facility]11 Social History Tobacco Use Types Packs/Day [...] AM EST Office Visit [facility] [address] [facility] [place] [address] Jose Luis Jordan DO [address] [place] [place], [place] [id number] documented as of this encounter Goals Goal Patient Goal Type Associated Problems Recent Progress Patient-Stated? Author Reminders Care Plan OB Reminders No Open Scheduling, Background documented as of this encounter Visit Diagnoses Not on filedocumented in this encounter Additional Health Concerns Active Problems Noted Date Diagnosed Date OB Reminders 09/29/2023 documented as of this encounter Care Teams Supervisor Bindery Relationship Specialty Start Date End Date Ja Pena MD PCP - General 04/29/23 documented as of this encounter
--- OUTSIDE RECORDS SUMMARY | 2025-05-12 09:20 | XMS_ITS | Encounter Summary ---
Author Organization [facility] tem Address [id number] [address] [place] [address] Care Team Providers Care Combined Rail Operator Name Role Phone Ja Pena MD Primary Care Provider [phone] Encounter Details Date Type Department Care Team (Late st Contact Info) Description 02/28/2021 Orders Only Maternal- Medicine at [facility] [address] [place] [id number] External, Scanning Provider Social History Tobacco Use Types Packs/Day Years [...] on file documented as of this encounter Procedures Procedure Name Priority Date/Time Associated Diagnosis Comments HCG-BETA, SERUM Routine 12/21/2020 US PREG LMTD 1 OR MORE FETUS Routine 12/02/2020 documented in this encounter Results * hCG, quantitative, (12/21/2020) Hcg-beta, serum 84,913 MANUALLY TRANSCRIBED RESULTS Comment:see attached report us Scanning Provider External LAB BLOOD ORDERABLES Edited Result - Final MANUALLY TRANSCRIBED RESULTS * Ultrasound limited 1 or more fetus (12/02/2020) Anatomical Region Laterality Modality [employer] Ultrasound Narrative 12/02/2020 see attached report us Scanning Provider External IMG US ORDERABLES Jose Angel whit Result - Final documented in this encounter Visit Diagnoses Not on filedocumented in this encounter Care Teams Combined Rail Operator Relationship Specialty Start Date End Date Ja Pena MD PCP - General Family Medicine 03/03/21 documented as of this encounter
--- OUTSIDE RECORDS SUMMARY | 2025-05-12 09:20 | XMS_ITS | CCD ---
Author Organization [facility] Care Team Providers Care Circuit Breaker Supervisor Name Role Phone IQRA ., JENS Admitting Unavailable IQRA ., JENS Attending Unavailable REQUEST, NONE LISTED Primary Care Unavaila fantasma Guerrero, JENS Consulting Unavailable GARCIA, PRAVEEN Admitting Unavailable GARCIA, PRAVEEN Attending Unavailable WADE, NONE LISTED Primary Care Unavaila fantasma ZELAYA, PRAVEEN Consulting Unavailable Shelli Villa Unavailable DAISA, JAYDEN Attending Unavailable DASIA, JAYDEN Attending Unavailable IQRA, JENS Attending Unavailable DASIA, JAYDEN Attending Unavailable IQRA, JENS Attending Unavailable DASIA, JAYDEN Attending Unavailable DASIA, JAYDEN Attending Unavailable DASIA, JAYDEN Attending Unavailable DASIA, JAYDEN Attending Unavailable DASIA, JAYDEN Attending Unavailable DASIA, JAYDEN Attending Unavailable IQRA, JENS Attending Unavailable DASIA, JAYDEN Attending Unavailable Medications [...] 2: 21 to 29on 11-29-2022 . . [facility] Comment on above: Performed By: #### 4 [id number] #### [facility] [address] [place] [address] Dr. Evan Mcintosh Age Gdln ACOG Testing [facility] Comment on above: Performed By: #### 4 [id number] #### [facility] [address] [place] [address] Dr. Evan Mcintosh DIAGNOSIS: Comment [facility] Comment on above: Result Comment: NEGA TIVE FOR INTRAEPITHELIAL LESION OR MALIGNANCY. Performed By: #### 4 [id number] #### [facility] [address] [place] [address] Dr. Evan Mcintosh Methodology: Comment [facility] Comment on above: Result Comment: This liquid based ThinPrep(R) pap test was screened with the use of an image guided system. Performed By: #### 4 [id number] #### [facility] [address] [place] [address] Dr. Evan Mcintosh Note: Comment [facility] Comment on above: Result Comment: The Pap smear is a screening test designed to aid in the detection of premalignant and malignant conditions of the uterine cervix. It is not a diagnostic procedure and should not be used as the sole means of detecting cervical cancer. Both false-positive and false-negative reports do occur. . Performed By: #### 4 [id number] #### [facility] [address] [place] [address] Dr. Evan Mcintosh Performed by: Comment [facility] Comment on above: Result Comment: Fiona Heath, Lathe Mechanic (ASCP) Performed By: #### 4 [id number] #### [facility] [address] [place] [address] Dr. Evan Mcintosh Reflex Criteria: Comment Normal [facility] Comment on above: Result Comment: The HPV DNA reflex criteria were not met with this specimen result therefore, no HPV testing was performed. . Performed By: #### 4 [id number] #### [facility] [address] [address] [address] Evan Mcintosh Specimen adequacy: Comment Normal [facility] Comment on above: Result Comment: Sati sfactory for evaluation. Endocervical and/or squamous metaplastic cells (endocervical component) are present. Performed By: #### 4 [id number] #### [facility] [address] [place] [address] Dr. Evan Mcintosh Covid-19 PCR (CVDTB)on 08-25 SARS-CoV-2 (COVID-19) RNA CY+probe Ql (Unsp spec) Not detected Normal NOT DETECTED [facility] Comment on above: Result Comment: [...] for this test is supported by the Rule of Health and Human Service's declaration that [...] used). Performed By: #### C VDTBH #### [facility] [address] [place] [address] Dr. Evan Mcintosh INFLUENZA A AND B AGon 09-21 [facility] SEE BELOW Normal [facility] Comment on above: Result Comment: Nega tive for Flu A protein angiten. Infection due to Flu A cannot be ruled out. Flu A angiten in the sample may be below the detection limit of the test. Performed By: #### I NFLUAB #### [facility] [address] [place] [address] Dr. Evna [facility] Normal [facility] Comment on above: Result Comment: Nega tive for Flu B protein antigen. Infection due to Flu B cannot be ruled out. Flu B antigen in the sample may be below the detection limit of the test. Performed By: #### I NFLUAB #### [facility] [address] [place] [address] Dr. Evan Mcintosh INFLUENZA A AG Negative Normal NEGATIVE SEE COMMENT [facility] Comment on above: Performed By: #### I NFLUAB #### [facility] [address] [place] [address] Dr. Evan Mcintosh INFLUENZA B AG Negative Normal NEGATIVE SEE COMMENT [facility] Comment on above: Performed By: #### I NFLUAB #### [facility] [address] [place] [address] Dr. Evan Mcintosh Release of Informationon Release of Information [id number] Normal [facility] Nicotine and Metabolite, Drew nt LCon 06-15-2021 Cotinine LC <1.0 Invalid Interpretation Code [facility] Comment on above: Result Comment: This test was developed and its performance characteristics determined by [employer]. It has not been cleared or approved by the Food and Drug Administration. Cotinine levels greater than 20.0 are consistent with the use of tobacco or tobacco cessation products. Performed At: [address] [id number] Richmond Merino MD Ph:[phone] Performed By: #### 3 [id number], [id number], 61857732, 8657474999, 3556442, [id number] #### [facility] (DEFAULT) [address] [place] [address] Nicotine LC <1.0 Invalid Interpretation Code [facility] Comment on above: Result Comment: This test was developed and its performance characteristics determined by [employer]. It has not been cleared or approved by the Food and Drug Administration. Nicotine levels greater than 2.0 are consistent with the use of tobacco or tobacco cessation products. Performed By: #### 3 6044462, [id number], 49065848, 2192243574, 9709357, 6856003932 #### [facility] (DEFAULT) [address] [place] [address] .Auto Diff 06-09-2021 Auto Comanche % 6 % Normal 12 [facility] Comment on above: Performed By: #### 3 2977568, [id number], 16381644, 5175757674, 4822406, 9577594173 #### [facility] (DEFAULT) [address] [place] [address] Baso Abs# 0.0 x10 Normal 0.0-0.2 [facility] Comment on above: Performed By: #### 3 4061859, 6344273812, 32347272, 0057068858, 0139450, 4201659166 #### [facility] (DEFAULT) [address] [place] [address] Basophils/100 WBC (Bld) 0.1 % Low 0.2-2.0 [facility] Comment on above: Performed By: #### 3 2508676, 9657386260, 92193279, 9875980951, 6706761, 1008257716 #### [facility] (DEFAULT) [address] [place] [address] Eos Abs# 0.2 x10 Normal 0.0-0.4 [facility] Comment on above: Performed By: #### 3 2226781, 7485786492, 22519886, 6579072144, 7028411, 9262141099 #### [facility] (DEFAULT) [address] [place] [address] Eosinophils/100 WBC (Bld) 1.6 % Normal 0.9-4.0 [facility] Comment on above: Performed By: #### 3 9733367, 0648180784, 24186603, 0105737083, 8510127, 2389300170 #### [facility] (DEFAULT) [address] [place] [address] Lymph Abs# 1.5 x10 Normal 1.3-2.9 [facility] Comment on above: Performed By: #### 3 6089373, 2487020654, 65535430, 0458856043, 5238601, 4624860570 #### [facility] (DEFAULT) [address] [place] [address] Lymphocytes/100 WBC (Bld) 15 % Normal 14-48 [facility] Comment on above: Performed By: #### 3 6180173, 4665966920, 41101782, 9132165564, 5580012, 4393916465 #### [facility] (DEFAULT) [address] [place] [address] Comanche Abs# 0.6 x10 Normal 0.0-0.8 [facility] Comment on above: Performed By: #### 3 0181435, 0629429399, 13833773, 0223338311, 1941066, 0969088276 #### [facility] (DEFAULT) [address] [place] [address] Neut Abs# 7.8 x10 Normal 1.5-9.2 [facility] Comment on above: Performed By: #### 3 0380718, 5156290297, 62463780, 5837469180, 6578775, 6636125827 #### [facility] (DEFAULT) [address] [place] [address] Neutrophils/100 WBC (Bld) 77 % Normal 44-88 [facility] Comment on above: Performed By: #### 3 5421267, 3734823500, 13241493, 4412939925, 3289350, 7282424186 #### [facility] (DEFAULT) [address] [place] [address] CBC w/ Auto Diffon 10-18-202 1 Erythrocyte distribution width (RBC) [Ratio] 14.4 % Normal 11.5-15.0 [facility] Comment on above: Performed By: #### 3 4306953, 8828551814, 93707767, 7513886647, 7535458, 7662918577 #### [facility] (DEFAULT) [address] [place] [address] Hematocrit (Bld) [Volume fraction] 37.3 % Normal 33.7-40.4 [facility] Comment on above: Performed By: #### 3 4518897, 6202159969, 03357332, 7857692349, 1944511, 4975172014 #### [facility] (DEFAULT) [address] [place] [address] Hemoglobin (Bld) [Mass/Vol] 12.2 g/dL Normal 11.3-15.9 [facility] Comment on above: Performed By: #### 3 6486970, 7410376977, 03013275, 7580777448, 3097594, 3082254747 #### [facility] (DEFAULT) [address] [place] [address] Instr WBC 10.1 x10 Invalid Interpretation Code [facility] Comment on above: Performed By: #### 3 5541721, 1012118675, 23369976, 9659649980, 2004679, 0612677550 #### [facility] (DEFAULT) [address] [place] [address] Man Diff? Auto Normal [facility] Comment on above: Performed By: #### 3 6687819, 1020061482, 80381718, 9634266088, 7936039, 5140744619 #### [facility] (DEFAULT) [address] [place] [address] MCH (RBC) [Entitic mass] 29 pg Normal 24-34 [facility] Comment on above: Performed By: #### 3 5700858, 6383454722, 13669769, 2371559054, 9717600, 8423088243 #### [facility] (DEFAULT) [address] [place] [address] MCHC (RBC) [Mass/Vol] 33 g/dL Normal 26-37 [facility] Comment on above: Performed By: #### 3 1955959, 3252936944, 09210137, 3925900407, 2651594, 6788598943 #### [facility] (DEFAULT) [address] [place] [address] MCV (RBC) [Entitic vol] 88 fL Normal 81-100 [facility] Comment on above: Performed By: #### 3 3991193, 2493878074, 64256900, 0735982936, 1034350, 9231213671 #### [facility] (DEFAULT) [address] [place] [address] Platelet 234 x10 Normal 138-427 [facility] Comment on above: Performed By: #### 3 2534527, 5974818682, 97908808, 1162528842, 5934969, 4690403823 #### [facility] (DEFAULT) [address] [place] [address] Platelet mean volume (Bld) [Entitic vol] 10.8 fL High 6.3-10.2 [facility] Comment on above: Performed By: #### 3 6409213, 8656894468, 68254224, 0769924558, 3441268, 8032147768 #### [facility] (DEFAULT) [address] [place] [address] RBC 4.23 x10 Normal 3.70-5.30 [facility] Comment on above: Performed By: #### 3 8714799, 7901143137, 70968180, 5444709228, 1024935, 9392020030 #### [facility] (DEFAULT) [address] [place] [address] WBC 10.1 x10 Normal 3.5-10.5 [facility] Comment on above: Performed By: #### 3 6666751, 7787353828, 58644135, 9635442192, 8165915, 0652990402 #### [facility] (DEFAULT) [address] [place] [address] CMP Standardon 06-09-2021 eGFR Non AA >60 Invalid Interpretation Code [facility] Comment on above: Performed By: #### 3 0244495, 3521167545, 09950784, 3105191119, 1912745, 7445983706 #### [facility] (DEFAULT) [address] [place] [address] eGFR AA >60 Invalid Interpretation Code [facility] Comment on above: Result Comment: Duty Officer kulwinder Kidney disease could be indicated at eGFRs of less than 60 ml/min/1.73m2. Kidney Failure is indicated at less than 15 ml/min/1.73m2 Performed By: #### 3 1499611, 7012077563, 03021157, 1846891447, 6155605, 5850802699 #### [facility] (DEFAULT) [address] [place] [address] Albumin [Mass/Vol] 3.1 g/dL Low 3.5-5.0 [facility] Comment on above: Performed By: #### 3 3091023, 0267333216, 73310010, 4857791727, 7796462, 4713423873 #### [facility] (DEFAULT) [address] [place] [address] Albumin/Globulin [Mass ratio] 1.0 {ratio} Low 1.4-2.6 [facility] Comment on above: Performed By: #### 3 8992480, 5912625535, 76062170, 0129033296, 5237752, 3402701301 #### [facility] (DEFAULT) [address] [place] [address] Alk Phos 107 IU/L High 32-91 [facility] Comment on above: Performed By: #### 3 8911093, 5831470278, 25842133, 0297794688, 7762737, 2008922437 #### [facility] (DEFAULT) [address] [place] [address] ALT [Catalytic activity/Vol] 16.0 U/L Normal 14.0-54.0 [facility] Comment on above: Performed By: #### 3 1505507, 8152303065, 65600134, 0399050072, 6065539, 7837004951 #### [facility] (DEFAULT) [address] [place] [address] 22753 Anion gap [Moles/Vol] 12.0 mmol/L Normal 5.0-19.0 [facility] Comment on above: Performed By: #### 3 6770024, 6386035643, 70105623, 5168939536, 5581672, 3352848074 #### [facility] (DEFAULT) [address] [place] [address] AST [Catalytic activity/Vol] 19 U/L Normal 15-41 [facility] Comment on above: Performed By: #### 3 2178433, 2575303812, 54252626, 1355756939, 3725243, 0634830930 #### [facility] (DEFAULT) [address] [place] [address]76 Bili Total 0.1 mg/dL Low 0.3-1.2 [facility] Comment on above: Performed By: #### 3 4178315, 0007380942, 21291579, 6494847725, 3875510, 2278133494 #### [facility] (DEFAULT) [address] [place] [address] Calcium [Mass/Vol] 8.6 mg/dL Low 8.9-10.3 [facility] Comment on above: Performed By: #### 3 9428691, 0793825000, 75411574, 1839548353, 5292901, 3267667639 #### [facility] (DEFAULT) [address] [place] [address]124 Chloride [Moles/Vol] 105 mmol/L Normal 101-111 [facility] Comment on above: Performed By: #### 3 7126708, 4909566037, 71687430, 4694433298, 6938598, 7148496049 #### [facility] (DEFAULT) [address] [place] [address] 47910 CO2 [Moles/Vol] 20 mmol/L Low 21-32 [facility] Comment on above: Performed By: #### 3 2128556, 0223207070, 21297357, 8379998213, 5277124, 4359729098 #### [facility] (DEFAULT) [address] [place] [address]9895 Creatinine [Mass/Vol] 0.63 mg/dL Normal 0.60-1.30 [facility] Comment on above: Performed By: #### 3 2490047, 3699385714, 29765921, 3485464328, 5043403, 0867099767 #### [facility] (DEFAULT) [address] [place] [address] Globulin (S) [Mass/Vol] 3.2 g/dL Normal 1.5-4.3 [facility] Comment on above: Performed By: #### 3 5716675, 1992504606, 63686104, 2517799850, 9056204, 0759644094 #### [facility] (DEFAULT) [address] [place] [address]2401 Glucose [Mass/Vol] 81.0 mg/dL Normal 74.0-118.0 [facility] Comment on above: Performed By: #### 3 0947397, 7780347545, 95282743, 9963756651, 2505346, 1558980455 #### [facility] (DEFAULT) [address] [place] [address]1921 Osmolality 264 mOsm/L Invalid Interpretation Code [facility] Comment on above: Performed By: #### 3 3224139, 6771020505, 08585060, 5713583011, 2314338, 7005692535 #### [facility] (DEFAULT) [address] [place] [address] 90679 Potassium [Moles/Vol] 4.0 mmol/L Normal 3.6-5.1 [facility] Comment on above: Performed By: #### 3 8180420, 9638950514, 42843392, 2905739293, 9878665, 6605740590 #### [facility] (DEFAULT) [address] [place] [address] 13058 Protein [Mass/Vol] 6.3 g/dL Low 6.5-8.1 [facility] Comment on above: Performed By: #### 3 3382404, 2140714634, 23226440, 9080227804, 2058499, 6393927365 #### [facility] (DEFAULT) [address] [place] [address] Sodium [Moles/Vol] 133.0 mmol/L Low 136.0-144.0 [facility] Comment on above: Performed By: #### 3 2565240, 0335201343, 09821952, 8381286383, 8625135, 6733993506 #### [facility] (DEFAULT) [address] [place] [address] Urea nitrogen [Mass/Vol] 10 mg/dL Normal 8-26 [facility] Comment on above: Performed By: #### 3 6504835, 9394447680, 25435150, 4574790118, 8896282, 4693091509 #### [facility] (DEFAULT) [address] [place] [address] Urea nitrogen/Creatinine [Mass ratio] 16.0 mg/mg Normal 4.6-16.2 [facility] Comment on above: Performed By: #### 3 8298679, 0273154371, 49890813, 1707125645, 2856503, 6285232160 #### [facility] (DEFAULT) [address] [place] [address] HgbA1c Standardon 06-09-2021 .Hb 13.7 Invalid Interpretation Code [facility] Comment on above: Performed By: #### 3 3958135, 0327315085, 14053007, 7179602086, 3825829, 9250362131 #### [facility] (DEFAULT) [address] [place] [address] .Hgb A1c 0.47 g/dL Invalid Interpretation Code [facility] Comment on above: Performed By: #### 3 1987634, 4856277010, 51610701, 6462509329, 9440580, 9347852721 #### [facility] (DEFAULT) [address] [place] [address]76 Glucose [Mass/Vol] 105 mg/dL Invalid Interpretation Code [facility] Comment on above: Performed By: #### 3 7873290, 1619360387, 44125060, 7551979802, 2720014, 9567528947 #### [facility] (DEFAULT) [address] [place] [address] 56606 HbA1c (Bld) [Mass fraction] 5.3 % Normal 4.6-6.2 [facility] Comment on above: Performed By: #### 3 3006951, 9550203951, 72572327, 6347129612, 2215852, 6748749512 #### [facility] (DEFAULT) [address] [place] [address] Lipid Panel Standardon 06-09 Cholesterol [Mass/Vol] 269.0 mg/dL High 66.0-200.0 [facility] Comment on above: Result Comment: Ruby rable - Less than 200 mg/dL Borderline high risk - 200-239 mg/dL High risk - 240 mg/dL and over. Performed By: #### 3 3296266, 1346331934, 23248293, 0294635144, 9212615, 8768053291 #### [facility] (DEFAULT) [address] [place] [address] 88688 Cholesterol in HDL [Mass/Vol] 102 mg/dL High 40-71 [facility] Comment on above: Result Comment: High risk - <40 mg/dL. Performed By: #### 3 5912952, 8459175172, 59343418, 7397058623, 5283430, 4062332228 #### [facility] (DEFAULT) [address] [place] [address] 60605 Cholesterol in LDL [Mass/Vol] 142 mg/dL High 1-100 [facility] Comment on above: Result Comment: Opti mal - Less than 100 mg/dL Borderline high risk - 130-159 mg/dL High risk - 160-189 mg/dL. Performed By: #### 3 5320236, 3115265408, 48373205, 8423108582, 5694399, 6430633894 #### [facility] (DEFAULT) [address] [place] [address] 76094 Cholesterol.total/C holesterol in HDL [Mass ratio] 2.6 {ratio} Normal 0.0-4.5 [facility] Comment on above: Performed By: #### 3 6633641, 5136404437, 90564662, 8102413405, 4562219, 0462088876 #### [facility] (DEFAULT) [address] [place] [address] 18971 Triglyceride [Mass/Vol] 120.0 mg/dL Normal 0.0-150.0 [facility] Comment on above: Performed By: #### 3 2276800, 7612808407, 91209541, 2138440650, 9570726, 1793284297 #### [facility] (DEFAULT) [address] [place] [address] 30726 VLDL. 24 mg/dL Normal 5-40 [facility] Comment on above: Performed By: #### 3 8250668, 2762316646, 32640667, 8584366286, 6332869, 9486997873 #### [facility] (DEFAULT) [address] [place] [address] Coding Summaryon 04-08-2021 Coding Summary [facility] JppeqiocDKt4rGt+PGhlY WQ+GY3LVAUxU00bdRBmlT 1BA9kXNP4NVSZAVBALOU9 JVZ8drZM4FTwjC1UpihCm EwznmNVpKD44BRm2PAE5u OxnTHocgG5iuACmM1s2Kf IyNG81qB53FCwsESMnHgR 3LjZpbjsgbWFy M1mwVkKzuPRaPmh+PHRhY mxlIHdpZHRoPScxMDAlJy AibSaxSG7sCl7yYWEuNTD vbGxhcHNlOiBj y6knPDPjMCshIZ1ouCizB 5HyyGO0BVHvt8l4Mg14gY I+SKMtTGK1qDivPDrpl51 4SgSow8xcYLX2 pIBtLRusUFT6C46ka7D9F EPpKOMzVWM5vXI2yI9exG cyfuiwD6WaiRCmAyY3LYD 7vDUezB2mjFab klmrfJ0xJxp+Q78GRS4XH QISUQ3KVhn7F8ZmVhznfN I+NV94TMKqVS31bDKsuWH ry8sxmVn8WyTa IAGvUCY7nLdkRCsfl5OaH CFgK89lgCAzr9I0KHTofJ tapEBuUhLcyTU6qC2tPAz zmcejd1efocqp Lcdcn9unqv05tX88G03mZ QyuQTBtWWP9BSZqLWCiyX cgrv5rnX9nJm3+GMmjr6e lx4xwhHh3EdDj MXQlvpPybHwoSFR8d0SfV o35M8NiqMpsv9UsZdf5lt 69eZCtm2S3mBJ3NIyxBIS uiW2xUFotMcU4 GSXpNeHhhU46iQKqNVawA g6paJpyyWkeNK9mUTTysv byBQZfxG6fOIWczYVuiGh wDZ7iTUBrhced d161AcGeLMK6YIKcqNLsB 9FroD1sCcDxKYAdWLUxL1 IbwOUeBWnyB602GGhhIfS 3YGMzgzJaZ4Tf PTIudNzkTzL1u7B6Cp5Qi 0CrtxjeMHZ2NHwvFEK9Yf D5MqVtVnF4Y0ZjOua5DIL opAzcZH6pG3Jp YVMeqcscbzsukQN0HIKgA DOjkZ89uKCtSBdmWv6bq4 O3x190FMPdGWZdpP83Tf9 udDogMTBwdCBU nV8kvqesr4nxtnrwZyMsI OXuTCr1QVr1ULEyjJnuMq TpSII4IjY8WRP8sSMjdM4 ewXsvppknvO4v Oyc+M13xtD5oTOG7SYE7x qoaAMXaouAaNX64CA82A9 RyPjwvdGFibGU+PGRpdiB znJyaQR5tYnOp w5uiy1EyTUclD7BgPKYzK NchTdk7JVHsYBR7aIP4lC 5pBIGlHKphc1Z2oRY1C6Z acsOqeg2rc7ed FPBwXWcyF38weESid7P1S OWhbCQ0ZMYbeArtOuZatT 93Oyc+UCNmwEmbf9FuVeb hy1axw2lrqIq5 MiVjGQEmgfEpuMriSOS2a 9YjXa35V40kHYuaEAZxOH PtGZLzSNFvlProzc9iuQ0 wIi8+PGNvbCB3 dDU7iT5rJTPgBgO6MXmuQ 337EpPkdTJeYsqpn2kgi9 pmnSy8LrJkWMQwjxJqkUg rBZT7x9ZnXm38 S16vSArpLJLzQTXnXQNmY JJplPsefs6lhL1yKl6+PC 4ol9wbfi39vQ60cUS+PHR vTWE6gUwjMHcc WWQmsZ0vKPlmNpE4EPSwL yNgeD51hIGwXOevDl1kmN aelLzoXO1dYMEjycwaw30 4ZbJuu2zuOHFu fGKiRItbGHQ6Z40qc4L0P XPcANQbFCL8eGV5fS1zfK lnbjogbGVmdDsgdmVydGl mFJxbKOrdU947 IHRvcDsnPlBhdGllbnQgT jWpXUk6N8LvCjg9NCOdgE loGO5jcIIiCAmlIn5zzDa buSmbMP6jXSTl eynqp358YkIwc1kmFACee DGuHMvqNTI2A04ro0Z9FT JvHXTwPNU9xPY9lS4dkTk nbjogbGVmdDsg ptLwyTssUUayRIhmM838N HRvcDsnPkJpcnRoIERhdG M0AG53KS70aEGuq7Z1fTE 6A8GnMIUkpzon ywwjfVP1KQPuTUFeiM19Z t2otOdoZf9hRHLoLTI3KY SmrTJjT6YavG8tQlIlCOJ bYEJgS6TldUPx TWphG562ACzwRuT1TYQwe vSxY9IgYWEffFznRdX8r7 U5Wi1NG2U7KS18PO10zAY bu5Z6jCI5X6Fq BKYrugndwsvmeIZ6OXCtX UDsiV70Iu0rtGrkQc7lBL FkETO4LMSsaZZpZ2HpnA9 yOiAjMDAwMDAw W0IylBIaESncU802CZorJ dF2JQAbrkLzC2SxMMPefB eqApC5z6W3Bx3MXHy8GJ3 1FS43zRCpx6V1 mHY9W1WuCFKcjiggkvnjf YQ1DLSuGBUitR27Hl7tvC hyPq5xCGZwATA6NDVslPQ iG6ZdcY5nJiIq ALLwBGUnG4DzcEFpWPqtQ 229LNodRxV0FFWtdfZzD2 CiEZWnjMztTbN4s7D1Em2 LRQRwQN49QJN3 gNL7BH98GR34W7GrShxbm GFibGU+PHRhYmxlIHdpZH RoPScxMDAlJyBzdHlsZT0 uCg9yTNGzLIYu oDecqDZcBsQdt7rwHBYnE JnxQU7maPkbE9MwdET5XW Ipc6j0Wy29J13rU6IxtHJ +CYNvlAQ7vIL8 cL0gDiIlEzM4YHthZ574B nIriFFcDxmoz1ijn5ilpI u4KvZ9NYUourNclKhrVLZ 3m5BmRc07B45n IHdpZHRoPSIxNSUiIHZhb Uydjo2gtN2xHr8+PGNvbC O2cBU7qL9rKaKyKnN7QNo zF281FpKznVOn Eambd0ylg5zlkVp5XfIqP PIdzlMmjPfqNQK7c0MaSb 21V5OwgFuda9EgErv2bc3 7zCRnn7U7lEV3 N5GhWPErvbzklZBlxKpyW P9gDDZaepmyFKUduM6uNQ BgW0e1OxVxOqP5NZzbI1F ghtJ0ZRNrySUs EDjaYUX8S34ne4O3LJPuV ZCmRZT9uNP8wH2ftIifwd ogbGVmdDsgdmVydGljYWw yVNhqH760GJBg rPqoXEVelC2yHVDcnCBah GhsZT7pWDDaifqnBi0TBC ESLUSOBBZRSZ8LNVKNHVq MKRJ8O9BbJqk3 VAQymTmcDQ7pfIGsCSaxP x6lbYnhrFvfLJ9dUMQsab vbOOWnwY6sTYGowHCdxEw kFO5iJCUpjlpx s281SmYjZJS9VEVflWUpX 7QduH2fQjLdCXRxMZRxY6 EmlALtUJwxI464STnpZkM 9BSIwrvHnW1Nu IVOhvUnmNjA6x9L2Uw6oS L4bTN6bIKs5EU05IH15yJ Ick5H0lJM1T9FnXLWbhlk qnswopNZ2RISc OKLflO86uNNsCEyhXs9wy 5U5x251QQKrSYLqhD23Ga 3xbXrcIYJtrSSDxM5biek vz0nvaamcAnVk LBEmRAm2QFr8AETmqMbnK kViKBN2BbI0FFX6eVGcnW 4nxYeiwmmjbW3hHkm+MjY uASBcgyB8H9Vh Oqm8SESrsVsdYD5evAStX CkqNi3goIptuOyyVG3xCY VcwfifBQIjnZ8tOTKdwRM vgJxxQE7bMSZi iutjj669DsKaNMO5KAKej FSaV1WxjY0yOxAgVVAvKA XsD7YlcXHsRXorV980LWg kIcU5LXYxsbQm O9JvKXIxpSvmShK7n3Z8H v8HXG8KDSP4X3NiQvh9HR IitXuyGG6hhLDfWEjzPl4 ovBudjDqrCW5y ODSnqtbsNOPxwR7rQAGmz PIzpVcvBK3sLMRlvnhog1 68CyUfTLL4XWDzrARjZ6Z mvP5oLeMcQBJc GHIpF4PvbTCmSWkrA847A FsdSxC8TWDmnrRmA9SoPA UrvGtyRgW8i8W4Rv6STLr vdGQ+YD96ez30 M5DaOqnaNkt0DDTtLOB4q UZ5bM1nRNOmISnhx0Q1oZ X2K0GpkpDpzo6vf2ziBSG sYLxcD53olLFl r2C3FXLckXJ1WLQajVwoN nGipI75Cmx+PGNvbGdyb3 ByXhrfy3uce8wacPq5SmO wJSIgdmFsaWdu XYP6s3VwZp49A15qPSmgU HRoPSIzMCUiIHZhbGlnbj 0dlK1oGg1+YPGifKQ3wMZ 9oG2eHdXqZjY3 BLpzJ701JcOffKEkOlrng 5esz1xnfYv9MxUuWOYekx WmiKkoKAJ6g6RiKq38P4J jbQgvx6SwJil9 er19aOEvw5L8rRS5J7UtG KZctguanHUotJltVI2pMP PrieylDIBzxC8vAGFjV6r 0RdEnStS8MJxn G9PftmG9PYBokHTfTUCfe VYSoQ6xgscyd2rrlnjdIk ZvCMPkPCp3GCs3NFYaaTu cZcXmWQA6LwU7 DMD6mUJwvL6sbLktniwvj G9wOyc+ESc4u6aunLXlOF 1ggYH9KN07TW39lFExz7G 0bCQ8M6DiNDQe lbpjbfbndUL2OEZcDGHwx P97Tx0moGecQx6kAFElIJ W9SLYxvPSpS8DtvB8yOdQ sYIYgPIIuC9Zg eZZtTSsgN408ALpzMkQ8I UBlbnPhA9TvIGZgmJuyHe X1c3Y3Sk8OWR99SV35EJ3 0tYMau2N6rVA7 T9GrPYOagjrfvipmjXX6M FThZLEkaJ54Zy5ebGfjVq 0mEOTpMCG1QBMlxRKqC8A ebO2zItYiEPHq FIUnL8CvwFRcYEfqA131O PqkQwG0KYLfefLdG3AmLG PgxLtyHmP7q4X1Xe7OSv5 4KL86RI16gTYq f9H1sHB5N2VjDNPxcdufg qpygGF6MUPjOCEzpU43Vt 0ynXcrQv0vVJDwIVH5RPI siIQzY3MlcY4t TwCyZNCcGFKbV4LncFQbE BmdZ773JIbtYqP6LAIlou KxK0IaLSLggDftAyF1p0J 8Ho2ZQPedqia7 R5MnLkuqnQY+NX44XZZbB M84rRNngPAwk3bchPh6Fq VeUXQkBYO0vErdENqyg0V rMEFgJ02cqCPl c2U (more content not included)... Normal [facility] Provider Orderson 04-07-2021 Provider Orders [id number] [facility] .Auto Diff 104-04-2021 Auto [place] % 5 % Normal 09-03 [facility] Comment on above: Performed By: #### 2 [id number], [id number], [id number] #### [facility] (DEFAULT) [address] [place] [address] Baso Abs# 0.0 x10 Normal 0.0-0.2 [facility] Comment on above: Performed By: #### 2 [id number], [id number], [id number] #### [facility] (DEFAULT) [address] [place] [address] 81796 Basophils/100 WBC (Bld) 0.1 % Low 0.2-2.0 [facility] Comment on above: Performed By: #### 2 [id number], [id number], [id number] #### [facility] (DEFAULT) [address] [place] [address] 25780 Eos Abs# 0.1 x10 Normal 0.0-0.4 [facility] Comment on above: Performed By: #### 2 [id number], [id number], [id number] #### [facility] (DEFAULT) [address] [place] [address] 44636 Eosinophils/100 WBC (Bld) 2.0 % Normal 0.9-4.0 [facility] Comment on above: Performed By: #### 2 [id number], [id number], [id number] #### [facility] (DEFAULT) [address] [place] [address] 47464 Lymph Abs# 1.2 x10 Low 1.3-2.9 [facility] Comment on above: Performed By: #### 2 [id number], [id number], [id number] #### [facility] (DEFAULT) [address] [place] [address] 65158 Lymphocytes/100 WBC (Bld) 17 % Normal 14-48 [facility] Comment on above: Performed By: #### 2 [id number], [id number], [id number] #### [facility] (DEFAULT) [address] [place] [address] 88279 Comanche Abs# 0.3 x10 Normal 0.0-0.8 [facility] Comment on above: Performed By: #### 2 [id number], [id number], [id number] #### [facility] (DEFAULT) [address] [place] [address] 42186 Neut Abs# 5.4 x10 Normal 1.5-9.2 [facility] Comment on above: Performed By: #### 2 [id number], [id number], [id number] #### [facility] (DEFAULT) [address] [place] [address] Neutrophils/100 WBC (Bld) 76 % Normal 44-88 [facility] Comment on above: Performed By: #### 2 [id number], [id number], [id number] #### [facility] (DEFAULT) [address] [place] [address] CBC w/ Auto Diffon 1 Erythrocyte distribution width (RBC) [Ratio] 13.7 % Normal 11.5-15.0 [facility] Comment on above: Performed By: #### 2 [id number], [id number], [id number] #### [facility] (DEFAULT) [address] [place] [address] Hematocrit (Bld) [Volume fraction] 34.4 % Normal 33.7-40.4 [facility] Comment on above: Performed By: #### 2 [id number], [id number], [id number] #### [facility] (DEFAULT) [address] [place] [address] Hemoglobin (Bld) [Mass/Vol] 11.1 g/dL Low 11.3-15.9 [facility] Comment on above: Performed By: #### 2 [id number], [id number], [id number] #### [facility] (DEFAULT) [address] [place] [address] Instr WBC 7.1 x10 Invalid Interpretation Code [facility] Comment on above: Performed By: #### 2 [id number], [id number], [id number] #### [facility] (DEFAULT) [address] [place] [address] Man Diff? Auto Normal [facility] Comment on above: Performed By: #### 2 [id number], [id number], [id number] #### [facility] (DEFAULT) [address] [place] [address] 71033 MCH (RBC) [Entitic mass] 30 pg Normal 24-34 [facility] Comment on above: Performed By: #### 2 [id number], [id number], [id number] #### [facility] (DEFAULT) [address] [place] [address] 49908 MCHC (RBC) [Mass/Vol] 32 g/dL Normal 26-37 [facility] Comment on above: Performed By: #### 2 [id number], [id number], [id number] #### [facility] (DEFAULT) [address] [place] [address] 23804 MCV (RBC) [Entitic vol] 92 fL Normal 81-100 [facility] Comment on above: Performed By: #### 2 [id number], [id number], [id number] #### [facility] (DEFAULT) [address] [place] [address] Platelet 225 x10 Normal 138-427 [facility] Comment on above: Performed By: #### 2 [id number], [id number], [id number] #### [facility] (DEFAULT) [address] [place] [address] Platelet mean volume (Bld) [Entitic vol] 9.8 fL Normal 6.3-10.2 [facility] Comment on above: Performed By: #### 2 [id number], [id number], [id number] #### [facility] (DEFAULT) [address] [place] [address] RBC 3.73 x10 Normal 3.70-5.30 [facility] Comment on above: Performed By: #### 2 [id number], [id number], [id number] #### [facility] (DEFAULT) [address] [place] [address] WBC 7.1 x10 Normal 3.5-10.5 [facility] Comment on above: Performed By: #### 2 [id number], [id number], [id number] #### [facility] (DEFAULT) [address] [place] [address] 05501 O'Aguilar Teston 04-04-2021 Glucose [Mass/Vol] 115 mg/dL Normal <=139 [facility] Comment on above: Performed By: #### 2 [id number], [id number], [id number] #### [facility] (DEFAULT) [address] [place] [address] Coding Summaryon 11-29-2020 Coding Summary HTMLBase 64 LxobdnazSKz7xOd+PGhlY WQ+CD3MTPGqB36kvKKcjM 5FS2mWHF7GUDHJRELBFZ1 KYI1lhRA0MWvkI7RbfaRu CkpiwJCvTZ09GUe7LUN4a YdrDBxeaC3kwSKrO8t5Up FbSS51xQ44NIllEDMxWpI 3LjZpbjsgbWFy U2czAmZmwBEnKpt+PHRhY mxlIHdpZHRoPScxMDAlJy VtsHceBK9yUs6aJIRiNKV vbGxhcHNlOiBj c2qgTBLwALjnSL5gnDwdI 6BxsHI3MWQgl8x7Lu61kE I+YOSxCBO1sRniKLcbe82 5ZwOjg5ymCUW2 fMXyZXsiYIC1H14vb2Z7K DPsKBYaIDP0rME5zF3cqZ xwtwxtZ9XxoOEtQdG9TLA 1nLIwvF9drDur jscuhI0jEwp+M67ZFH5QK XSLUW8MQle2W9AhEezinS I+SG15BQAwBT30sHCewXY kt5eowNm5XfLc NRSdHHE8rWkhRPcky2GgI MAtQ96bgBKts0C2WIRhrZ rayPUeCiTtaIA4qY2xAHk poyrox9ggtmxg Fnbhk1fyhi80xJ29U03xO KtnWTStDGI9QJSnSGAtjW rzcj1gbU1xFs3+UGupi5j gp4lqiTg5KaGs TLHuysBfqZcbZMZ0r0OdH p47I9VwfNufu8KeJqq1vc 67hOMyf8Q5dXJ1MTvoEVX puL0wHPhrVgS2 DXTaTyApgL49rJHbBLutC c3frTwvuRkgYS5xVBKjlt laZPTyvP3zRRTvaGTvnGf fRO0tLYTxmsvv l792EgWhKML5ISGzmKFzJ 7LxtS5gKlCnOUSpLEGaU8 MwkYJkAFfdI862TZvzUpI 2GCTkluVjG0Xv EBSrbLmxSwK5g3A7Zx6Qa 4QfbipxOUD7KDefPCG6Rm T3JtRhFsI8V9HgAqk6TAR phCylUJ3iR5Qt OGAryuvmyvulfAP8XOYdD GXxnS33tZRyNZyhJp6pf2 X6b165BRSkUVLztH10Er4 udDogMTBwdCBU vG0ybqqme1yfhvfqVlPgG EBjLDj4ZCn7TVTnaKcoCk ZqZZS5VfJ8QJD7mNMmlI5 foEtngplhlX9j Oyc+A86hwU3wIHZ5JUC1q euqPSQtnyHbZC55TT25U4 RyPjwvdGFibGU+PGRpdiB llYcgVX1qXeRs l6ooq3UeMHbmI3TeSMJeL YjeUer8VZOvDOV3oLL8bF 5uQDZpWWyfh6E6vQL4K3Z rfaVxoc1px7gv GRVyQXhuK63hcLQkv0Y0G ANugVX7LHNzxJkxLmKeiR 93Oyc+FOEazXcpz5EtBgk st7blr9slfGj7 ByBnZBBevhOlkLrdQFV9y 5AsOt78C72bXWflQEPvAG DoHJWzZWTwfCapjp7btA6 wIi8+PGNvbCB3 xLS5dW0qJNZvBfZ8QPrvI 793TwWyhKAePmpqd4gwm5 rnvVl9WfDpJOHgwdUwgFh bLCH1p5HmVt32 A71bDOxxXKJeJVJnUPSxV EAjqHksdw5edG3qRw7+PC 8ne6mrhp40jD06eTC+PHR zPVG1zHxwJSbn JAStkD0oMHcfJbU9QBZvW aSvdF36iIDcDPonCx0lgJ mylSsyZR0oECPepraod50 1PmHbi0pnUXCg iKGgBZgbQPI2Y47en3J0X ANaBZIlCNB8pGZ5zE5esK lnbjogbGVmdDsgdmVydGl rVRalGOtqO009 IHRvcDsnPlBhdGllbnQgT kIrILe5Y5QaTaw3ZZRyyP ikXT0fqSRyTWthHg1zuWn gkAxlNU2xZRRj mdkty897QpGqt1ncVNDqd TMpVOaxVZB6G19rs8Q5DA GnQXUgXYV5fOK6eR7rnYx nbjogbGVmdDsg sgJccZmkWXboDZmsO460D HRvcDsnPkJpcnRoIERhdG O5LQ06XL35tRSez1V2yUO 3R9MkSTFqjvuw objouUD0ESArGXCzpR63P t3umXitJf8dDACrENU2DB IvqVUzA7GgrO8rViSnGMM vUSPfW4PepEBg DUszB795KUbbAjF2XETkl iBjC9UvBMAtoObfPmI9n9 N5Gh3HU4C9MV85PQ95iER us2P1hOO6Y9Du HGQkqcjfrsahcID3THYdE OPawV61Sp2nbMcnJk6lMK UpRPG5QMHryWWdF8WlnG8 yOiAjMDAwMDAw U3TrzBDwNSuiV047XOvfQ dB7KJVklqRuI3LgHQPytT maJcI6y5A5As8BRLa7TK3 6IU47oIRqi5N7 hXO0C0ZfNVTdnmeiucscn RA4GHNvWVHvjG87Cs5qeU seIq9mEIWlBDU0WYMmtFJ rL8CvuH5oVfVe YBWcYFYhE5OziEXgXBjsR 833JRblZwP6TRGkzsYuL8 LnLMEumTefLxW1l2K6Wz2 JLLBdBA19BIZ0 eQV2JH45VP49D7EpQpsbd GFibGU+PHRhYmxlIHdpZH RoPScxMDAlJyBzdHlsZT0 mWg9dUDLmHENz gZzoiHEgAfBub9gwTMGpM UssVH2jwMijW4XpoFT2BZ Pyv2g0Gg36X39vQ4UuqRH +DRPfyPT1cVD8 iE7sOkNnCsI8GTewZ092L rPdqCZgIblcq2naq3jteP s5LaC2HPBzasGhzZimCCC 4o2WaAt52D25b IHdpZHRoPSIxNSUiIHZhb Osmkg8ytN9bGw8+PGNvbC M9oUF1jD5iYoNfUnO3IAe lE032TkIyfAVi Nnspt0gls4ayjCf8KpUiY YItthCkwUxkEKG6r2GiEz 39Q1OydDjws0LcHgv6xh0 9rJQeo3Z8sAU8 W5JbWYYctvzxeFLjbVdlA Y3uWSKdttmuNQXbaU4jYN DeF9z4BkLxBcD7EMxuY1W yewL8UXRorRWb OHraFMX6A29py0N1QGUbN NLvBLW2wON9nF5apCmrnt ogbGVmdDsgdmVydGljYWw yXGtkD602JWMj tPhxYQIgzE1uXSChxROxg CajJT8dECImcxqpEn0BIK QGQVIPRXCNAM7MPFXIDRx NPQJ6I9IoFez1 WWImmTazWW0uhPCtWIgtU b1udCzutPywPQ7wHWWsvx quBFBvcQ2kZMAquHQvuRg rPL1lUUTsfhrv d454KnHqYLR8RKZthTHeI 9GrfO0bFrWzPOEgJHTpH0 HtbQKbMPooC478AFlbTsK 1FLPioxInX5Zl ULZrlBsiNcQ5c4R5Go2vN D2oXP6fZKq8OX11ZJ80hX Ayy0T0zLQ2U8DrNMTomnc cysdiyZQ0NPWb TKQpzQ08yNIiKTucBz9zf 4J0c589HZOdGBIzuQ05Re 8qgPriNJFdpMWHoR0bgvx hx8hufgpxCiIz GXXgYZi9OMt8KFNgdXosY iLkWIV1XeT6UXQ1cFIdyG 2vdAajebqxqM4eNyx+MjY vPWDdepR5G5Gr Nmd7QVYmkBhxNO6rpGRyC KjnVq2kiDzizRebFM4iTI EybcugYAMilA0sCXWqaMB btCtkHQ2pZDVp iglls368NfJkYJF5RTEpd XWnN5MpeT1vGuNhLRSsET EaE6DieYExWSqvG742LEe rVoP4VOTdsoCl R4VuDFEruWopVsT9g3S3Z w8NFO5BMUH6K0DjRcs6IE HvlKqeRF7iqXAiXMkhFp3 ckOmijYboDL0k STIbjwzwIRDgiD6uDJDxx BWplKrvJI5qWKBtkunbl9 06HdKvEVV3DEOoaIYsY0V mdR7lKsKyWIPi DPLaR7NkoRTjOUayX300T RpbXgZ8ZBBrenKzI2ViRH OdbWxxWhO1x9V1Id1NKEy vdGQ+SR17fn69 Y7LeMzmsHos1XQTbZUP9v XV4qP8gGBCuMWjwa9A7hG P7G4OfwdFjvz0pk7nqUYO cSSfxT67cgWNq o6P2HMRguNX3APByiWvcS kWngE73Imu+PGNvbGdyb3 BdLvdzy6qug6avwRd4FgV wJSIgdmFsaWdu BVF3o5IaZv43N29tUFqvD HRoPSIzMCUiIHZhbGlnbj 5ylS4nQg5+GKUahEO4vRB 9gN9dVoOwOhF5 QDtiV977NgHzpVUiYvihl 6ltt8efgJl6VgHlZAHfmr YhuHtuHAH3w5WgYa48P0S ziSbht3QmKkb4 lt20sGPru6U1aED7T3GoO JTbfrejiFNhpCxkOC7tSY VcpvbbXFDtoZ1lNHUrQ0b 2OsDaTyY4OPyz S6RyjvP1YLCnmQSzKRGna RMCcK2srgass5dnpcqwVy BiHBHwRAq9RIz5MWFsxZb bTtYfVIR3WiW8 DGS1xPUcpY9qiIznotaut G9wOyc+UYr9b0twrVPdHD 5xoMB2DS46QV07dRItv4F 1wKV0K9ZfRFGc nnvbjjqqpVF9ZAYaRTBmx R45Bj0dkBxpNs3rXCNwQX P1VGIazFYlL4AinU8zQeP zPOOrWVZrT7Yc mWLxWPetG797QOuwRrH9S WFeqzBkV5SeMETdmGsbLd J5e8O9Za7JCR99SZ28DP6 4vRWza1E0pPQ4 G9ZjKPLhupyurpeqnPS6O FIzKLYblO47Mo3yqLpeBy 8hJWSrGZS0DGRagIYnR4P tgG8uGoTsUNTq YERxQ9AzmSPvSGpeS314Y PmkKuP2XLNlwzAiJ3XrCU OwoJulYeF0a1R3Am6YHf6 8FD47XF51dHKz y8H5qFW0N9KsNPYthysqq umyiFL4BIPoEKDyfQ48Hl 6phBzjPd2hTYSrUDS7MHB pqZMeS3SmyT9p YjMwULGcNQTvL5JqzRIcC CjbN682TIsxYiI2IZOrct DuZ4LhFOEojDepJxN0g2C 7Gr3OGXidzth8 U5UiTfdmlCQ+FA83OQBiK E24bKQyfKZqx5vyvMb7Ea FhFZYzSLP7xYftXXpsk3W hPKRsA85xwSJk c2U (more content not included)... [facility] Provider Orderson 11-28-2020 Provider Orders [id number] [facility] ABORhon 11-27-2020 ABO and Rh group Nom (d) Hx Check: Not Found Anti-A: 0 Anti-B: 0 Anti-D: 4+ DCon: NT A1: 4+ B: 4+ ABORh Interp: O POS Invalid Interpretation Code [facility] Comment on above: Performed By: #### 7 [id number] #### [facility] (DEFAULT) [address] [place] [address] ABORh Retypeon 11-27-2020 ABO and Rh group Nom (Bld) Ordered by Discern. Anti-A: 0 Anti-B: 0 Anti-D: 4+ DCon: NT A1: 4+ B: 4+ ABORh Retype: O POS Invalid Interpretation Code [facility] Comment on above: Performed By: #### 2 [id number] #### [facility] (DEFAULT) [address] [place] [id number] hCG Quantitativeon 1 hCG Quantitative 077601.0 mIU/mL High 0.0-0.6 [facility] Comment on above: Result Comment: Resu lt confirmed by dilution Post-Menopausal Reference Range is: 0.1-11.6 mIU/mL Performed By: #### 2 [id number] #### [facility] (DEFAULT) [address] [place] [id number] Vital Signs Date Time Vital Sign Value Performing Clinician Facility 01-28-2023 16:20-0400 Body height 160.02 cm Shelli Perezley Other [facility] Other 01-28-2023 16:20-0400 Body mass index (BMI) [Ratio] 40.74 kg/m2 Shelli Daisy Other [facility] Other 01-28-2023 16:20-0400 Body temperature 99.7 [degF] Shelli Daisy Other [facility] Other 01-28-2023 16:20-0400 Body weight 104.33 kg Shelli Daisy Other [facility] Other 01-28-2023 16:20-0400 Respiratory rate 18 /min Shelli Daisy Other [facility] Other 01-28-2023 16:20-0400 SaO2% (BldA) [Mass fraction] 99 % Shelli Perezley Other [facility] Other Encounters Encounter Date Encounter Type Care Provider Facility Start: 07-17-2024 End: 07-17-2024 ambulatory JAYDEN DASIA Not Available Start: 04-25-2024 End: 04-25-2024 ambulatory JENS IQRA Not Available Start: 03-07-2024 End: 03-07-2024 ambulatory JAYDEN DASIA Not Available Start: 02-29-2024 End: 02-29-2024 ambulatory JAYDEN DASIA Not Available Start: 02-22-2024 End: 02-22-2024 ambulatory JAYDEN DASIA Not Available Start: 02-15-2024 End: 02-15-2024 ambulatory JAYDEN DASIA Not Available Start: 02-01-2024 End: 02-01-2024 ambulatory JAYDEN DASIA Not Available Start: 01-18-2024 End: 01-18-2024 ambulatory JAYDEN DASIA Not Available Start: 01-04-2024 End: 01-04-2024 ambulatory JENS GIBBSEY Not Available Start: 12-06-2023 End: 12-06-2023 ambulatory JAYDEN DASIA Not Available Start: 11-08-2023 End: 11-08-2023 ambulatory JENS GIBBSEY Not Available Start: 10-11-2023 End: 10-11-2023 ambulatory JAYDEN DASIA Not Available Start: 09-13-2023 End: 09-13-2023 ambulatory JAYDEN DASIA Not Available Start: 08-13-2023 End: 08-13-2023 ambulatory JAYDEN DASIA Not Available Start: 01-28-2023 End: 01-28-2023 ambulatory Shelli Villa Other [facility] Other Start: 01-28-2023 Office outpatient ne w 20 minutes Shelli Villa [facility] Start: 11-23-2022 End: 11-23-2022 ambulatory JENS ESCALONA . Facility: Start: 09-21-2022 End: 09-21-2022 ambulatory PRAVEEN ZELAYA Facility: Payers Date Payer Category Payer Unknown [id number] 1994 Unknown [id number] 2.16.84 0.1.575304.3.579.2.593 1994 Unknown [id number] 2.16.84 0.1.233261.3.579.2.593 1994 Unknown [id number] 2.16.84 0.1.385233.3.579.2.9 1994 Unknown [id number] 2.16.84 0.1.191534.3.579.2.9 1994 Unknown [id number] 2.16.84 0.1.840331.3.579.2.9 1994 Unknown [id number] 2.16.84 0.1.251996.3.579.2.1259 1994 Unknown [id number] 2.16.84 0.1.508668.3.579.2.1259 1994 Unknown [id number] 2.16.84 0.1.575078.3.579.2.9 1994 Unknown [id number] 2.16.84 0.1.393998.3.579.2.1258 1994 Unknown [id number] 2.16.84 0.1.929752.3.579.2.1258 1994 Unknown [id number] 2.16.84 0.1.611079.3.579.2.1258 1994 Unknown [id number] 2.16.84 0.1.321308.3.579.2.1258 1994 Unknown [id number] 2.16.84 0.1.907730.3.579.2.1258 1994 Unknown [id number] 2.16.84 0.1.576739.3.579.2.1258 1994 Unknown [id number] 2.16.84 0.1.831104.3.579.2.1258 1994 Unknown [id number] 2.16.840 .1.943426.3.579.2.9 1959 Unknown [id number] Social History Date Type Detail Facility Unknown if ever smoked [facility] Other Sex Assigned At Sex Assigned At Bir th [facility] Other Evaluation note 01-28-2023 Note Date & [...] worsening. Patient verbalized understanding of treatment plan. [facility] Other History general Narrative - Reported Note Date & Type Note Facility History general Narrative - Reported Type Surgical History sinus surgery x2 [employer] [facility] Other Summary Purpose Family History No Family History Records FoundNo Family History Records FoundNo Family History Records Found Advance Directives No Advanced Directives Records FoundNo Advanced Directives Records FoundNo Advanced Directives Records Found Additional Source Comments INFORMATION SOURCE (unrecogn ized section and content) DATE CREATED AUTHOR 11/03/2021 [facility] DATE CREATED AUTHOR AUTHOR'S ORGANIZ ATION 12/12/2022 [facility] DATE CREATED AUTHOR AUTHOR'S ORGANIZ ATION 07/19/2024 [facility] EPIC REASON FOR VISIT [...] BE BASED ON THE PRIMARY CLINICAL RECORDS. [facility] [employer] [facility]. provides no warranty or guarantee of the accuracy or completeness of information in this document.
--- OUTSIDE RECORDS SUMMARY | 2025-05-12 09:20 | XMS_ITS | Encounter Summary ---
Author Organization [facility] Address [address] [place] [address] Care Team Providers Care Zone Manager Name Role Phone Ja Pena MD Primary Care Provider [phone] Encounter Details Date Type Department Care Team (Late Contact Info) Description 03/10/2024 Abstract [facility] [address] [place] [address] Jose Luis Jordan DO [address] [facility] [address] [place], [facility] Social History Tobacco Use Types Packs/Day Years [...] AM EST Office Visit [facility] [address] [facility] [address] Jose Luis Jordan DO [address] [place], [place] [id number] documented as of this encounter Goals Goal Patient Goal Type Associated Problems Recent Progress Patient-Stated? Author Reminders Care Plan OB Reminders No Open Scheduling, Background documented as of this encounter Visit Diagnoses Not on filedocumented in this encounter Additional Health Concerns Active Problems Noted Date Diagnosed Date OB Reminders 09/29/2023 documented as of this encounter Care Teams Zone Manager Relationship Specialty Start Date End Date Ja Pena MD PCP - General 04/29/23 documented as of this encounter
--- OUTSIDE RECORDS SUMMARY | 2025-05-12 09:20 | XMS_ITS | Encounter Summary ---
Author Organization [facility] Address [address] [place] [address] Care Team Providers Care Library Historian Name Role Phone Ja Pena MD Primary Care Provider [phone] Encounter Details Date Type Department Care Team (Late Contact Info) Description 05/06/2023 Clinisync Result Encounter [facility] External Department Unsolicited Jayden Jordan, DO [address] [place], [place] [id number] Social History Tobacco Use Types Packs/Day Years Used Date Smoking Tobacco: Never Assessed Comments Unknown Sex and Gender Information Value Date Recorded Sex Assigned at Female 04/08/2023 7:49 AM EDT Legal Sex Female 11:47 PM EDT Gender Identity Female 04/08/2023 7:49 AM EDT Sexual Orientation Not on file COVID-19 Exposure Response Date Recorded In the last 10 days, have yo u been in contact with someone who was confirmed or suspected to have Coronavirus/COVID-19? No / Unsure 05/02/2023 9:18 PM EDT documented as of this encounter Plan of Treatment Upcoming Encounters Date Type Department Care Team (Late st Contact Info) Description 07/24/2025 11:00 AM EST Office Visit [facility] MOS[facility] [address] [place] [phone] Jayden Jordan DO [address] [place] [address] documented as of this encounter Procedures Procedure Name Priority Date/Time Associated Diagnosis Comments US OB TRANSVAGINAL 05/06/2023 4: 07 PM EDT documented in this encounter Results * US OB TRANSVAGINAL (05/06/2023 4:07 PM EDT) Anatomical Region Laterality Modality Other 05/06/2023 4:07 PM EDT Narrative 05/06/2023 4:07 [place] [address] Ultrasound Report Signed Patient: ALYSON GARCIA MR#: [id number] : 1995 Acct:[id number] Age/Sex: 27 / F ADM Date: 05/06/23 Loc: US Attending Dr: Jayden Jordan D.O. Ordering Physician: Jayden Jordan D.O. Date of Service: 05/06/23 Procedure(s): US OB transvaginal Accession Number(s): [id number] cc: Jayden Jordan D.O.; Physician,Non-Staff [place] [address] [place] [address] Patient Name: ALYSON GARCIA MRN: [id number] date: 1995 Sex: F Assigned Patient Location: US Current Patient Location: LAB Accession/Order Number: [id number] Exam Date: 05/06/2023 13:05 Report Date: 05/06/2023 16:07 At the request of: JAYDEN JORDAN Procedure: US OB transvaginal EXAMINATION: US OB transvaginal HISTORY: MISSED MENSES COMPARISON: No relevant comparison available. FINDINGS: GESTATIONAL SAC: Present YOLK SAC: Present POLE: Possibly present and very early. CARDIAC: Not applicable UTERUS: Normal size and appearance. OVARIES: Right: Normal. Left: Not seen. CERVIX: 4.6 cm in length and closed. CUL-DE-SAC: Normal. OTHER: None. AGE BY LMP: 9 weeks 2 days MARIANA BY LMP: 12/07/2023 AGE BY US CRL: Suspect 6 weeks 0 days MARIANA BY US CRL: 12/30/2023 US/US OB transvaginal IMPRESSION: 1. Suspect early intrauterine . Blighted ovum is felt less likely. Follow-up recommended. Electronically authenticated by: AVERY CARRENO Date: 05/06/2023 16:07 Dictated By: Avery Carreno M.D. Signed By: 05/06/23 1610 DD/ 1607 TD/TT: Dispensary Attendant: Procedure Note Radiology, Radiologist, MD - 05/14/2023 [place] [address] Ultrasound Report Signed Patient: ALYSON GARCIA NMR#: [id number] : 1995Acct:[id number] Age/Sex: 27 / FADM Date: 05/06/23 Loc: US Attending Dr: Jayden Jordan D.O. Ordering Physician: Jayden Jordan D.O. Date of Service: 05/06/23 Procedure(s): US OB transvaginal Accession Number(s): [id number] cc: Jayden Jordan D.O.; Physician,Non-Staff [facility] [address] [place] [id number] Patient Name: ALYSON GARCIA MRN: [id number] date: 1995 Sex: F Assigned Patient Location: US Current Patient Location: LAB Accession/Order Number: [id number] Exam Date: 05/06/2023 13:05 Report Date: 05/06/2023 16:07 At the request of: JAYDEN JORDAN Procedure: US OB transvaginal EXAMINATION: US OB transvaginal HISTORY: MISSED MENSES COMPARISON: No relevant comparison available. FINDINGS: GESTATIONAL SAC: Present YOLK SAC: Present POLE: Possibly present and very early. CARDIAC: Not applicable UTERUS: Normal size and appearance. OVARIES: Right: Normal. Left: Not seen. CERVIX: 4.6 cm in length and closed. CUL-DE-SAC: Normal. OTHER: None. AGE BY LMP: 9 weeks 2 days MARIANA BY LMP: 12/07/2023 AGE BY US CRL: Suspect 6 weeks 0 days MARIANA BY US CRL: 12/30/2023 US/US OB transvaginal IMPRESSION: 1. Suspect early intrauterine . Blighted ovum is felt lesslikely. Follow-up recommended. Electronically authenticated by: AVERY CARRENO Date: 05/06/2023 16:07 Dictated By: Avery Carreno M.D. Signed By:05/06/23 1610 DD/ 1607 TD/TT: Dispensary Attendant: us Jayden Nikki DO [facility] Final Result documented in this encounter Visit Diagnoses Not on filedocumented in this encounter Care Teams Library Historian Relationship Specialty Start Date End Date Ja Pena MD PCP - General 04/29/23 documented as of this encounter
--- OUTSIDE RECORDS SUMMARY | 2025-05-12 09:20 | XMS_ITS | Encounter Summary ---
Author Organization [facility] Address [address] [place] [address] Care Team Providers Care Electric Meter Repairer Helper Name Role Phone Ja Pena MD Primary Care Provider [phone] Encounter Details Date Type Department Care Team (Late Contact Info) Description 03/07/2024 Abstract [facility] [address] [place] [address] Jose Luis Jordan DO [address] [facility] [address] [place] Social History Tobacco Use Types Packs/Day [...] AM EST Office Visit [facility] [address] [facility] [phone] Jose Luis Jordan DO [address] [place], [place] [phone] documented as of this encounter Goals Goal Patient Goal Type Associated Problems Recent Progress Patient-Stated? Author Reminders Care Plan OB Reminders No Open Scheduling, Background documented as of this encounter Visit Diagnoses Not on filedocumented in this encounter Additional Health Concerns Active Problems Noted Date Diagnosed Date OB Reminders 09/29/2023 documented as of this encounter Care Teams Electric Meter Repairer Helper Relationship Specialty Start Date End Date Ja Pena MD PCP - General 04/29/23 documented as of this encounter
--- OUTSIDE RECORDS SUMMARY | 2025-05-12 09:20 | XMS_ITS | Clinical Summary ---
Author Organization [employer] [facility] tem Address [id number] [address] [place] [address] Care Team Providers Care Refrigeration Service Inspector Name Role Phone Ja Pena MD Primary Care Provider [phone] Allergies No known active allergies Medications PNV 66/iron/folic/do cusate/dha (PNV-DHA + DOCUSATE ORAL) Take 1 tablet by mouth daily. 11/28/2020 Active aspirin 81 mg 01/09/2021 Activ e Active Problems No known active problems Family History Medical History Relation Name Comments No Known Problems Brother No Known Problems Father Hyperlipidemia Mother Hypertension Mother No Known Problems Sister Relation Name Status Comments Brother Father Mother Sister Social History Tobacco Use Types Packs/Day Years Used Date Smoking Tobacco: Never Smokeless Tobacco: Never Alcohol Use Standard Drinks/Week Comments Not Currently 0 (1 standard drink = 0.6 oz pur e alcohol) Comments No Sex and Gender Information Value Date Recorded Sex Assigned at Not on file Legal Sex Female 1:20 PM EDT Gender Identity Not on file Sexual Orientation Not on file Last Filed Vital Signs Vital Sign Reading Time Taken Comments Blood Pressure 117/55 03/03/2021 8:24 AM EDT Pulse 69 03/03/2021 8:24 AM EDT Temperature - - Respiratory Rate - - Oxygen Saturation - - Inhaled Oxygen Concentration - - Weight 102 kg (224 lb 13.9 oz) 03/03/2021 8:24 A M EDT Height 162.6 cm (5' 4 ) 02/28/2021 10:49 AM EDT Body Mass Index 38.6 02/28/2021 10:49 AM EDT Plan of Treatment Health Maintenance Due Date Last Done Comments Depression Screening 2006 Tobacco Screening 2006 Adult BMI Screening 2012 Pap Smear 2015 DTaP,Tdap and Td Vaccines (7 - Td or Tdap) 01/04/2023 01/04/2013, 04/02/2000, 03/01/1996, Additional history exists Influenza Vaccine 04/23/2025 06/20/2020, , 06/22/2018, Additional history exists Medical Devices Not on file Insurance [employer] Care Teams Refrigeration Service Inspector Relationship Specialty Start Date End Date Ja Pena MD PCP - General Family Medicine 03/03/21
--- OUTSIDE RECORDS SUMMARY | 2025-05-12 09:20 | XMS_ITS | Encounter Summary ---
Author Organization [facility] [place] [employer] [facility] tem Address [id number] [address] [place] [address] Care Team Providers Care Ict Support And Test Engineers Name Role Phone Ja Pena MD Primary Care Provider [phone] Reason for Referral * Diagnostic Imaging (Routine) - Closed Specialty Diagnoses / Procedures Referred By Contac t Referred To Contact Maternal and Medicine Diagnoses Family history of autosomal recessive polycystic kidney disease Family history of heart murmur Obesity affecting in second trimester Procedures US MFM with or without consult Roshan Hoffmann MD [address], [address] [place] [address] Phone: tel: fax: Maternal- Medicine at [facility] [address] [place] [address] Phone: tel: fax: Referral ID Status Reason Start Date Expiration Date Visits Re quested Visits Authorized [id number] Closed 03/31/2021 03/31/2022 1 1 Encounter Details Date Type Department Care Team (Late st Contact Info) Description 03/31/2021 Orders Only Maternal- [facility] at [facility] [address] [facility] [place] [address] Roshan Hoffmann MD [address] [facility], [address] [place] [address] [phone] (work) Family history of autosomal recessive polycystic kidney [...] have Coronavirus / COVID-19? No / Unsure 03/31/2021 8:26 AM EDT documented as of this encounter Plan of Treatment Not on file documented as of this encounter Results * US [facility] OB FOLLOW-UP, 1 FETUS (04/29/2021 10:01 AM EDT) Anatomical Region Laterality Modality Pelvis Ultrasound 04/29/2021 9:52 AM EDT Impressions 04/29/2021 12:07 PM EDT IMPRESSION: 1. Single intrauterine with expected interval growth from the previous ultrasound. 2. No sonographic evidence of gross structural abnormality disclosed. 3. Amniotic fluid volume assessment is normal. Narrative 04/29/2021 12:07 PM EDT OBSTETRICS REPORT (Signed Final 04/29/2021 12:07) PATIENT INFO: ID #: [id number] : [birth year] (25 yrs)(F) Name: ALYSON BARTLETT Visit Date: 04/29/2021 09:52 JOEY PERFORMED BY: Performed By: Teagan Knowles RDIN Attending: Janet Obando MD Referred By: Joey Purdy MD Ref. Address: [address] [place], [place] [address] Location: [facility] SERVICE(S) PROVIDED: OB Follow-up, 1 fetus [id number] INDICATIONS: Screening for follow-up survey Z36.2 Obesity in , antepartum O99.210 Supervision of other high risk , O09.90 antepartum FOB PCK VITAL SIGNS: Weight (lb): 239.6 Height: 5'2 BMI: 43.82 EVALUATION: Num Of Fetuses: 1 Heart Rate(bpm): 140 Cardiac Activity: Present & appears normal Presentation: Cephalic Placenta: Anterior, away from cervical os Amniotic Fluid ROLF FV: Subjectively within normal limits ROLF Sum(cm) %Tile Largest Pocket(cm) 10.7 18 4.75 RLQ(cm) LUQ(cm) LLQ(cm) 2.21 3.74 4.75 BIOMETRY: BPD: 68.4 mm G.Age: 27w 4d 3 % OFD: 97 mm HC: 265.4 mm G.Age: 28w 6d 10 % AC: 274.3 mm G.Age: 31w 4d 94 % FL: 59.1 mm G.Age: 30w 6d 78 % HUM: 50.9 mm G.Age: 29w 6d 56 % CER: 36 mm G.Age: 30w 0d 66 % LV: 5.5 mm TIB: 48.3 mm G.Age: 29w 1d 47 % CI: 70.5 % 70 - 86 FL/HC: 22.3 % 19.6 - 20.8 HC/AC: 0.97 0.99 - 1.21 FL/BPD: 86.4 % 71 - 87 FL/AC: 21.5 % 20 - 24 Est. FW: 1620 gm 3 lb 9 oz 85 % OB HISTORY: : 1 GESTATIONAL AGE: LMP: 29w 2d Date: 10/06/20 MARIANA: 07/13/21 U/S Today: 29w 5d MARIANA: 07/10/21 Best: 29w 2d Det. By: LMP (10/06/20) MARIANA: 07/13/21 TARGETED ANATOMY: Central Nervous System Calvarium/Cranial V.: Appears normal Cavum: Appears normal Lateral Ventricles: Appears normal Choroid Plexus: Previously seen Cereb./Vermis: Previously seen Cisterna Magna: Previously seen Midline Falx: Previously seen Spine Cervical: Previously seen Thoracic: Previously seen Lumbar: Previously seen Sacral: Previously seen Shape/Curvature: Previously seen Head/Neck Face: Previously seen Lips: Previously seen Neck: Previously seen Nuchal Fold: Not evaluated d/t GA Nasal Bone: Previously seen Profile: Appears normal Orbits/Eyes: Previously seen Mandible: Previously seen Maxilla: Previously seen Thorax Thoracic Contour: Appears normal Lungs: Appears normal 4 Chamber View: Appears normal Cardiac Motion: Appears normal Cardiac Rhythm: Normal Rt Outflow Tract: Appears normal Lt Outflow Tract: Previously seen Aortic Arch: Previously seen Ductal Arch: Previously seen SVC: Previously seen Cardiac [place]: Previously seen Diaphragm: Previously seen 3 Vessel View: Previously seen IVC: Previously seen Crossing: Appears normal Abdomen Ventral Wall: Previously seen Cord Insertion: Previously seen Situs: Appears normal Stomach: Appears normal Lt Kidney: Appears normal Rt Kidney: Appears normal Bladder: Appears normal Extremities Lt Humerus: Previously seen Rt Humerus: Previously seen Lt Forearm: Previously seen Rt Forearm: Previously seen Lt Hand: Appears normal Rt Hand: Previously seen Lt Femur: Previously seen Rt Femur: Previously seen Lt Lower Leg: Previously seen Rt Lower Leg: Previously seen Lt Foot: Previously seen Rt Foot: Previously seen Other Umbilical Cord: Appears normal Genitalia: Previously seen CERVIX UTERUS ADNEXA: Cervix Normal appearance by abdominal scan Uterus Gravid uterus Left Ovary Size(cm) 3.54 x 2.57 x 1.4 Vol(ml): 6.67 Visualized Right Ovary Size(cm) 2.06 x 1.8 x 1.38 Vol(ml): 2.68 Visualized Adnexa No adnexal masses identified COMMENTS: 1. Ultrasound is not diagnostic for chromosomal abnormalities, will not detect all structural abnormalities, and is not diagnostic for genetic disorders even if multiple exams are performed during a given . 2. Images of optimal diagnostic quality could not be obtained. RECOMMENDATIONS: 1. Subsequent follow up or other follow up as clinically determined by primary OB provider unless otherwise specified by M. 2. Results forwarded to ordering provider so they can follow up with the patient as necessary. Janet Obando MD Electronically Signed Final Report 04/29/2021 12:07 Procedure Note Janet Obando MD - 04/29/2021 OBSTETRICS REPORT (Signed Final 04/29/2021 12:07) PATIENT INFO: ID #: [id number] : [birth year] (25 yrs)(F) Name: ALYSON BARTLETT Visit Date: 04/29/2021 09:52 JOEY PERFORMED BY: Performed By: Teagan Knowles [facility] Attending: Janet Obando MD Referred By: Joey Purdy MD Ref. Address: [address] [place] [address] Location: [facility] SERVICE(S) PROVIDED: OB Follow-up, 1 fetus [id number] INDICATIONS: Screening for follow-up survey Z36.2 Obesity in , antepartum O99.210 Supervision of other high risk , O09.90 antepartum FOB PCK VITAL SIGNS: Weight (lb): 239.6 Height: 5'2 BMI: 43.82 EVALUATION: Num Of Fetuses: 1 Heart Rate(bpm): 140 Cardiac Activity: Present & appears normal Presentation: Cephalic Placenta: Anterior, away from cervical os Amniotic Fluid ROLF FV: Subjectively within normal limits ROLF Sum(cm) %Tile Largest Pocket(cm) 10.7 18 4.75 RLQ(cm) LUQ(cm) LLQ(cm) 2.21 3.74 4.75 BIOMETRY: BPD: 68.4 mm G.Age: 27w 4d 3 % OFD: 97 mm HC: 265.4 mm G.Age: 28w 6d 10 % AC: 274.3 mm G.Age: 31w 4d 94 % FL: 59.1 mm G.Age: 30w 6d 78 % HUM: 50.9 mm G.Age: 29w 6d 56 % CER: 36 mm G.Age: 30w 0d 66 % LV: 5.5 mm TIB: 48.3 mm G.Age: 29w 1d 47 % CI: 70.5 % 70 - 86 FL/HC: 22.3 % 19.6 - 20.8 HC/AC: 0.97 0.99 - 1.21 FL/BPD: 86.4 % 71 - 87 FL/AC: 21.5 % 20 - 24 Est. FW: 1620 gm 3 lb 9 oz 85 % OB HISTORY: : 1 GESTATIONAL AGE: LMP: 29w 2d Date: 10/06/20 MARIANA: 07/13/21 U/S Today: 29w 5d MARIANA: 07/10/21 Best: 29w 2d Det. By: LMP (10/06/20) MARIANA: 07/13/21 TARGETED ANATOMY: Central Nervous System Calvarium/Cranial V.: Appears normal Cavum: Appears normal Lateral Ventricles: Appears normal Choroid Plexus: Previously seen Cereb./Vermis: Previously seen Cisterna Magna: Previously seen Midline Falx: Previously seen Spine Cervical: Previously seen Thoracic: Previously seen Lumbar: Previously seen Sacral: Previously seen Shape/Curvature: Previously seen Head/Neck Face: Previously seen Lips: Previously seen Neck: Previously seen Nuchal Fold: Not evaluated d/t GA Nasal Bone: Previously seen Profile: Appears normal Orbits/Eyes: Previously seen Mandible: Previously seen Maxilla: Previously seen Thorax Thoracic Contour: Appears normal Lungs: Appears normal 4 Chamber View: Appears normal Cardiac Motion: Appears normal Cardiac Rhythm: Normal Rt Outflow Tract: Appears normal Lt Outflow Tract: Previously seen Aortic Arch: Previously seen Ductal Arch: Previously seen SVC: Previously seen Cardiac [place]: Previously seen Diaphragm: Previously seen 3 Vessel View: Previously seen IVC: Previously seen Crossing: Appears normal Abdomen Ventral Wall: Previously seen Cord Insertion: Previously seen Situs: Appears normal Stomach: Appears normal Lt Kidney: Appears normal Rt Kidney: Appears normal Bladder: Appears normal Extremities Lt Humerus: Previously seen Rt Humerus: Previously seen Lt Forearm: Previously seen Rt Forearm: Previously seen Lt Hand: Appears normal Rt Hand: Previously seen Lt Femur: Previously seen Rt Femur: Previously seen Lt Lower Leg: Previously seen Rt Lower Leg: Previously seen Lt Foot: Previously seen Rt Foot: Previously seen Other Umbilical Cord: Appears normal Genitalia: Previously seen CERVIX UTERUS ADNEXA: Cervix Normal appearance by abdominal scan Uterus Gravid uterus Left Ovary Size(cm) 3.54 x 2.57 x 1.4 Vol(ml): 6.67 Visualized Right Ovary Size(cm) 2.06 x 1.8 x 1.38 Vol(ml): 2.68 Visualized Adnexa No adnexal masses identified COMMENTS: 1. Ultrasound is not diagnostic for chromosomal abnormalities, will not detect all structural abnormalities, and is not diagnostic for genetic disorders even if multiple exams are performed during a given . 2. Images of optimal diagnostic quality could not be obtained. RECOMMENDATIONS: 1. Subsequent follow up or other follow up as clinically determined by primary OB provider unless otherwise specified by MFM. 2. Results forwarded to ordering provider so they can follow up with the patient as necessary. Janet Obando MD Electronically Signed Final Report 04/29/2021 12:07 IMPRESSION: IMPRESSION: 1. Single intrauterine with expected interval growth from the previous ultrasound. 2. No sonographic evidence of gross structural abnormality disclosed. 3. Amniotic fluid volume assessment is normal. us Roshan Hoffmann MD [facility] ORDERABLES Final Resul t documented in this encounter Visit Diagnoses Diagnosis Family history of autosomal recessive polycystic kidney disease- Primary Family history of polycystic kidney Family history of heart murmur Obesity affecting in second trimester Family history of autosomal recessive polycystic kidney disease Family history of polycystic kidney Family history of heart murmur Obesity affecting in second trimester Encounter for other screening follow-up Obesity complicating , unspecified trimester Supervision of high risk , unspecified, unspecified trimester documented in this encounter Care Teams Ict Support And Test Engineers Relationship Specialty Start Date End Date Ja Pena MD PCP - General Family Medicine 03/03/21 documented as of this encounter
--- OUTSIDE RECORDS SUMMARY | 2025-05-12 09:20 | XMS_ITS | Encounter Summary ---
Author Organization [facility] Address [address] [place] [address] Care Team Providers Care Touch Up Worker Name Role Phone Ja Pena MD Primary Care Provider [phone] Encounter Details Date Type Department Care Team (Late Contact Info) Description 03/07/2024 Abstract [facility]va [facility]ER [address] [employer] [address] Juliet Perry LPN [address] [facility] [facility] Social History Tobacco Use Types Packs/Day Years [...] AM EST Office Visit [facility] [address] [employer] [place] [address] Jose Luis Jordan DO [address] [employer] [facility] [place] [id number] documented as of this encounter Goals Goal Patient Goal Type Associated Problems Recent Progress Patient-Stated? Author Reminders Care Plan OB Reminders No Open Scheduling, Background documented as of this encounter Visit Diagnoses Not on filedocumented in this encounter Additional Health Concerns Active Problems Noted Date Diagnosed Date OB Reminders 09/29/2023 documented as of this encounter Care Teams Touch Up Worker Relationship Specialty Start Date End Date Ja Pena MD PCP - General 04/29/23 documented as of this encounter
--- NOTE | 2025-05-12 09:38 | ED_ITS ---
HPI HPI - General Adult General Chief complaint: Wound/Laceration Stated complaint: LACERATION - FINGER Time Seen by Provider: 05/12/25 09:23 Source: patient Mode of arrival: walk-in Limitations: no limitations History of Present Illness HPI narrative: 29-year-old female presents to the emergency department for an injury to left index finger. She accidentally cut the tip of her finger with a razor blade just before coming into the emergency department. She states it was bleeding and she put pressure on it and now the gauze is stuck on it. No other injury was sustained. Last tetanus immunization was 4 years ago. Related Data Previous Rx's ?Medication ?Instructions ?Recorded ibuprofen 800 mg tablet 800 mg PO Q8H PRN pain 14 da ys #40 05/14/23 tabs Allergies Allergy/AdvReac Type Severity Reaction Status Date / Time No Known Drug Allergies Allergy Verified 05/12/25 09:17 Opioid HPI Opioid Management Most Recent Opioid Data: Last Pain Scale 6 03/11/24, 16:19 Ur Phencyclidine Scrn, (NEGATIVE) Negative , 23:08 Review of Systems ROS Narrative A ten point review of systems is negative except as noted above. [facility] (Updated 05/12/25 @ 09:37 by Kevin Sanderson MD) Normal vaginal delivery ?O80 - Encounter for full-term uncomplicated delivery (ICD-10) Surgical History (Updated 05/14/23 @ 06:45 by Blossom Nuñez) History of sinus surgery ?Z98.890 - Other specified postprocedural states (ICD-10) Family History (Updated 05/14/23 @ 06:43 by Blossom Nuñez) Other Family history of diabetes mellitus Family history of hypertension Social History (Updated 05/14/23 @ 06:44 by Blossom Nuñez) Within the past year, how often did you have a drink containing alcohol: monthly or less Within the past year, how many standard drinks containing alcohol did you have on a typical day: 1 or 2 Within the past year, how often did you have six or more drinks on one occasion: never Total score: 0 Score interpretation: A score less than 3 is consistent with normal alcohol consumption. Smoking status: Never smoker Non-prescribed substance use: denies use Previous occupational history: works in [employer] Known occupational exposures/hazards: No Highest level of school completed/degree received: Bachelor's degree Little interest or pleasure in doing things: not at all Feeling down, depressed, or hopeless: not at all Exam Narrative Exam Narrative: Nurses note and vital signs reviewed and patient is not hypoxic. General: The patient appears in no apparent distress. Patient is resting on cart. Skin: Warm, dry, no pallor noted. There is no rash noted. Head: Normocephalic, atraumatic Eye: Normal conjunctiva, no drainage Ears, Nose, Mouth, and Throat: oral mucosa is moist. Nares patent. Cardiovascular: Regular Rate and Rhythm Respiratory: Patient is in no distress, no accessory muscle use GI: Nontender Musculoskeletal: There is gauze on the left index finger. After soaking the gauze and saline it came right off. There is a small skin avulsion at the tip of her left index finger only. No current bleeding. The nail and nailbed are unaffected. No other wounds present. Neurological: Awake and alert Psychiatric: Cooperative Constitutional Vital Signs, click to edit/add: Last Vital Signs Temp 98.7 F 05/12/25 09:13 Pulse 81 05/12/25 09:13 Resp 18 05/12/25 09:13 BP 132/89 05/12/25 09:13 Pulse Ox 99 05/12/25 09:13 O2 Del Method Room Air 05/12/25 09:13 Course Vital Signs Vital signs: Vital Signs Temperature 98.7 F 05/12/25 09:13 Pulse Rate 81 05/12/25 09:13 Respiratory Rate 18 05/12/25 09:13 Blood Pressure 132/89 05/12/25 09:13 Pulse Oximetry 99 05/12/25 09:13 Oxygen Delivery Method Room Air 05/12/25 09:13 Temperature 98.7 F 05/12/25 09:13 Pulse Rate 81 05/12/25 09:13 Respiratory Rate 18 05/12/25 09:13 Blood Pressure 132/89 05/12/25 09:13 Pulse Oximetry 99 05/12/25 09:13 Oxygen Delivery Method Room Air 05/12/25 09:13 Medical Decision Making MDM Narrative Medical decision making narrative: No sutures are indicated. Gelfoam and tube gauze applied, application checked by me and found to be appropriate, she is neurovascularly intact. Tetanus is already up-to-date. She will leave the tube gauze on for 48 hours and remove and apply bandage daily. Treatment diagnosis and follow-up were discussed with the patient. Differential Diagnosis Differential Diagnosis: Skin avulsion, laceration Discharge Plan Discharge Chief Complaint: Wound/Laceration Clinical Impression: Avulsion of skin of finger Patient Disposition: Home, Self-Care Time of Disposition Decision: 09:37 Condition: Good Mode of Transportation: Private Vehicle Prescriptions / Home Meds: No Action ibuprofen 800 mg tablet 800 mg PO Q8H PRN (Reason: pain) 14 Days Qty: 40 0RF Print Language: Hungarian Instructions: Skin Avulsion (ED) Additional Instructions: Remove tube gauze on for 48 hours. Remove and apply bandage daily Referrals: Ja Pena MD [Primary Care Provider, Family Practice] - 1 week
[2025-05-12] MEDS: SURGIFOAM GEL SPONGE SIZE 100 1 EACH TOPICAL (09:57)
== END 2025-05-12 09:57 | disposition home or self-care (01) ==
PROVIDERS: Emergency Provider Emergency Medicine; PCP Family Medicine
DX: S61.201A Unspecified open wound of left index finger without damage to nail, initial encounter (principal); W45.8XXA Other foreign body or object entering through skin, initial encounter
CPT/HCPCS: 99282